=== PATIENT | male | born 1950 | race African-American/Black ===

== ENCOUNTER 2017-05-05 00:05 | Inpatient (IN) | payer MEDICAID, OTHER ==
[~2017-05-05] VITALS: Ht 177.8 cm; Wt 92.5 kg
--- NOTE | 2017-05-05 00:15 | ERA ---
ER Documentation Chief Complaint Date/Time DATE: 05/05/17 TIME: 00:14 Chief Complaint BIBBess [id number] from home c/o lower back spasm,verbalized unable to ambulate HPI The patient is a 66-year-old male, presenting to the ER because of acute back spasm, unable to ambulate according to him. He has history of chronic lower back pain but the pain is worse tonight. He is a very poor historian only once to sleep. He denies headache, neck pain, chest pain, abdominal pain, vomiting, dysuria, diarrhea, constipation, urinary or fecal incontinence. He does not want to answer questions but only once to sleep Past medical history: Diabetes mellitus, chronic low back pain Past surgical history/social history/review of system: Unable to obtain because patient did not cooperate ROS All systems reviewed and are negative except as per history of present illness. Medications Home Meds No Active Prescriptions or Reported Meds Allergies Allergies: Coded Allergies: aspirin (Verified Allergy, Unknown, hives, 05/05/17) Physical Exam Vitals Vital Signs Date Time Temp Pulse Resp B/P Pulse Ox O2 Delivery O2 Flow Rate FiO2 05/05/17 01:46 92 18 158/89 98 Room Air 05/05/17 00:08 98.2 106 18 144/80 99 Physical Exam Const: No acute distress. Head: Atraumatic. Eyes: Normal Conjunctiva. ENT: Normal External Ears, Nose and Mouth. Neck: Full range of motion. No meningismus. Resp: Clear to auscultation bilaterally. Cardio: Regular rate and rhythm. Abd: Soft, non distended, normal bowel sounds, non tender. Skin: No petechiae or rashes. Back: No midline or flank tenderness. Ext: Bilateral lower extremity edema, mild bilateral calf tenderness, left ankle monitor Neur: Limited due to his condition Psych: Limited to his condition. Result Diagram: 05/05/17 0050 05/05/17 0050 Results 24 hrs Laboratory Tests Test 05/05/17 00:50 05/05/17 01:50 05/05/17 02:40 White Blood Count 5.610^3/ul Red Blood Count 3.9310^6/ul Hemoglobin 11.7g/dl Hematocrit 36.3% Mean Corpuscular Volume 92.4fl Mean Corpuscular Hemoglobin 29.8pg Mean Corpuscular Hemoglobin Concent 32.2g/dl Red Cell Distribution Width 15.7% Platelet Count 94283^3/UL Mean Platelet Volume 10.6fl Neutrophils % 37.9% Lymphocytes % 45.2% Monocytes % 10.6% Eosinophils % 5.4% Basophils % 0.7% Nucleated Red Blood Cells % 0.0/100WBC Neutrophils # 2.110^3/ul Lymphocytes # 2.510^3/ul Monocytes # 0.610^3/ul Eosinophils # 0.310^3/ul Basophils # 0.010^3/ul Nucleated Red Blood Cells # 0.010^3/ul Prothrombin Time 16.3Sec Prothrombin Time Ratio 1.3 INR International Normalized Ratio 1.30 Activated Partial Thromboplast Time 30.4Sec Sodium Level 142mmol/L Potassium Level 3.6mmol/L Chloride Level 110mmol/L Carbon Dioxide Level 25mmol/L Anion Gap 11 Blood Urea Nitrogen 9mg/dl Creatinine 0.81mg/dl Glucose Level 132mg/dl Lactic Acid Level 1.9mmol/L 1.9mmol/L Calcium Level 8.8mg/dl Magnesium Level 1.7mg/dl Total Bilirubin 0.4mg/dl Direct Bilirubin 0.00mg/dl Indirect Bilirubin 0.4mg/dl Aspartate Amino Transf (AST/SGOT) 59IU/L Alanine Aminotransferase (ALT/SGPT) 54IU/L Alkaline Phosphatase 117IU/L Ammonia 24umol/l Troponin I < 0.012ng/ml Total Protein 7.1g/dl Albumin 3.3g/dl Globulin 3.80g/dl Albumin/Globulin Ratio 0.86 Thyroid Stimulating Hormone (TSH) 0.660MIU/L Ethyl Alcohol Level < 10.0mg/dl Urine Color YELLOW Urine Clarity CLEAR Urine pH 7.0 Urine Specific [place] 1.011 Urine Ketones NEGATIVEmg/dL Urine Nitrite NEGATIVEmg/dL Urine Bilirubin NEGATIVEmg/dL Urine Urobilinogen 2+mg/dL Urine Leukocyte Esterase NEGATIVELeu/ul Urine Hemoglobin NEGATIVEmg/dL Urine Glucose NEGATIVEmg/dL Urine Total Protein NEGATIVEmg/dl Urine Opiates Screen Negative Urine Barbiturates Negative Urine Amphetamines Screen Negative Urine Benzodiazepines Screen Negative Urine Cocaine Screen Negative Urine Cannabinoids Negative B-Type Natriuretic Peptide 70PG/ML Current Medications Medications (Trade) Dose Ordered Sig/Dolores Route PRN Reason Start Time Stop Time Status Last Admin Dose Admin Morphine Sulfate (morphine) 2 mg ONCE ONCE IV 05/05/17 02:41 05/05/17 02:42 DC 05/05/17 02:51 Ondansetron HCl 4 mg 4 mg ONCE ONCE IV 05/05/17 02:41 05/05/17 02:42 DC 05/05/17 02:50 Vancomycin HCl (Vancocin) 250 ml @ 125 mls/hr ONCE IVPB 05/05/17 02:41 05/05/17 04:40 Cefepime HCl 1 mg 1 mg NOW STAT IV* 05/05/17 02:30 05/05/17 02:42 DC Cefepime HCl (Maxipime 1gm/50 ml (Pmx)) 50 ml @ 100 mls/hr ONCE ONCE IVPB 05/05/17 02:43 05/05/17 03:12 DC 05/05/17 02:50 Procedures/MDM [place] [address] Radiology Main Line: [phone] DIAGNOSTIC IMAGING REPORT Patient: CINDY LIZAMA : 1950 Age: 66 Sex: M MR #: [id number] DOS: 05/05/17 0023 Ordering MD: ITZEL SPANGLER MD Location: E/R Room/Bed: PROCEDURE: CT Lumbar Spine. CLINICAL INDICATION: Back pain TECHNIQUE: The study was performed on a multidetector CT scanner. Spiral axial 1 mm images were obtained through the lumbar spine and reformatted at 2.5 mm slice thickness. Sagittal and coronal reformations were created from the raw axial data. The images were reviewed on a PACS workstation. The administered radiation dose was CTDI vol = 30.84 mGy, DLP = 1118.38 mGy-cm. One or more the following dose reduction techniques were utilized: Automated exposure control, adjustment of the mA and / or kV according to patient's size, or use of iterative reconstruction technique. COMPARISON: No prior studies are available for comparison. FINDINGS: The heights of the lumbar vertebral bodies appear to be maintained. The lumbar segments are aligned. Mild curvature of the lumbar spine with convexity to the left. At L1-2 there is disk space narrowing, vertebral body osteophyte formation, vacuum disk phenomenon, Schmorl's nodes, diffuse disk bulge, facet and ligamentum flavum hypertrophy, moderate to severe right foraminal stenosis and moderate to severe left foraminal stenosis. At L2-3 there is disk space narrowing, vertebral body osteophyte formation, vacuum disk phenomenon, Schmorl's nodes, endplate sclerosis, diffuse disk bulge , facet and ligamentum flavum hypertrophy and mild central spinal stenosis and moderate to severe right foraminal stenosis and mild to moderate left foraminal stenosis. At L3-4 there is approximate 1 mm anterior displacement of L3 vertebral body on L4, diffuse disk bulge, facet and ligamentum flavum hypertrophy, moderate central spinal stenosis and moderate foraminal stenosis bilaterally. At L4-5 there is disk space narrowing, endplate sclerosis, Schmorl's nodes, vertebral body osteophyte formation, diffuse disk bulge, appearance of moderately large left posterior and foraminal disk protrusion, facet and ligamentum flavum hypertrophy, moderate right foraminal stenosis and severe left foraminal stenosis and moderate to severe central spinal stenosis. At L5-S1 there is disk space narrowing, endplate sclerosis, Schmorl's nodes, vertebral body osteophyte formation, diffuse disk bulge, moderate to severe left foraminal stenosis and severe right foraminal stenosis. Degenerative changes at sacroiliac joints. Calcification in abdominal aorta and iliac arteries. Likely left renal cysts. 8 mm linear calcification left posterior bladder wall. IMPRESSION: Lumbar spondylosis. Please see detailed findings at each level above. Moderately large left posterior and foraminal L4-5 disk protrusion. Moderate to severe central spinal stenosis at L4-5. Moderate central spinal stenosis at L3-4. Severe left foraminal stenosis at L4-5, severe right foraminal stenosis at L5-S1 and moderate to severe foraminal stenosis at multiple levels as described above. RPTAT: HJES .Mitchel Ricardo MD, MD Date Time Electronically viewed and signed by .Mitchel Ricardo MD, MD on 05/05/2017 02:36 .S/ CC: ITZEL SPANGLER MD [place] [address] Radiology Main Line: [phone] DIAGNOSTIC IMAGING REPORT Patient: CINDY LIZAMA : 1950 Age: 66 Sex: M MR #: [id number] DOS: 05/05/17 002 Ordering MD: ITZEL SPANGLER MD Location: E/R Room/Bed: PROCEDURE: US bilateral lower extremity venous Doppler CLINICAL INDICATION: Bilateral swelling TECHNIQUE: Multiple sonographic images of the bilateral lower extremity deep venous system was obtained utilizing grayscale, color-flow, compressive sonography and Doppler imaging with augmentation. COMPARISON: There are no similar studies submitted for comparison. FINDINGS: There is normal compressibility and flow within the bilateral common and superficial femoral veins as well as the posterior tibial veins. The popliteal and peroneal veins are not well visualized due to limitations from body habitus. IMPRESSION: No evidence of DVT within the lower extremities. Nonvisualization of the popliteal and peroneal veins due to limitations from body habitus. RPTAT: HIKT .Darryl Adhikari MD, MD Date Time Electronically viewed and signed by .Darryl Adhikari MD, MD on 05/05/2017 01:26 .T/ CC: ITZEL SPANGLER MD [place] [address] Radiology Main Line: [phone] DIAGNOSTIC IMAGING REPORT Patient: CINDY LIZAMA : 1950 Age: 66 Sex: M MR #: [id number] DOS: 05/05/17 002 Ordering MD: ITZEL SPANGLER MD Location: E/R Room/Bed: PROCEDURE: XR Chest. CLINICAL INDICATION: Possible sepsis. TECHNIQUE: Single frontal view of the chest. COMPARISON: None. FINDINGS: Cardiomegaly. Pulmonary vascular congestion and bilateral patchy air space disease at lung bases with fluid versus atelectasis in the region of the horizontal fissure. Airspace disease is greater at the medial right lung base, perhaps representing pneumonia in setting of sepsis. Otherwise, no definite pleural effusions identified. No signs of pneumothorax are seen. The osseous structures and soft tissues are unremarkable. IMPRESSION: 1. Pulmonary vascular ingestion cardiomegaly. 2. Bilateral lung base air space disease, greater at the medial right lung base , perhaps representing a degree of pneumonia. 3. Fluid in the horizontal fissure versus atelectasis. RPTAT: UU Physician Silvia Date Time Electronically viewed and signed by Clark Sheppard Physician on 05/05/2017 02:08 RS/ CC: ITZEL SPANGLER MD EKG: Read by emergency physician Rate/Rhythm: Normal Sinus Rhythm 87 beats/min QRS, ST, T-waves: No ST elevation, no T inversion, sinus arrhythmia, PVC Impression: Abnormal EKG MEDICAL MAKING DECISION: The patient is 66-year-old male, presenting with acute pneumonia, acute disc protrusion. Since the patient has left ankle monitor on his left lower extremity and is a very poor historian, I will treat him with vancomycin IV and cefepime IV for acute pneumonia. He was treated with morphine 2 mg IV for pain, Zofran 4 mg IV for nausea with good response The differential diagnoses for acute pneumonia considered include but are not limited to asthma, COPD, pneumonia, pulmonary embolus, pleural effusion, congestive heart failure. The differential diagnoses for acute disc protrusion considered include but are not limited to caudal equina syndrome, spinal abscess, DJD, diskitis, lumbar radiculopathy. Departure Diagnosis: Primary Impression: Pneumonia Additional Impressions: Protrusion of lumbar intervertebral disc Anemia Acute exacerbation of chronic low back pain Condition: Stable Comments I discussed the findings with the patient. I discussed the patient with the on- call hospitalist Dr. Angel who was made aware of the lab, the treatment, the patient condition. The patient is admitted to [facility] at 3:15 AM The patient's blood pressure was elevated (>120/80) but appears stable without evidence of hypertension emergency or urgency. The patient was counseled about the risks of hypertension and urged to pursue outpatient monitoring and therapy within a week with their primary care physician. ITZEL SPANGLER MD May 05, 2017 00:15
[2017-05-05 01:02] LABS: ADD SCAN DIFF NO
[2017-05-05 01:11] LABS: BASOPHILS % 0.7 % (0.0-2.0); EOSINOPHILS # 0.3 10^3/ul (0.0-0.5); EOSINOPHILS % 5.4 % (0.0-7.0); HEMATOCRIT 36.3 % (42.0-52.0); HEMOGLOBIN 11.7 g/dl (14.0-18.0); LYMPHOCYTES # 2.5 10^3/ul (0.8-2.9); LYMPHOCYTES % 45.2 % (15.0-51.0); MEAN CORPUSCULAR HEMOGLOBIN 29.8 pg (29.0-33.0); MEAN CORPUSCULAR HGB CONC 32.2 g/dl (32.0-37.0); MEAN CORPUSCULAR VOLUME 92.4 fl (82.0-101.0); MEAN PLATELET VOLUME 10.6 fl (7.4-10.4); MONOCYTE # 0.6 10^3/ul (0.3-0.9); MONOCYTES % 10.6 % (0.0-11.0); NEUTROPHIL # 2.1 10^3/ul (1.6-7.5); NEUTROPHILS % 37.9 % (39.0-77.0); PLATELET COUNT 187 10^3/UL (140-415); RED BLOOD COUNT 3.93 10^6/ul (4.70-6.10); RED CELL DISTRIBUTION WIDTH 15.7 % (11.5-14.5); WHITE BLOOD COUNT 5.6 10^3/ul (4.8-10.8)
[2017-05-05 01:26] LABS: INR 1.3; PROTIME 16.3 Sec (12.2-14.2); PT RATIO 1.3
--- NOTE | 2017-05-05 01:26 | RADRPT ---
PROCEDURE: US bilateral lower extremity venous Doppler CLINICAL INDICATION: Bilateral swelling TECHNIQUE: Multiple sonographic images of the bilateral lower extremity deep venous system was obt ained utilizing grayscale, color-flow, compressive sonography and Doppler imaging with augmentation. COMPARISON: There are no similar studies submitted for comparison. FINDINGS: There is normal compressibility and flow within the bilateral common and superficial femoral veins a s well as the posterior tibial veins. The popliteal and peroneal veins are not well visualized due to limitations from body habitus. IMPRESSION: No evidence of DVT within the lower extremities. Nonvisualization of the popliteal and peroneal vein s due to limitations from body habitus. RPTAT: HIKT .Darryl Adhikari MD, MD Date Time Electronically viewed and signed by .Darryl Adhikari MD, on 05/05/2017 01:26 .T/
[2017-05-05 01:27] LABS: PARTIAL THROMBOPLASTIN TIME 30.4 Sec (25.0-35.0)
[2017-05-05 01:30] LABS: ALANINE AMINOTRANSFERASE 54 IU/L (13-69); ALBUMIN 3.3 g/dl (3.3-4.9); ALBUMIN/GLOBULIN RATIO 0.86; ALKALINE PHOSPHATASE 117 IU/L (42-121); ANION GAP 11 (8-16); ASPARTATE AMINO TRANSFERASE 59 IU/L (15-46); BILIRUBIN,INDIRECT 0.4 mg/dl (0-1.1); BILIRUBIN,TOTAL 0.4 mg/dl (0.2-1.3); BLOOD UREA NITROGEN 9 mg/dl (7-20); CALCIUM 8.8 mg/dl (8.4-10.2); CARBON DIOXIDE 25 mmol/L (21-31); CHLORIDE 110 mmol/L (97-110); CREATININE 0.81 mg/dl (0.61-1.24); GLUCOSE 132 mg/dl (70-220); POTASSIUM 3.6 mmol/L (3.5-5.1); SODIUM 142 mmol/L (135-144); TOTAL PROTEIN 7.1 g/dl (6.1-8.1)
[2017-05-05 01:33] LABS: LACTIC ACID 1.9 mmol/L (0.5-2.2)
[2017-05-05 01:43] LABS: ETHANOL < 10.0 mg/dl
[2017-05-05 02:00] LABS: TROPONIN-I < 0.012 ng/ml (0.00-0.12)
--- NOTE | 2017-05-05 02:08 | RADRPT ---
PROCEDURE: XR Chest. CLINICAL INDICATION: Possible sepsis. TECHNIQUE: Single frontal view of the chest. COMPARISON: None. FINDINGS: Cardiomegaly. Pulmonary vascular congestion and bilateral patchy air space disease at lung bases wit h fluid versus atelectasis in the region of the horizontal fissure. Airspace disease is greater at the medial right lung base, perhaps representing pneumonia in setting of sepsis. Otherwise, no defi nite pleural effusions identified. No signs of pneumothorax are seen. The osseous structures and sof t tissues are unremarkable. IMPRESSION: 1. Pulmonary vascular ingestion cardiomegaly. 2. Bilateral lung base air space disease, greater at the medial right lung base, perhaps representi ng a degree of pneumonia. 3. Fluid in the horizontal fissure versus atelectasis. RPTAT: UU Physician Silvia Date Time Electronically viewed and signed by Physician Silvia on 05/05/2017 02:08 RS/
[2017-05-05 02:09] LABS: ADD UMIC NO; UR ASCORBIC ACID NEGATIVE (NEGATIVE); UR BILIRUBIN (Dip) NEGATIVE (NEGATIVE); UR BLOOD (Dip) NEGATIVE (NEGATIVE); UR CLARITY CLEAR (CLEAR); UR COLOR YELLOW (YELLOW); UR GLUCOSE (Dip) NEGATIVE (NEGATIVE); UR KETONES (Dip) NEGATIVE (NEGATIVE); UR LEUKOCYTE ESTERASE (Dip) NEGATIVE Leu/ul (NEGATIVE); UR NITRITE (Dip) NEGATIVE (NEGATIVE); UR SPECIFIC GRAVITY (Dip) 1.011 (1.003-1.030); UR TOTAL PROTEIN (Dip) NEGATIVE (NEGATIVE); UR UROBILINOGEN (Dip) 2+ mg/dL (NEGATIVE)
[2017-05-05 02:13] LABS: CANNABINOIDS Negative (NEGATIVE)
[2017-05-05 02:16] LABS: BARBITURATES Negative (NEGATIVE); BENZODIAZEPINES Negative (NEGATIVE); COCAINE Negative (NEGATIVE); OPIATES Negative (NEGATIVE)
[2017-05-05] MEDS ORDERED: CEFEPIME HCL (40 MG/ML) IV SYG IV* STA (02:30)
--- NOTE | 2017-05-05 02:37 | RADRPT ---
PROCEDURE: CT Lumbar Spine. CLINICAL INDICATION: Back pain TECHNIQUE: The study was performed on a multidetector CT scanner. Spiral axial 1 mm images were o btained through the lumbar spine and reformatted at 2.5 mm slice thickness. Sagittal and coronal ref ormations were created from the raw axial data. The images were reviewed on a PACS workstation. The administered radiation dose was CTDI vol = 30.84 mGy, DLP = 1118.38 mGy-cm. One or more the following dose reduction techniques were utilized: Automated exposure control, adjus tment of the mA and / or kV according to patient's size, or use of iterative reconstruction techniqu e. COMPARISON: No prior studies are available for comparison. FINDINGS: The heights of the lumbar vertebral bodies appear to be maintained. The lumbar segments are aligned . Mild curvature of the lumbar spine with convexity to the left. At L1-2 there is disk space narrowing, vertebral body osteophyte formation, vacuum disk phenomenon, Schmorl's nodes, diffuse disk bulge, facet and ligamentum flavum hypertrophy, moderate to severe rig ht foraminal stenosis and moderate to severe left foraminal stenosis. At L2-3 there is disk space narrowing, vertebral body osteophyte formation, vacuum disk phenomenon, Schmorl's nodes, endplate sclerosis, diffuse disk bulge, facet and ligamentum flavum hypertrophy and mild central spinal stenosis and moderate to severe right foraminal stenosis and mild to moderate l eft foraminal stenosis. At L3-4 there is approximate 1 mm anterior displacement of L3 vertebral body on L4, diffuse disk bul ge, facet and ligamentum flavum hypertrophy, moderate central spinal stenosis and moderate foraminal stenosis bilaterally. At L4-5 there is disk space narrowing, endplate sclerosis, Schmorl's nodes, vertebral body osteophyt e formation, diffuse disk bulge, appearance of moderately large left posterior and foraminal disk pr otrusion, facet and ligamentum flavum hypertrophy, moderate right foraminal stenosis and severe left foraminal stenosis and moderate to severe central spinal stenosis. At L5-S1 there is disk space narrowing, endplate sclerosis, Schmorl's nodes, vertebral body osteophy te formation, diffuse disk bulge, moderate to severe left foraminal stenosis and severe right forami nal stenosis. Degenerative changes at sacroiliac joints. Calcification in abdominal aorta and iliac arteries. Rasheeda mao left renal cysts. 8 mm linear calcification left posterior bladder wall. IMPRESSION: Lumbar spondylosis. Please see detailed findings at each level above. Moderately large left posteri or and foraminal L4-5 disk protrusion. Moderate to severe central spinal stenosis at L4-5. Moderate central spinal stenosis at L3-4. Severe left foraminal stenosis at L4-5, severe right foraminal st enosis at L5-S1 and moderate to severe foraminal stenosis at multiple levels as described above. RPTAT: HJES .Mitchel Ricardo MD, Date Time Electronically viewed and signed by .Mitchel Ricardo MD, MD on 05/05/2017 02:36 .S/
[2017-05-05] MEDS ORDERED: VANCOMYCIN 1 GM (PMX) 250 ML IVPB SCH (02:41)
[2017-05-05] MEDS ORDERED: morphine 2 MG INJ IV ONE (02:41)
[2017-05-05] MEDS ORDERED: ONDANSETRON 4 MG INJ IV ONE (02:41)
[2017-05-05] MEDS ORDERED: CEFEPIME 1GM/50 ML (PMX) 50 ML IVPB ONE (02:43)
[2017-05-05 06:14] VITALS: Ht 177.8 cm; Wt 92.5 kg
[2017-05-05 07:30] VITALS: BP 143/94; PULSE 90; RESP 22
[2017-05-05] MEDS ORDERED: MAGNESIUM HYDROXIDE 30ML CUP PO PRN (07:30)
[2017-05-05] MEDS ORDERED: DOCUSATE SODIUM 100 MG CAP PO PRN (07:30)
[2017-05-05] MEDS ORDERED: HYDROCODONE/APAP (5/325) TAB PO PRN (07:30)
[2017-05-05] MEDS ORDERED: NACL 0.9% 3 ML SYG IV SCH (07:30)
[2017-05-05] MEDS ORDERED: ACETAMINOPHEN 325 MG TAB PO PRN (07:30)
[2017-05-05] MEDS ORDERED: ZOLPIDEM 5 MG TAB PO PRN (07:30)
[2017-05-05] MEDS ORDERED: ONDANSETRON 4 MG INJ IV PRN (07:30)
--- NOTE | 2017-05-05 07:57 | HP ---
DATE OF ADMISSION: 05/05/2017 TIME: 7:00 a.m. CHIEF COMPLAINT: Back pain. HISTORY OF PRESENT ILLNESS: The patient is a 66-year-old male with a reported history of chronic lo wer back pain, but had acute lower back spasms and was unable to ambulate. The patient is a poor hi storian and falls asleep very easily. In the ED he was denying any headache, chest pain, urinary inc ontinence or fecal incontinence. Even in the ED the patient was constantly going in and out of sleep . The patient reportedly has a past medical history of diabetes and chronic low back pain. Once aga in, not much history could be obtained from the patient as the patient is very lethargic. PAST MEDICAL HISTORY: Diabetes, chronic low back pain. PAST SURGICAL HISTORY: Unable to obtain secondary to patient's lethargic state. HOME MEDICATIONS: No active home medications reported. ALLERGIES: ASPIRIN. FAMILY HISTORY: Unknown. SOCIAL HISTORY: Unknown. Unable to obtain secondary to patient's poor mentation. REVIEW OF SYSTEMS: Unable to obtain secondary to patient's poor mentation. PHYSICAL EXAMINATION: VITAL SIGNS: Temperature is 98.2, pulse 95, respirations 22, BP is 143/93, saturation is 95% on jutsin m air. GENERAL: Very lethargic. HEENT: Normocephalic, atraumatic. LUNGS: Clear to auscultation. CARDIOVASCULAR: Regular rate and rhythm. ABDOMEN: Nondistended, nontender, soft. EXTREMITIES: No clubbing, cyanosis, or edema. LABORATORY: White count 12.6, hemoglobin 11.7, platelets are 187. Chemistry within normal limits. AST slightly elevated at 59. INR is 1.3. UA is within normal limits. U-tox is negative. DIAGNOSTICS: Lumbar spine CT shows lumbar spondylosis, moderately large left posterior foraminal L4 -5 disk protrusion, moderate to severe central canal stenosis at L4-L5, moderate central canal steno sis at L3-L4, severe left foraminal stenosis at L4-L5, severe right foraminal stenosis at L5-S1, mod erate to severe foraminal stenosis at multiple levels as described. Extremity venous study is negat brad for any DVTs within the lower extremities. Chest x-ray shows pulmonary vascular congestion, cardiomegaly, bilateral lung airspace disease, grea ter at the medial right lung base, perhaps representing pneumonia. Fluid in the horizontal fi ssure versus atelectasis. ASSESSMENT AND PLAN: 1. Acute on chronic back pain. The patient states he is unable to ambulate. Will get a PT evaluati on. The patient may benefit from a neurosurgical evaluation. 2. Acute versus chronic encephalopathy. The patient's baseline mentation is unknown. He is very l ethargic at this time. Unclear if he is taking a lot of pain medications. His U-tox is negative. There is no evidence of any sepsis. On her labs and vitals there is no indication for any antibiotic s. 3. Bilateral pulmonary opacities, possibly secondary to atelectasis. The patient is denying any co ugh. He has no evidence of sepsis on his labs. He is afebrile. No indication for antibiotics at t his time. 4. Prophylaxis. SCDs. Dictated By: CAMRON HILTON MD BS/NTS Conf#: [id number] DID#: [id number]
[2017-05-05] MEDS: D5W-0.45 NACL + KCL 20 MEQ 1,000 ML IV SCH ×2 (07:58→18:09)
[2017-05-05 08:00] VITALS: BP 143/94; RESP 22
[2017-05-05] MEDS: ENOXAPARIN 40 MG/0.4 ML SYG SC SCH (09:46)
[2017-05-05] MEDS ORDERED: GLUCAGON 1 MG INJ IM PRN (13:30)
[2017-05-05] MEDS ORDERED: GLUCOSE GEL 15 GRAM TUBE BUCCAL PRN (13:30)
[2017-05-05] MEDS ORDERED: DEXTROSE 50% 50 ML SYRINGE IV PRN ×2 (13:30)
[2017-05-05] MEDS ORDERED: GLUCOSE GEL 15 GRAM TUBE PO PRN ×2 (13:30)
[2017-05-05] MEDS: INSULIN ASPART [NOVOLOG] 3 ML PEN SC SCH ×2 (18:03→20:22)
[2017-05-05 19:58] VITALS: BP 151/78; RESP 18
[2017-05-05] MEDS: INSULIN GLARGINE [LANtus] 3 ML PEN SC SCH (20:23)
[2017-05-05] MEDS: morphine 2 MG INJ IV PRN (23:39)
[2017-05-06] MEDS: ACCU-CHEK XX SCH (02:14)
[2017-05-06] MEDS: D5W-0.45 NACL + KCL 20 MEQ 1,000 ML IV SCH ×5 (04:00→23:39)
[2017-05-06 06:06] LABS: ADD SCAN DIFF NO
[2017-05-06 06:13] LABS: BASOPHILS % 0.6 % (0.0-2.0); EOSINOPHILS # 0.2 10^3/ul (0.0-0.5); EOSINOPHILS % 3.5 % (0.0-7.0); HEMATOCRIT 34.1 % (42.0-52.0); HEMOGLOBIN 11.1 g/dl (14.0-18.0); LYMPHOCYTES # 2.6 10^3/ul (0.8-2.9); LYMPHOCYTES % 39.8 % (15.0-51.0); MEAN CORPUSCULAR HEMOGLOBIN 29.8 pg (29.0-33.0); MEAN CORPUSCULAR HGB CONC 32.6 g/dl (32.0-37.0); MEAN CORPUSCULAR VOLUME 91.7 fl (82.0-101.0); MEAN PLATELET VOLUME 10.6 fl (7.4-10.4); MONOCYTE # 0.6 10^3/ul (0.3-0.9); MONOCYTES % 8.9 % (0.0-11.0); NEUTROPHIL # 3.1 10^3/ul (1.6-7.5); NEUTROPHILS % 46.9 % (39.0-77.0); PLATELET COUNT 154 10^3/UL (140-415); RED BLOOD COUNT 3.72 10^6/ul (4.70-6.10); RED CELL DISTRIBUTION WIDTH 15.5 % (11.5-14.5); WHITE BLOOD COUNT 6.6 10^3/ul (4.8-10.8)
[2017-05-06 06:44] LABS: CALCIUM 8.5 mg/dl (8.4-10.2); CHOL/HDL RATIO 4.4 RATIO; CREATININE 0.73 mg/dl (0.61-1.24); MAGNESIUM 1.6 mg/dl (1.7-2.5); PHOSPHORUS 3.1 mg/dl (2.5-4.9); POTASSIUM 3.8 mmol/L (3.5-5.1)
[2017-05-06 06:57] LABS: T3 UPTAKE 37.7 % (23.5-40.5)
[2017-05-06] MEDS: INSULIN ASPART [NOVOLOG] 3 ML PEN SC SCH ×4 (07:59→20:57)
[2017-05-06 08:27] VITALS: BP 156/77; RESP 20
[2017-05-06] MEDS: morphine 2 MG INJ IV PRN (09:26)
[2017-05-06] MEDS: ENOXAPARIN 40 MG/0.4 ML SYG SC SCH (09:31)
[2017-05-06] MEDS ORDERED: PENDING SANTYL ORDER FOR WOUND CARE XX PRN (17:00)
[2017-05-06 19:52] VITALS: BP 158/83; RESP 18
[2017-05-06] MEDS: HYDROCODONE/APAP (5/325) TAB PO PRN (20:27)
[2017-05-06] MEDS: INSULIN GLARGINE [LANtus] 3 ML PEN SC SCH (20:32)
--- NOTE | 2017-05-06 22:55 | PN ---
Date/Time of Note Date/Time of Note DATE: 05/06/17 TIME: 22:42 Assessment/Plan VTE Prophylaxis VTE Prophylaxis Intervention: LMWH Lines/Catheters IV Catheter Type (from Nrsg): Peripheral IV Urinary Cath still in place: No Assessment/Plan Assessment/Plan IMPRESSION 1. Lumbar Stenosis and disc protrusion 2. Chronic Lower Back pain 3. Diabetes 4. Hypomagnesemia 5. Aggressive Behavior PLAN cont PT awaiting Neurosurg eval Insulin for diabetes replete Mag Subjective 24 Hr Interval Summary Free Text/Dictation pt not willing to talk saying he does not want to be bothered Exam/Review of Systems Vital Signs Vitals Vital Signs Date Time Temp Pulse Resp B/P Pulse Ox O2 Delivery O2 Flow Rate FiO2 05/06/17 19:52 98.7 93 18 158/83 99 05/05/17 18:15 Nasal Cannula 2.0 Intake and Output 05/05/17 05/05/17 05/06/17 14:59 22:59 06:59 Intake Total 1860 ml 1000 ml Output Total 550 ml Balance -550 ml 1860 ml 1000 ml Exam General: pt lying in bed in no acute distress. Did not allow me to do physical exam Results Result Diagram: 05/06/17 0541 05/06/17 0541 Results 24 hrs Laboratory Tests Test 05/06/17 02:08 05/06/17 05:41 05/06/17 07:57 05/06/17 12:01 Bedside Glucose 124 135 139 White Blood Count 6.6 Red Blood Count 3.72 L Hemoglobin 11.1 L Hematocrit 34.1 L Mean Corpuscular Volume 91.7 Mean Corpuscular Hemoglobin 29.8 Mean Corpuscular Hemoglobin Concent 32.6 Red Cell Distribution Width 15.5 H Platelet Count 154 Mean Platelet Volume 10.6 H Neutrophils % 46.9 Lymphocytes % 39.8 Monocytes % 8.9 Eosinophils % 3.5 Basophils % 0.6 Nucleated Red Blood Cells % 0.0 Neutrophils # 3.1 Lymphocytes # 2.6 Monocytes # 0.6 Eosinophils # 0.2 Basophils # 0.0 Nucleated Red Blood Cells # 0.0 Sodium Level 140 Potassium Level 3.8 Chloride Level 110 Carbon Dioxide Level 24 Anion Gap 10 Blood Urea Nitrogen 10 Creatinine 0.73 Glucose Level 173 Hemoglobin A1c 6.1 H Calcium Level 8.5 Phosphorus Level 3.1 Magnesium Level 1.6 L Triglycerides Level 69 Cholesterol Level 128 LDL Cholesterol, Calculated 85 HDL Cholesterol 29 L Cholesterol/HDL Ratio 4.4 Free Thyroxine Index 3.47 Thyroxine (T4) 9.2 Triiodothyronine (T3) Uptake 37.7 Test 05/06/17 18:00 05/06/17 20:29 Bedside Glucose 148 178 Medications Medications Current Medications Potassium Chloride/Dextrose/ Sod Cl (D5-1/2ns + KCl 20 Meq) 1,000 ml @ 100 mls/ hr Q10H IV Last administered on 05/06/17 09:26; Admin Dose 100 MLS/HR; Start 05/05/17 at 08:00 Ondansetron HCl (Zofran Inj) 4 mg Q6H PRN IV NAUSEA AND/OR VOMITING; Start at 07:30 Acetaminophen (Tylenol Tab) 650 mg Q6H PRN PO PAIN LEVEL 1-3 OR FEVER; Start at 07:30 Docusate Sodium (Colace) 100 mg Q12H PRN PO CONSTIPATION; Start 05/05/17 at 07: 30 Magnesium Hydroxide (Milk Of Mag) 30 ml DAILY PRN PO CONSTIPATION; Start at 07:30 Zolpidem Tartrate (Ambien) 5 mg QHS PRN PO SLEEP; Start 05/05/17 at 07:30 Enoxaparin Sodium (Lovenox) 40 mg DAILY SC Last administered on 05/06/17 09:31 ; Admin Dose 40 MG; Start 05/05/17 at 09:00 Insulin Glargine (Lantus) 10 unit DAILY@20 SC Last administered on 05/06/17 20 :32; Admin Dose 10 UNIT; Start 05/05/17 at 20:00 Diagnostic Test (Pha) (Accu-Chek) 1 ea 02 XX Last administered on 05/06/17 02: 14; Admin Dose 1 EA; Start 05/06/17 at 02:00 Miscellaneous Information 1 ea NOTE XX ; Start 05/05/17 at 13:30 Glucose (Glutose) 15 gm Q15M PRN PO DECREASED GLUCOSE; Start 05/05/17 at 13:30 Glucose (Glutose) 22.5 gm Q15M PRN PO DECREASED GLUCOSE; Start 05/05/17 at 13: 30 Dextrose (D50w Syringe) 25 ml Q15M PRN IV DECREASED GLUCOSE; Start 05/05/17 at 13:30 Dextrose (D50w Syringe) 50 ml Q15M PRN IV DECREASED GLUCOSE; Start 05/05/17 at 13:30 Glucagon (Glucagen) 1 mg Q15M PRN IM DECREASED GLUCOSE; Start 05/05/17 at 13:30 Glucose (Glutose) 15 gm Q15M PRN BUCCAL DECREASED GLUCOSE; Start 05/05/17 at 13 :30 Miscellaneous Information (Pending [facility] Order For Wound Care) This patient tran... PRN PRN XX WOUND CARE; Start 05/06/17 at 17:00 Morphine Sulfate (morphine) 4 mg Q4H PRN IV SEVERE PAIN LEVEL 7-10; Start 05/06 at 23:30 Acetaminophen/ Hydrocodone Bitart ([place] (5/325)) 2 tab Q6H PRN PO MODERATE PAIN LEVEL 4-6 Last administered on 05/06/17t 20:27; Admin Dose 2 TAB; Start at 20:30 LUKE HUNT MD May 06, 2017 22:55
[2017-05-06] MEDS ORDERED: MAGNESIUM SULFATE 2 GM/50 ML 50 ML IVPB ONE (23:00)
[2017-05-07] MEDS: ACCU-CHEK XX SCH (01:13)
[2017-05-07] MEDS ORDERED: HYDROCODONE/APAP (5/325) TAB PO PRN (01:30)
[2017-05-07] MEDS: HYDROCODONE/APAP (5/325) TAB PO PRN (04:25)
[2017-05-07 05:42] LABS: ADD SCAN DIFF NO
[2017-05-07 05:55] LABS: BASOPHIL # 0.1 10^3/ul (0.0-0.1); BASOPHILS % 0.8 % (0.0-2.0); EOSINOPHILS # 0.3 10^3/ul (0.0-0.5); EOSINOPHILS % 4.2 % (0.0-7.0); HEMATOCRIT 33.1 % (42.0-52.0); LYMPHOCYTES # 2.1 10^3/ul (0.8-2.9); LYMPHOCYTES % 35.4 % (15.0-51.0); MEAN CORPUSCULAR HEMOGLOBIN 30.2 pg (29.0-33.0); MEAN CORPUSCULAR HGB CONC 33.2 g/dl (32.0-37.0); MEAN CORPUSCULAR VOLUME 90.9 fl (82.0-101.0); MEAN PLATELET VOLUME 10.7 fl (7.4-10.4); MONOCYTE # 0.7 10^3/ul (0.3-0.9); MONOCYTES % 11.4 % (0.0-11.0); NEUTROPHIL # 2.9 10^3/ul (1.6-7.5); PLATELET COUNT 152 10^3/UL (140-415); RED BLOOD COUNT 3.64 10^6/ul (4.70-6.10); RED CELL DISTRIBUTION WIDTH 15.2 % (11.5-14.5)
[2017-05-07 06:31] LABS: ALBUMIN/GLOBULIN RATIO 0.88; BILIRUBIN,INDIRECT 0.5 mg/dl (0-1.1); BILIRUBIN,TOTAL 0.5 mg/dl (0.2-1.3); CALCIUM 8.3 mg/dl (8.4-10.2); CREATININE 0.71 mg/dl (0.61-1.24); MAGNESIUM 1.9 mg/dl (1.7-2.5); PHOSPHORUS 3.5 mg/dl (2.5-4.9); TOTAL PROTEIN 6.4 g/dl (6.1-8.1)
[2017-05-07 08:00] VITALS: BP 149/70; RESP 20
[2017-05-07] MEDS: INSULIN ASPART [NOVOLOG] 3 ML PEN SC SCH ×4 (08:15→20:43)
[2017-05-07] MEDS: morphine 2 MG INJ IV PRN ×4 (09:26→22:07)
[2017-05-07] MEDS: ENOXAPARIN 40 MG/0.4 ML SYG SC SCH (09:32)
[2017-05-07] MEDS: D5W-0.45 NACL + KCL 20 MEQ 1,000 ML IV SCH ×2 (10:00→19:24)
[2017-05-07 20:07] VITALS: BP 160/77; RESP 18
[2017-05-07] MEDS: INSULIN GLARGINE [LANtus] 3 ML PEN SC SCH (20:49)
[2017-05-07] MEDS: COLLAGENASE 30 GM TUBE TOP SCH (22:30)
[2017-05-08] MEDS: ACCU-CHEK XX SCH (01:41)
[2017-05-08] MEDS: morphine 2 MG INJ IV PRN ×3 (02:30→13:50)
[2017-05-08] MEDS: D5W-0.45 NACL + KCL 20 MEQ 1,000 ML IV SCH (05:59)
[2017-05-08] MEDS: INSULIN ASPART [NOVOLOG] 3 ML PEN SC SCH ×4 (07:59→20:35)
[2017-05-08 08:06] VITALS: BP 163/86; RESP 20
[2017-05-08] MEDS: COLLAGENASE 30 GM TUBE TOP SCH ×2 (09:07→16:22)
[2017-05-08] MEDS: ENOXAPARIN 40 MG/0.4 ML SYG SC SCH (09:12)
--- NOTE | 2017-05-08 15:40 | PN ---
Date/Time of Note Date/Time of Note DATE: 05/08/17 TIME: 15:36 Assessment/Plan VTE Prophylaxis VTE Prophylaxis Intervention: SCD's Lines/Catheters IV Catheter Type (from Nrsg): Peripheral IV Urinary Cath still in place: No Assessment/Plan Assessment/Plan 66 yo M with h/o alcohol abuse admitted for back pain. Imaging with lumbar spondylosis. No evidence of cauda equina syndrome based on lack of bowel/ bladder dysfunction. PLAN cont pain meds-->convert to PO arrange HH for sacral wound and PT outpatient NS f/u likely discharge tomorrow Subjective 24 Hr Interval Summary Free Text/Dictation Pt wondering when he'll be able to go his sober living facility. Pt does not report loretta loss of bladder or bowel control Exam/Review of Systems Vital Signs Vitals Vital Signs Date Time Temp Pulse Resp B/P Pulse Ox O2 Delivery O2 Flow Rate FiO2 05/08/17 08:06 98.8 93 20 163/86 97 05/05/17 18:15 Nasal Cannula 2.0 Intake and Output 05/07/17 05/07/17 05/08/17 15:00 23:00 07:00 Intake Total 2910 ml 1400 ml Output Total 5550 ml 1200 ml Balance -2640 ml 200 ml Exam sitting up in bed no mrg lungs clear abd soft sacral pressure wounds dressed Results Result Diagram: 05/07/17 0516 05/07/17 0516 Results 24 hrs Laboratory Tests Test 05/07/17 17:23 05/07/17 20:42 05/08/17 07:56 05/08/17 11:57 Bedside Glucose 137 162 153 95 Medications Medications Current Medications Ondansetron HCl (Zofran Inj) 4 mg Q6H PRN IV NAUSEA AND/OR VOMITING; Start at 07:30 Acetaminophen (Tylenol Tab) 650 mg Q6H PRN PO PAIN LEVEL 1-3 OR FEVER; Start at 07:30 Docusate Sodium (Colace) 100 mg Q12H PRN PO CONSTIPATION; Start 05/05/17 at 07: 30 Magnesium Hydroxide (Milk Of Mag) 30 ml DAILY PRN PO CONSTIPATION; Start at 07:30 Zolpidem Tartrate (Ambien) 5 mg QHS PRN PO SLEEP; Start 05/05/17 at 07:30 Enoxaparin Sodium (Lovenox) 40 mg DAILY SC Last administered on 05/08/17 09:12 ; Admin Dose 40 MG; Start 05/05/17 at 09:00 Insulin Glargine (Lantus) 10 unit DAILY@20 SC Last administered on 05/07/17 20 :49; Admin Dose 10 UNIT; Start 05/05/17 at 20:00 Diagnostic Test (Pha) (Accu-Chek) 1 ea 02 XX Last administered on 05/06/17 02: 14; Admin Dose 1 EA; Start 05/06/17 at 02:00 Miscellaneous Information 1 ea NOTE XX ; Start 05/05/17 at 13:30 Glucose (Glutose) 15 gm Q15M PRN PO DECREASED GLUCOSE; Start 05/05/17 at 13:30 Glucose (Glutose) 22.5 gm Q15M PRN PO DECREASED GLUCOSE; Start 05/05/17 at 13: 30 Dextrose (D50w Syringe) 25 ml Q15M PRN IV DECREASED GLUCOSE; Start 05/05/17 at 13:30 Dextrose (D50w Syringe) 50 ml Q15M PRN IV DECREASED GLUCOSE; Start 05/05/17 at 13:30 Glucagon (Glucagen) 1 mg Q15M PRN IM DECREASED GLUCOSE; Start 05/05/17 at 13:30 Glucose (Glutose) 15 gm Q15M PRN BUCCAL DECREASED GLUCOSE; Start 05/05/17 at 13 :30 Miscellaneous Information (Pending Santyl Order For Wound Care) This patient tran... PRN PRN XX WOUND CARE; Start 05/06/17 at 17:00 Morphine Sulfate (morphine) 4 mg Q4H PRN IV SEVERE PAIN LEVEL 7-10 Last administered on 05/08/17 13:50; Admin Dose 4 MG; Start 05/06/17 at 23:30 Acetaminophen/ Hydrocodone Bitart ([place] (5/325)) 2 tab Q6H PRN PO MODERATE PAIN LEVEL 4-6 Last administered on 05/07/17 04:25; Admin Dose 2 TAB; Start at 20:30 Collagenase (Santyl) 1 applic DAILY TOP ; Start 05/08/17 at 15:30 ERIC HORN MD May 08, 2017 15:40
[2017-05-08] MEDS ORDERED: HYDROCODONE/APAP (5/325) TAB PO PRN (16:00)
[2017-05-08] MEDS: traMADol 50 MG TAB PO PRN ×2 (18:14→23:35)
[2017-05-08 20:04] VITALS: BP 155/73; RESP 18
[2017-05-08] MEDS: INSULIN GLARGINE [LANtus] 3 ML PEN SC SCH (20:35)
[2017-05-08] MEDS ORDERED: NAPROXEN 250 MG TAB PO SCH (21:00)
[2017-05-09] MEDS: ACCU-CHEK XX SCH (01:03)
[2017-05-09 07:56] VITALS: BP 142/75; RESP 20
[2017-05-09] MEDS: INSULIN ASPART [NOVOLOG] 3 ML PEN SC SCH ×3 (08:15→17:25)
[2017-05-09] MEDS: COLLAGENASE 30 GM TUBE TOP SCH (09:59)
[2017-05-09] MEDS: ENOXAPARIN 40 MG/0.4 ML SYG SC SCH (10:13)
[2017-05-09] MEDS: traMADol 50 MG TAB PO PRN (10:43)
[2017-05-09] MEDS ORDERED: SAN30GM TOP (15:37)
--- NOTE | 2017-05-09 15:39 | PDOCDIS ---
Discharge Instructions CONDITION Patient Condition: Stable HOME CARE INSTRUCTIONS: Special Diet: Carb controlled ACTIVITY: Activity Restrictions: Slowly Increase Activity FOLLOW UP/APPOINTMENTS Follow-up Plan PCP within 7 days to follow up on your back pain ERIC HORN MD May 09, 2017 15:39
--- NOTE | 2017-05-09 15:40 | DS ---
Date/Time of Note Date/Time of Note DATE: 05/09/17 TIME: 15:39 Discharge Summary Admission/Discharge Info Admit Date/Time May 05, 2017 at 04:06 Discharge Date/Time Discharge Diagnosis back pain due to spinal stenosis Patient Condition: Stable Consults none Procedures 6.23 CT LSpine IMPRESSION: Lumbar spondylosis.e. Moderately large left posterior and foraminal L4-5 disk protrusion. Moderate to severe central spinal stenosis at L4-5. Moderate central spinal stenosis at L3-4. Severe left foraminal stenosis at L4-5, severe right foraminal stenosis at L5-S1 and moderate to severe foraminal stenosis at multiple levels as described above. 6.27 CT C spine 1. Severe multilevel degenerative disk and spondylitic changes resulting in varying degrees of foraminal stenosis from C3-C4 through C7-T1. No acute fracture or dislocation. 2. No paraspinal soft tissue abnormality. CT TSpine 1. No acute fracture or subluxation. 2. Multilevel degenerative disk and spondylitic changes from T3-T4 through T9- T10 resulting in moderate bilateral foraminal stenosis at T4-T5 and mild bilateral foraminal stenosis at T5-T6 without central canal stenosis. 3. Broad-based left subarticular disk osteophyte complex at T8-T9 resulting in severe left subarticular recess and foraminal stenosis without central canal or right foraminal stenosis. 4. Mild multilevel facet joint arthropathy. 5. No paraspinal soft tissue abnormality. Hx of Present Illness The patient is a 66-year-old male with a reported history of chronic lower back pain, but had acute lower back spasms and was unable to ambulate. The patient is a poor historian and falls asleep very easily. In the ED he was denying any headache, chest pain, urinary incontinence or fecal incontinence. Even in the ED the patient was constantly going in and out of sleep. The patient reportedly has a past medical history of diabetes and chronic low back pain. Once again, not much history could be obtained from the patient as the patient is very lethargic. Hospital Course Lumbar imaging with spinal stenosis. Pt denied any saddle anesthesia or decreased sensation therefore clinical scenario not consistent with cord compression. Pt seen by PT which advised SNF however pt refused. Neurosurgery eval also offered to patient to explore treatment options, pt refused this as well. Dw pt that it is possible that spinal stenosis can progress and result in permanent damage but pt still refused evaluation. Pain controlled with PO pain meds. Wound team consulted for sacral pressure wounds, santyl advised and rx. Of note, pt with occ hyperglycemia to 200s during his stay, however a1c only 6.1 indicative only of preDM therefore no compelling indication for patient to be discharge on insulin. Pt left AMA late evening 6.27 Home Meds Active Scripts Collagenase* (Santyl*) 30 Gm Oint..gm., 1 APPLIC TOP DAILY for 7 Days apply to buttock wounds Prov:ERIC HORN MD 05/09/17 Follow-up Plan PCP within 7 days Primary Care Provider Care Physician No Primary Time spent on discharge: > 30 minutes Pending Labs Laboratory Tests Test 05/08/17 16:35 05/08/17 17:07 05/08/17 20:32 05/09/17 08:15 Prostate Specific Antigen 0.5ng/ml (0.0-4.0) Bedside Glucose 93mg/dL (70-220) 142mg/dL (70-220) 93mg/dL (70-220) Test 05/09/17 12:12 Bedside Glucose 92mg/dL (70-220) ERIC HORN MD May 09, 2017 15:40
--- NOTE | 2017-05-09 16:14 | PN ---
Date/Time of Note Date/Time of Note DATE: 05/09/17 TIME: 16:13 Assessment/Plan VTE Prophylaxis VTE Prophylaxis Intervention: SCD's Lines/Catheters IV Catheter Type (from Nrsg): Peripheral IV Urinary Cath still in place: No Assessment/Plan Assessment/Plan Assessment/Plan 66 yo M with h/o alcohol abuse admitted for back pain Lumbar imaging with spinal stenosis. Pt denied any saddle anesthesia or decreased sensation therefore clinical scenario not consistent with cord compression. Pt seen by PT which advised SNF however pt refused. Neurosurgery eval also offered to patient to explore treatment options, pt refused this as well. Dw pt that it is possible that spinal stenosis can progress and result in permanent damage but pt still refused evaluation. Pain controlled with PO pain meds. Wound team consulted for sacral pressure wounds, roscoe advised and rx. Of note, pt with occ hyperglycemia to 200s during his stay, however a1c only 6.1 indicative only of preDM therefore no compelling indication for patient to be discharge on insulin. likely discharge tomorrow Subjective 24 Hr Interval Summary Free Text/Dictation Pt was going to be discharged today but 2/2 logistical constraints (ride availability) will be here until tomorrow Exam/Review of Systems Vital Signs Vitals Vital Signs Date Time Temp Pulse Resp B/P Pulse Ox O2 Delivery O2 Flow Rate FiO2 05/09/17 07:56 97.6 63 20 142/75 98 05/05/17 18:15 Nasal Cannula 2.0 Intake and Output 05/08/17 05/08/17 05/09/17 15:00 23:00 07:00 Intake Total 300 ml 2160 ml 620 ml Output Total 2950 ml 1800 ml Balance 300 ml -790 ml -1180 ml Exam nad sitting up in bed no mrg lungs clear abd soft no le edema Results Result Diagram: 05/07/17 0516 05/07/17 0516 Results 24 hrs Laboratory Tests Test 05/08/17 16:35 05/08/17 17:07 05/08/17 20:32 05/09/17 08:15 Prostate Specific Antigen 0.5 Bedside Glucose 93 142 93 Test 05/09/17 12:12 Bedside Glucose 92 Medications Medications Current Medications Ondansetron HCl (Zofran Inj) 4 mg Q6H PRN IV NAUSEA AND/OR VOMITING; Start at 07:30 Acetaminophen (Tylenol Tab) 650 mg Q6H PRN PO PAIN LEVEL 1-3 OR FEVER; Start at 07:30 Docusate Sodium (Colace) 100 mg Q12H PRN PO CONSTIPATION; Start 05/05/17 at 07: 30 Magnesium Hydroxide (Milk Of Mag) 30 ml DAILY PRN PO CONSTIPATION; Start at 07:30 Enoxaparin Sodium (Lovenox) 40 mg DAILY SC Last administered on 05/09/17 10:13 ; Admin Dose 40 MG; Start 05/05/17 at 09:00 Insulin Glargine (Lantus) 10 unit DAILY@20 SC Last administered on 05/08/17 20 :35; Admin Dose 10 UNIT; Start 05/05/17 at 20:00 Diagnostic Test (Pha) (Accu-Chek) 1 ea 02 XX Last administered on 05/06/17 02: 14; Admin Dose 1 EA; Start 05/06/17 at 02:00 Miscellaneous Information 1 ea NOTE XX ; Start 05/05/17 at 13:30 Glucose (Glutose) 15 gm Q15M PRN PO DECREASED GLUCOSE; Start 05/05/17 at 13:30 Glucose (Glutose) 22.5 gm Q15M PRN PO DECREASED GLUCOSE; Start 05/05/17 at 13: 30 Dextrose (D50w Syringe) 25 ml Q15M PRN IV DECREASED GLUCOSE; Start 05/05/17 at 13:30 Dextrose (D50w Syringe) 50 ml Q15M PRN IV DECREASED GLUCOSE; Start 05/05/17 at 13:30 Glucagon (Glucagen) 1 mg Q15M PRN IM DECREASED GLUCOSE; Start 05/05/17 at 13:30 Glucose (Glutose) 15 gm Q15M PRN BUCCAL DECREASED GLUCOSE; Start 05/05/17 at 13 :30 Miscellaneous Information (Pending Santyl Order For Wound Care) This patient tran... PRN PRN XX WOUND CARE; Start 05/06/17 at 17:00 Acetaminophen/ Hydrocodone Bitart ([place] (5/325)) 2 tab Q6H PRN PO MODERATE PAIN LEVEL 4-6 Last administered on 05/07/17 04:25; Admin Dose 2 TAB; Start at 20:30 Collagenase (Santyl) 1 applic DAILY TOP Last administered on 05/09/17 09:59; Admin Dose 1 APPLIC; Start 05/08/17 at 15:30 Acetaminophen/ Hydrocodone Bitart ([place] (5/325)) 1 tab Q6H PRN PO pain; Start 05/08/17 at 16:00 Tramadol HCl (Ultram) 50 mg Q6H PRN PO PAIN Last administered on 05/09/17 10: 43; Admin Dose 50 MG; Start 05/08/17 at 16:00 ERIC HORN MD May 09, 2017 16:14
--- NOTE | 2017-05-09 16:37 | RADRPT ---
PROCEDURE: CT Cervical Spine without contrast. CLINICAL INDICATION: Bilateral arm pain. TECHNIQUE: A CT of the cervical spine was performed on a CT scanner utilizing thin section axial images from the skull base through the thoracic inlet. Sagittal and coronal reformatted images were made. The CTDIvol is 22.21 mGy and the DLP is 464.74 mGycm. Automated exposure control, adjustment of the mA and/or kV according to patient size, use of iterative reconstruction technique. COMPARISON: No prior studies are available for comparison. FINDINGS: Straightening of the cervical spine. Advanced multilevel degenerative disk and endplate changes wit h subchondral sclerosis and some chondral cystic degenerative changes at multiple levels most pronou nced at C4-C5 through C6-C7. Degenerative changes of the atlanto-occipital articulation. No acute f racture or dislocation is evident. C2-3: The disc is normal in height. Moderate to severe hypertrophic left facet joint arthropathy. P artial fusion of the left articulating facet of C2 and C3 as well as left posterior lateral C2 and C 3 vertebral body. No significant disk bulge or protrusion is evident. There is no central canal sten osis or foraminal narrowing. C3-4: New moderate disk space narrowing with marked degenerative endplate sclerosis and irregularity . Anterior endplate spurring and posterior spondylitic ridging. Right uncovertebral joint hypertro phy with mild right foraminal stenosis. No left foraminal or central canal stenosis. No significant disk bulge or protrusion is evident. C4-5: Severe degenerative disk space narrowing, subchondral endplate sclerosis and cystic degenerati ve changes irregularity of the endplates. Prominent anterior endplate spurring and posterior spondy litic ridging. Anterolisthesis of C4 on C5 and disk osteophyte formation. Severe left and moderate right hypertrophic facet joint arthropathy with its marked degenerative changes and fragmentation of the left resulting in severe bilateral foraminal stenosis. No significant disk bulge or protrusion is evident. There is no central canal stenosis or foraminal narrowing. C5-6: Severe disk space narrowing, endplate sclerosis, and anterior endplate spurring. Posterior sp ondylitic ridging and bilateral neural joint hypertrophy disk osteophyte complex formation to severe bilateral hypertrophic facet joint arthropathy left greater than right. Results in severe right to and moderate to severe left foraminal stenosis without central No significant disk bulge or protru michelle is evident. C6-7: Marked disk space narrowing with anterior endplate spurring and posterior spondylitic ridging . Prominent uncovertebral joint hypertrophy and disk osteophyte complex formation. Mild bilateral facet joint arthropathy. This results in severe bilateral foraminal stenosis. No central canal sten osis. No significant disk bulge or protrusion is evident. C7-T1: Moderate disk space narrowing and posterior spondylitic ridging. No significant disk bulge or protrusion is evident. There is no central canal stenosis or foraminal narrowing. No paraspinal soft tissue abnormality. The lung apices are clear. IMPRESSION: 1. Severe multilevel degenerative disk and spondylitic changes resulting in varying degrees of dru inal stenosis from C3-C4 through C7-T1. No acute fracture or dislocation. 2. No paraspinal soft tissue abnormality. RPTAT:AAJJ Physician Nidhi Date Time Electronically viewed and signed by Physician Nidhi on 05/09/2017 16:37 ESTRELLA/
--- NOTE | 2017-05-09 16:55 | RADRPT ---
PROCEDURE: CT thoracic spine CLINICAL INDICATION: Bilateral arm pain TECHNIQUE: A CT of the thoracic spine was performed on a multidetector CT scanner utilizing high-r esolution axial imaging from the cervical thoracic junction through the thoracolumbar junction. Sag ittal, coronal, and multiplanar reformatted images were made. The CTDIvol is 23.85 mGy and the DLP i s 913.48 mGycm. One or more of the following dose reduction techniques were utilized: Automated exp osure control, adjustment of the mA and/or kV according to patient size, use of iterative reconstruc tion technique. COMPARISON: None. FINDINGS: The vertebral bodies are normal in height, density, and alignment. Dextroscoliosis with apex at T6. Multilevel anterolateral bridging osteophyte formation from T3-T4 through T9-T10 with multilevel dis k space narrowing and endplate sclerosis over these levels most pronounced involving the superior en dplate of T9 with Schmorl's node the formation and erosive changes of the superior endplate the with subchondral sclerosis. Posterior endplate spurring at T3-T4 through T8-T9 levels. This results in moderate bilateral dru inal stenosis at T4-T5 and mild bilateral foraminal stenosis at T5-T6 without central canal stenosis . Broad-based left subarticular disk osteophyte complex at T8-T9 measuring 6 mm in AP dimension result ing in severe left subarticular recess and foraminal stenosis. No central canal or right foraminal stenosis. Mild multilevel facet joint arthritis over the length of the thoracic spine . . The thoracic aorta is normal in caliber. The visualized intrathoracic and intra-abdominal contents are grossly unremark able.No evidence of rib fracture. IMPRESSION: 1. No acute fracture or subluxation. 2. Multilevel degenerative disk and spondylitic changes from T3-T4 through T9-T10 resulting in mode rate bilateral foraminal stenosis at T4-T5 and mild bilateral foraminal stenosis at T5-T6 without ce ntral canal stenosis. 3. Broad-based left subarticular disk osteophyte complex at T8-T9 resulting in severe left subartic ular recess and foraminal stenosis without central canal or right foraminal stenosis. 4. Mild multilevel facet joint arthropathy. 5. No paraspinal soft tissue abnormality. RPTAT:AAJJ Roddy Singh Physician Date Time Electronically viewed and signed by Roddy Singh Physician on 05/09/2017 16:54 ESTRELLA/
== END 2017-05-09 20:00 | disposition left against medical advice (07) | DRG 551 ==
LOC: E/R 00:05 → MS2 04:06
PROVIDERS: ADMIT Internal Medicine; ATTEND Internal Medicine
DX: M48.06 Spinal stenosis, lumbar region (principal); L89.153 Pressure ulcer of sacral region, stage 3; E83.42 Hypomagnesemia; M51.26 Other intervertebral disc displacement, lumbar region; M47.816 Spondylosis without myelopathy or radiculopathy, lumbar region; R73.03 Prediabetes; R53.83 Other fatigue; R46.89 Other symptoms and signs involving appearance and behavior
CPT/HCPCS: 36415; 71010; 72125; 72128; 72131; 80048; 80053; 80061; 80306; 80307; 81003; 82140; 82962; 83036; 83605; 83735; 83880; 84100; 84153; 84154; 84436; 84443; 84479; 84484; 85025; 85610; 85730; 87040; 87086; 93005; 93970; 96365; 96366; 96368; 96375; 97110; 97116; 97163; 97530; J0692; J1650; J1815; J2270; J2405; J3370; J3475; J3480; P9612

== ENCOUNTER 2017-05-09 21:34 | Emergency (ER) | payer SELFPAY ==
[~2017-05-09] VITALS: Ht 177.8 cm; Wt 85.0 kg
[~2017-05-09 21:34] MED LIST: SAN30GM TOP
[2017-05-09 21:45] VITALS: Ht 177.8 cm; Wt 85.0 kg
--- NOTE | 2017-05-09 23:25 | ERD ---
ER Documentation Chief Complaint Date/Time DATE: 05/09/17 TIME: 23:24 Chief Complaint back pain w/ hx- disk protrusion, AMA at 6th floor today this evening HPI 66-year-old male with a history of disposition is signed out AGAINST MEDICAL ADVICE 6 for today. He wants to recheck back in. Patient said he has back pain. No fevers no chills. No skeletal anesthesia. No other current issues. ROS All systems reviewed and are negative except as per history of present illness. Medications Home Meds Active Scripts Collagenase* (Santyl*) 30 Gm Oint..gm., 1 APPLIC TOP DAILY for 7 Days apply to buttock wounds Prov:ERIC HORN MD 05/09/17 Allergies Allergies: Coded Allergies: aspirin (Verified Allergy, Unknown, hives, 05/05/17) PMhx/Soc History of Surgery: Yes (appendix ) Anesthesia Reaction: No Hx Neurological Disorder: No Hx Respiratory Disorders: No Hx Cardiac Disorders: No Hx Psychiatric Problems: No Hx Miscellaneous Medical Probl: Yes (DM, chronic LBP) Hx Alcohol Use: Yes Hx Substance Use: No Hx Tobacco Use: Yes Physical Exam Vitals Vital Signs Date Time Temp Pulse Resp B/P Pulse Ox O2 Delivery O2 Flow Rate FiO2 05/09/17 21:45 98.2 94 20 148/80 99 Physical Exam Const: [] Head: Atraumatic Eyes: Normal Conjunctiva ENT: Normal External Ears, Nose and Mouth. Neck: Full range of motion..~ No meningismus. Resp: Clear to auscultation bilaterally Cardio: Regular rate and rhythm, no murmurs Abd: Soft, non tender, non distended. Normal bowel sounds Skin: No petechiae or rashes Back: No midline or flank tenderness Ext: No cyanosis, or edema Neur: Awake and alert Psych: Normal Mood and Affect Procedures/MDM Medical decision-makin-year-old male who eloped prior to full treatment. Upon elopement patient is alert and oriented 4 with goal oriented speech and good decision-making capacity. Departure Diagnosis: Primary Impression: Back pain Back pain location: back pain in unspecified location Chronicity: chronic Back pain laterality: unspecified Qualified Code: M54.9 - Chronic back pain, unspecified back location, unspecified back pain laterality Condition: Stable LUKE MELGAR May 09, 2017 23:24
== END 2017-05-10 01:21 | disposition left against medical advice (07) ==
LOC: E/R 21:34
DX: M54.9 Dorsalgia, unspecified (principal); E11.9 Type 2 diabetes mellitus without complications; F17.210 Nicotine dependence, cigarettes, uncomplicated
CPT/HCPCS: 99283

== ENCOUNTER 2017-05-14 17:20 | Emergency (ER) | payer SELFPAY ==
[~2017-05-14] VITALS: Ht 177.8 cm; Wt 87.5 kg
[2017-05-14 17:25] VITALS: Ht 177.8 cm; Wt 87.5 kg
--- NOTE | 2017-05-14 17:54 | ERD ---
ER Documentation Chief Complaint Date/Time DATE: 05/14/17 TIME: 17:51 Chief Complaint NEEDS NOTE FOR SOBER LIVING THAT STATES PRESSURE SORES ARE NOT CONTAGIOUS HPI 66-year-old male with history of type 2 diabetes, chronic back pain with bilateral sacral pressure sores comes emergency room for clearance. He states that he wants to go back to sober living facility, there was concern for a possible infection to the area. He was admitted for an exacerbation of his chronic back pain and was treated with Santyl ointment. He has not had any pain , drainage or fevers or chills to the area. He has no symptoms. Patient states that this started to occur a few months ago when he started to use a walker due to his back pain. He denies saddle anesthesia. ROS All systems reviewed and are negative except as per history of present illness. Medications Home Meds Active Scripts Collagenase* (Santyl*) 30 Gm Oint..gm., 1 APPLIC TOP DAILY for 7 Days apply to buttock wounds Prov:ERIC HORN MD 05/09/17 Allergies Allergies: Coded Allergies: aspirin (Verified Allergy, Unknown, hives, 05/14/17) PMhx/Soc History of Surgery: Yes (appendix ) Anesthesia Reaction: No Hx Neurological Disorder: No Hx Respiratory Disorders: No Hx Cardiac Disorders: No Hx Psychiatric Problems: No Hx Miscellaneous Medical Probl: Yes (DM, chronic LBP) Hx Alcohol Use: Yes Hx Substance Use: No Hx Tobacco Use: Yes Physical Exam Vitals Vital Signs Date Time Temp Pulse Resp B/P Pulse Ox O2 Delivery O2 Flow Rate FiO2 05/14/17 17:25 98.4 116 18 155/70 99 Physical Exam General: Well-developed, well-nourished. The patient appears in no acute distress. HEENT: Head is normocephalic, atraumatic. No scleral icterus. Neck: Supple. Nontender. Lungs: Clear to auscultation. Normal air movement. Heart: Regular rate and rhythm. S1 and S2 are normal. No murmurs, gallops, or rubs. Abdomen: Soft, nontender, nondistended. Bowel sounds are normoactive. Extremities: No clubbing or cyanosis. Normal pulses. Moving extremities x 4. No weakness. Neurologic: Alert and oriented 3. No focal deficits. Skin: 2 superficial stage I pressure sores by the cecum, there is one on the left one on the right they are healing, there is excoriation of the skin, without erythema, no tenderness. Procedures/MDM 66-year-old male comes in with stage I sacral pressure sores one on left than on the right, there is very minimal skin breakage and appears healing with excoriation. No evidence of any abscess, drainage, or tenderness to palpation. There are no signs of acute infection or contagious process at this time. Patient's blood pressure was elevated (>120/80) but appears stable without evidence of hypertension emergency or urgency. The patient was counseled about the risks of hypertension and urged to pursue outpatient monitoring and therapy within a week with their primary care physician. Departure Diagnosis: Primary Impression: Sacral pressure sore Condition: Good Patient Instructions: How Pressure Ulcers Form Additional Instructions: This paient shows no signs of infectious disease at this time of evaluation. If redness, pain, swelling, drainage occurs please reexamine. Recommend to keep the wound covered. JUSTYN NORTON PA-C May 14, 2017 17:54
== END 2017-05-14 18:17 | disposition home or self-care (01) ==
LOC: FTE 17:20
DX: L89.151 Pressure ulcer of sacral region, stage 1 (principal); E11.9 Type 2 diabetes mellitus without complications; F17.210 Nicotine dependence, cigarettes, uncomplicated
CPT/HCPCS: 99282

== ENCOUNTER 2017-05-16 15:41 | Inpatient (IN) | payer MEDICAID ==
[~2017-05-16] VITALS: Ht 177.8 cm; Wt 82.1 kg
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
--- NOTE | 2017-05-16 16:58 | RADRPT ---
PROCEDURE: XR, Chest. CLINICAL INDICATION: Chest pain. TECHNIQUE: AP chest COMPARISON: Chest, 05/05/2017. FINDINGS: There is no acute infiltrate in the lungs. No pleural effusion. The heart is not enlarged. IMPRESSION: 1. Unremarkable chest x-ray. RPTAT: GG .Felix Almaraz MD, MD Date Time Electronically viewed and signed by .Felix Almaraz MD, on 05/16/2017 16:58 .Y/
[2017-05-16 17:24] LABS: ADD SCAN DIFF NO
[2017-05-16 17:26] LABS: BASOPHIL # 0.1 10^3/ul (0.0-0.1); BASOPHILS % 0.9 % (0.0-2.0); EOSINOPHILS # 0.2 10^3/ul (0.0-0.5); EOSINOPHILS % 3.5 % (0.0-7.0); HEMATOCRIT 33.4 % (42.0-52.0); HEMOGLOBIN 11.3 g/dl (14.0-18.0); LYMPHOCYTES # 2.7 10^3/ul (0.8-2.9); LYMPHOCYTES % 49.7 % (15.0-51.0); MEAN CORPUSCULAR HEMOGLOBIN 31.4 pg (29.0-33.0); MEAN CORPUSCULAR HGB CONC 33.8 g/dl (32.0-37.0); MEAN CORPUSCULAR VOLUME 92.8 fl (82.0-101.0); MEAN PLATELET VOLUME 10.9 fl (7.4-10.4); MONOCYTE # 0.6 10^3/ul (0.3-0.9); MONOCYTES % 11.7 % (0.0-11.0); NEUTROPHIL # 1.9 10^3/ul (1.6-7.5); NEUTROPHILS % 34.2 % (39.0-77.0); PLATELET COUNT 181 10^3/UL (140-415); WHITE BLOOD COUNT 5.5 10^3/ul (4.8-10.8)
[2017-05-16] MEDS ORDERED: HYDROCODONE/APAP (5/325) TAB PO ONE (17:30)
[2017-05-16 17:46] LABS: ALANINE AMINOTRANSFERASE 42 IU/L (13-69); ALBUMIN 3.2 g/dl (3.3-4.9); ALBUMIN/GLOBULIN RATIO 0.91; ALKALINE PHOSPHATASE 82 IU/L (42-121); ANION GAP 18 (8-16); ASPARTATE AMINO TRANSFERASE 44 IU/L (15-46); BILIRUBIN,INDIRECT 0.4 mg/dl (0-1.1); BILIRUBIN,TOTAL 0.4 mg/dl (0.2-1.3); BLOOD UREA NITROGEN 12 mg/dl (7-20); CALCIUM 9.2 mg/dl (8.4-10.2); CARBON DIOXIDE 23 mmol/L (21-31); CHLORIDE 106 mmol/L (97-110); CREATININE 0.71 mg/dl (0.61-1.24); GLUCOSE 131 mg/dl (70-220); POTASSIUM 3.6 mmol/L (3.5-5.1); SODIUM 143 mmol/L (135-144); TOTAL PROTEIN 6.7 g/dl (6.1-8.1)
[2017-05-16 17:56] LABS: B-TYPE NATRIURETIC PEPTIDE 104 PG/ML (0-125)
[2017-05-16 18:00] LABS: TROPONIN-I < 0.012 ng/ml (0.00-0.12)
--- NOTE | 2017-05-16 18:42 | RADRPT ---
PROCEDURE: MRI OF THE THORACIC SPINE. CLINICAL INDICATION: Back pain with weakness TECHNIQUE: Multiple MRI images were obtained utilizing multiple sequences in sagittal and axial plan es. Images were interpreted on a high-resolution PACS system. COMPARISON: CT from 05/09/2017 FINDINGS: The vertebral body heights are preserved. No acute fractures are present. There is slight increase d kyphosis of the mid thoracic spine. Slight right convex curvature of the thoracic spine is also p resent. Bone marrow signal is within normal limits. No aggressive appearing bone lesions are visual ized. Anterior endplate osteophytes are noted throughout the thoracic spine better seen on the recen t prior CT. The cord signal is within normal limits. The cord is normal in course and caliber. The paraspinal soft tissues are unremarkable. Findings at specific disc levels: There is disk desiccation throughout the thoracic spine. T1-T2: Mild loss of disk height. Mild annular bulge but no central canal narrowing. Mild right and no left neural foraminal narrowing. T2-T3: Mild loss of disk height. Minimal annular bulge but no central canal or neural foraminal annette rowing. Mild bilateral facet arthropathy. T3-T4: Mild loss of disk height. Minimal annular bulge but no central canal narrowing. Mild left an d no right neural foraminal narrowing. Mild bilateral facet arthropathy. T4-T5: Moderate loss of disk height with more prominent anterior endplate osteophytes. Broad 3 - 4 mm annular bulge and posterolateral osseous ridging indenting the ventral thecal sac with mild centr al canal narrowing. Moderate bilateral neural foraminal narrowing. Mild bilateral facet arthropathy . T5-T6: Moderate to severe loss of disk height with prominent anterior endplate osteophytes. Broad 2 - 3 mm annular bulge and bilateral posterolateral osseous ridging with mild central canal narrowing and mild bilateral neural foraminal narrowing. Mild bilateral facet arthropathy. T6-T7: Mild to moderate loss of disk height with small Schmorl's nodes and prominent anterior endpla te osteophytes. Minimal annular bulge but no central canal narrowing. No neural foraminal narrowin g. T7-T8: Moderate to severe loss of disk height with prominent anterior endplate osteophytes. Minimal annular bulge but no central canal narrowing. Moderate left neural foraminal narrowing with postero lateral osseous ridging. No right neural foraminal narrowing. T8-T9: Moderate to severe loss of disk height with type 1 endplate changes more prominent on the lef t with Schmorl's nodes more prominent within the superior endplate of T9. There is a 5 mm left para central to posterolateral disk herniation with calcification and posterolateral osseous ridging as s een on the prior CT compressing the ventral thecal sac and slightly indenting the ventral left aspec t of the cord with moderate central canal narrowing. Moderate to severe left and mild right neural foraminal narrowing. T9-T10: Mild loss of disk height. Mild 2 mm annular bulge with mild central canal narrowing. Mild bilateral neural foraminal narrowing. T10-T11: Normal disk height and signal. No annular bulge or central canal narrowing. Mild bilatera l neural foraminal narrowing. T11-T12: Normal disk height and signal. No annular bulge, central canal narrowing, or neural foramin al narrowing. RPTAT: ZZ IMPRESSION: 1. Multilevel degenerative disk disease more prominent from T3-T9. 2. Moderate to severe degenerative disk disease at T8-T9 with prominent Schmorl's nodes and mild ty pe 1 endplate changes. Broad 5 mm left paracentral to posterolateral disk herniation slightly inden ting the ventral left cord with moderate central canal narrowing. Moderate to severe left neural fo raminal narrowing. 3. Moderate to severe degenerative disk disease at T5-T6 with a 2-3 mm annular bulge with mild cent ral canal narrowing. 4. Moderate degenerative disk disease at T4-T5 with a 3-4 mm annular bulge and mild central canal n arrowing. Moderate bilateral neural foraminal narrowing. .Tory Goel MD, Date Time Electronically viewed and signed by .Tory Goel MD, on 05/16/2017 18:42 .T/
--- NOTE | 2017-05-16 18:55 | RADRPT ---
PROCEDURE: MR Lumbar Spine without contrast. CLINICAL INDICATION: Back pain and weakness TECHNIQUE: An MRI of the lumbar spine was performed utilizing the following sequences: Sagittal T1 -weighted and sagittal T2-weighted. According to the technology note, the patient declined to compl ete the prior exam and therefore limited sequences are obtained COMPARISON: CT lumbar spine 05/05/2017 FINDINGS: Vertebral bodies: The localizer sequence suggests a 15 degrees scoliosis convex to the left with the apex at L3 there is no evidence of compression deformity, type 1 endplate changes are seen at L3-4 and L4-5 with type 2 changes at L5-S1. Anterior spondylosis is moderate throughout the lumbar spine. There is no evidence of subluxation Conus medularis region: Normal in signal intensity and location terminating at the L1 level. T12-L1: No discogenic abnormality of significance is seen. There is no facet arthropathy. The centr al canal is patent. There is no evidence for foraminal stenosis. L1-L2: Disk signal loss with mild to moderate loss of disk stature and a posterior 5 mm disk and ost eophyte complex. Mild facet arthropathy is suggested. The ligamentum flava are normal in thickness. There is a mild degree of central stenosis. Osteophyte and disk material contributes to moderate b ilateral foraminal narrowing. L2-L3: Disk signal loss with eccentric moderate to severe loss of disk stature asymmetric to the rig ht. A disk and osteophyte complex is approximately 5 mm and enters the foramina. Mild facet arthrop athy is difficult to exclude. The ligamentum flava are normal in thickness. Mild central canal sten osis is present. Osteophyte and disk material causes severe right and moderate left foraminal steno sis. L3-L4: Disk signal loss with annular disk bulging slightly asymmetric to the right. Moderate to rafita re facet arthropathy is suggested. Mild ligamentum flavum hypertrophy is present. Combination of fi ndings contribute to moderate to severe central stenosis the AP dimension of the canal approximately 6 mm. Disk material extends into the foramina causing moderate to severe right and moderate left f oraminal stenosis. L4-L5: Disk signal loss with moderate loss of disk stature slightly asymmetric to the left. The lef t paracentral disk protrusion seen on the recent CT is estimated at 8 mm and contributes to severe l eft lateral recess stenosis. Moderate bilateral facet arthropathy is suspected. The ligamentum flava are normal in thickness. Moderate to severe central stenosis is present the AP dimension of the th ecal sac approximately 6 mm. Osteophyte and disk material causes severe left and moderate right for aminal stenosis. L5-S1: Severe loss of disk stature with circumferential osteophyte and disk complex of approximately 7 mm extending into the foramina. Moderate bilateral facet arthropathy is present. The ligamentum f lava are normal in thickness. The central canal is patent. Osteophyte and disk material causes mod erate to severe bilateral foraminal stenosis. Sacrum and sacroiliac joints: No abnormalities are identified, the joints are normal and symmetric. None spine related findings: No abnormalities are demonstrated. RPTAT:HJJR IMPRESSION: 1. Limited exam, sagittal sequence is only are obtained as the patient declined to complete the ent clemencia standard study protocol. 2. Central left paracentral disk protrusion at L4-[address] of 05/05/2017 is believed to con tribute to moderate to severe central canal stenosis, severe left lateral recess narrowing with oste ophyte and disk material causing significant left greater than right foraminal stenosis at this leve l. 3. Moderate to severe acquired central stenosis at L3-4 caused by asymmetric disk bulging that cont ributes to right greater than left foraminal stenosis. 4. Significant degenerative disk narrowing at L2-3 asymmetric to the right contributing to severe r ight and moderate left foraminal stenosis as well as mild central canal narrowing. 5. Severe degenerative disk narrowing at L5-S1 with osteophyte and disk complex causing significant bilateral foraminal stenosis without central canal narrowing. 6. Mild central canal stenosis caused by osteophyte and disk complex at the L1-2 level. 7. Mild levoscoliosis of approximately 15 degrees with the apex at L3. Physician Geovanni Date Time Electronically viewed and signed by Physician Geovanni on 05/16/2017 18:55 /
[2017-05-16 19:05] VITALS: TEMP 97.4
[2017-05-16] MEDS ORDERED: ASPI-664 PO (19:19)
[2017-05-16] MEDS ORDERED: GABA300C16 PO (19:19)
[2017-05-16] MEDS ORDERED: MTF1000T PO (19:19)
[2017-05-16] MEDS ORDERED: ALLO100T PO (19:19)
[2017-05-16] MEDS ORDERED: ACETAMINOPHEN 325 MG TAB PO PRN ×2 (21:00→21:30)
[2017-05-16] MEDS ORDERED: NACL 0.9% 3 ML SYG IV SCH (21:00)
[2017-05-16 21:27] LABS: INR 1.43; PROTIME 17.5 Sec (12.2-14.2); PT RATIO 1.4
[2017-05-16 21:28] LABS: PARTIAL THROMBOPLASTIN TIME 32.2 Sec (25.0-35.0)
[2017-05-16] MEDS ORDERED: ONDANSETRON 4 MG INJ IV PRN (21:30)
[2017-05-16 22:00] VITALS: BP 141/79; RESP 18
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
[2017-05-16] MEDS: morphine 2 MG INJ IV PRN (22:43)
[2017-05-16] MEDS: GABAPENTIN 300 MG CAP PO SCH (22:43)
[2017-05-16] MEDS: ENOXAPARIN 40 MG/0.4 ML SYG SC SCH (22:48)
[2017-05-17] MEDS: morphine 2 MG INJ IV PRN ×4 (04:47→20:29)
[2017-05-17 05:28] LABS: ADD SCAN DIFF NO
[2017-05-17 05:38] LABS: BASOPHIL # 0.1 10^3/ul (0.0-0.1); EOSINOPHILS # 0.3 10^3/ul (0.0-0.5); EOSINOPHILS % 5.2 % (0.0-7.0); HEMATOCRIT 32.1 % (42.0-52.0); HEMOGLOBIN 10.4 g/dl (14.0-18.0); LYMPHOCYTES # 2.9 10^3/ul (0.8-2.9); LYMPHOCYTES % 57.1 % (15.0-51.0); MEAN CORPUSCULAR HEMOGLOBIN 30.1 pg (29.0-33.0); MEAN CORPUSCULAR HGB CONC 32.4 g/dl (32.0-37.0); MEAN CORPUSCULAR VOLUME 92.8 fl (82.0-101.0); MEAN PLATELET VOLUME 11.1 fl (7.4-10.4); MONOCYTE # 0.5 10^3/ul (0.3-0.9); MONOCYTES % 10.5 % (0.0-11.0); NEUTROPHIL # 1.3 10^3/ul (1.6-7.5); PLATELET COUNT 171 10^3/UL (140-415); RED BLOOD COUNT 3.46 10^6/ul (4.70-6.10)
[2017-05-17] MEDS ORDERED: PANTOPRAZOLE 40 MG INJ IV SCH (06:00)
[2017-05-17 06:24] LABS: ALBUMIN 2.8 g/dl (3.3-4.9); ALBUMIN/GLOBULIN RATIO 0.84; BILIRUBIN,INDIRECT 0.4 mg/dl (0-1.1); BILIRUBIN,TOTAL 0.4 mg/dl (0.2-1.3); CALCIUM 8.7 mg/dl (8.4-10.2); CREATININE 0.77 mg/dl (0.61-1.24); TOTAL PROTEIN 6.1 g/dl (6.1-8.1)
[2017-05-17 07:00] VITALS: BP 145/77; RESP 20
[2017-05-17] MEDS: GABAPENTIN 300 MG CAP PO SCH ×3 (08:31→20:29)
[2017-05-17] MEDS: HYDROCODONE/APAP (5/325) TAB PO PRN ×3 (08:32→22:45)
[2017-05-17] MEDS: ENOXAPARIN 40 MG/0.4 ML SYG SC SCH (08:41)
[2017-05-17] MEDS ORDERED: COLLAGENASE 30 GM TUBE TOP SCH (09:00)
[2017-05-17 13:59] LABS: ADD UMIC NO; UR ASCORBIC ACID NEGATIVE (NEGATIVE); UR BILIRUBIN (Dip) NEGATIVE (NEGATIVE); UR BLOOD (Dip) NEGATIVE (NEGATIVE); UR CLARITY CLEAR (CLEAR); UR COLOR YELLOW (YELLOW); UR GLUCOSE (Dip) NEGATIVE (NEGATIVE); UR KETONES (Dip) NEGATIVE (NEGATIVE); UR LEUKOCYTE ESTERASE (Dip) NEGATIVE Leu/ul (NEGATIVE); UR NITRITE (Dip) NEGATIVE (NEGATIVE); UR SPECIFIC GRAVITY (Dip) 1.023 (1.003-1.030); UR TOTAL PROTEIN (Dip) NEGATIVE (NEGATIVE); UR UROBILINOGEN (Dip) 2+ mg/dL (NEGATIVE)
--- NOTE | 2017-05-17 14:17 | PN ---
Date/Time of Note Date/Time of Note DATE: 05/17/17 TIME: 14:15 Assessment/Plan VTE Prophylaxis VTE Prophylaxis Intervention: LMWH Lines/Catheters IV Catheter Type (from Nrs): Saline Lock Assessment/Plan Chief Complaint/Hosp Course 1. Acute on chronic back pain. MRI was performed of the thoracic and lumbar spine showing multiple areas of canal narrowing as well as disc protrusion Patient previously refused neurosurgical evaluation however as his pain has gotten worse he is now agreeable to neurosurgical evaluation Neurosurgery consulted Pain control and PT 2. Encephalopathy-improved Patient appears to be chronically somnolent possibly from pain medications 3. Prediabetes: Previous hemoglobin A1c 6.1. 4. DVT and GI prophylaxis: Lovenox, Protonix. Problems: Subjective 24 Hr Interval Summary Musculoskeletal: back pain Exam/Review of Systems Vital Signs Vitals Vital Signs Date Time Temp Pulse Resp B/P Pulse Ox O2 Delivery O2 Flow Rate FiO2 05/17/17 07:00 98.9 87 20 145/77 98 Intake and Output 05/16/17 05/16/17 05/17/17 15:00 23:00 07:00 Intake Total 720 ml Balance 720 ml Exam Constitutional: alert Respiratory: clear to auscultation Cardiovascular: regular rate and rhythm Gastrointestinal: soft, No distended Musculoskeletal: nl extremities to inspection Results Result Diagram: 05/17/17 0430 05/17/17 0430 Results 24 hrs Laboratory Tests Test 05/16/17 17:05 05/16/17 22:58 05/17/17 04:30 White Blood Count 5.5 5.0 Red Blood Count 3.60 L 3.46 L Hemoglobin 11.3 L 10.4 L Hematocrit 33.4 L 32.1 L Mean Corpuscular Volume 92.8 92.8 Mean Corpuscular Hemoglobin 31.4 30.1 Mean Corpuscular Hemoglobin Concent 33.8 32.4 Red Cell Distribution Width 16.0 H 16.0 H Platelet Count 181 171 Mean Platelet Volume 10.9 H 11.1 H Neutrophils % 34.2 L 26.0 L Lymphocytes % 49.7 57.1 H Monocytes % 11.7 H 10.5 Eosinophils % 3.5 5.2 Basophils % 0.9 1.0 Nucleated Red Blood Cells % 0.0 0.0 Neutrophils # 1.9 1.3 L Lymphocytes # 2.7 2.9 Monocytes # 0.6 0.5 Eosinophils # 0.2 0.3 Basophils # 0.1 0.1 Nucleated Red Blood Cells # 0.0 0.0 Prothrombin Time 17.5 H Prothrombin Time Ratio 1.4 INR International Normalized Ratio 1.43 Activated Partial Thromboplast Time 32.2 Sodium Level 143 142 Potassium Level 3.6 4.0 Chloride Level 106 107 Carbon Dioxide Level 23 24 Anion Gap 18 H 15 Blood Urea Nitrogen 12 12 Creatinine 0.71 0.77 Glucose Level 131 131 Calcium Level 9.2 8.7 Total Bilirubin 0.4 0.4 Direct Bilirubin 0.00 0.00 Indirect Bilirubin 0.4 0.4 Aspartate Amino Transf (AST/SGOT) 44 41 Alanine Aminotransferase (ALT/SGPT) 42 41 Alkaline Phosphatase 82 80 Troponin I < 0.012 B-Type Natriuretic Peptide 104 Total Protein 6.7 6.1 Albumin 3.2 L 2.8 L Globulin 3.50 H 3.30 H Albumin/Globulin Ratio 0.91 0.84 Ethyl Alcohol Level < 10.0 Medications Medications Current Medications Acetaminophen (Tylenol Tab) 650 mg Q6H PRN PO PAIN LEVEL 1-3 OR FEVER; Start at 21:00 Acetaminophen/ Hydrocodone Bitart ([place] (5/325)) 2 tab Q6H PRN PO SEVERE PAIN LEVEL 7-10 Last administered on 05/17/17 12:57; Admin Dose 2 TAB; Start 05/16/17 at 21:00 Morphine Sulfate (morphine) 2 mg Q4H PRN IV SEVERE PAIN LEVEL 7-10 Last administered on 05/17/17 09:53; Admin Dose 2 MG; Start 05/16/17 at 21:00 Pantoprazole (Protonix Iv) 40 mg DAILY@06 IV Last administered on 05/17/17 05: 31; Admin Dose 40 MG; Start 05/17/17 at 06:00 Enoxaparin Sodium (Lovenox) 40 mg DAILY SC Last administered on 05/17/17 08:41 ; Admin Dose 40 MG; Start 05/16/17 at 21:00 Collagenase (Santyl) 1 applic DAILY TOP ; Start 05/17/17 at 09:00 Gabapentin (Neurontin) 300 mg TID PO Last administered on 05/17/17 12:57; Admin Dose 300 MG; Start 05/16/17 at 21:00 CAMRON HILTON May 17, 2017 14:16
[2017-05-17 14:34] LABS: BARBITURATES Negative (NEGATIVE); BENZODIAZEPINES Negative (NEGATIVE); CANNABINOIDS Positive (NEGATIVE); COCAINE Negative (NEGATIVE); OPIATES Positive (NEGATIVE)
[2017-05-17] MEDS: metFORMIN 500 MG TAB PO SCH (17:27)
[2017-05-17] MEDS ORDERED: GLUCOSE GEL 15 GRAM TUBE PO PRN ×2 (17:30)
[2017-05-17] MEDS ORDERED: DEXTROSE 50% 50 ML SYRINGE IV PRN ×2 (17:30)
[2017-05-17] MEDS ORDERED: GLUCAGON 1 MG INJ IM PRN (17:30)
[2017-05-17] MEDS ORDERED: GLUCOSE GEL 15 GRAM TUBE BUCCAL PRN (17:30)
[2017-05-17 19:29] VITALS: BP 153/67; RESP 18
--- NOTE | 2017-05-17 21:13 | CONS ---
Date/Time of Note Date/Time of Note DATE: 05/17/17 TIME: 20:54 Assessment/Plan Assessment/Plan Problems: (1) Intractable back pain Status: Acute Additional Assessment/Plan The patient is grossly myelopathic on exam, and has a history consistent with progressive cervical spondyltic myelopathy. He will need STAT MRI of the cervical spine. Importantly, the patient has a nine year history of diabetes, but in my opinion the time course of the patient's deficits (over six weeks) is very acute for diabetic neuropathy. However, the patient adamantly refuses to entertain or even discuss surgery, even though he was expressly advised that if cervical cord compression is confirmed on MRI he may become paralyzed if the cord is not decompressed. I do not think he is symptomatic from his lumbar spondylosis/ degenerative disease. Thank you for the opportunity to participate in the care of this patient. Consultation Date/Type/Reason Admit Date/Time May 16, 2017 at 21:19 Date of Consultation: May 17, 2017 Type of Consultation: neurological surgery Reason for Consultation "back pain" Hx of Present Illness I was asked to consult on this patient for complaint of back pain and CT evidence of lumbar spondylosis. The patient has been seen/ admitted several times in the last month for complaint of "back pain". He previously (05/05) had CT of C/T/L spine and this admission has MRI of the thoracic and lumbar spine. MRI of the cervical spine has not been ordered. The patient states that 'six weeks ago, I was normal like you and now I can't walk". He complains of urinary incontinence, hand weakness and numbness, lower extremity weakness, and severe interscapular pain. He does not in fact complain of any pain in the low back/ lumbar area, and denies any radiation of pain to the lower extremities. He has in the past left AMA and categorically refuses to entertain surgery: "I' d rather be fked up naturally than fked up by surgery". Musculoskeletal: back pain Social History Smoking Status: Unknown if ever smoked Exam/Review of Systems Vital Signs Vitals Vital Signs Date Time Temp Pulse Resp B/P Pulse Ox O2 Delivery O2 Flow Rate FiO2 05/17/17 19:29 97.7 77 18 153/67 99 Intake and Output 05/16/17 05/16/17 05/17/17 15:00 23:00 07:00 Intake Total 720 ml Balance 720 ml Exam On neurologic exam the patient demonstrates the following positive findings: + Mendoza's reflex bilaterally +++ biceps, triceps, and patella reflexes 3/5 automation qtp tester strength bilaterally diminished sensation in both hands and forearms including palmar and dorsal surfaces He is otherwise awake, alert and cooperative with the examination. Results CT from 05/05 and MRI thoracic and lumbar spine this admission reviewed. The lumbar spine imaging was severely limited by artifact and by patient refusal to complete the exam. CT and MRI imaging do confirm the presence of multiple levels of spondylosis with likely foraminal compromise (see report for full details). unfortunately, the cervical spine was not imaged with MRI and interscapular pain may well reflect lower cervical radiculopathy. similarly lumbar stenosis will not cause hand weakness or hand numbness. Result Diagram: 05/17/17 0430 05/17/17 0430 Results 24 hrs Laboratory Tests Test 05/16/17 22:58 05/17/17 04:30 05/17/17 13:02 Ethyl Alcohol Level < 10.0 White Blood Count 5.0 Red Blood Count 3.46 L Hemoglobin 10.4 L Hematocrit 32.1 L Mean Corpuscular Volume 92.8 Mean Corpuscular Hemoglobin 30.1 Mean Corpuscular Hemoglobin Concent 32.4 Red Cell Distribution Width 16.0 H Platelet Count 171 Mean Platelet Volume 11.1 H Neutrophils % 26.0 L Lymphocytes % 57.1 H Monocytes % 10.5 Eosinophils % 5.2 Basophils % 1.0 Nucleated Red Blood Cells % 0.0 Neutrophils # 1.3 L Lymphocytes # 2.9 Monocytes # 0.5 Eosinophils # 0.3 Basophils # 0.1 Nucleated Red Blood Cells # 0.0 Sodium Level 142 Potassium Level 4.0 Chloride Level 107 Carbon Dioxide Level 24 Anion Gap 15 Blood Urea Nitrogen 12 Creatinine 0.77 Glucose Level 131 Calcium Level 8.7 Total Bilirubin 0.4 Direct Bilirubin 0.00 Indirect Bilirubin 0.4 Aspartate Amino Transf (AST/SGOT) 41 Alanine Aminotransferase (ALT/SGPT) 41 Alkaline Phosphatase 80 Total Protein 6.1 Albumin 2.8 L Globulin 3.30 H Albumin/Globulin Ratio 0.84 Urine Opiates Screen Positive Urine Barbiturates Negative Urine Amphetamines Screen Negative Urine Benzodiazepines Screen Negative Urine Cocaine Screen Negative Urine Cannabinoids Positive Medications Medications Current Medications Acetaminophen (Tylenol Tab) 650 mg Q6H PRN PO PAIN LEVEL 1-3 OR FEVER; Start at 21:00 Acetaminophen/ Hydrocodone Bitart ([place] (5/325)) 2 tab Q6H PRN PO SEVERE PAIN LEVEL 7-10 Last administered on 05/17/17 12:57; Admin Dose 2 TAB; Start 05/16/17 at 21:00 Morphine Sulfate (morphine) 2 mg Q4H PRN IV SEVERE PAIN LEVEL 7-10 Last administered on 05/17/17 20:29; Admin Dose 2 MG; Start 05/16/17 at 21:00 Enoxaparin Sodium (Lovenox) 40 mg DAILY SC Last administered on 05/17/17 08:41 ; Admin Dose 40 MG; Start 05/16/17 at 21:00 Gabapentin (Neurontin) 300 mg TID PO Last administered on 05/17/17 20:29; Admin Dose 300 MG; Start 05/16/17 at 21:00 Miscellaneous Information 1 ea NOTE XX ; Start 05/17/17 at 17:30 Glucose (Glutose) 15 gm Q15M PRN PO DECREASED GLUCOSE; Start 05/17/17 at 17:30 Glucose (Glutose) 22.5 gm Q15M PRN PO DECREASED GLUCOSE; Start 05/17/17 at 17:30 Dextrose (D50w Syringe) 25 ml Q15M PRN IV DECREASED GLUCOSE; Start 05/17/17 at 17:30 Dextrose (D50w Syringe) 50 ml Q15M PRN IV DECREASED GLUCOSE; Start 05/17/17 at 17:30 Glucagon (Glucagen) 1 mg Q15M PRN IM DECREASED GLUCOSE; Start 05/17/17 at 17:30 Glucose (Glutose) 15 gm Q15M PRN BUCCAL DECREASED GLUCOSE; Start 05/17/17 at 17: 30 Pantoprazole (Protonix Tab) 40 mg DAILY@06 PO ; Start 05/18/17 at 06:00 PENNY VERONICA MD May 17, 2017 21:05
[2017-05-17] MEDS ORDERED: LORAZEPAM 2 MG INJ IV PRN (21:30)
[2017-05-18] MEDS: morphine 2 MG INJ IV PRN ×4 (04:36→20:53)
[2017-05-18] MEDS: PANTOPRAZOLE (EC) 40 MG TAB PO SCH (05:49)
[2017-05-18 08:15] VITALS: BP 182/92; RESP 18
[2017-05-18] MEDS: GABAPENTIN 300 MG CAP PO SCH ×3 (08:42→20:49)
[2017-05-18] MEDS: metFORMIN 500 MG TAB PO SCH ×2 (08:42→17:10)
[2017-05-18] MEDS: ENOXAPARIN 40 MG/0.4 ML SYG SC SCH (08:48)
--- NOTE | 2017-05-18 17:47 | PN ---
Date/Time of Note Date/Time of Note DATE: 05/18/17 TIME: 17:44 Assessment/Plan VTE Prophylaxis VTE Prophylaxis Intervention: LMWH Lines/Catheters IV Catheter Type (from Nrsg): Saline Lock Assessment/Plan Chief Complaint/Hosp Course 1. Acute on chronic back pain. MRI was performed of the thoracic and lumbar spine showing multiple areas of canal narrowing as well as disc protrusion Patient previously refused neurosurgical evaluation is open to potential surgery but would like to talk to family Patient will need a MRI of the cervical spine to evaluate for cord compression, currently held because of ankle brace from being on probation and morale officer will need to come by and remove the ankle bracelet before MRI is done Neurosurgery consult appreciated Pain control and PT 2. Encephalopathy-improved Patient appears to be chronically somnolent possibly from pain medications 3. Prediabetes: Previous hemoglobin A1c 6.1. 4. DVT and GI prophylaxis: Lovenox, Protonix. Problems: Subjective 24 Hr Interval Summary Musculoskeletal: back pain Exam/Review of Systems Vital Signs Vitals Vital Signs Date Time Temp Pulse Resp B/P Pulse Ox O2 Delivery O2 Flow Rate FiO2 05/18/17 08:15 97.6 89 18 182/92 99 Intake and Output 05/17/17 05/17/17 05/18/17 15:00 23:00 07:00 Intake Total 1600 ml 740 ml Output Total 250 ml 1000 ml Balance 1350 ml -260 ml Exam Constitutional: alert Respiratory: clear to auscultation Cardiovascular: regular rate and rhythm Gastrointestinal: soft, No distended Musculoskeletal: nl extremities to inspection Results Result Diagram: 05/17/17 0430 05/17/17 043 Medications Medications Current Medications Acetaminophen (Tylenol Tab) 650 mg Q6H PRN PO PAIN LEVEL 1-3 OR FEVER; Start at 21:00 Acetaminophen/ Hydrocodone Bitart ([place] (5/325)) 2 tab Q6H PRN PO SEVERE PAIN LEVEL 7-10 Last administered on 05/17/17 22:45; Admin Dose 2 TAB; Start 05/16/17 at 21:00 Morphine Sulfate (morphine) 2 mg Q4H PRN IV SEVERE PAIN LEVEL 7-10 Last administered on 05/18/17 17:10; Admin Dose 2 MG; Start 05/16/17 at 21:00 Enoxaparin Sodium (Lovenox) 40 mg DAILY SC Last administered on 05/18/17 08:48 ; Admin Dose 40 MG; Start 05/16/17 at 21:00 Gabapentin (Neurontin) 300 mg TID PO Last administered on 05/18/17 13:09; Admin Dose 300 MG; Start 05/16/17 at 21:00 Miscellaneous Information 1 ea NOTE XX ; Start 05/17/17 at 17:30 Glucose (Glutose) 15 gm Q15M PRN PO DECREASED GLUCOSE; Start 05/17/17 at 17:30 Glucose (Glutose) 22.5 gm Q15M PRN PO DECREASED GLUCOSE; Start 05/17/17 at 17:30 Dextrose (D50w Syringe) 25 ml Q15M PRN IV DECREASED GLUCOSE; Start 05/17/17 at 17:30 Dextrose (D50w Syringe) 50 ml Q15M PRN IV DECREASED GLUCOSE; Start 05/17/17 at 17:30 Glucagon (Glucagen) 1 mg Q15M PRN IM DECREASED GLUCOSE; Start 05/17/17 at 17:30 Glucose (Glutose) 15 gm Q15M PRN BUCCAL DECREASED GLUCOSE; Start 05/17/17 at 17: 30 Pantoprazole (Protonix Tab) 40 mg DAILY@06 PO Last administered on 05/18/17 05: 49; Admin Dose 40 MG; Start 05/18/17 at 06:00 Lorazepam (Ativan) 1 mg ONCE PRN IV MRI; Start 05/17/17 at 21:30; Stop 05/18/17 at 21:29 CAMRON HILTON May 18, 2017 17:47
[2017-05-18 21:00] VITALS: BP 142/71; PULSE 83; RESP 18
[2017-05-18] MEDS: HYDROCODONE/APAP (5/325) TAB PO PRN (22:20)
[2017-05-19] MEDS: morphine 2 MG INJ IV PRN ×5 (01:45→22:00)
[2017-05-19] MEDS ORDERED: hydrOXYzine HCL 25 MG TAB PO PRN (03:30)
[2017-05-19] MEDS: HYDROCODONE/APAP (5/325) TAB PO PRN ×2 (05:01→15:45)
--- NOTE | 2017-05-19 06:27 | QN ---
Documentation Comment MRI of the cervical spine has not yet been done. This study is urgently needed and no definitive diagnosis or plan can be made without it. PENNY VERONICA MD May 19, 2017 06:27
[2017-05-19] MEDS: PANTOPRAZOLE (EC) 40 MG TAB PO SCH (06:52)
[2017-05-19 07:58] VITALS: BP 144/71; RESP 18
[2017-05-19] MEDS: GABAPENTIN 300 MG CAP PO SCH ×3 (08:57→21:44)
[2017-05-19] MEDS: metFORMIN 500 MG TAB PO SCH ×2 (08:57→17:56)
[2017-05-19] MEDS: ENOXAPARIN 40 MG/0.4 ML SYG SC SCH (09:07)
--- NOTE | 2017-05-19 12:25 | PN ---
Date/Time of Note Date/Time of Note DATE: 05/19/17 TIME: 12:24 Assessment/Plan VTE Prophylaxis VTE Prophylaxis Intervention: LMWH Lines/Catheters IV Catheter Type (from Nrsg): Saline Lock Urinary Cath still in place: No (CONDOM CATH) Assessment/Plan Chief Complaint/Hosp Course 1. Acute on chronic back pain. MRI was performed of the thoracic and lumbar spine showing multiple areas of canal narrowing as well as disc protrusion Patient previously refused neurosurgical evaluation is open to potential surgery but would like to talk to family Patient will need a MRI of the cervical spine to evaluate for cord compression, currently held because of ankle brace from being on probation and field health officer will need to come by and remove the ankle bracelet before MRI is done Neurosurgery consult appreciated Pain control and PT 2. Encephalopathy-improved Patient appears to be chronically somnolent possibly from pain medications 3. Prediabetes: Previous hemoglobin A1c 6.1. 4. DVT and GI prophylaxis: Lovenox, Protonix. Problems: Subjective 24 Hr Interval Summary Musculoskeletal: back pain Exam/Review of Systems Vital Signs Vitals Vital Signs Date Time Temp Pulse Resp B/P Pulse Ox O2 Delivery O2 Flow Rate FiO2 05/19/17 07:58 97.8 71 18 144/71 97 Intake and Output 05/18/17 05/18/17 05/19/17 14:59 22:59 06:59 Intake Total 1200 ml 1400 ml Output Total 1500 ml 1800 ml Balance -300 ml -400 ml Exam Constitutional: alert Respiratory: clear to auscultation Cardiovascular: regular rate and rhythm Gastrointestinal: soft, No distended Musculoskeletal: nl extremities to inspection Results Result Diagram: 05/17/17 0430 05/17/17 0430 Medications Medications Current Medications Acetaminophen (Tylenol Tab) 650 mg Q6H PRN PO PAIN LEVEL 1-3 OR FEVER; Start at 21:00 Acetaminophen/ Hydrocodone Bitart ([place] (5/325)) 2 tab Q6H PRN PO SEVERE PAIN LEVEL 7-10 Last administered on 05/19/17 05:01; Admin Dose 2 TAB; Start 05/16/17 at 21:00 Morphine Sulfate (morphine) 2 mg Q4H PRN IV SEVERE PAIN LEVEL 7-10 Last administered on 05/19/17 06:56; Admin Dose 2 MG; Start 05/16/17 at 21:00 Enoxaparin Sodium (Lovenox) 40 mg DAILY SC Last administered on 05/19/17 09:07 ; Admin Dose 40 MG; Start 05/16/17 at 21:00 Gabapentin (Neurontin) 300 mg TID PO Last administered on 05/19/17 08:57; Admin Dose 300 MG; Start 05/16/17 at 21:00 Miscellaneous Information 1 ea NOTE XX ; Start 05/17/17 at 17:30 Glucose (Glutose) 15 gm Q15M PRN PO DECREASED GLUCOSE; Start 05/17/17 at 17:30 Glucose (Glutose) 22.5 gm Q15M PRN PO DECREASED GLUCOSE; Start 05/17/17 at 17:30 Dextrose (D50w Syringe) 25 ml Q15M PRN IV DECREASED GLUCOSE; Start 05/17/17 at 17:30 Dextrose (D50w Syringe) 50 ml Q15M PRN IV DECREASED GLUCOSE; Start 05/17/17 at 17:30 Glucagon (Glucagen) 1 mg Q15M PRN IM DECREASED GLUCOSE; Start 05/17/17 at 17:30 Glucose (Glutose) 15 gm Q15M PRN BUCCAL DECREASED GLUCOSE; Start 05/17/17 at 17: 30 Pantoprazole (Protonix Tab) 40 mg DAILY@06 PO Last administered on 05/19/17 06: 52; Admin Dose 40 MG; Start 05/18/17 at 06:00 Hydroxyzine HCl (Atarax) 25 mg Q6H PRN PO ITCHING Last administered on 06:53; Admin Dose 25 MG; Start 05/19/17 at 03:30 Docusate Sodium (Colace) 100 mg BID PO ; Start 05/19/17 at 21:00 Senna (Senokot) 1 tab BID PO ; Start 05/19/17 at 21:00 CAMRON HILTON May 19, 2017 12:25
[2017-05-19] MEDS: DOCUSATE SODIUM 100 MG CAP PO SCH (21:44)
[2017-05-19] MEDS: SENNA TAB PO SCH (21:44)
[2017-05-19 21:50] VITALS: BP 158/81; PULSE 87; RESP 18
[2017-05-20] MEDS: PANTOPRAZOLE (EC) 40 MG TAB PO SCH (06:00)
[2017-05-20] MEDS: morphine 2 MG INJ IV PRN ×4 (06:45→23:37)
--- NOTE | 2017-05-20 07:30 | CONS ---
Date/Time of Note Date/Time of Note DATE: 05/20/17 TIME: 07:01 Assessment/Plan Assessment/Plan Chief Complaint/Hosp Course I was asked to consult on this patient for complaint of back pain and CT evidence of lumbar spondylosis. The patient has been seen/ admitted several times in the last month for complaint of "back pain". He previously (05/05) had CT of C/T/L spine and this admission has MRI of the thoracic and lumbar spine. MRI of the cervical spine has not been ordered. The patient states that 'six weeks ago, I was normal like you and now I can't walk". He complains of urinary incontinence, hand weakness and numbness, lower extremity weakness, and severe interscapular pain. He does not in fact complain of any pain in the low back/ lumbar area, and denies any radiation of pain to the lower extremities. He has in the past left AMA and categorically refuses to entertain surgery: "I' d rather be fked up naturally than fked up by surgery". Problems: Consultation Date/Type/Reason Admit Date/Time May 16, 2017 at 21:19 Initial Consult Date 05/17/17 Type of Consultation: neurological surgery 24 HR Interval Summary Free Text/Dictation The patient had MRI of the cervical spine last night. There is no read available yet on [facility], but to my eye this confirms severe cervical stenosis at C3-6 with compression of the cervical cord and possibly cord signal change. Again, the official radiologist report is not yet available, but in my opinion the patient would benefit from cervical laminectomy/ laminoplasty. There is preservation of normal cervical lordosis so I do not believe a fusion is needed. This was discussed with the patient in detail. I advised the patient that without surgery, in my opinion his deficits will worsen. The precise timing is difficult to predict, but given the rapidity of his neurologic decline so far I believe he is in imminent risk of severe injury up to and including paralysis. He was further advised that the risk of paralysis or worsening deficit with surgery is low - probably 5% or less- but the goal of surgery is not to restore function already lost, but rather to prevent further neurologic decline. The patient expressed his understanding of all of the foregoing and wishes to confer with family members to help him to decide whether to proceed with surgery as recommended. Exam/Review of Systems Vital Signs Vitals Vital Signs Date Time Temp Pulse Resp B/P Pulse Ox O2 Delivery O2 Flow Rate FiO2 05/19/17 21:50 98.4 87 18 158/81 05/19/17 07:58 97 Intake and Output 05/19/17 05/19/17 05/20/17 15:00 23:00 07:00 Intake Total 1600 ml 1800 ml Output Total 1700 ml 2600 ml Balance -100 ml -800 ml Exam The patient's neurologic exam is stable; he remains antigravity in bilateral lower extremities and has stable roll builder weakness. He denies any interim changes in sensation or subjective strength. Results Result Diagram: 05/17/17 0430 05/17/17 0430 Results 24 hrs Laboratory Tests Test 05/19/17 13:05 Lab Scanned Report REFERENCE LAB Medications Medications Current Medications Acetaminophen (Tylenol Tab) 650 mg Q6H PRN PO PAIN LEVEL 1-3 OR FEVER; Start at 21:00 Acetaminophen/ Hydrocodone Bitart ([place] (5/325)) 2 tab Q6H PRN PO SEVERE PAIN LEVEL 7-10 Last administered on 05/19/17 15:45; Admin Dose 2 TAB; Start 05/16/17 at 21:00 Morphine Sulfate (morphine) 2 mg Q4H PRN IV SEVERE PAIN LEVEL 7-10 Last administered on 05/20/17 06:45; Admin Dose 2 MG; Start 05/16/17 at 21:00 Enoxaparin Sodium (Lovenox) 40 mg DAILY SC Last administered on 05/19/17 09:07 ; Admin Dose 40 MG; Start 05/16/17 at 21:00 Gabapentin (Neurontin) 300 mg TID PO Last administered on 05/19/17 21:44; Admin Dose 300 MG; Start 05/16/17 at 21:00 Miscellaneous Information 1 ea NOTE XX ; Start 05/17/17 at 17:30 Glucose (Glutose) 15 gm Q15M PRN PO DECREASED GLUCOSE; Start 05/17/17 at 17:30 Glucose (Glutose) 22.5 gm Q15M PRN PO DECREASED GLUCOSE; Start 05/17/17 at 17:30 Dextrose (D50w Syringe) 25 ml Q15M PRN IV DECREASED GLUCOSE; Start 05/17/17 at 17:30 Dextrose (D50w Syringe) 50 ml Q15M PRN IV DECREASED GLUCOSE; Start 05/17/17 at 17:30 Glucagon (Glucagen) 1 mg Q15M PRN IM DECREASED GLUCOSE; Start 05/17/17 at 17:30 Glucose (Glutose) 15 gm Q15M PRN BUCCAL DECREASED GLUCOSE; Start 05/17/17 at 17: 30 Pantoprazole (Protonix Tab) 40 mg DAILY@06 PO Last administered on 05/19/17 06: 52; Admin Dose 40 MG; Start 05/18/17 at 06:00 Hydroxyzine HCl (Atarax) 25 mg Q6H PRN PO ITCHING Last administered on 06:53; Admin Dose 25 MG; Start 05/19/17 at 03:30 Docusate Sodium (Colace) 100 mg BID PO Last administered on 05/19/17 21:44; Admin Dose 100 MG; Start 05/19/17 at 21:00 Senna (Senokot) 1 tab BID PO Last administered on 05/19/17 21:44; Admin Dose 1 TAB; Start 05/19/17 at 21:00 PENNY VERONICA MD May 20, 2017 07:28
--- NOTE | 2017-05-20 08:48 | RADRPT ---
PROCEDURE: MRI the cervical spine without contrast CLINICAL INDICATION: Neck pain, cervical myelopathy TECHNIQUE: Routine MRI of the cervical spine performed without intravenous contrast. Vertebral lev el counting reference is made to the craniocervical junction. Images and image data are available fo r procedural planning and localization purposes. Images are partially degraded due to patient motion artifact. COMPARISON: CT cervical spine 05/09/2017 FINDINGS: Craniocervical junction: Within normal limits. Alignment: There is mild straightening of the cervical lordosis. Cervical vertebral bodies: Height is maintained. Marrow signal appears generally mildly hypointens e which is likely due to degenerative sclerosis. There is no evidence of significant endplate edema is seen. Discs: Diffuse desiccation seen throughout the cervical spine. Cervical spinal cord: Although image quality is suboptimal there is questionable early T2 hyperinte nse myelopathy present at the C5-C6 level. Evaluation of the individual levels demonstrates: C2-C3: Normal disk morphology without protrusion. Normal appearance of the facets. Central canal an d neural foramen are patent. C3-C4: Mild loss of disk height with 2 - 3 mm broad-based dorsal disk protrusion. Mild right and se ozzy left facet arthropathy with ligamentous infolding. These result in severe central canal stenos is with AP diameter of the thecal sac measuring approximately 5 mm. Spinal cord deformity is present . Both neural foramen appear patent. C4-C5: Moderate loss of disk height with 2 - 3 mm broad-based dorsal disk osteophyte complex. Sever e left and moderate right facet arthropathy are present with ligamentous infolding. Moderate centra l canal stenosis with AP diameter of the thecal sac measuring approximately 7 mm. Spinal cord deform ity is present. Moderate - severe right and severe left neural foraminal stenosis. C5-C6: Moderate loss of disk height with 3 mm broad-based dorsal disk osteophyte complex. Moderate right and mild left facet arthropathy. Mild central canal stenosis with AP diameter of the thecal s ac measuring 8.5 mm. Flattening of the ventral margin of the spinal cord is present. Severe right an d moderate - severe left neural foraminal stenosis. C6-C7: Moderate loss of disk height with 3 mm broad-based dorsal disk osteophyte complex. Moderate bilateral facet arthropathy is present without ligamentous infolding. Mild central canal stenosis w ith AP diameter of the thecal sac measuring 8.5 mm. Severe bilateral neural foraminal stenosis. Paraspinous musculature: Within normal limits, no evidence of edema is seen. Visualized cervical soft tissues: Within normal limits. IMPRESSION: Multilevel central canal stenoses ranging from mild to severe with suspected early myelopathic ho es at the C5-C6 level. Bilateral severe neural foraminal stenoses better visualized on the patient's recent CT scan of the cervical spine. RPTAT: AADD .Oscar Leblanc MD, MD Date Time Electronically viewed and signed by .Oscar Leblanc MD, on 05/20/2017 08:48 .B/
[2017-05-20] MEDS: metFORMIN 500 MG TAB PO SCH ×2 (08:56→17:55)
[2017-05-20] MEDS: GABAPENTIN 300 MG CAP PO SCH ×3 (08:57→19:42)
[2017-05-20] MEDS: ENOXAPARIN 40 MG/0.4 ML SYG SC SCH (08:57)
[2017-05-20] MEDS: DOCUSATE SODIUM 100 MG CAP PO SCH ×2 (08:57→19:42)
[2017-05-20] MEDS: SENNA TAB PO SCH ×2 (08:57→19:42)
--- NOTE | 2017-05-20 11:28 | PN ---
Date/Time of Note Date/Time of Note DATE: 05/20/17 TIME: 11:26 Assessment/Plan VTE Prophylaxis VTE Prophylaxis Intervention: LMWH Lines/Catheters IV Catheter Type (from Nrsg): Saline Lock Assessment/Plan Chief Complaint/Hosp Course 1. Acute on chronic back pain with upper extremity weakness secondary to cervical cord stenosis as noted on MRI Neurosurgical evaluation appreciated, rec is for surgery Patient is deciding whether or not he wants surgery Pain control and PT 2. Encephalopathy-improved Patient appears to be chronically somnolent possibly from pain medications 3. Prediabetes: Previous hemoglobin A1c 6.1. 4. DVT and GI prophylaxis: Lovenox, Protonix. Problems: Subjective 24 Hr Interval Summary Neurologic: focal-weakness (Upper extremities) Exam/Review of Systems Vital Signs Vitals Vital Signs Date Time Temp Pulse Resp B/P Pulse Ox O2 Delivery O2 Flow Rate FiO2 05/19/17 21:50 98.4 87 18 158/81 05/19/17 07:58 97 Intake and Output 05/19/17 05/19/17 05/20/17 15:00 23:00 07:00 Intake Total 1600 ml 1800 ml Output Total 1700 ml 2600 ml Balance -100 ml -800 ml Exam Constitutional: alert, oriented Respiratory: clear to auscultation Cardiovascular: regular rate and rhythm Gastrointestinal: soft, No distended Musculoskeletal: nl extremities to inspection Results Result Diagram: 05/17/1742905/17/17 0430 Results 24 hrs Laboratory Tests Test 05/19/17 13:05 Lab Scanned Report REFERENCE LAB Medications Medications Current Medications Acetaminophen (Tylenol Tab) 650 mg Q6H PRN PO PAIN LEVEL 1-3 OR FEVER; Start at 21:00 Acetaminophen/ Hydrocodone Bitart ([place] (5/325)) 2 tab Q6H PRN PO SEVERE PAIN LEVEL 7-10 Last administered on 05/19/17 15:45; Admin Dose 2 TAB; Start 05/16/17 at 21:00 Morphine Sulfate (morphine) 2 mg Q4H PRN IV SEVERE PAIN LEVEL 7-10 Last administered on 05/20/17 06:45; Admin Dose 2 MG; Start 05/16/17 at 21:00 Enoxaparin Sodium (Lovenox) 40 mg DAILY SC Last administered on 05/19/17 09:07 ; Admin Dose 40 MG; Start 05/16/17 at 21:00 Gabapentin (Neurontin) 300 mg TID PO Last administered on 05/19/17 21:44; Admin Dose 300 MG; Start 05/16/17 at 21:00 Miscellaneous Information 1 ea NOTE XX ; Start 05/17/17 at 17:30 Glucose (Glutose) 15 gm Q15M PRN PO DECREASED GLUCOSE; Start 05/17/17 at 17:30 Glucose (Glutose) 22.5 gm Q15M PRN PO DECREASED GLUCOSE; Start 05/17/17 at 17:30 Dextrose (D50w Syringe) 25 ml Q15M PRN IV DECREASED GLUCOSE; Start 05/17/17 at 17:30 Dextrose (D50w Syringe) 50 ml Q15M PRN IV DECREASED GLUCOSE; Start 05/17/17 at 17:30 Glucagon (Glucagen) 1 mg Q15M PRN IM DECREASED GLUCOSE; Start 05/17/17 at 17:30 Glucose (Glutose) 15 gm Q15M PRN BUCCAL DECREASED GLUCOSE; Start 05/17/17 at 17: 30 Pantoprazole (Protonix Tab) 40 mg DAILY@06 PO Last administered on 05/19/17 06: 52; Admin Dose 40 MG; Start 05/18/17 at 06:00 Hydroxyzine HCl (Atarax) 25 mg Q6H PRN PO ITCHING Last administered on 06:53; Admin Dose 25 MG; Start 05/19/17 at 03:30 Docusate Sodium (Colace) 100 mg BID PO Last administered on 05/19/17 21:44; Admin Dose 100 MG; Start 05/19/17 at 21:00 Senna (Senokot) 1 tab BID PO Last administered on 05/19/17 21:44; Admin Dose 1 TAB; Start 05/19/17 at 21:00 CAMRON HILTON May 20, 2017 11:27
[2017-05-20 21:06] VITALS: BP 141/72; RESP 20
[2017-05-21 05:31] LABS: ADD SCAN DIFF NO
[2017-05-21 05:41] LABS: BASOPHIL # 0.1 10^3/ul (0.0-0.1); BASOPHILS % 1.2 % (0.0-2.0); EOSINOPHILS # 0.2 10^3/ul (0.0-0.5); EOSINOPHILS % 4.3 % (0.0-7.0); HEMATOCRIT 35.8 % (42.0-52.0); HEMOGLOBIN 11.8 g/dl (14.0-18.0); LYMPHOCYTES # 2.3 10^3/ul (0.8-2.9); LYMPHOCYTES % 44.2 % (15.0-51.0); MEAN CORPUSCULAR HEMOGLOBIN 29.9 pg (29.0-33.0); MEAN CORPUSCULAR VOLUME 90.6 fl (82.0-101.0); MEAN PLATELET VOLUME 11.3 fl (7.4-10.4); MONOCYTE # 0.4 10^3/ul (0.3-0.9); MONOCYTES % 8.6 % (0.0-11.0); NEUTROPHIL # 2.1 10^3/ul (1.6-7.5); NEUTROPHILS % 41.5 % (39.0-77.0); PLATELET COUNT 155 10^3/UL (140-415); RED BLOOD COUNT 3.95 10^6/ul (4.70-6.10); RED CELL DISTRIBUTION WIDTH 15.8 % (11.5-14.5); WHITE BLOOD COUNT 5.1 10^3/ul (4.8-10.8)
[2017-05-21] MEDS: morphine 2 MG INJ IV PRN ×3 (05:47→22:07)
[2017-05-21] MEDS: PANTOPRAZOLE (EC) 40 MG TAB PO SCH (05:48)
[2017-05-21 06:18] LABS: CREATININE 0.65 mg/dl (0.61-1.24)
[2017-05-21] MEDS: POLYETHYLENE GLYCOL 17 GM PACKET PO SCH (08:16)
[2017-05-21] MEDS: SENNA TAB PO SCH ×2 (08:16→21:00)
[2017-05-21] MEDS: metFORMIN 500 MG TAB PO SCH ×2 (08:16→17:11)
[2017-05-21] MEDS: HYDROCODONE/APAP (5/325) TAB PO PRN ×3 (08:16→21:01)
[2017-05-21] MEDS: GABAPENTIN 300 MG CAP PO SCH ×3 (08:16→21:00)
[2017-05-21] MEDS: DOCUSATE SODIUM 100 MG CAP PO SCH ×2 (08:16→21:00)
[2017-05-21] MEDS: ENOXAPARIN 40 MG/0.4 ML SYG SC SCH (08:21)
[2017-05-21 08:47] VITALS: BP 135/76; RESP 18
--- NOTE | 2017-05-21 19:26 | PN ---
Date/Time of Note Date/Time of Note DATE: 05/21/17 TIME: 19:26 Assessment/Plan VTE Prophylaxis VTE Prophylaxis Intervention: LMWH Lines/Catheters IV Catheter Type (from Nrsg): Saline Lock Urinary Cath still in place: No (CONDOM CATH IN PLACE) Assessment/Plan Chief Complaint/Hosp Course 1. Acute on chronic back pain with upper extremity weakness secondary to cervical cord stenosis as noted on MRI Neurosurgical evaluation appreciated, rec is for surgery Patient is deciding whether or not he wants surgery Pain control and PT 2. Encephalopathy-improved Patient appears to be chronically somnolent possibly from pain medications 3. Prediabetes: Previous hemoglobin A1c 6.1. 4. DVT and GI prophylaxis: Lovenox, Protonix. Problems: Subjective 24 Hr Interval Summary Musculoskeletal: back pain Exam/Review of Systems Vital Signs Vitals Vital Signs Date Time Temp Pulse Resp B/P Pulse Ox O2 Delivery O2 Flow Rate FiO2 05/21/17 08:47 98.6 77 18 135/76 100 Intake and Output 05/20/17 05/20/17 05/21/17 15:00 23:00 07:00 Intake Total 1500 ml 1400 ml Output Total 800 ml 2000 ml Balance 700 ml -600 ml Exam Constitutional: alert Respiratory: clear to auscultation Cardiovascular: regular rate and rhythm Gastrointestinal: soft, No distended Musculoskeletal: nl extremities to inspection Results Result Diagram: 05/21/1743905/21/17 0440 Results 24 hrs Laboratory Tests Test 05/21/17 04:40 White Blood Count 5.1 Red Blood Count 3.95 L Hemoglobin 11.8 L Hematocrit 35.8 L Mean Corpuscular Volume 90.6 Mean Corpuscular Hemoglobin 29.9 Mean Corpuscular Hemoglobin Concent 33.0 Red Cell Distribution Width 15.8 H Platelet Count 155 Mean Platelet Volume 11.3 H Neutrophils % 41.5 Lymphocytes % 44.2 Monocytes % 8.6 Eosinophils % 4.3 Basophils % 1.2 Nucleated Red Blood Cells % 0.0 Neutrophils # 2.1 Lymphocytes # 2.3 Monocytes # 0.4 Eosinophils # 0.2 Basophils # 0.1 Nucleated Red Blood Cells # 0.0 Blood Urea Nitrogen 10 Creatinine 0.65 Medications Medications Current Medications Acetaminophen (Tylenol Tab) 650 mg Q6H PRN PO PAIN LEVEL 1-3 OR FEVER; Start at 21:00 Acetaminophen/ Hydrocodone Bitart ([place] (5/325)) 2 tab Q6H PRN PO SEVERE PAIN LEVEL 7-10 Last administered on 05/21/17 17:11; Admin Dose 2 TAB; Start 05/16/17 at 21:00 Morphine Sulfate (morphine) 2 mg Q4H PRN IV SEVERE PAIN LEVEL 7-10 Last administered on 05/21/17 12:24; Admin Dose 2 MG; Start 05/16/17 at 21:00 Enoxaparin Sodium (Lovenox) 40 mg DAILY SC Last administered on 05/21/17 08:21 ; Admin Dose 40 MG; Start 05/16/17 at 21:00 Gabapentin (Neurontin) 300 mg TID PO Last administered on 05/21/17 12:24; Admin Dose 300 MG; Start 05/16/17 at 21:00 Miscellaneous Information 1 ea NOTE XX ; Start 05/17/17 at 17:30 Glucose (Glutose) 15 gm Q15M PRN PO DECREASED GLUCOSE; Start 05/17/17 at 17:30 Glucose (Glutose) 22.5 gm Q15M PRN PO DECREASED GLUCOSE; Start 05/17/17 at 17:30 Dextrose (D50w Syringe) 25 ml Q15M PRN IV DECREASED GLUCOSE; Start 05/17/17 at 17:30 Dextrose (D50w Syringe) 50 ml Q15M PRN IV DECREASED GLUCOSE; Start 05/17/17 at 17:30 Glucagon (Glucagen) 1 mg Q15M PRN IM DECREASED GLUCOSE; Start 05/17/17 at 17:30 Glucose (Glutose) 15 gm Q15M PRN BUCCAL DECREASED GLUCOSE; Start 05/17/17 at 17: 30 Pantoprazole (Protonix Tab) 40 mg DAILY@06 PO Last administered on 05/21/17 05: 48; Admin Dose 40 MG; Start 05/18/17 at 06:00 Hydroxyzine HCl (Atarax) 25 mg Q6H PRN PO ITCHING Last administered on 06:53; Admin Dose 25 MG; Start 05/19/17 at 03:30 Docusate Sodium (Colace) 100 mg BID PO Last administered on 05/21/17 08:16; Admin Dose 100 MG; Start 05/19/17 at 21:00 Senna (Senokot) 1 tab BID PO Last administered on 05/21/17 08:16; Admin Dose 1 TAB; Start 05/19/17 at 21:00 Polyethylene Glycol (Miralax) 17 gm DAILY PO Last administered on 05/21/17 08: 16; Admin Dose 17 GM; Start 05/21/17 at 09:00 CAMRON HILTON May 21, 2017 19:26
[2017-05-21 20:06] VITALS: BP 141/73; RESP 18
[2017-05-22] MEDS: morphine 2 MG INJ IV PRN ×3 (04:42→20:28)
[2017-05-22] MEDS: PANTOPRAZOLE (EC) 40 MG TAB PO SCH (05:08)
[2017-05-22 08:00] VITALS: BP 141/82; RESP 19
[2017-05-22] MEDS: metFORMIN 500 MG TAB PO SCH ×2 (08:16→18:20)
[2017-05-22] MEDS: HYDROCODONE/APAP (5/325) TAB PO PRN ×2 (08:17→18:20)
[2017-05-22] MEDS: POLYETHYLENE GLYCOL 17 GM PACKET PO SCH (08:17)
[2017-05-22] MEDS: GABAPENTIN 300 MG CAP PO SCH ×3 (08:17→20:27)
[2017-05-22] MEDS: SENNA TAB PO SCH ×2 (08:17→20:28)
[2017-05-22] MEDS: DOCUSATE SODIUM 100 MG CAP PO SCH ×2 (08:17→20:27)
[2017-05-22] MEDS: ENOXAPARIN 40 MG/0.4 ML SYG SC SCH (08:27)
--- NOTE | 2017-05-22 12:52 | PN ---
Date/Time of Note Date/Time of Note DATE: 05/22/17 TIME: 12:45 Assessment/Plan VTE Prophylaxis VTE Prophylaxis Intervention: SCD's Lines/Catheters IV Catheter Type (from Nrsg): Saline Lock Assessment/Plan Chief Complaint/Hosp Course Assessment and plan: 1. Acute on chronic back pain with upper extremity weakness secondary to cervical cord stenosis as noted on MRI Neurosurgical evaluation appreciated, rec is for surgery Patient is deciding whether or not he wants surgery Pain control and PT 2. Encephalopathy-improved Patient appears to be chronically somnolent possibly from pain medications 3. Prediabetes: Previous hemoglobin A1c 6.1. 4. DVT and GI prophylaxis: Lovenox, Protonix. Problems: Subjective 24 Hr Interval Summary Free Text/Dictation Patient continues to complain of having low back pain Waiting for family decision regarding lumbar surgery Exam/Review of Systems Vital Signs Vitals Vital Signs Date Time Temp Pulse Resp B/P Pulse Ox O2 Delivery O2 Flow Rate FiO2 05/22/17 08:00 98.0 100 19 141/82 96 Intake and Output 05/21/17 05/21/17 05/22/17 14:59 22:59 06:59 Intake Total 1720 ml 800 ml Output Total 1100 ml 1500 ml Balance 620 ml -700 ml Exam General: The patient is well-developed, Not in acute distress. HEENT: Atraumatic, normocephalic. The pupils are equal and round . Neck: Supple Chest: Normal Lungs: Clear to auscultation bilaterally Heart: Normal S1-S2, Regular rhythm and rate. Abdomen: Soft , nontender, nondistended , bowel sounds are present. Extremities: Motor and sensory are intact, no edema no cyanosis Neurologic: Normal mental status,The patient is awake, alert and oriented . Skin: Sacral decubitus stage I Results Result Diagram: 05/21/170 05/21/17 0440 Medications Medications Current Medications Acetaminophen (Tylenol Tab) 650 mg Q6H PRN PO PAIN LEVEL 1-3 OR FEVER; Start at 21:00 Acetaminophen/ Hydrocodone Bitart ([place] (5/325)) 2 tab Q6H PRN PO SEVERE PAIN LEVEL 7-10 Last administered on 05/22/17t 08:17; Admin Dose 2 TAB; Start at 21:00 Morphine Sulfate (morphine) 2 mg Q4H PRN IV SEVERE PAIN LEVEL 7-10 Last administered on 05/22/17 04:42; Admin Dose 2 MG; Start 05/16/17 at 21:00 Enoxaparin Sodium (Lovenox) 40 mg DAILY SC Last administered on 05/22/17 08:27 ; Admin Dose 40 MG; Start 05/16/17 at 21:00 Gabapentin (Neurontin) 300 mg TID PO Last administered on 05/22/17 08:17; Admin Dose 300 MG; Start 05/16/17 at 21:00 Miscellaneous Information 1 ea NOTE XX ; Start 05/17/17 at 17:30 Glucose (Glutose) 15 gm Q15M PRN PO DECREASED GLUCOSE; Start 05/17/17 at 17:30 Glucose (Glutose) 22.5 gm Q15M PRN PO DECREASED GLUCOSE; Start 05/17/17 at 17:30 Dextrose (D50w Syringe) 25 ml Q15M PRN IV DECREASED GLUCOSE; Start 05/17/17 at 17:30 Dextrose (D50w Syringe) 50 ml Q15M PRN IV DECREASED GLUCOSE; Start 05/17/17 at 17:30 Glucagon (Glucagen) 1 mg Q15M PRN IM DECREASED GLUCOSE; Start 05/17/17 at 17:30 Glucose (Glutose) 15 gm Q15M PRN BUCCAL DECREASED GLUCOSE; Start 05/17/17 at 17: 30 Pantoprazole (Protonix Tab) 40 mg DAILY@06 PO Last administered on 05/22/17 05 :08; Admin Dose 40 MG; Start 05/18/17 at 06:00 Hydroxyzine HCl (Atarax) 25 mg Q6H PRN PO ITCHING Last administered on 06:53; Admin Dose 25 MG; Start 05/19/17 at 03:30 Docusate Sodium (Colace) 100 mg BID PO Last administered on 05/22/17 08:17; Admin Dose 100 MG; Start 05/19/17 at 21:00 Senna (Senokot) 1 tab BID PO Last administered on 05/22/17 08:17; Admin Dose 1 TAB; Start 05/19/17 at 21:00 Polyethylene Glycol (Miralax) 17 gm DAILY PO Last administered on 05/22/17 08: 17; Admin Dose 17 GM; Start 05/21/17 at 09:00 RUTHY ROSS MD May 22, 2017 12:52
[2017-05-22] MEDS ORDERED: MAGNESIUM CITRATE 300 ML BTL PO PRN (18:30)
[2017-05-22 19:12] VITALS: BP 129/75; RESP 20
[2017-05-23] MEDS: morphine 2 MG INJ IV PRN ×4 (01:23→19:47)
[2017-05-23] MEDS: PANTOPRAZOLE (EC) 40 MG TAB PO SCH (05:01)
[2017-05-23] MEDS: HYDROCODONE/APAP (5/325) TAB PO PRN ×2 (05:02→22:29)
[2017-05-23] MEDS: BISACODYL 10 MG SUPP PR PRN (05:05)
--- NOTE | 2017-05-23 06:20 | QN ---
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 I have recommended cervical decompression for the same, and this was explained previously in detail to the patient. He understands that given the rapidity of his symptom progression there is a high likelihood that he will be functionally quadriplegic without intervention. However he is refusing to consent to surgery at the present time. He has previously adamantly refused to consider surgery in colorful terms (see previous note). He states he may reconsider after consultation with family; please notify if/ when the patient wishes to proceed with surgery as recommended. Thank you. PENNY VERONICA MD May 23, 2017 06:20
[2017-05-23 08:00] VITALS: BP 169/85; RESP 19
[2017-05-23] MEDS: GABAPENTIN 300 MG CAP PO SCH ×3 (08:39→19:47)
[2017-05-23] MEDS: SENNA TAB PO SCH ×2 (08:39→19:47)
[2017-05-23] MEDS: metFORMIN 500 MG TAB PO SCH ×2 (08:39→17:09)
[2017-05-23] MEDS: DOCUSATE SODIUM 100 MG CAP PO SCH ×2 (08:39→19:47)
[2017-05-23] MEDS: NEOMYC/POLYMYX/BACIT 30 GM OINT TOP SCH (08:40)
[2017-05-23] MEDS: POLYETHYLENE GLYCOL 17 GM PACKET PO SCH (08:40)
[2017-05-23] MEDS: ENOXAPARIN 40 MG/0.4 ML SYG SC SCH (08:47)
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
[2017-05-23 19:50] VITALS: BP 157/86; PULSE 95; RESP 19
[2017-05-23] MEDS: morphine 4 MG/ML VIAL IV PRN (23:56)
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
[2017-05-24 00:14] VITALS: BP 127/81; RESP 18
[2017-05-24] MEDS: MIRTAZAPINE 15 MG TAB PO SCH ×3 (00:30→21:00)
--- NOTE | 2017-05-24 00:33 | EN ---
Date/Time of Note Date/Time of Note DATE: 05/24/17 TIME: 00:25 Event Note Medicine Medicine Event Note Patient reported to be suicidal by the RN. Patient was found in bed trying to hurt himself with the bedsheets wrapped around his neck attached to the bed. Upon my examination. Patient states he is frustrated with his back pain and "does not want to go through with the surgery if it wont help him". He states that his pain is bad and "it is not any way to live."I did explain to the patient that as per the neurosurgery notes that if he does not undergo surgical intervention that he could have worsening of his symptoms resulting in possible quadriplegia. He states he is ok with having a 5150 hold being placed on him so that he could admitted to inpatient psych. Telepsych was initiated on the patient as he was agreeable to speaking to a psychiatrist. Please refer to the telepsych note for further information regarding the evaluation. He will be started on remeron 15mg po qhs as per psych recommendations. DAVID ALMARAZ May 24, 2017 00:32
[2017-05-24 04:00] VITALS: BP 149/83; RESP 20
[2017-05-24] MEDS: morphine 4 MG/ML VIAL IV PRN ×5 (04:06→21:17)
[2017-05-24] MEDS: PANTOPRAZOLE (EC) 40 MG TAB PO SCH (06:00)
[2017-05-24 07:41] VITALS: BP 127/62; RESP 19
[2017-05-24] MEDS: POLYETHYLENE GLYCOL 17 GM PACKET PO SCH (08:43)
[2017-05-24] MEDS: GABAPENTIN 300 MG CAP PO SCH ×3 (08:43→21:17)
[2017-05-24] MEDS: SENNA TAB PO SCH ×2 (08:43→21:17)
[2017-05-24] MEDS: metFORMIN 500 MG TAB PO SCH ×2 (08:43→17:53)
[2017-05-24] MEDS: DOCUSATE SODIUM 100 MG CAP PO SCH ×2 (08:43→21:17)
[2017-05-24] MEDS: ENOXAPARIN 40 MG/0.4 ML SYG SC SCH (08:50)
[2017-05-24] MEDS: NEOMYC/POLYMYX/BACIT 30 GM OINT TOP SCH (09:46)
--- NOTE | 2017-05-24 13:19 | PN ---
Date/Time of Note Date/Time of Note DATE: 05/24/17 TIME: 12:57 Assessment/Plan VTE Prophylaxis VTE Prophylaxis Intervention: SCD's Lines/Catheters IV Catheter Type (from Nrs): Saline Lock Urinary Cath still in place: No Assessment/Plan Chief Complaint/Hosp Course Assessment and plan: 1. Acute on chronic back pain with upper extremity weakness secondary to cervical cord stenosis as noted on MRI Neurosurgical evaluation appreciated, rec is for surgery Patient family has requested to proceed with surgical intervention, neurosurgery will be notified regarding this manner Pain control and PT 2. Encephalopathy-improved Patient appears to be chronically somnolent possibly from pain medications 3. Prediabetes: Previous hemoglobin A1c 6.1. 4. DVT and GI prophylaxis: Lovenox, Protonix. Disposition: Follow up with neurosurgery to proceed with surgical intervention Problems: Subjective 24 Hr Interval Summary Free Text/Dictation Patient was found to be agitated secondary to low back pain He is awake alert Denies of any chest pain or shortness of breath Tolerating oral intake As per family they would like to proceed with surgical intervention Exam/Review of Systems Vital Signs Vitals Vital Signs Date Time Temp Pulse Resp B/P Pulse Ox O2 Delivery O2 Flow Rate FiO2 05/24/17 07:41 97.5 87 19 127/62 100 Intake and Output 05/23/17 05/23/17 05/24/17 15:00 23:00 07:00 Intake Total 1440 ml 720 ml Output Total 200 ml 650 ml Balance 1240 ml 70 ml Exam General: The patient is well-developed, Not in acute distress. HEENT: Atraumatic, normocephalic. The pupils are equal and round . Neck: Supple with full range of motion. Chest: Normal expansion of the thorax during inspiration Lungs: Clear to auscultation bilaterally Heart: Normal S1-S2, Regular rhythm and rate. Abdomen: Soft , nontender, nondistended , bowel sounds are present. Extremities: Decreased range of motion in bilateral lower extremities secondary pain, no edema no cyanosis Neurologic: Normal mental status,The patient is awake, alert and oriented . Results Result Diagram: 05/21/1743905/21/17439 Results 24 hrs Laboratory Tests Test 05/24/17 08:42 Bedside Glucose 145 Medications Medications Current Medications Acetaminophen (Tylenol Tab) 650 mg Q6H PRN PO PAIN LEVEL 1-3 OR FEVER; Start at 21:00 Acetaminophen/ Hydrocodone Bitart ([place] (5/325)) 2 tab Q6H PRN PO SEVERE PAIN LEVEL 7-10 Last administered on 05/23/17 22:29; Admin Dose 2 TAB; Start at 21:00 Morphine Sulfate (morphine) 2 mg Q4H PRN IV SEVERE PAIN LEVEL 7-10 Last administered on 05/23/17 19:47; Admin Dose 2 MG; Start 05/16/17 at 21:00 Enoxaparin Sodium (Lovenox) 40 mg DAILY SC Last administered on 05/24/17 08:50 ; Admin Dose 40 MG; Start 05/16/17 at 21:00 Gabapentin (Neurontin) 300 mg TID PO Last administered on 05/24/17 12:22; Admin Dose 300 MG; Start 05/16/17 at 21:00 Miscellaneous Information 1 ea NOTE XX ; Start 05/17/17 at 17:30 Glucose (Glutose) 15 gm Q15M PRN PO DECREASED GLUCOSE; Start 05/17/17 at 17:30 Glucose (Glutose) 22.5 gm Q15M PRN PO DECREASED GLUCOSE; Start 05/17/17 at 17:30 Dextrose (D50w Syringe) 25 ml Q15M PRN IV DECREASED GLUCOSE; Start 05/17/17 at 17:30 Dextrose (D50w Syringe) 50 ml Q15M PRN IV DECREASED GLUCOSE; Start 05/17/17 at 17:30 Glucagon (Glucagen) 1 mg Q15M PRN IM DECREASED GLUCOSE; Start 05/17/17 at 17:30 Glucose (Glutose) 15 gm Q15M PRN BUCCAL DECREASED GLUCOSE; Start 05/17/17 at 17: 30 Pantoprazole (Protonix Tab) 40 mg DAILY@06 PO Last administered on 05/23/17 05 :01; Admin Dose 40 MG; Start 05/18/17 at 06:00 Hydroxyzine HCl (Atarax) 25 mg Q6H PRN PO ITCHING Last administered on 06:53; Admin Dose 25 MG; Start 05/19/17 at 03:30 Docusate Sodium (Colace) 100 mg BID PO Last administered on 05/24/17 08:43; Admin Dose 100 MG; Start 05/19/17 at 21:00 Senna (Senokot) 1 tab BID PO Last administered on 05/24/17 08:43; Admin Dose 1 TAB; Start 05/19/17 at 21:00 Polyethylene Glycol (Miralax) 17 gm DAILY PO Last administered on 05/24/17 08: 43; Admin Dose 17 GM; Start 05/21/17 at 09:00 Neomycin/ Polymyxin/ Bacitracin (Neosporin Topical Oint) 1 applic AM TOP Last administered on 05/24/17 09:46; Admin Dose 1 APPLIC; Start 05/23/17 at 09:00 Lactulose (Enulose) 20 gm DAILY PRN PO CONSTIPATION; Start 05/22/17 at 18:30 Bisacodyl (Dulcolax Supp) 10 mg DAILY PRN [place] CONSTIPATION Last administered on 05/23/17 05:05; Admin Dose 10 MG; Start 05/22/17 at 18:30 Morphine Sulfate (morphine) 3 mg Q3H PRN IV PAIN Last administered on 09:47; Admin Dose 3 MG; Start 05/23/17 at 23:15 Mirtazapine (Remeron) 15 mg HS PO ; Start 05/24/17 at 00:30 RUTHY ROSS MD May 24, 2017 13:11
[2017-05-24 20:15] VITALS: BP 129/81; RESP 18
[2017-05-25] MEDS: morphine 4 MG/ML VIAL IV PRN ×6 (01:06→21:26)
[2017-05-25] MEDS: PANTOPRAZOLE (EC) 40 MG TAB PO SCH (06:12)
[2017-05-25 09:00] VITALS: BP 126/64; RESP 18
[2017-05-25] MEDS: NEOMYC/POLYMYX/BACIT 30 GM OINT TOP SCH (09:00)
[2017-05-25] MEDS: POLYETHYLENE GLYCOL 17 GM PACKET PO SCH (10:07)
[2017-05-25] MEDS: metFORMIN 500 MG TAB PO SCH ×2 (10:07→17:56)
[2017-05-25] MEDS: GABAPENTIN 300 MG CAP PO SCH ×3 (10:07→20:02)
[2017-05-25] MEDS: DOCUSATE SODIUM 100 MG CAP PO SCH ×2 (10:07→20:02)
[2017-05-25] MEDS: SENNA TAB PO SCH ×2 (10:08→20:02)
[2017-05-25] MEDS: ENOXAPARIN 40 MG/0.4 ML SYG SC SCH (10:10)
--- NOTE | 2017-05-25 14:16 | PN ---
Date/Time of Note Date/Time of Note DATE: 05/25/17 TIME: 14:15 Assessment/Plan VTE Prophylaxis VTE Prophylaxis Intervention: SCD's Lines/Catheters IV Catheter Type (from Nrs): Saline Lock Urinary Cath still in place: No Assessment/Plan Chief Complaint/Hosp Course Assessment and plan: 1. Acute on chronic back pain with upper extremity weakness secondary to cervical cord stenosis as noted on MRI Neurosurgical evaluation appreciated, rec is for surgery Patient family has requested to proceed with surgical intervention, neurosurgery will be notified regarding this manner Pain control and PT 2. Encephalopathy-improved Patient appears to be chronically somnolent possibly from pain medications 3. Prediabetes: Previous hemoglobin A1c 6.1. 4. DVT and GI prophylaxis: Lovenox, Protonix. Disposition: Follow up with neurosurgery to proceed with surgical intervention Problems: Subjective 24 Hr Interval Summary Free Text/Dictation No acute changes Patient denies of any chest pain or shortness of breath Continues to complain of having low back pain Patient denies of having any thoughts of hurting himself or hurting others There is no suicidal ideation Exam/Review of Systems Vital Signs Vitals Vital Signs Date Time Temp Pulse Resp B/P Pulse Ox O2 Delivery O2 Flow Rate FiO2 05/25/17 09:00 98.4 88 18 126/64 98 Intake and Output 05/24/17 05/24/17 05/25/17 15:00 23:00 07:00 Intake Total 1200 ml 240 ml Output Total 900 ml 800 ml Balance 300 ml -560 ml Exam General: The patient is well-developed, Not in acute distress. HEENT: Atraumatic, normocephalic. The pupils are equal and round . Neck: Supple with full range of motion. Chest: Normal expansion of the thorax during inspiration Lungs: Clear to auscultation bilaterally Heart: Normal S1-S2, Regular rhythm and rate. Abdomen: Soft , nontender, nondistended , bowel sounds are present. Extremities: Increased range of motion bilateral lower extremity secondary to pain no edema no cyanosis Neurologic: Normal mental status,The patient is awake, alert and oriented . Results Result Diagram: 05/21/1743905/21/17439 Results 24 hrs Laboratory Tests Test 05/24/17 17:52 Bedside Glucose 108 Medications Medications Current Medications Acetaminophen (Tylenol Tab) 650 mg Q6H PRN PO PAIN LEVEL 1-3 OR FEVER; Start at 21:00 Acetaminophen/ Hydrocodone Bitart ([place] (5/325)) 2 tab Q6H PRN PO SEVERE PAIN LEVEL 7-10 Last administered on 05/23/17 22:29; Admin Dose 2 TAB; Start at 21:00 Morphine Sulfate (morphine) 2 mg Q4H PRN IV SEVERE PAIN LEVEL 7-10 Last administered on 05/23/17 19:47; Admin Dose 2 MG; Start 05/16/17 at 21:00 Enoxaparin Sodium (Lovenox) 40 mg DAILY SC Last administered on 05/25/17 10:10 ; Admin Dose 40 MG; Start 05/16/17 at 21:00 Gabapentin (Neurontin) 300 mg TID PO Last administered on 05/25/17 14:07; Admin Dose 300 MG; Start 05/16/17 at 21:00 Miscellaneous Information 1 ea NOTE XX ; Start 05/17/17 at 17:30 Glucose (Glutose) 15 gm Q15M PRN PO DECREASED GLUCOSE; Start 05/17/17 at 17:30 Glucose (Glutose) 22.5 gm Q15M PRN PO DECREASED GLUCOSE; Start 05/17/17 at 17:30 Dextrose (D50w Syringe) 25 ml Q15M PRN IV DECREASED GLUCOSE; Start 05/17/17 at 17:30 Dextrose (D50w Syringe) 50 ml Q15M PRN IV DECREASED GLUCOSE; Start 05/17/17 at 17:30 Glucagon (Glucagen) 1 mg Q15M PRN IM DECREASED GLUCOSE; Start 05/17/17 at 17:30 Glucose (Glutose) 15 gm Q15M PRN BUCCAL DECREASED GLUCOSE; Start 05/17/17 at 17: 30 Pantoprazole (Protonix Tab) 40 mg DAILY@06 PO Last administered on 05/25/17 06 :12; Admin Dose 40 MG; Start 05/18/17 at 06:00 Hydroxyzine HCl (Atarax) 25 mg Q6H PRN PO ITCHING Last administered on 06:53; Admin Dose 25 MG; Start 05/19/17 at 03:30 Docusate Sodium (Colace) 100 mg BID PO Last administered on 05/25/17 10:07; Admin Dose 100 MG; Start 05/19/17 at 21:00 Senna (Senokot) 1 tab BID PO Last administered on 05/25/17 10:08; Admin Dose 1 TAB; Start 05/19/17 at 21:00 Polyethylene Glycol (Miralax) 17 gm DAILY PO Last administered on 05/25/17 10: 07; Admin Dose 17 GM; Start 05/21/17 at 09:00 Neomycin/ Polymyxin/ Bacitracin (Neosporin Topical Oint) 1 applic AM TOP Last administered on 05/24/17 09:46; Admin Dose 1 APPLIC; Start 05/23/17 at 09:00 Lactulose (Enulose) 20 gm DAILY PRN PO CONSTIPATION; Start 05/22/17 at 18:30 Bisacodyl (Dulcolax Supp) 10 mg DAILY PRN [place] CONSTIPATION Last administered on 05/23/17 05:05; Admin Dose 10 MG; Start 05/22/17 at 18:30 Morphine Sulfate (morphine) 3 mg Q3H PRN IV PAIN Last administered on 14:07; Admin Dose 3 MG; Start 05/23/17 at 23:15 Mirtazapine (Remeron) 15 mg HS PO ; Start 05/24/17 at 00:30 RUTHY ROSS MD May 25, 2017 14:16
[2017-05-25] MEDS: MIRTAZAPINE 15 MG TAB PO SCH (20:04)
[2017-05-25 20:48] VITALS: BP 138/68; RESP 20
[2017-05-26] MEDS: morphine 4 MG/ML VIAL IV PRN ×6 (00:35→15:13)
[2017-05-26] MEDS: PANTOPRAZOLE (EC) 40 MG TAB PO SCH (05:30)
[2017-05-26 05:59] LABS: ADD SCAN DIFF NO
[2017-05-26 06:09] LABS: BASOPHIL # 0.1 10^3/ul (0.0-0.1); BASOPHILS % 0.7 % (0.0-2.0); EOSINOPHILS # 0.2 10^3/ul (0.0-0.5); EOSINOPHILS % 2.7 % (0.0-7.0); HEMATOCRIT 34.6 % (42.0-52.0); HEMOGLOBIN 11.4 g/dl (14.0-18.0); LYMPHOCYTES # 2.7 10^3/ul (0.8-2.9); LYMPHOCYTES % 35.5 % (15.0-51.0); MEAN CORPUSCULAR HEMOGLOBIN 29.5 pg (29.0-33.0); MEAN CORPUSCULAR HGB CONC 32.9 g/dl (32.0-37.0); MEAN CORPUSCULAR VOLUME 89.6 fl (82.0-101.0); MONOCYTES % 13.3 % (0.0-11.0); NEUTROPHIL # 3.7 10^3/ul (1.6-7.5); NEUTROPHILS % 47.7 % (39.0-77.0); PLATELET COUNT 140 10^3/UL (140-415); RED BLOOD COUNT 3.86 10^6/ul (4.70-6.10); WHITE BLOOD COUNT 7.7 10^3/ul (4.8-10.8)
[2017-05-26 06:25] LABS: CALCIUM 8.7 mg/dl (8.4-10.2); CREATININE 0.67 mg/dl (0.61-1.24)
[2017-05-26 06:38] LABS: INR 1.19; PROTIME 15.2 Sec (12.2-14.2); PT RATIO 1.2
[2017-05-26 06:39] LABS: PARTIAL THROMBOPLASTIN TIME 35.3 Sec (25.0-35.0)
[2017-05-26] MEDS ORDERED: ROCURONIUM 50 MG INJ ONE ×2 (07:00→21:21)
[2017-05-26 07:26] VITALS: BP 135/100; RESP 19
[2017-05-26] MEDS: metFORMIN 500 MG TAB PO SCH ×2 (07:50→17:55)
[2017-05-26] MEDS: DOCUSATE SODIUM 100 MG CAP PO SCH ×2 (08:40→21:00)
[2017-05-26] MEDS: ENOXAPARIN 40 MG/0.4 ML SYG SC SCH (08:40)
[2017-05-26] MEDS: POLYETHYLENE GLYCOL 17 GM PACKET PO SCH (08:40)
[2017-05-26] MEDS: GABAPENTIN 300 MG CAP PO SCH ×3 (08:41→21:00)
[2017-05-26] MEDS: SENNA TAB PO SCH ×2 (08:41→21:00)
[2017-05-26] MEDS: NEOMYC/POLYMYX/BACIT 30 GM OINT TOP SCH (09:00)
[2017-05-26] MEDS ORDERED: BUPIVACAINE 0.5% (SDV) 30 ML INJ ONE (12:51)
--- NOTE | 2017-05-26 14:02 | RADRPT ---
Vent Rate: 98 bpm RR Interval: 0 msec GA Interval: 170 msec QRS Duration: 92 msec QT Interval: 346 msec QTC Interval: 441 msec P-R-T Jones: 59 - 48 - 69 degrees Normal sinus rhythm Normal ECG Electronically Signed By: Ced Rivers [id number]
--- NOTE | 2017-05-26 15:36 | PN ---
Date/Time of Note Date/Time of Note DATE: 05/26/17 TIME: 15:34 Assessment/Plan VTE Prophylaxis VTE Prophylaxis Intervention: LMWH Lines/Catheters IV Catheter Type (from Nrsg): Saline Lock Assessment/Plan Chief Complaint/Hosp Course 1. Acute on chronic back pain with upper extremity weakness secondary to cervical cord stenosis as noted on MRI Neurosurgical evaluation appreciated, rec is for surgery Patient family has requested to proceed with surgical intervention, surgery planned for today Benefits of surgery outweigh any risks, pt has no sig PMH Pain control and PT 2. Encephalopathy-improved Patient appears to be chronically somnolent possibly from pain medications 3. Prediabetes: Previous hemoglobin A1c 6.1. 4. DVT and GI prophylaxis: Lovenox, Protonix. Problems: Subjective 24 Hr Interval Summary Constitutional: no complaints Exam/Review of Systems Vital Signs Vitals Vital Signs Date Time Temp Pulse Resp B/P Pulse Ox O2 Delivery O2 Flow Rate FiO2 05/26/17 07:26 98.8 101 19 135/100 98 Intake and Output 05/25/17 05/25/17 05/26/17 15:00 23:00 07:00 Intake Total 800 ml Output Total 850 ml Balance -50 ml Exam Constitutional: alert Respiratory: clear to auscultation Cardiovascular: regular rate and rhythm Gastrointestinal: soft, No distended Musculoskeletal: nl extremities to inspection Results Result Diagram: 05/26/17 0501 05/26/17 0501 Results 24 hrs Laboratory Tests Test 05/26/17 05:01 White Blood Count 7.7 # Red Blood Count 3.86 L Hemoglobin 11.4 L Hematocrit 34.6 L Mean Corpuscular Volume 89.6 Mean Corpuscular Hemoglobin 29.5 Mean Corpuscular Hemoglobin Concent 32.9 Red Cell Distribution Width 15.0 H Platelet Count 140 Mean Platelet Volume 12.0 H Neutrophils % 47.7 Lymphocytes % 35.5 Monocytes % 13.3 H Eosinophils % 2.7 Basophils % 0.7 Nucleated Red Blood Cells % 0.0 Neutrophils # 3.7 Lymphocytes # 2.7 Monocytes # 1.0 H Eosinophils # 0.2 Basophils # 0.1 Nucleated Red Blood Cells # 0.0 Prothrombin Time 15.2 H Prothrombin Time Ratio 1.2 INR International Normalized Ratio 1.19 Activated Partial Thromboplast Time 35.3 H Sodium Level 130 L Potassium Level 4.0 Chloride Level 102 Carbon Dioxide Level 24 Anion Gap 8 Blood Urea Nitrogen 10 Creatinine 0.67 Glucose Level 111 Calcium Level 8.7 Medications Medications Current Medications Acetaminophen (Tylenol Tab) 650 mg Q6H PRN PO PAIN LEVEL 1-3 OR FEVER; Start at 21:00 Acetaminophen/ Hydrocodone Bitart ([place] (5/325)) 2 tab Q6H PRN PO SEVERE PAIN LEVEL 7-10 Last administered on 05/23/17 22:29; Admin Dose 2 TAB; Start at 21:00 Morphine Sulfate (morphine) 2 mg Q4H PRN IV SEVERE PAIN LEVEL 7-10 Last administered on 05/23/17 19:47; Admin Dose 2 MG; Start 05/16/17 at 21:00 Enoxaparin Sodium (Lovenox) 40 mg DAILY SC Last administered on 05/25/17 10:10 ; Admin Dose 40 MG; Start 05/16/17 at 21:00 Gabapentin (Neurontin) 300 mg TID PO Last administered on 05/25/17 20:02; Admin Dose 300 MG; Start 05/16/17 at 21:00 Miscellaneous Information 1 ea NOTE XX ; Start 05/17/17 at 17:30 Glucose (Glutose) 15 gm Q15M PRN PO DECREASED GLUCOSE; Start 05/17/17 at 17:30 Glucose (Glutose) 22.5 gm Q15M PRN PO DECREASED GLUCOSE; Start 05/17/17 at 17:30 Dextrose (D50w Syringe) 25 ml Q15M PRN IV DECREASED GLUCOSE; Start 05/17/17 at 17:30 Dextrose (D50w Syringe) 50 ml Q15M PRN IV DECREASED GLUCOSE; Start 05/17/17 at 17:30 Glucagon (Glucagen) 1 mg Q15M PRN IM DECREASED GLUCOSE; Start 05/17/17 at 17:30 Glucose (Glutose) 15 gm Q15M PRN BUCCAL DECREASED GLUCOSE; Start 05/17/17 at 17: 30 Pantoprazole (Protonix Tab) 40 mg DAILY@06 PO Last administered on 05/25/17 06 :12; Admin Dose 40 MG; Start 05/18/17 at 06:00 Hydroxyzine HCl (Atarax) 25 mg Q6H PRN PO ITCHING Last administered on 06:53; Admin Dose 25 MG; Start 05/19/17 at 03:30 Docusate Sodium (Colace) 100 mg BID PO Last administered on 05/25/17 20:02; Admin Dose 100 MG; Start 05/19/17 at 21:00 Senna (Senokot) 1 tab BID PO Last administered on 05/25/17 20:02; Admin Dose 1 TAB; Start 05/19/17 at 21:00 Polyethylene Glycol (Miralax) 17 gm DAILY PO Last administered on 05/25/17 10: 07; Admin Dose 17 GM; Start 05/21/17 at 09:00 Neomycin/ Polymyxin/ Bacitracin (Neosporin Topical Oint) 1 applic AM TOP Last administered on 05/24/17 09:46; Admin Dose 1 APPLIC; Start 05/23/17 at 09:00 Lactulose (Enulose) 20 gm DAILY PRN PO CONSTIPATION; Start 05/22/17 at 18:30 Bisacodyl (Dulcolax Supp) 10 mg DAILY PRN [place] CONSTIPATION Last administered on 05/23/17 05:05; Admin Dose 10 MG; Start 05/22/17 at 18:30 Morphine Sulfate (morphine) 3 mg Q3H PRN IV PAIN Last administered on 15:13; Admin Dose 3 MG; Start 05/23/17 at 23:15 Mirtazapine (Remeron) 15 mg HS PO ; Start 05/24/17 at 00:30 CAMRON HILTON May 26, 2017 15:36
--- NOTE | 2017-05-26 17:46 | QN ---
Documentation Comment Patient with severe cervical stenosis, cord edema, and foraminal stenosis C3-6. Risks, benefits and alternatives to cervical laminectomy and fusion were explained to the patient in detail. He was advised that - and expressed his explicit understanding of - the goal of surgery is to prevent further neurologic deterioration, and no neurologic improvement is expected or guaranteed. He understands further that there is a risk of precipitating worsening neurologic function with surgery, but that in my opinion the risks of surgery are significantly less than the risk of further observation. PENNY VERONICA MD May 26, 2017 17:46
[2017-05-26] MEDS ORDERED: POVIDONE IODINE 10% 28.4 GM OINT ONE (18:37)
[2017-05-26] MEDS ORDERED: GELATIN SIZE 100 SPONGE ONE (18:54)
[2017-05-26] MEDS ORDERED: POLYMYXIN/BACITRACIN 1L IRRIG ONE ×3 (18:54→22:42)
[2017-05-26] MEDS ORDERED: THROMBIN 5000 UNIT VIAL ONE (18:54)
[2017-05-26] MEDS ORDERED: BUPIVACAINE 0.25%/EPI (SDV) 30 ML INJ ONE (18:54)
[2017-05-26] MEDS ORDERED: FENTAnyl 50 MCG/ML VIAL ONE ×3 (19:24→20:42)
[2017-05-26] MEDS: MIRTAZAPINE 15 MG TAB PO SCH (21:00)
[2017-05-26] MEDS ORDERED: LABETALOL HCL 20MG INJ ONE (21:00)
[2017-05-26] MEDS ORDERED: PROPOFOL 40 ML ONE (21:21)
[2017-05-26] MEDS ORDERED: LIDOCAINE 2% (SDV) 5 ML INJ ONE (21:21)
[2017-05-26] MEDS ORDERED: SUCCINYLCHOLINE CHLORIDE 100 MG/5 ML SYG IV ONE (21:21)
[2017-05-26] MEDS ORDERED: CEFAZOLIN 1 GM INJ ONE (21:21)
[2017-05-27] VITALS (42 sets, daily range): BP systolic 96–246; BP diastolic 57–136; PULSE 99–135; RESP 9–31
[2017-05-27] MEDS ORDERED: PROPOFOL 100 ML ONE (00:49)
[2017-05-27] MEDS: PROPOFOL 100 ML IV SCH ×2 (01:00→13:00)
[2017-05-27] MEDS ORDERED: LABETALOL HCL 20MG INJ IV PRN (01:30)
--- NOTE | 2017-05-27 01:32 | RADRPT ---
PROCEDURE: X-ray cervical spine. CLINICAL INDICATION: Cervical laminectomy at C3-C6. TECHNIQUE: 2 lateral views of the lateral cervical spine. COMPARISON: MRI cervical spine dated 05/19/2017. FINDINGS: Instrumentation is seen over the dorsal cervical spine, however, the cervical spine is not well seen below the C5 level secondary to overlying soft tissues. IMPRESSION: Instrumentation over the dorsal cervical spine. RPTAT: [facility] Physician Silvia Date Time Electronically viewed and signed by Clark Sheppard Physician on 05/27/2017 01:32 RS/
[2017-05-27 01:40] LABS: Arterial Base Excess -6.8 mmol/L (-3.0-3); Arterial COHb 0.3 % (0.0-3.0); Arterial Fraction of Oxyhgb 98.5 % (93.0-99.0); Arterial HCO3 18.9 mmol/L (22.0-26.0); Arterial MetHb 0.5 % (0.0-1.5); Arterial Total Hemglobin 13.8 g/dl (12.0-18.0); MODE VENT - AC
[2017-05-27] MEDS ORDERED: LORAZEPAM 2 MG INJ ONE (01:51)
[2017-05-27] MEDS ORDERED: LABETALOL HCL 20MG INJ IV ONE (02:00)
[2017-05-27] MEDS ORDERED: LORAZEPAM 2 MG INJ IV ONE (02:00)
[2017-05-27] MEDS: HYDROmorphONE 1 MG/ML SYG IV PRN ×3 (02:10→20:20)
[2017-05-27] MEDS: D5-NS + KCL 20 MEQ 1,000 ML IV SCH ×3 (02:22→21:47)
--- NOTE | 2017-05-27 02:24 | RADRPT ---
PROCEDURE: Chest. CLINICAL INDICATION: Chest pain. TECHNIQUE: Single frontal view of the chest was obtained. COMPARISON: 05/16/2017. FINDINGS: There is an endotracheal tube at the mid clavicular level. The cardiac silhouette is within normal limits. The aortic arch is calcified. There is mild right basilar infiltrate. There is no vascula r congestion or pleural effusion. There is no pneumothorax. IMPRESSION: Right basilar infiltrate. Aortic atherosclerosis. Endotracheal tube in place. .Danyel Paz MD, MD Date Time Electronically viewed and signed by .Danyel Paz MD, MD on 05/27/2017 02:23 .T/
[2017-05-27] MEDS ORDERED: LORAZEPAM 2 MG INJ IV PRN (04:30)
[2017-05-27 05:18] LABS: ADD SCAN DIFF NO
[2017-05-27 05:23] LABS: BASOPHIL # 0.1 10^3/ul (0.0-0.1); BASOPHILS % 0.5 % (0.0-2.0); EOSINOPHILS # 0.1 10^3/ul (0.0-0.5); EOSINOPHILS % 0.5 % (0.0-7.0); HEMATOCRIT 32.8 % (42.0-52.0); HEMOGLOBIN 10.9 g/dl (14.0-18.0); LYMPHOCYTES # 1.9 10^3/ul (0.8-2.9); LYMPHOCYTES % 18.6 % (15.0-51.0); MEAN CORPUSCULAR HGB CONC 33.2 g/dl (32.0-37.0); MEAN CORPUSCULAR VOLUME 90.4 fl (82.0-101.0); MEAN PLATELET VOLUME 11.3 fl (7.4-10.4); MONOCYTE # 1.1 10^3/ul (0.3-0.9); MONOCYTES % 10.7 % (0.0-11.0); NEUTROPHIL # 7.2 10^3/ul (1.6-7.5); NEUTROPHILS % 69.4 % (39.0-77.0); PLATELET COUNT 149 10^3/UL (140-415); RED BLOOD COUNT 3.63 10^6/ul (4.70-6.10); RED CELL DISTRIBUTION WIDTH 14.9 % (11.5-14.5); WHITE BLOOD COUNT 10.4 10^3/ul (4.8-10.8)
[2017-05-27 05:49] LABS: CALCIUM 8.5 mg/dl (8.4-10.2); CREATININE 0.76 mg/dl (0.61-1.24); MAGNESIUM 1.4 mg/dl (1.7-2.5); PHOSPHORUS 4.6 mg/dl (2.5-4.9); POTASSIUM 4.6 mmol/L (3.5-5.1)
[2017-05-27] MEDS: PANTOPRAZOLE (EC) 40 MG TAB PO SCH (06:00)
[2017-05-27] MEDS: CEFUROXIME IVPB SCH ×3 (06:43→21:48)
[2017-05-27] MEDS: metFORMIN 500 MG TAB PO SCH ×2 (07:35→18:38)
[2017-05-27] MEDS: morphine 2 MG INJ IV PRN ×2 (08:24→13:57)
[2017-05-27] MEDS: DOCUSATE SODIUM 100 MG CAP PO SCH ×2 (08:56→20:20)
[2017-05-27] MEDS: SENNA TAB PO SCH ×2 (08:56→20:19)
[2017-05-27] MEDS: POLYETHYLENE GLYCOL 17 GM PACKET PO SCH (08:56)
[2017-05-27] MEDS: GABAPENTIN 300 MG CAP PO SCH ×3 (08:56→20:20)
--- NOTE | 2017-05-27 09:16 | RADRPT ---
PROCEDURE: XR Chest 1 View. CLINICAL INDICATION: Status post orogastric tube placement. TECHNIQUE: AP view of the chest was obtained. COMPARISON: May 27, 2017 at 02:14 a.m. FINDINGS: The cardiomediastinal silhouette is within normal limits. Orogastric tube has its distal end in the expected location of the stomach. Endotracheal tube is stable. Right lower lobe infiltrates have d ecreased. Mild residual remains. The lungs are hypoinflated. The osseous structures are unchanged. Skin fabian are identified in the lower neck. IMPRESSION: Nasogastric tube with its distal end in the expected location of the stomach. Interval decrease in right lower lobe infiltrates. Mild residual remains. Hypoinflated lungs. RPTAT: AA .Harris Sabillon MD, Date Time Electronically viewed and signed by .Harris Sabillon MD, on 05/27/2017 09:15 .P/
[2017-05-27 11:02] LABS: AADO2 Arterial 111.1 mmHg (7.0-24.0); Allen Test ACCEPTAB; Arterial Base Excess -1.3 mmol/L (-3.0-3); Arterial COHb 0.3 % (0.0-3.0); Arterial Fraction of Oxyhgb 97.7 % (93.0-99.0); Arterial HCO3 22.4 mmol/L (22.0-26.0); Arterial MetHb 0.4 % (0.0-1.5); Arterial Total Hemglobin 12.2 g/dl (12.0-18.0); Blood Gas PS 10; MODE VENT CPAP
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
--- NOTE | 2017-05-27 12:46 | PN ---
Date/Time of Note Date/Time of Note DATE: 05/27/17 TIME: 12:45 Assessment/Plan VTE Prophylaxis VTE Prophylaxis Intervention: SCD's Lines/Catheters IV Catheter Type (from Nrsg): A Line Urinary Cath still in place: Yes Reason Cath still needed: other (indicate) (will dc once extubated. pt currently in ICU) Assessment/Plan Assessment/Plan 66 yo M with spinal stenosis admitted for acute on chronic back pain and UE weakness 2/2 cervical stenosis. Pt is sp laminectomy and fusion 7.14. 1. Acute on chronic back pain with upper extremity weakness secondary to cervical cord stenosis now sp neurosurgical intervention neurosurgery still following 2 Prediabetes: Previous hemoglobin A1c 6.1. 3. DVT and GI prophylaxis: Lovenox, Protonix. 4. Depression with SI: pt with suicidal gesture of wrapping bedsheet around his neck 7.12. evaluated by telepsych. cont psych meds when closer to discharge will need to consider SNF v inpatient psychiatric unit pt currently being directly monitored. cont suicide precautions DVT prophx Subjective 24 Hr Interval Summary Free Text/Dictation Pt seen in ICU this morning. Was left intubated after his procedure. per pulm, tentative plan to extubate this AM Exam/Review of Systems Vital Signs Vitals Vital Signs Date Time Temp Pulse Resp B/P Pulse Ox O2 Delivery O2 Flow Rate FiO2 05/27/17 11:34 100 2.0 05/27/17 11:00 101 25 131/70 CPAP 05/27/17 09:08 40 05/27/17 08:00 98.3 Intake and Output 05/26/17 05/26/17 05/27/17 14:59 22:59 06:59 Intake Total 2400 ml Output Total 1250 ml 1030 ml Balance -1250 ml 1370 ml Exam nad, sitting up in bed wearing neck brace no mrg lungs clear abd soft no rashes Results Result Diagram: 05/27/17 0450 05/27/17 0430 Results 24 hrs Laboratory Tests Test 05/27/17 00:42 05/27/17 04:30 05/27/17 04:50 05/27/17 11:00 Blood Gas Specimen Source Blood arterial Blood arterial Arterial Blood Date Drawn 05/27/2017 1:30:05 AM 05/27/2017 10:54:44 AM Arterial Blood pH (Temp corrected) 7.308 L 7.431 Arterial Blood pCO2 (Temp correct) 38.6 34.5 L Arterial Blood pO2 (Temp corrected) 281.4 H 134.4 H Arterial Blood HCO3 18.9 L 22.4 Arterial Blood Base Excess -6.8 L -1.3 Arterial Blood Oxygen Saturation 99.3 H 98.4 H Cy Test N/A ACCEPTAB Arterial Blood Gas Puncture Site A-Line Right Brachial Arterial Blood Carboxyhemoglobin 0.3 0.3 Arterial Blood Methemoglobin 0.5 0.4 Blood Gas A-a O2 Differential 393.0 H 111.1 H Oxyhemoglobin Percent 98.5 97.7 Total Hemoglobin 13.8 12.2 Blood Gas Temperature 37.0 37.0 Blood Gas Respiration Rate 12.0 Blood Gas Actual Respiration Rate 26 16 Blood Gas Modality VENT - AC VENT CPAP FiO2 100.0 40.0 Blood Gas Tidal Volume 550.0 Blood Gas Low PEEP Setting 5.0 5.0 Blood Gas Notified Whom NIKOLE SHUKLA [facility] Blood Gas Notified Time 05/27/2017 1:39:36 AM 05/27/2017 11:02:01 AM Sodium Level 138 Potassium Level 4.6 Chloride Level 101 Carbon Dioxide Level 23 Anion Gap 19 H Blood Urea Nitrogen 12 Creatinine 0.76 Glucose Level 151 Calcium Level 8.5 Phosphorus Level 4.6 Magnesium Level 1.4 L White Blood Count 10.4 # Red Blood Count 3.63 L Hemoglobin 10.9 L Hematocrit 32.8 L Mean Corpuscular Volume 90.4 Mean Corpuscular Hemoglobin 30.0 Mean Corpuscular Hemoglobin Concent 33.2 Red Cell Distribution Width 14.9 H Platelet Count 149 Mean Platelet Volume 11.3 H Neutrophils % 69.4 Lymphocytes % 18.6 Monocytes % 10.7 Eosinophils % 0.5 Basophils % 0.5 Nucleated Red Blood Cells % 0.0 Neutrophils # 7.2 Lymphocytes # 1.9 Monocytes # 1.1 H Eosinophils # 0.1 Basophils # 0.1 Nucleated Red Blood Cells # 0.0 Blood Gas Pressure Support 10 Medications Medications Current Medications Acetaminophen (Tylenol Tab) 650 mg Q6H PRN PO PAIN LEVEL 1-3 OR FEVER; Start at 21:00 Acetaminophen/ Hydrocodone Bitart ([place] (5/325)) 2 tab Q6H PRN PO SEVERE PAIN LEVEL 7-10 Last administered on 05/23/17t 22:29; Admin Dose 2 TAB; Start at 21:00 Morphine Sulfate (morphine) 2 mg Q4H PRN IV SEVERE PAIN LEVEL 7-10 Last administered on 05/27/17 08:24; Admin Dose 2 MG; Start 05/16/17 at 21:00 Enoxaparin Sodium (Lovenox) 40 mg DAILY SC Last administered on 05/25/17 10:10 ; Admin Dose 40 MG; Start 05/16/17 at 21:00; Status Future Hold Gabapentin (Neurontin) 300 mg TID PO Last administered on 05/27/17 08:56; Admin Dose 300 MG; Start 05/16/17 at 21:00 Miscellaneous Information 1 ea NOTE XX ; Start 05/17/17 at 17:30 Glucose (Glutose) 15 gm Q15M PRN PO DECREASED GLUCOSE; Start 05/17/17 at 17:30 Glucose (Glutose) 22.5 gm Q15M PRN PO DECREASED GLUCOSE; Start 05/17/17 at 17:30 Dextrose (D50w Syringe) 25 ml Q15M PRN IV DECREASED GLUCOSE; Start 05/17/17 at 17:30 Dextrose (D50w Syringe) 50 ml Q15M PRN IV DECREASED GLUCOSE; Start 05/17/17 at 17:30 Glucagon (Glucagen) 1 mg Q15M PRN IM DECREASED GLUCOSE; Start 05/17/17 at 17:30 Glucose (Glutose) 15 gm Q15M PRN BUCCAL DECREASED GLUCOSE; Start 05/17/17 at 17: 30 Pantoprazole (Protonix Tab) 40 mg DAILY@06 PO Last administered on 05/25/17 06 :12; Admin Dose 40 MG; Start 05/18/17 at 06:00 Hydroxyzine HCl (Atarax) 25 mg Q6H PRN PO ITCHING Last administered on 06:53; Admin Dose 25 MG; Start 05/19/17 at 03:30 Docusate Sodium (Colace) 100 mg BID PO Last administered on 05/27/17 08:56; Admin Dose 100 MG; Start 05/19/17 at 21:00 Senna (Senokot) 1 tab BID PO Last administered on 05/27/17 08:56; Admin Dose 1 TAB; Start 05/19/17 at 21:00 Polyethylene Glycol (Miralax) 17 gm DAILY PO Last administered on 05/27/17 08: 56; Admin Dose 17 GM; Start 05/21/17 at 09:00 Neomycin/ Polymyxin/ Bacitracin (Neosporin Topical Oint) 1 applic AM TOP Last administered on 05/24/17 09:46; Admin Dose 1 APPLIC; Start 05/23/17 at 09:00 Lactulose (Enulose) 20 gm DAILY PRN PO CONSTIPATION; Start 05/22/17 at 18:30 Bisacodyl (Dulcolax Supp) 10 mg DAILY PRN [place] CONSTIPATION Last administered on 05/23/17 05:05; Admin Dose 10 MG; Start 05/22/17 at 18:30 Morphine Sulfate (morphine) 3 mg Q3H PRN IV PAIN Last administered on 15:13; Admin Dose 3 MG; Start 05/23/17 at 23:15 Mirtazapine (Remeron) 15 mg HS PO ; Start 05/24/17 at 00:30 Hydromorphone HCl (Dilaudid) 1 mg Q4H PRN IV PAIN Last administered on 02:10; Admin Dose 1 MG; Start 05/27/17 at 00:30 Ondansetron HCl 4 mg 4 mg Q6H PRN IV NAUSEA AND/OR VOMITING; Start 05/27/17 at 00:30 Cefuroxime Sodium 50 ml @ 100 mls/hr Q8 IVPB Last administered on 05/27/17 06 :43; Admin Dose 100 MLS/HR; Start 05/27/17 at 06:00; Stop 05/27/17 at 22:29 Propofol 100 ml @ 2.463 mls/ hr Q12H IV ; Start 05/27/17 at 01:00 Potassium Chloride/Dextrose/ Sod Cl (D5-NS + KCl 20 Meq) 1,000 ml @ 100 mls/hr Q10H IV Last administered on 05/27/17 02:22; Admin Dose 100 MLS/HR; Start at 01:30 Labetalol HCl (Labetalol) 10 mg Q15M PRN IV ELEVATED SYSTOLIC BP; Start at 01:30 Lorazepam (Ativan) 1 mg Q4H PRN IV ANXIETY Last administered on 05/27/17 04:55 ; Admin Dose 1 MG; Start 05/27/17 at 04:30 ERIC HORN MD May 27, 2017 12:46
[2017-05-27] MEDS: NEOMYC/POLYMYX/BACIT 30 GM OINT TOP SCH (13:19)
--- NOTE | 2017-05-27 15:41 | QN ---
Documentation Comment post op day #1 doing well moving all extremities. He was extubated at 11:30. He states his hands "fell better" . He is antigravity x4. Hemovac with 90cc overnight, will continue for now. OK to advance diet and to leave ICU for med- surg floor with same orders. He will need PT eval tomorrow or Monday and likely eventual discharge to ARU. PENNY VERONICA MD May 27, 2017 15:40
--- NOTE | 2017-05-27 16:56 | RADRPT ---
PROCEDURE: XR Cervical Spine. CLINICAL INDICATION: Neck pain. Postop. TECHNIQUE: Three views of the cervical spine were performed. Frontal, lateral, and AP open-mouth o dontoid. The images were reviewed on a PACS workstation. COMPARISON: Intraoperative imaging of the cervical spine dated 05/26/2017. FINDINGS: There has been prior surgery with posterior screws and connecting rods at C3, C4, C5, and C6. Pharmacy Services Director ior skin fabian and surgical drain are noted. Alignment is satisfactory. There is no fracture. There are degenerative changes with disk space narrowing and osteophytes at C3-4, C4-5, C5-6, and C6 -7. There is no lytic or blastic lesion. The prevertebral soft tissues are normal. IMPRESSION: 1. Postoperative changes of the cervical spine. 2. No acute abnormality. RPTAT: QQ .Yvan Whipple MD, Date Time Electronically viewed and signed by .Yvan Whipple MD, on 05/27/2017 16:55 .R/
[2017-05-27] MEDS: MIRTAZAPINE 15 MG TAB PO SCH (20:20)
[2017-05-27] MEDS: HYDROCODONE/APAP (5/325) TAB PO PRN (22:23)
[2017-05-28] VITALS (13 sets, daily range): BP systolic 110–151; BP diastolic 64–90; PULSE 98–116; RESP 13–24
[2017-05-28] MEDS: PROPOFOL 100 ML IV SCH (00:50)
[2017-05-28] MEDS: HYDROmorphONE 1 MG/ML SYG IV PRN ×5 (05:05→21:39)
[2017-05-28] MEDS: PANTOPRAZOLE (EC) 40 MG TAB PO SCH (05:06)
[2017-05-28 05:53] LABS: ADD SCAN DIFF NO
[2017-05-28 06:06] LABS: BASOPHIL # 0.1 10^3/ul (0.0-0.1); BASOPHILS % 0.7 % (0.0-2.0); EOSINOPHILS # 0.3 10^3/ul (0.0-0.5); EOSINOPHILS % 3.2 % (0.0-7.0); HEMATOCRIT 33.7 % (42.0-52.0); HEMOGLOBIN 11.3 g/dl (14.0-18.0); LYMPHOCYTES # 2.9 10^3/ul (0.8-2.9); LYMPHOCYTES % 32.5 % (15.0-51.0); MEAN CORPUSCULAR HEMOGLOBIN 30.8 pg (29.0-33.0); MEAN CORPUSCULAR HGB CONC 33.5 g/dl (32.0-37.0); MEAN CORPUSCULAR VOLUME 91.8 fl (82.0-101.0); MEAN PLATELET VOLUME 11.5 fl (7.4-10.4); MONOCYTE # 1.2 10^3/ul (0.3-0.9); MONOCYTES % 12.9 % (0.0-11.0); NEUTROPHIL # 4.6 10^3/ul (1.6-7.5); NEUTROPHILS % 50.3 % (39.0-77.0); PLATELET COUNT 152 10^3/UL (140-415); RED BLOOD COUNT 3.67 10^6/ul (4.70-6.10); RED CELL DISTRIBUTION WIDTH 14.7 % (11.5-14.5); WHITE BLOOD COUNT 9.1 10^3/ul (4.8-10.8)
[2017-05-28 06:08] LABS: CALCIUM 8.6 mg/dl (8.4-10.2); CREATININE 0.69 mg/dl (0.61-1.24); MAGNESIUM 1.6 mg/dl (1.7-2.5); PHOSPHORUS 2.7 mg/dl (2.5-4.9); POTASSIUM 4.6 mmol/L (3.5-5.1)
[2017-05-28] MEDS: D5-NS + KCL 20 MEQ 1,000 ML IV SCH ×4 (07:30→19:54)
--- NOTE | 2017-05-28 08:28 | PN ---
Date/Time of Note Date/Time of Note DATE: 05/28/17 TIME: 08:26 Assessment/Plan VTE Prophylaxis VTE Prophylaxis Intervention: SCD's Lines/Catheters IV Catheter Type (from Nrsg): Peripheral IV Urinary Cath still in place: Yes Reason Cath still needed: other (indicate) (will dc) Assessment/Plan Assessment/Plan 66 yo M with spinal stenosis admitted for acute on chronic back pain and UE weakness 2/2 cervical stenosis. Pt is sp laminectomy and fusion 7.14. 1. Acute on chronic back pain with upper extremity weakness secondary to cervical cord stenosis now sp neurosurgical intervention neurosurgery still following transfer from ICU to floor new PT cs ordered ARU consult ordered 2 Prediabetes: Previous hemoglobin A1c 6.1. 3. DVT and GI prophylaxis: Lovenox, Protonix. 4. Depression with SI: pt with suicidal gesture of wrapping bedsheet around his neck 7.12. evaluated by telepsych. cont psych meds when closer to discharge will need to consider [facility] v inpatient psychiatric unit cont suicide precautions DVT prophx Subjective 24 Hr Interval Summary Free Text/Dictation Feels ok this AM. Reports his arms feel a little better Exam/Review of Systems Vital Signs Vitals Vital Signs Date Time Temp Pulse Resp B/P Pulse Ox O2 Delivery O2 Flow Rate FiO2 05/28/17 06:06 98 129/81 100 Nasal Cannula 2.0 05/28/17 05:00 14 05/28/17 04:00 99.0 05/27/17 09:08 40 Intake and Output 05/27/17 05/27/17 05/28/17 15:00 23:00 07:00 Intake Total 1005 ml 1180 ml 1920 ml Output Total 850 ml 250 ml 2350 ml Balance 155 ml 930 ml -430 ml Exam nad wearing cervical collar no mrg lungs clear abd soft no rashes Results Result Diagram: 05/28/17 0450 05/28/17 0450 Results 24 hrs Laboratory Tests Test 05/27/17 11:00 05/28/17 04:50 Blood Gas Specimen Source Blood arterial Arterial Blood Date Drawn 05/27/2017 10:54:44 AM Arterial Blood pH (Temp corrected) 7.431 Arterial Blood pCO2 (Temp correct) 34.5 L Arterial Blood pO2 (Temp corrected) 134.4 H Arterial Blood HCO3 22.4 Arterial Blood Base Excess -1.3 Arterial Blood Oxygen Saturation 98.4 H Cy Test ACCEPTAB Arterial Blood Gas Puncture Site Right Brachial Arterial Blood Carboxyhemoglobin 0.3 Arterial Blood Methemoglobin 0.4 Blood Gas A-a O2 Differential 111.1 H Oxyhemoglobin Percent 97.7 Total Hemoglobin 12.2 Blood Gas Temperature 37.0 Blood Gas Actual Respiration Rate 16 Blood Gas Modality VENT CPAP FiO2 40.0 Blood Gas Low PEEP Setting 5.0 Blood Gas Pressure Support 10 Blood Gas Notified Charles SHUKLA RCP Blood Gas Notified Time 05/27/2017 11:02:01 AM White Blood Count 9.1 Red Blood Count 3.67 L Hemoglobin 11.3 L Hematocrit 33.7 L Mean Corpuscular Volume 91.8 Mean Corpuscular Hemoglobin 30.8 Mean Corpuscular Hemoglobin Concent 33.5 Red Cell Distribution Width 14.7 H Platelet Count 152 Mean Platelet Volume 11.5 H Neutrophils % 50.3 Lymphocytes % 32.5 Monocytes % 12.9 H Eosinophils % 3.2 Basophils % 0.7 Nucleated Red Blood Cells % 0.0 Neutrophils # 4.6 Lymphocytes # 2.9 Monocytes # 1.2 H Eosinophils # 0.3 Basophils # 0.1 Nucleated Red Blood Cells # 0.0 Sodium Level 138 Potassium Level 4.6 Chloride Level 102 Carbon Dioxide Level 27 Anion Gap 14 Blood Urea Nitrogen 10 Creatinine 0.69 Glucose Level 152 Calcium Level 8.6 Phosphorus Level 2.7 Magnesium Level 1.6 L Medications Medications Current Medications Acetaminophen (Tylenol Tab) 650 mg Q6H PRN PO PAIN LEVEL 1-3 OR FEVER; Start at 21:00 Acetaminophen/ Hydrocodone Bitart ([place] (5/325)) 2 tab Q6H PRN PO SEVERE PAIN LEVEL 7-10 Last administered on 05/27/17 22:23; Admin Dose 2 TAB; Start at 21:00 Morphine Sulfate (morphine) 2 mg Q4H PRN IV SEVERE PAIN LEVEL 7-10 Last administered on 05/27/17 13:57; Admin Dose 2 MG; Start 05/16/17 at 21:00 Enoxaparin Sodium (Lovenox) 40 mg DAILY SC Last administered on 05/25/17 10:10 ; Admin Dose 40 MG; Start 05/16/17 at 21:00; Status Future Hold Gabapentin (Neurontin) 300 mg TID PO Last administered on 05/27/17 20:20; Admin Dose 300 MG; Start 05/16/17 at 21:00 Miscellaneous Information 1 ea NOTE XX ; Start 05/17/17 at 17:30 Glucose (Glutose) 15 gm Q15M PRN PO DECREASED GLUCOSE; Start 05/17/17 at 17:30 Glucose (Glutose) 22.5 gm Q15M PRN PO DECREASED GLUCOSE; Start 05/17/17 at 17:30 Dextrose (D50w Syringe) 25 ml Q15M PRN IV DECREASED GLUCOSE; Start 05/17/17 at 17:30 Dextrose (D50w Syringe) 50 ml Q15M PRN IV DECREASED GLUCOSE; Start 05/17/17 at 17:30 Glucagon (Glucagen) 1 mg Q15M PRN IM DECREASED GLUCOSE; Start 05/17/17 at 17:30 Glucose (Glutose) 15 gm Q15M PRN BUCCAL DECREASED GLUCOSE; Start 05/17/17 at 17: 30 Pantoprazole (Protonix Tab) 40 mg DAILY@06 PO Last administered on 05/28/17 05 :06; Admin Dose 40 MG; Start 05/18/17 at 06:00 Hydroxyzine HCl (Atarax) 25 mg Q6H PRN PO ITCHING Last administered on 06:53; Admin Dose 25 MG; Start 05/19/17 at 03:30 Docusate Sodium (Colace) 100 mg BID PO Last administered on 05/27/17 20:20; Admin Dose 100 MG; Start 05/19/17 at 21:00 Senna (Senokot) 1 tab BID PO Last administered on 05/27/17 20:19; Admin Dose 1 TAB; Start 05/19/17 at 21:00 Polyethylene Glycol (Miralax) 17 gm DAILY PO Last administered on 05/27/17 08: 56; Admin Dose 17 GM; Start 05/21/17 at 09:00 Neomycin/ Polymyxin/ Bacitracin (Neosporin Topical Oint) 1 applic AM TOP Last administered on 05/27/17 13:19; Admin Dose 1 APPLIC; Start 05/23/17 at 09:00 Lactulose (Enulose) 20 gm DAILY PRN PO CONSTIPATION; Start 05/22/17 at 18:30 Bisacodyl (Dulcolax Supp) 10 mg DAILY PRN [place] CONSTIPATION Last administered on 05/23/17 05:05; Admin Dose 10 MG; Start 05/22/17 at 18:30 Morphine Sulfate (morphine) 3 mg Q3H PRN IV PAIN Last administered on 15:13; Admin Dose 3 MG; Start 05/23/17 at 23:15 Mirtazapine (Remeron) 15 mg HS PO Last administered on 05/27/17 20:20; Admin Dose 15 MG; Start 05/24/17 at 00:30 Hydromorphone HCl (Dilaudid) 1 mg Q4H PRN IV PAIN Last administered on 05:05; Admin Dose 1 MG; Start 05/27/17 at 00:30 Ondansetron HCl 4 mg 4 mg Q6H PRN IV NAUSEA AND/OR VOMITING; Start 05/27/17 at 00:30 Propofol 100 ml @ 2.463 mls/ hr Q12H IV ; Start 05/27/17 at 01:00 Potassium Chloride/Dextrose/ Sod Cl (D5-NS + KCl 20 Meq) 1,000 ml @ 100 mls/hr Q10H IV Last administered on 05/27/17 21:47; Admin Dose 100 MLS/HR; Start at 01:30 Labetalol HCl (Labetalol) 10 mg Q15M PRN IV ELEVATED SYSTOLIC BP; Start at 01:30 Lorazepam (Ativan) 1 mg Q4H PRN IV ANXIETY Last administered on 05/27/17 04:55 ; Admin Dose 1 MG; Start 05/27/17 at 04:30 ERIC HORN MD May 28, 2017 08:28
[2017-05-28] MEDS: metFORMIN 500 MG TAB PO SCH ×2 (08:31→18:10)
[2017-05-28] MEDS: POLYETHYLENE GLYCOL 17 GM PACKET PO SCH (08:31)
[2017-05-28] MEDS: GABAPENTIN 300 MG CAP PO SCH ×3 (08:31→20:56)
[2017-05-28] MEDS: DOCUSATE SODIUM 100 MG CAP PO SCH ×2 (08:31→20:56)
[2017-05-28] MEDS: SENNA TAB PO SCH ×2 (08:31→20:56)
[2017-05-28] MEDS: NEOMYC/POLYMYX/BACIT 30 GM OINT TOP SCH (09:17)
--- NOTE | 2017-05-28 10:03 | RADRPT ---
PROCEDURE: XR Chest. CLINICAL INDICATION: Shortness of breath. TECHNIQUE: Single frontal view. COMPARISON: 05/27/2017. FINDINGS: The endotracheal tube and nasogastric tube have been removed. The lungs are clear. The heart size is normal. There is no pleural effusion. There is no pneumothorax. IMPRESSION: 1. Endotracheal tube and nasogastric tube removed. 2. Clear lungs. RPTAT: QQ .Yvan Whipple MD, MD Date Time Electronically viewed and signed by .Yvan Whipple MD, on 05/28/2017 10:03 .R/
--- NOTE | 2017-05-28 10:41 | CONS ---
Date/Time of Note Date/Time of Note DATE: 05/28/17 TIME: 10:40 Consult Date/Type/Reason Admit Date/Time May 16, 2017 at 21:19 Initial Consult Date 05/27/17 Type of Consultation: Pulmonary ICU Subjective Patient stable following extubation. Awake alert and oriented denies shortness of breath. Objective Vital Signs Date Time Temp Pulse Resp B/P Pulse Ox O2 Delivery O2 Flow Rate FiO2 05/28/17 09:00 116 17 147/90 100 Room Air 05/28/17 08:00 99.0 05/28/17 07:00 2.0 05/27/17 09:08 40 Intake and Output 05/27/17 05/27/17 05/28/17 15:00 23:00 07:00 Intake Total 1005 ml 1180 ml 2020 ml Output Total 850 ml 250 ml 2450 ml Balance 155 ml 930 ml -430 ml Exam GENERAL: Chronically ill-appearing elderly lady on nasal cannula oxygen VITAL SIGNS: per chart NECK: Supple. No JVD or lymphadenopathy. CARDIAC EXAM: S1, S2. No added sounds or murmurs. CHEST: Diminished air entry bilaterally poor effort ABDOMEN: Tender but no guarding or rebound. EXTREMITIES: No cyanosis, clubbing edema +2 NEUROLOGIC: Generalized weakness. Results/Medications Result Diagram: 05/28/17 0450 05/28/17 0450 Results 24 hrs Laboratory Tests Test 05/27/17 11:00 05/28/17 04:50 Blood Gas Specimen Source Blood arterial Arterial Blood Date Drawn 05/27/2017 10:54:44 AM Arterial Blood pH (Temp corrected) 7.431 Arterial Blood pCO2 (Temp correct) 34.5 L Arterial Blood pO2 (Temp corrected) 134.4 H Arterial Blood HCO3 22.4 Arterial Blood Base Excess -1.3 Arterial Blood Oxygen Saturation 98.4 H Cy Test ACCEPTAB Arterial Blood Gas Puncture Site Right Brachial Arterial Blood Carboxyhemoglobin 0.3 Arterial Blood Methemoglobin 0.4 Blood Gas A-a O2 Differential 111.1 H Oxyhemoglobin Percent 97.7 Total Hemoglobin 12.2 Blood Gas Temperature 37.0 Blood Gas Actual Respiration Rate 16 Blood Gas Modality VENT CPAP FiO2 40.0 Blood Gas Low PEEP Setting 5.0 Blood Gas Pressure Support 10 Blood Gas Notified Charles SHUKLA RCP Blood Gas Notified Time 05/27/2017 11:02:01 AM White Blood Count 9.1 Red Blood Count 3.67 L Hemoglobin 11.3 L Hematocrit 33.7 L Mean Corpuscular Volume 91.8 Mean Corpuscular Hemoglobin 30.8 Mean Corpuscular Hemoglobin Concent 33.5 Red Cell Distribution Width 14.7 H Platelet Count 152 Mean Platelet Volume 11.5 H Neutrophils % 50.3 Lymphocytes % 32.5 Monocytes % 12.9 H Eosinophils % 3.2 Basophils % 0.7 Nucleated Red Blood Cells % 0.0 Neutrophils # 4.6 Lymphocytes # 2.9 Monocytes # 1.2 H Eosinophils # 0.3 Basophils # 0.1 Nucleated Red Blood Cells # 0.0 Sodium Level 138 Potassium Level 4.6 Chloride Level 102 Carbon Dioxide Level 27 Anion Gap 14 Blood Urea Nitrogen 10 Creatinine 0.69 Glucose Level 152 Calcium Level 8.6 Phosphorus Level 2.7 Magnesium Level 1.6 L Medications Current Medications Acetaminophen (Tylenol Tab) 650 mg Q6H PRN PO PAIN LEVEL 1-3 OR FEVER; Start at 21:00 Acetaminophen/ Hydrocodone Bitart ([place] (5/325)) 2 tab Q6H PRN PO SEVERE PAIN LEVEL 7-10 Last administered on 05/27/17 22:23; Admin Dose 2 TAB; Start at 21:00 Morphine Sulfate (morphine) 2 mg Q4H PRN IV SEVERE PAIN LEVEL 7-10 Last administered on 05/27/17 13:57; Admin Dose 2 MG; Start 05/16/17 at 21:00 Gabapentin (Neurontin) 300 mg TID PO Last administered on 05/28/17 08:31; Admin Dose 300 MG; Start 05/16/17 at 21:00 Miscellaneous Information 1 ea NOTE XX ; Start 05/17/17 at 17:30 Glucose (Glutose) 15 gm Q15M PRN PO DECREASED GLUCOSE; Start 05/17/17 at 17:30 Glucose (Glutose) 22.5 gm Q15M PRN PO DECREASED GLUCOSE; Start 05/17/17 at 17:30 Dextrose (D50w Syringe) 25 ml Q15M PRN IV DECREASED GLUCOSE; Start 05/17/17 at 17:30 Dextrose (D50w Syringe) 50 ml Q15M PRN IV DECREASED GLUCOSE; Start 05/17/17 at 17:30 Glucagon (Glucagen) 1 mg Q15M PRN IM DECREASED GLUCOSE; Start 05/17/17 at 17:30 Glucose (Glutose) 15 gm Q15M PRN BUCCAL DECREASED GLUCOSE; Start 05/17/17 at 17: 30 Pantoprazole (Protonix Tab) 40 mg DAILY@06 PO Last administered on 05/28/17 05 :06; Admin Dose 40 MG; Start 05/18/17 at 06:00 Hydroxyzine HCl (Atarax) 25 mg Q6H PRN PO ITCHING Last administered on 06:53; Admin Dose 25 MG; Start 05/19/17 at 03:30 Docusate Sodium (Colace) 100 mg BID PO Last administered on 05/28/17 08:31; Admin Dose 100 MG; Start 05/19/17 at 21:00 Senna (Senokot) 1 tab BID PO Last administered on 05/28/17 08:31; Admin Dose 1 TAB; Start 05/19/17 at 21:00 Polyethylene Glycol (Miralax) 17 gm DAILY PO Last administered on 05/28/17 08: 31; Admin Dose 17 GM; Start 05/21/17 at 09:00 Neomycin/ Polymyxin/ Bacitracin (Neosporin Topical Oint) 1 applic AM TOP Last administered on 05/28/17 09:17; Admin Dose 1 APPLIC; Start 05/23/17 at 09:00 Lactulose (Enulose) 20 gm DAILY PRN PO CONSTIPATION; Start 05/22/17 at 18:30 Bisacodyl (Dulcolax Supp) 10 mg DAILY PRN [place] CONSTIPATION Last administered on 05/23/17 05:05; Admin Dose 10 MG; Start 05/22/17 at 18:30 Morphine Sulfate (morphine) 3 mg Q3H PRN IV PAIN Last administered on 15:13; Admin Dose 3 MG; Start 05/23/17 at 23:15 Mirtazapine (Remeron) 15 mg HS PO Last administered on 05/27/17 20:20; Admin Dose 15 MG; Start 05/24/17 at 00:30 Hydromorphone HCl (Dilaudid) 1 mg Q4H PRN IV PAIN Last administered on 09:15; Admin Dose 1 MG; Start 05/27/17 at 00:30 Ondansetron HCl (Zofran Inj) 4 mg Q6H PRN IV NAUSEA AND/OR VOMITING; Start at 00:30 Lorazepam 1 mg 1 mg Q4H PRN IV ANXIETY Last administered on 05/27/17 04:55; Admin Dose 1 MG; Start 05/27/17 at 04:30 Potassium Chloride/Dextrose/ Sod Cl (D5-NS + KCl 20 Meq) 1,000 ml @ 100 mls/hr Q10H IV Last administered on 05/28/17 10:33; Admin Dose 100 MLS/HR; Start at 10:00 Assessment/Plan Chief Complaint/Hosp Course 1. Acute on chronic back pain with upper extremity weakness secondary to cervical cord stenosis as noted on MRI, status post no surgical intervention. Now extubated postoperatively. Continue neurosurgical recommendations 2. Supplemental oxygen and incentive spirometry 3. Prediabetes: Previous hemoglobin A1c 6.1. 4. DVT and GI prophylaxis: 5. Transfer to [facility] from pulmonary standpoint Problems: CONNIE WONG MD, [facility] May 28, 2017 10:41
--- NOTE | 2017-05-28 11:32 | QN ---
Documentation Comment Patient complaining of incisional pain, but neurologically stable Xrays look good. He is waiting for a bed on the floor. PT/ ARU eval pending. PENNY VERONICA MD May 28, 2017 11:32
[2017-05-28] MEDS: HYDROCODONE/APAP (5/325) TAB PO PRN (14:57)
[2017-05-28] MEDS: MIRTAZAPINE 15 MG TAB PO SCH (20:56)
[2017-05-29] MEDS: HYDROmorphONE 1 MG/ML SYG IV PRN ×8 (00:12→23:04)
[2017-05-29] MEDS: D5-NS + KCL 20 MEQ 1,000 ML IV SCH ×3 (05:34→19:00)
[2017-05-29] MEDS: PANTOPRAZOLE (EC) 40 MG TAB PO SCH (06:24)
[2017-05-29 07:49] VITALS: BP 135/78; RESP 18
[2017-05-29] MEDS: metFORMIN 500 MG TAB PO SCH ×2 (09:43→18:33)
[2017-05-29] MEDS: DOCUSATE SODIUM 100 MG CAP PO SCH ×2 (09:43→21:10)
[2017-05-29] MEDS: GABAPENTIN 300 MG CAP PO SCH ×3 (09:44→21:10)
[2017-05-29] MEDS: SENNA TAB PO SCH ×2 (09:44→21:10)
[2017-05-29] MEDS: NEOMYC/POLYMYX/BACIT 30 GM OINT TOP SCH (09:44)
[2017-05-29] MEDS: POLYETHYLENE GLYCOL 17 GM PACKET PO SCH (09:44)
[2017-05-29] MEDS ORDERED: MAGNESIUM SULFATE 1 GM/D5W 100 ML IVPB ONE (14:30)
--- NOTE | 2017-05-29 14:32 | PN ---
Date/Time of Note Date/Time of Note DATE: 05/29/17 TIME: 14:28 Assessment/Plan VTE Prophylaxis VTE Prophylaxis Intervention: SCD's Lines/Catheters IV Catheter Type (from Nrsg): Peripheral IV Urinary Cath still in place: Yes Reason Cath still needed: urinary retention Assessment/Plan Chief Complaint/Hosp Course Assessment/Plan: 66 yo M with spinal stenosis admitted for acute on chronic back pain and UE weakness 2/2 cervical stenosis. Pt is sp laminectomy and fusion 7.14 (POD # 3) 1. Acute on chronic back pain with upper extremity weakness secondary to cervical cord stenosis now sp neurosurgical intervention POD # 3 - neurosurgery still following, continue physical therapy, follow-up their recommended - ARU consult [id number] 2 Prediabetes: Previous hemoglobin A1c 6.1. -Continue metformin 3. DVT and GI prophylaxis: Lovenox, Protonix. 4. Depression with SI: pt with suicidal gesture of wrapping bedsheet around his neck 7.12. evaluated by telepsych around that time. May consider repeat evaluation in 24 hours, patient presently denies any suicidal ideation or depression. Until then continue one-to-one sitter for now cont psych meds when closer to discharge will need to consider AR v inpatient psychiatric unit Problems: Subjective 24 Hr Interval Summary Free Text/Dictation Patient still complaining of some neck pain symptoms, worked with physical therapy earlier, no acute events overnight. Exam/Review of Systems Vital Signs Vitals Vital Signs Date Time Temp Pulse Resp B/P Pulse Ox O2 Delivery O2 Flow Rate FiO2 05/29/17 07:49 98.1 108 18 135/78 98 05/28/17 11:00 Room Air 05/28/17 07:00 2.0 05/27/17 09:08 40 Intake and Output 05/28/17 05/28/17 05/29/17 15:00 23:00 07:00 Intake Total 1145 ml 1100 ml 1150 ml Output Total 250 ml 550 ml 1125 ml Balance 895 ml 550 ml 25 ml Exam nad, answering questions wearing cervical collar no mrg lungs clear abd soft no rashes Results Result Diagram: 05/28/17 0450 05/28/17 0450 Medications Medications Current Medications Acetaminophen (Tylenol Tab) 650 mg Q6H PRN PO PAIN LEVEL 1-3 OR FEVER; Start at 21:00 Acetaminophen/ Hydrocodone Bitart ([place] (5/325)) 2 tab Q6H PRN PO SEVERE PAIN LEVEL 7-10 Last administered on 05/28/17 14:57; Admin Dose 2 TAB; Start at 21:00 Morphine Sulfate (morphine) 2 mg Q4H PRN IV SEVERE PAIN LEVEL 7-10 Last administered on 05/27/17 13:57; Admin Dose 2 MG; Start 05/16/17 at 21:00 Gabapentin (Neurontin) 300 mg TID PO Last administered on 05/29/17 09:44; Admin Dose 300 MG; Start 05/16/17 at 21:00 Miscellaneous Information 1 ea NOTE XX ; Start 05/17/17 at 17:30 Glucose (Glutose) 15 gm Q15M PRN PO DECREASED GLUCOSE; Start 05/17/17 at 17:30 Glucose (Glutose) 22.5 gm Q15M PRN PO DECREASED GLUCOSE; Start 05/17/17 at 17:30 Dextrose (D50w Syringe) 25 ml Q15M PRN IV DECREASED GLUCOSE; Start 05/17/17 at 17:30 Dextrose (D50w Syringe) 50 ml Q15M PRN IV DECREASED GLUCOSE; Start 05/17/17 at 17:30 Glucagon (Glucagen) 1 mg Q15M PRN IM DECREASED GLUCOSE; Start 05/17/17 at 17:30 Glucose (Glutose) 15 gm Q15M PRN BUCCAL DECREASED GLUCOSE; Start 05/17/17 at 17: 30 Pantoprazole (Protonix Tab) 40 mg DAILY@06 PO Last administered on 05/29/17 06 :24; Admin Dose 40 MG; Start 05/18/17 at 06:00 Hydroxyzine HCl (Atarax) 25 mg Q6H PRN PO ITCHING Last administered on 06:53; Admin Dose 25 MG; Start 05/19/17 at 03:30 Docusate Sodium (Colace) 100 mg BID PO Last administered on 05/29/17 09:43; Admin Dose 100 MG; Start 05/19/17 at 21:00 Senna (Senokot) 1 tab BID PO Last administered on 05/29/17 09:44; Admin Dose 1 TAB; Start 05/19/17 at 21:00 Polyethylene Glycol (Miralax) 17 gm DAILY PO Last administered on 05/29/17 09: 44; Admin Dose 17 GM; Start 05/21/17 at 09:00 Neomycin/ Polymyxin/ Bacitracin (Neosporin Topical Oint) 1 applic AM TOP Last administered on 05/29/17 09:44; Admin Dose 1 APPLIC; Start 05/23/17 at 09:00 Lactulose (Enulose) 20 gm DAILY PRN PO CONSTIPATION; Start 05/22/17 at 18:30 Bisacodyl (Dulcolax Supp) 10 mg DAILY PRN [place] CONSTIPATION Last administered on 05/23/17 05:05; Admin Dose 10 MG; Start 05/22/17 at 18:30 Morphine Sulfate (morphine) 3 mg Q3H PRN IV PAIN Last administered on 15:13; Admin Dose 3 MG; Start 05/23/17 at 23:15 Mirtazapine (Remeron) 15 mg HS PO Last administered on 05/28/17 20:56; Admin Dose 15 MG; Start 05/24/17 at 00:30 Ondansetron HCl (Zofran Inj) 4 mg Q6H PRN IV NAUSEA AND/OR VOMITING; Start at 00:30 Lorazepam 1 mg 1 mg Q4H PRN IV ANXIETY Last administered on 05/27/17 04:55; Admin Dose 1 MG; Start 05/27/17 at 04:30 Potassium Chloride/Dextrose/ Sod Cl (D5-NS + KCl 20 Meq) 1,000 ml @ 100 mls/hr Q10H IV Last administered on 05/28/17 10:33; Admin Dose 100 MLS/HR; Start at 10:00 Hydromorphone HCl 1 mg 1 mg Q2H PRN IV PAIN Last administered on 05/29/17 13: 57; Admin Dose 1 MG; Start 05/28/17 at 13:00 Magnesium Sulfate/ Dextrose (Magnesium Sulfate 1 Gm/D5W) 100 ml @ 100 mls/hr ONCE ONCE IVPB ; Start 05/29/17 at 14:30; Stop 05/29/17 at 15:29 INNA ASCENCIO May 29, 2017 14:31
[2017-05-29 19:04] VITALS: BP 141/77; RESP 18
[2017-05-29] MEDS: LACTULOSE 30ML CUP PO PRN (20:09)
[2017-05-29] MEDS: BISACODYL 10 MG SUPP PR PRN (20:12)
[2017-05-29] MEDS ORDERED: NA PHOSPHATE/BIPHOS 133 ML ENEMA PR PRN (20:30)
[2017-05-29] MEDS: MIRTAZAPINE 15 MG TAB PO SCH (21:00)
--- NOTE | 2017-05-29 22:07 | QN ---
Documentation Comment Doing well, moving all extremities antigravity. Asking for a lot of pain meds, speech slurred. Hemovac still with high output (80cc/ shift). Plan: continue hemovac, PT, ARU vs SNF eval. PENNY VERONICA MD May 29, 2017 22:07
[2017-05-30] MEDS: HYDROmorphONE 1 MG/ML SYG IV PRN ×10 (01:19→23:50)
[2017-05-30] MEDS: D5-NS + KCL 20 MEQ 1,000 ML IV SCH ×3 (01:19→21:40)
[2017-05-30 03:12] VITALS: BP 137/65; RESP 16
[2017-05-30] MEDS: PANTOPRAZOLE (EC) 40 MG TAB PO SCH (05:29)
[2017-05-30] MEDS: POLYETHYLENE GLYCOL 17 GM PACKET PO SCH (09:00)
[2017-05-30] MEDS: DOCUSATE SODIUM 100 MG CAP PO SCH ×2 (09:00→20:30)
[2017-05-30] MEDS: SENNA TAB PO SCH ×2 (09:00→20:30)
[2017-05-30] MEDS: GABAPENTIN 300 MG CAP PO SCH ×3 (09:36→20:29)
[2017-05-30] MEDS: metFORMIN 500 MG TAB PO SCH ×2 (09:36→17:49)
[2017-05-30] MEDS: NEOMYC/POLYMYX/BACIT 30 GM OINT TOP SCH (09:36)
[2017-05-30 10:37] LABS: ADD SCAN DIFF NO
[2017-05-30 10:43] LABS: BASOPHILS % 0.6 % (0.0-2.0); EOSINOPHILS # 0.3 10^3/ul (0.0-0.5); EOSINOPHILS % 4.3 % (0.0-7.0); HEMATOCRIT 29.1 % (42.0-52.0); HEMOGLOBIN 9.6 g/dl (14.0-18.0); LYMPHOCYTES % 30.7 % (15.0-51.0); MEAN CORPUSCULAR HEMOGLOBIN 30.5 pg (29.0-33.0); MEAN CORPUSCULAR VOLUME 92.4 fl (82.0-101.0); MEAN PLATELET VOLUME 11.1 fl (7.4-10.4); MONOCYTE # 0.9 10^3/ul (0.3-0.9); MONOCYTES % 13.5 % (0.0-11.0); NEUTROPHIL # 3.3 10^3/ul (1.6-7.5); NEUTROPHILS % 50.6 % (39.0-77.0); PLATELET COUNT 145 10^3/UL (140-415); RED BLOOD COUNT 3.15 10^6/ul (4.70-6.10); RED CELL DISTRIBUTION WIDTH 14.6 % (11.5-14.5); WHITE BLOOD COUNT 6.5 10^3/ul (4.8-10.8)
--- NOTE | 2017-05-30 11:23 | PN ---
Date/Time of Note Date/Time of Note DATE: 05/30/17 TIME: 11:21 Assessment/Plan VTE Prophylaxis VTE Prophylaxis Intervention: SCD's Lines/Catheters IV Catheter Type (from Nrsg): Peripheral IV Urinary Cath still in place: Yes Reason Cath still needed: urinary retention Assessment/Plan Chief Complaint/Hosp Course Assessment/Plan: 66 yo M with spinal stenosis admitted for acute on chronic back pain and UE weakness 2/2 cervical stenosis. Pt is sp laminectomy and fusion 7.14 (POD # 4) 1. Acute on chronic back pain with upper extremity weakness secondary to cervical cord stenosis now sp neurosurgical intervention POD # 4 - neurosurgery still following, continue physical therapy, follow-up their recommended -Patient apparently did not qualify for acute rehab, awaiting possible fdc facility placement now, will follow up with bottle caser on this 2 Prediabetes: Previous hemoglobin A1c 6.1. -Continue metformin 3. DVT and GI prophylaxis: Lovenox, Protonix. 4. Depression with SI: pt with suicidal gesture of wrapping bedsheet around his neck 7.12. evaluated by telepsych around that time-we will get another telemetry psych evaluation today. patient presently denies any suicidal ideation or depression. Until then continue one-to-one sitter for now - cont psych meds Problems: Subjective 24 Hr Interval Summary Free Text/Dictation No acute events overnight. Presently working with physical therapy today. Exam/Review of Systems Vital Signs Vitals Vital Signs Date Time Temp Pulse Resp B/P Pulse Ox O2 Delivery O2 Flow Rate FiO2 05/30/17 03:12 109 16 137/65 95 05/29/17 19:04 98.9 05/28/17 11:00 Room Air 05/28/17 07:00 2.0 05/27/17 09:08 40 Intake and Output 05/29/17 05/29/17 05/30/17 15:00 23:00 07:00 Intake Total 1300 ml 2000 ml Output Total 930 ml 1730 ml Balance 370 ml 270 ml Exam nad, answering questions wearing cervical collar no mrg lungs clear abd soft no rashes Results Result Diagram: 05/30/17 1000 05/28/17 0450 Results 24 hrs Laboratory Tests Test 05/30/17 10:00 White Blood Count 6.5 # Red Blood Count 3.15 L Hemoglobin 9.6 L Hematocrit 29.1 L Mean Corpuscular Volume 92.4 Mean Corpuscular Hemoglobin 30.5 Mean Corpuscular Hemoglobin Concent 33.0 Red Cell Distribution Width 14.6 H Platelet Count 145 Mean Platelet Volume 11.1 H Neutrophils % 50.6 Lymphocytes % 30.7 Monocytes % 13.5 H Eosinophils % 4.3 Basophils % 0.6 Nucleated Red Blood Cells % 0.0 Neutrophils # 3.3 Lymphocytes # 2.0 Monocytes # 0.9 Eosinophils # 0.3 Basophils # 0.0 Nucleated Red Blood Cells # 0.0 Medications Medications Current Medications Acetaminophen (Tylenol Tab) 650 mg Q6H PRN PO PAIN LEVEL 1-3 OR FEVER; Start at 21:00 Acetaminophen/ Hydrocodone Bitart ([place] (5/325)) 2 tab Q6H PRN PO SEVERE PAIN LEVEL 7-10 Last administered on 05/28/17 14:57; Admin Dose 2 TAB; Start at 21:00 Morphine Sulfate (morphine) 2 mg Q4H PRN IV SEVERE PAIN LEVEL 7-10 Last administered on 05/27/17 13:57; Admin Dose 2 MG; Start 05/16/17 at 21:00 Gabapentin (Neurontin) 300 mg TID PO Last administered on 05/30/17 09:36; Admin Dose 300 MG; Start 05/16/17 at 21:00 Miscellaneous Information 1 ea NOTE XX ; Start 05/17/17 at 17:30 Glucose (Glutose) 15 gm Q15M PRN PO DECREASED GLUCOSE; Start 05/17/17 at 17:30 Glucose (Glutose) 22.5 gm Q15M PRN PO DECREASED GLUCOSE; Start 05/17/17 at 17:30 Dextrose (D50w Syringe) 25 ml Q15M PRN IV DECREASED GLUCOSE; Start 05/17/17 at 17:30 Dextrose (D50w Syringe) 50 ml Q15M PRN IV DECREASED GLUCOSE; Start 05/17/17 at 17:30 Glucagon (Glucagen) 1 mg Q15M PRN IM DECREASED GLUCOSE; Start 05/17/17 at 17:30 Glucose (Glutose) 15 gm Q15M PRN BUCCAL DECREASED GLUCOSE; Start 05/17/17 at 17: 30 Pantoprazole (Protonix Tab) 40 mg DAILY@06 PO Last administered on 05/30/17 05 :29; Admin Dose 40 MG; Start 05/18/17 at 06:00 Hydroxyzine HCl (Atarax) 25 mg Q6H PRN PO ITCHING Last administered on 06:53; Admin Dose 25 MG; Start 05/19/17 at 03:30 Docusate Sodium (Colace) 100 mg BID PO Last administered on 05/29/17 21:10; Admin Dose 100 MG; Start 05/19/17 at 21:00 Senna (Senokot) 1 tab BID PO Last administered on 05/29/17 21:10; Admin Dose 1 TAB; Start 05/19/17 at 21:00 Polyethylene Glycol (Miralax) 17 gm DAILY PO Last administered on 05/29/17 09: 44; Admin Dose 17 GM; Start 05/21/17 at 09:00 Neomycin/ Polymyxin/ Bacitracin (Neosporin Topical Oint) 1 applic AM TOP Last administered on 05/30/17 09:36; Admin Dose 1 APPLIC; Start 05/23/17 at 09:00 Lactulose (Enulose) 20 gm DAILY PRN PO CONSTIPATION Last administered on 20:09; Admin Dose 20 GM; Start 05/22/17 at 18:30 Bisacodyl (Dulcolax Supp) 10 mg DAILY PRN [place] CONSTIPATION Last administered on 05/29/17 20:12; Admin Dose 10 MG; Start 05/22/17 at 18:30 Morphine Sulfate (morphine) 3 mg Q3H PRN IV PAIN Last administered on 15:13; Admin Dose 3 MG; Start 05/23/17 at 23:15 Mirtazapine (Remeron) 15 mg HS PO Last administered on 05/28/17 20:56; Admin Dose 15 MG; Start 05/24/17 at 00:30 Ondansetron HCl (Zofran Inj) 4 mg Q6H PRN IV NAUSEA AND/OR VOMITING; Start at 00:30 Lorazepam 1 mg 1 mg Q4H PRN IV ANXIETY Last administered on 05/27/17 04:55; Admin Dose 1 MG; Start 05/27/17 at 04:30 Potassium Chloride/Dextrose/ Sod Cl (D5-NS + KCl 20 Meq) 1,000 ml @ 100 mls/hr Q10H IV Last administered on 05/30/17 01:19; Admin Dose 100 MLS/HR; Start at 10:00 Hydromorphone HCl (Dilaudid) 1 mg Q2H PRN IV PAIN Last administered on 09:40; Admin Dose 1 MG; Start 05/28/17 at 13:00 Sodium Biphosphate/ Sodium Phosphate 133 ml 133 ml DAILY PRN [place] CONSTIPATION Last administered on 05/29/17 21:14; Admin Dose 133 ML; Start 05/29/17 at 20:30 Magnesium Sulfate (Magnesium Sulfate 2 Gm/50 ml) 50 ml @ 25 mls/hr ONCE ONCE IVPB ; Start 05/30/17 at 11:30; Stop 05/30/17 at 13:29; Status INNA LIM May 30, 2017 11:23
[2017-05-30 11:25] LABS: CALCIUM 8.2 mg/dl (8.4-10.2); CREATININE 0.54 mg/dl (0.61-1.24); POTASSIUM 4.2 mmol/L (3.5-5.1)
[2017-05-30 11:37] LABS: MAGNESIUM 1.5 mg/dl (1.7-2.5); PHOSPHORUS 3.5 mg/dl (2.5-4.9)
[2017-05-30] MEDS ORDERED: MAGNESIUM SULFATE 2 GM/50 ML 50 ML IVPB ONE (12:30)
[2017-05-30 14:48] LABS: ADD UMIC YES; UR ASCORBIC ACID NEGATIVE (NEGATIVE); UR BILIRUBIN (Dip) NEGATIVE (NEGATIVE); UR BLOOD (Dip) 2+ mg/dL (NEGATIVE); UR CLARITY CLOUDY (CLEAR); UR COLOR RED (YELLOW); UR GLUCOSE (Dip) 1+ mg/dL (NEGATIVE); UR KETONES (Dip) NEGATIVE (NEGATIVE); UR LEUKOCYTE ESTERASE (Dip) TRACE Leu/ul (NEGATIVE); UR MUCUS FEW /HPF (NONE SEEN); UR NITRITE (Dip) NEGATIVE (NEGATIVE); UR RBC > 182 /HPF (0-5); UR SPECIFIC GRAVITY (Dip) 1.024 (1.003-1.030); UR TOTAL PROTEIN (Dip) 2+ mg/dl (NEGATIVE); UR UROBILINOGEN (Dip) 2+ mg/dL (NEGATIVE); UR WBC CLUMPS MANY /HPF (NONE SEEN)
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
[2017-05-30] MEDS: MIRTAZAPINE 15 MG TAB PO SCH (20:31)
[2017-05-30 21:41] VITALS: BP 133/70; PULSE 82; RESP 18
[2017-05-31] MEDS: CEFTRIAXONE 1 GM/50 ML (PMX) 50 ML IVPB SCH ×2 (01:07→12:25)
[2017-05-31] MEDS: HYDROmorphONE 1 MG/ML SYG IV PRN ×8 (01:45→22:54)
--- NOTE | 2017-05-31 02:01 | RADRPT ---
PROCEDURE: Renal US. CLINICAL INDICATION: Pain . TECHNIQUE: Multiple sonographic images of the kidneys were obtained. The images were reviewed on a PACS workstation. COMPARISON: No prior studies are available for comparison. FINDINGS: The right kidney measures 10.9 cm line is normal in appearance without hydronephrosis, mass or calcu juliano.. An identifiable left kidney is not visualized. A heterogeneous 14.9 cm length structure with echoge hanna foci are identified of indeterminate significance. There is no free fluid. Munoz catheters pre sent within collapsed urinary bladder. IMPRESSION: Unremarkable right kidney. Abnormal heterogeneous mass in the region left kidney versus bowel. Rec ommend CT examination for further evaluation.. RPTAT: HMVK .Ced Bartlett MD, MD Date Time Electronically viewed and signed by .Ced Bartlett MD, on 05/31/2017 02:01 .K/
[2017-05-31] MEDS: PANTOPRAZOLE (EC) 40 MG TAB PO SCH (05:50)
[2017-05-31 05:53] LABS: ADD SCAN DIFF NO
[2017-05-31 06:00] LABS: BASOPHILS % 0.5 % (0.0-2.0); EOSINOPHILS # 0.2 10^3/ul (0.0-0.5); EOSINOPHILS % 2.5 % (0.0-7.0); HEMATOCRIT 29.4 % (42.0-52.0); HEMOGLOBIN 9.8 g/dl (14.0-18.0); LYMPHOCYTES # 2.1 10^3/ul (0.8-2.9); LYMPHOCYTES % 28.2 % (15.0-51.0); MEAN CORPUSCULAR HEMOGLOBIN 30.5 pg (29.0-33.0); MEAN CORPUSCULAR HGB CONC 33.3 g/dl (32.0-37.0); MEAN CORPUSCULAR VOLUME 91.6 fl (82.0-101.0); MEAN PLATELET VOLUME 10.5 fl (7.4-10.4); MONOCYTE # 0.9 10^3/ul (0.3-0.9); MONOCYTES % 11.7 % (0.0-11.0); NEUTROPHIL # 4.1 10^3/ul (1.6-7.5); NEUTROPHILS % 56.6 % (39.0-77.0); PLATELET COUNT 133 10^3/UL (140-415); RED BLOOD COUNT 3.21 10^6/ul (4.70-6.10); RED CELL DISTRIBUTION WIDTH 14.6 % (11.5-14.5); WHITE BLOOD COUNT 7.3 10^3/ul (4.8-10.8)
[2017-05-31 06:18] LABS: CALCIUM 7.7 mg/dl (8.4-10.2); CREATININE 0.7 mg/dl (0.61-1.24); POTASSIUM 4.2 mmol/L (3.5-5.1)
[2017-05-31 07:00] VITALS: BP 128/72; RESP 18
[2017-05-31 07:13] LABS: MAGNESIUM 1.4 mg/dl (1.7-2.5); PHOSPHORUS 2.9 mg/dl (2.5-4.9)
[2017-05-31] MEDS: DOCUSATE SODIUM 100 MG CAP PO SCH ×2 (08:18→21:00)
[2017-05-31] MEDS: POLYETHYLENE GLYCOL 17 GM PACKET PO SCH (08:18)
[2017-05-31] MEDS: SENNA TAB PO SCH ×2 (08:18→21:00)
[2017-05-31] MEDS: D5-NS + KCL 20 MEQ 1,000 ML IV SCH ×2 (09:08→18:00)
[2017-05-31] MEDS: metFORMIN 500 MG TAB PO SCH ×2 (09:08→18:33)
[2017-05-31] MEDS: GABAPENTIN 300 MG CAP PO SCH ×3 (09:08→21:00)
[2017-05-31] MEDS: NEOMYC/POLYMYX/BACIT 30 GM OINT TOP SCH (09:09)
--- NOTE | 2017-05-31 11:34 | PN ---
Date/Time of Note Date/Time of Note DATE: 05/31/17 TIME: 11:28 Assessment/Plan VTE Prophylaxis VTE Prophylaxis Intervention: SCD's Lines/Catheters IV Catheter Type (from Nrsg): Peripheral IV Urinary Cath still in place: Yes Reason Cath still needed: urinary retention Assessment/Plan Chief Complaint/Hosp Course Assessment/Plan: 66 yo M with spinal stenosis admitted for acute on chronic back pain and UE weakness 2/2 cervical stenosis. Pt is sp laminectomy and fusion 7.14 (POD # 5) 1. Acute on chronic back pain with upper extremity weakness secondary to cervical cord stenosis now sp neurosurgical intervention POD # 5 - neurosurgery still following, continue physical therapy, follow-up their recommended -Patient apparently did not qualify for acute rehab, awaiting possible [facility] facility placement now, will follow up with case management assistant on this 2 Prediabetes: Previous hemoglobin A1c 6.1. -Continue metformin 3. DVT and GI prophylaxis: Lovenox, Protonix. 4. Depression with SI: pt with suicidal gesture of wrapping bedsheet around his neck 7.12. evaluated by telepsych around that time-we will get another telemetry psych evaluation today. patient presently denies any suicidal ideation or depression. - cont psych meds, Remeron and now have added Paxil as well. -No need for one-to-one sitter now. Dispo: Case management working on finding sniffed placement for patient. 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 Continue physical therapy, follow-up neurosurgery recommendations, pain control as well. Problems: Subjective 24 Hr Interval Summary Free Text/Dictation Patient evaluated by telemetry psychiatrist yesterday again. Worked with physical therapy as well. No acute events overnight. Exam/Review of Systems Vital Signs Vitals Vital Signs Date Time Temp Pulse Resp B/P Pulse Ox O2 Delivery O2 Flow Rate FiO2 05/31/17 07:00 98.9 105 18 128/72 95 05/30/17 21:41 Room Air 05/28/17 07:00 2.0 05/27/17 09:08 40 Intake and Output 05/30/17 05/30/17 05/31/17 15:00 23:00 07:00 Intake Total 600 ml 2100 ml 1300 ml Output Total 985 ml 2130 ml Balance 600 ml 1115 ml -830 ml Exam nad, answering questions wearing cervical collar no mrg lungs clear abd soft no rashes Results Result Diagram: 05/31/17 0454 05/31/17 0454 Results 24 hrs Laboratory Tests Test 05/30/17 13:10 05/31/17 04:54 Urine Color RED Urine Clarity CLOUDY A Urine pH 6.0 Urine Specific [place] 1.024 Urine Ketones NEGATIVE Urine Nitrite NEGATIVE Urine Bilirubin NEGATIVE Urine Urobilinogen 2+ H Urine Leukocyte Esterase TRACE A Urine Microscopic RBC > 182 H Urine Microscopic WBC > 182 H Urine Calcium Oxalate Crystals FEW A Urine Mucus FEW A Urine Hemoglobin 2+ H Urine Glucose 1+ H Urine Total Protein 2+ H White Blood Count 7.3 Red Blood Count 3.21 L Hemoglobin 9.8 L Hematocrit 29.4 L Mean Corpuscular Volume 91.6 Mean Corpuscular Hemoglobin 30.5 Mean Corpuscular Hemoglobin Concent 33.3 Red Cell Distribution Width 14.6 H Platelet Count 133 L Mean Platelet Volume 10.5 H Neutrophils % 56.6 Lymphocytes % 28.2 Monocytes % 11.7 H Eosinophils % 2.5 Basophils % 0.5 Nucleated Red Blood Cells % 0.0 Neutrophils # 4.1 Lymphocytes # 2.1 Monocytes # 0.9 Eosinophils # 0.2 Basophils # 0.0 Nucleated Red Blood Cells # 0.0 Sodium Level 134 L Potassium Level 4.2 Chloride Level 99 Carbon Dioxide Level 24 Anion Gap 15 Blood Urea Nitrogen 8 Creatinine 0.70 Glucose Level 161 Calcium Level 7.7 L Phosphorus Level 2.9 Magnesium Level 1.4 L Medications Medications Current Medications Acetaminophen (Tylenol Tab) 650 mg Q6H PRN PO PAIN LEVEL 1-3 OR FEVER; Start at 21:00 Acetaminophen/ Hydrocodone Bitart ([place] (5/325)) 2 tab Q6H PRN PO SEVERE PAIN LEVEL 7-10 Last administered on 05/28/17 14:57; Admin Dose 2 TAB; Start at 21:00 Morphine Sulfate (morphine) 2 mg Q4H PRN IV SEVERE PAIN LEVEL 7-10 Last administered on 05/27/17 13:57; Admin Dose 2 MG; Start 05/16/17 at 21:00 Gabapentin (Neurontin) 300 mg TID PO Last administered on 05/31/17 09:08; Admin Dose 300 MG; Start 05/16/17 at 21:00 Miscellaneous Information 1 ea NOTE XX ; Start 05/17/17 at 17:30 Glucose (Glutose) 15 gm Q15M PRN PO DECREASED GLUCOSE; Start 05/17/17 at 17:30 Glucose (Glutose) 22.5 gm Q15M PRN PO DECREASED GLUCOSE; Start 05/17/17 at 17:30 Dextrose (D50w Syringe) 25 ml Q15M PRN IV DECREASED GLUCOSE; Start 05/17/17 at 17:30 Dextrose (D50w Syringe) 50 ml Q15M PRN IV DECREASED GLUCOSE; Start 05/17/17 at 17:30 Glucagon (Glucagen) 1 mg Q15M PRN IM DECREASED GLUCOSE; Start 05/17/17 at 17:30 Glucose (Glutose) 15 gm Q15M PRN BUCCAL DECREASED GLUCOSE; Start 05/17/17 at 17: 30 Pantoprazole (Protonix Tab) 40 mg DAILY@06 PO Last administered on 05/31/17 05 :50; Admin Dose 40 MG; Start 05/18/17 at 06:00 Hydroxyzine HCl (Atarax) 25 mg Q6H PRN PO ITCHING Last administered on 06:53; Admin Dose 25 MG; Start 05/19/17 at 03:30 Docusate Sodium (Colace) 100 mg BID PO Last administered on 05/29/17 21:10; Admin Dose 100 MG; Start 05/19/17 at 21:00 Senna (Senokot) 1 tab BID PO Last administered on 05/29/17 21:10; Admin Dose 1 TAB; Start 05/19/17 at 21:00 Polyethylene Glycol (Miralax) 17 gm DAILY PO Last administered on 05/29/17 09: 44; Admin Dose 17 GM; Start 05/21/17 at 09:00 Neomycin/ Polymyxin/ Bacitracin (Neosporin Topical Oint) 1 applic AM TOP Last administered on 05/31/17 09:09; Admin Dose 1 APPLIC; Start 05/23/17 at 09:00 Lactulose (Enulose) 20 gm DAILY PRN PO CONSTIPATION Last administered on 20:09; Admin Dose 20 GM; Start 05/22/17 at 18:30 Bisacodyl (Dulcolax Supp) 10 mg DAILY PRN [place] CONSTIPATION Last administered on 05/29/17 20:12; Admin Dose 10 MG; Start 05/22/17 at 18:30 Morphine Sulfate (morphine) 3 mg Q3H PRN IV PAIN Last administered on 15:13; Admin Dose 3 MG; Start 05/23/17 at 23:15 Mirtazapine (Remeron) 15 mg HS PO Last administered on 05/28/17 20:56; Admin Dose 15 MG; Start 05/24/17 at 00:30 Ondansetron HCl (Zofran Inj) 4 mg Q6H PRN IV NAUSEA AND/OR VOMITING; Start at 00:30 Lorazepam 1 mg 1 mg Q4H PRN IV ANXIETY Last administered on 05/27/17 04:55; Admin Dose 1 MG; Start 05/27/17 at 04:30 Potassium Chloride/Dextrose/ Sod Cl (D5-NS + KCl 20 Meq) 1,000 ml @ 100 mls/hr Q10H IV Last administered on 05/31/17 09:08; Admin Dose 100 MLS/HR; Start at 10:00 Hydromorphone HCl (Dilaudid) 1 mg Q2H PRN IV PAIN Last administered on 09:09; Admin Dose 1 MG; Start 05/28/17 at 13:00 Sodium Biphosphate/ Sodium Phosphate 133 ml 133 ml DAILY PRN ME CONSTIPATION Last administered on 05/29/17 21:14; Admin Dose 133 ML; Start 05/29/17 at 20:30 Ceftriaxone Sodium 50 ml @ 100 mls/hr Q12H IVPB Last administered on 01:07; Admin Dose 100 MLS/HR; Start 05/31/17 at 01:00 Magnesium Sulfate/ Sodium Chloride (Magnesium Sulfate/NS) 106 ml @ 35.333 mls/ hr ONCE ONCE IVPB ; Start 05/31/17 at 12:30; Stop 05/31/17 at 15:29 INNA ASCENCIO May 31, 2017 11:33
[2017-05-31] MEDS: MUPIROCIN 2% 22 GM OINT TOP SCH ×2 (12:24→21:00)
[2017-05-31] MEDS: PAROXETINE 10 MG TAB PO SCH (12:26)
[2017-05-31] MEDS ORDERED: MAGNESIUM SULFATE 3 GM in SOD CHLORIDE 0.9% 100 ML IVPB ONE (12:30)
[2017-05-31 19:52] VITALS: BP 130/68; RESP 18
[2017-05-31] MEDS: MIRTAZAPINE 15 MG TAB PO SCH (21:00)
[2017-06-01] MEDS: HYDROmorphONE 1 MG/ML SYG IV PRN ×11 (01:15→23:57)
[2017-06-01] MEDS: CEFTRIAXONE 1 GM/50 ML (PMX) 50 ML IVPB SCH ×2 (01:22→12:04)
[2017-06-01] MEDS: D5-NS + KCL 20 MEQ 1,000 ML IV SCH ×2 (01:23→14:00)
[2017-06-01 05:25] LABS: ADD SCAN DIFF NO
[2017-06-01 05:30] LABS: BASOPHIL # 0.1 10^3/ul (0.0-0.1); BASOPHILS % 0.9 % (0.0-2.0); EOSINOPHILS # 0.2 10^3/ul (0.0-0.5); EOSINOPHILS % 3.6 % (0.0-7.0); HEMATOCRIT 27.9 % (42.0-52.0); HEMOGLOBIN 9.3 g/dl (14.0-18.0); LYMPHOCYTES # 1.9 10^3/ul (0.8-2.9); LYMPHOCYTES % 33.2 % (15.0-51.0); MEAN CORPUSCULAR HEMOGLOBIN 30.1 pg (29.0-33.0); MEAN CORPUSCULAR HGB CONC 33.3 g/dl (32.0-37.0); MEAN CORPUSCULAR VOLUME 90.3 fl (82.0-101.0); MEAN PLATELET VOLUME 10.6 fl (7.4-10.4); MONOCYTE # 0.8 10^3/ul (0.3-0.9); MONOCYTES % 13.7 % (0.0-11.0); NEUTROPHIL # 2.8 10^3/ul (1.6-7.5); NEUTROPHILS % 48.3 % (39.0-77.0); PLATELET COUNT 130 10^3/UL (140-415); RED BLOOD COUNT 3.09 10^6/ul (4.70-6.10); RED CELL DISTRIBUTION WIDTH 14.6 % (11.5-14.5); WHITE BLOOD COUNT 5.8 10^3/ul (4.8-10.8)
[2017-06-01 05:50] LABS: MAGNESIUM 1.6 mg/dl (1.7-2.5)
[2017-06-01 05:56] LABS: CALCIUM 7.9 mg/dl (8.4-10.2); CREATININE 0.64 mg/dl (0.61-1.24); POTASSIUM 4.2 mmol/L (3.5-5.1)
[2017-06-01] MEDS: PANTOPRAZOLE (EC) 40 MG TAB PO SCH (06:00)
[2017-06-01 08:00] VITALS: BP 133/73; RESP 18
[2017-06-01] MEDS: MUPIROCIN 2% 22 GM OINT TOP SCH ×2 (08:26→21:00)
[2017-06-01] MEDS: NEOMYC/POLYMYX/BACIT 30 GM OINT TOP SCH (08:26)
[2017-06-01] MEDS: metFORMIN 500 MG TAB PO SCH ×2 (08:27→17:33)
[2017-06-01] MEDS: DOCUSATE SODIUM 100 MG CAP PO SCH ×2 (08:27→21:00)
[2017-06-01] MEDS: GABAPENTIN 300 MG CAP PO SCH ×3 (08:27→21:00)
[2017-06-01] MEDS: PAROXETINE 10 MG TAB PO SCH (08:27)
[2017-06-01] MEDS: SENNA TAB PO SCH ×2 (08:53→21:00)
[2017-06-01] MEDS: POLYETHYLENE GLYCOL 17 GM PACKET PO SCH (08:53)
--- NOTE | 2017-06-01 11:21 | PN ---
Date/Time of Note Date/Time of Note DATE: 06/01/17 TIME: 11:18 Assessment/Plan VTE Prophylaxis VTE Prophylaxis Intervention: SCD's Lines/Catheters IV Catheter Type (from Nrsg): Peripheral IV Urinary Cath still in place: Yes Reason Cath still needed: urinary retention Assessment/Plan Chief Complaint/Hosp Course Assessment/Plan: 66 yo M with spinal stenosis admitted for acute on chronic back pain and UE weakness 2/2 cervical stenosis. Pt is sp laminectomy and fusion 7.14 (POD # 6) 1. Acute on chronic back pain with upper extremity weakness secondary to cervical cord stenosis now sp neurosurgical intervention POD # 6 - neurosurgery still following, continue physical therapy, follow-up their recommended -Patient apparently did not qualify for acute rehab, awaiting possible half-way facility placement now, will follow up with egg caser on this 2 Prediabetes: Previous hemoglobin A1c 6.1. -Continue metformin 3. DVT and GI prophylaxis: Lovenox, Protonix. 4. Depression with SI: pt with suicidal gesture of wrapping bedsheet around his neck 7.12. evaluated by telepsych, and again on 718 telemetry psych evaluation performed; patient presently denies any suicidal ideation or depression. - cont psych meds, Remeron and Paxil as well. -No need for one-to-one sitter now. Dispo: Case management working on finding sniffed placement for patient. 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 Continue physical therapy, follow-up neurosurgery recommendations, pain control as well. Problems: Subjective 24 Hr Interval Summary Free Text/Dictation Patient worked with physical therapy yesterday morning. No acute events overnight. Exam/Review of Systems Vital Signs Vitals Vital Signs Date Time Temp Pulse Resp B/P Pulse Ox O2 Delivery O2 Flow Rate FiO2 06/01/17 08:00 98.9 102 18 133/73 98 05/30/17 21:41 Room Air 05/28/17 07:00 2.0 Intake and Output 05/31/17 05/31/17 06/01/17 15:00 23:00 07:00 Intake Total 1850 ml 470 ml Output Total 2000 ml 1300 ml Balance -150 ml -830 ml Exam nad, answering questions wearing cervical collar no mrg lungs clear abd soft no rashes Results Result Diagram: 06/01/17 0510 06/01/17 0443 Results 24 hrs Laboratory Tests Test 06/01/17 04:43 06/01/17 05:10 Sodium Level 132 L Potassium Level 4.2 Chloride Level 99 Carbon Dioxide Level 25 Anion Gap 12 Blood Urea Nitrogen 10 Creatinine 0.64 Glucose Level 146 Calcium Level 7.9 L White Blood Count 5.8 # Red Blood Count 3.09 L Hemoglobin 9.3 L Hematocrit 27.9 L Mean Corpuscular Volume 90.3 Mean Corpuscular Hemoglobin 30.1 Mean Corpuscular Hemoglobin Concent 33.3 Red Cell Distribution Width 14.6 H Platelet Count 130 L Mean Platelet Volume 10.6 H Neutrophils % 48.3 Lymphocytes % 33.2 Monocytes % 13.7 H Eosinophils % 3.6 Basophils % 0.9 Nucleated Red Blood Cells % 0.0 Neutrophils # 2.8 Lymphocytes # 1.9 Monocytes # 0.8 Eosinophils # 0.2 Basophils # 0.1 Nucleated Red Blood Cells # 0.0 Phosphorus Level 3.0 Magnesium Level 1.6 L Medications Medications Current Medications Acetaminophen (Tylenol Tab) 650 mg Q6H PRN PO PAIN LEVEL 1-3 OR FEVER; Start at 21:00 Acetaminophen/ Hydrocodone Bitart ([place] (5/325)) 2 tab Q6H PRN PO SEVERE PAIN LEVEL 7-10 Last administered on 05/28/17 14:57; Admin Dose 2 TAB; Start at 21:00 Morphine Sulfate (morphine) 2 mg Q4H PRN IV SEVERE PAIN LEVEL 7-10 Last administered on 05/27/17 13:57; Admin Dose 2 MG; Start 05/16/17 at 21:00 Gabapentin (Neurontin) 300 mg TID PO Last administered on 06/01/17 08:27; Admin Dose 300 MG; Start 05/16/17 at 21:00 Miscellaneous Information 1 ea NOTE XX ; Start 05/17/17 at 17:30 Glucose (Glutose) 15 gm Q15M PRN PO DECREASED GLUCOSE; Start 05/17/17 at 17:30 Glucose (Glutose) 22.5 gm Q15M PRN PO DECREASED GLUCOSE; Start 05/17/17 at 17:30 Dextrose (D50w Syringe) 25 ml Q15M PRN IV DECREASED GLUCOSE; Start 05/17/17 at 17:30 Dextrose (D50w Syringe) 50 ml Q15M PRN IV DECREASED GLUCOSE; Start 05/17/17 at 17:30 Glucagon (Glucagen) 1 mg Q15M PRN IM DECREASED GLUCOSE; Start 05/17/17 at 17:30 Glucose (Glutose) 15 gm Q15M PRN BUCCAL DECREASED GLUCOSE; Start 05/17/17 at 17: 30 Pantoprazole (Protonix Tab) 40 mg DAILY@06 PO Last administered on 05/31/17 05 :50; Admin Dose 40 MG; Start 05/18/17 at 06:00 Hydroxyzine HCl (Atarax) 25 mg Q6H PRN PO ITCHING Last administered on 06:53; Admin Dose 25 MG; Start 05/19/17 at 03:30 Docusate Sodium (Colace) 100 mg BID PO Last administered on 06/01/17 08:27; Admin Dose 100 MG; Start 05/19/17 at 21:00 Senna (Senokot) 1 tab BID PO Last administered on 05/29/17 21:10; Admin Dose 1 TAB; Start 05/19/17 at 21:00 Polyethylene Glycol (Miralax) 17 gm DAILY PO Last administered on 05/29/17 09: 44; Admin Dose 17 GM; Start 05/21/17 at 09:00 Neomycin/ Polymyxin/ Bacitracin (Neosporin Topical Oint) 1 applic AM TOP Last administered on 06/01/17 08:26; Admin Dose 1 APPLIC; Start 05/23/17 at 09:00 Lactulose (Enulose) 20 gm DAILY PRN PO CONSTIPATION Last administered on 20:09; Admin Dose 20 GM; Start 05/22/17 at 18:30 Bisacodyl (Dulcolax Supp) 10 mg DAILY PRN [place] CONSTIPATION Last administered on 05/29/17 20:12; Admin Dose 10 MG; Start 05/22/17 at 18:30 Morphine Sulfate (morphine) 3 mg Q3H PRN IV PAIN Last administered on 15:13; Admin Dose 3 MG; Start 05/23/17 at 23:15 Mirtazapine (Remeron) 15 mg HS PO Last administered on 05/28/17 20:56; Admin Dose 15 MG; Start 05/24/17 at 00:30 Ondansetron HCl (Zofran Inj) 4 mg Q6H PRN IV NAUSEA AND/OR VOMITING; Start at 00:30 Lorazepam 1 mg 1 mg Q4H PRN IV ANXIETY Last administered on 05/27/17 04:55; Admin Dose 1 MG; Start 05/27/17 at 04:30 Potassium Chloride/Dextrose/ Sod Cl (D5-NS + KCl 20 Meq) 1,000 ml @ 100 mls/hr Q10H IV Last administered on 06/01/17 01:23; Admin Dose 100 MLS/HR; Start at 10:00 Hydromorphone HCl (Dilaudid) 1 mg Q2H PRN IV PAIN Last administered on 10:49; Admin Dose 1 MG; Start 05/28/17 at 13:00 Sodium Biphosphate/ Sodium Phosphate 133 ml 133 ml DAILY PRN [place] CONSTIPATION Last administered on 05/29/17 21:14; Admin Dose 133 ML; Start 05/29/17 at 20:30 Ceftriaxone Sodium (Rocephin) 50 ml @ 100 mls/hr Q12H IVPB Last administered on 06/01/17 01:22; Admin Dose 100 MLS/HR; Start 05/31/17 at 01:00 Paroxetine HCl (Paxil) 10 mg DAILY PO Last administered on 06/01/17 08:27; Admin Dose 10 MG; Start 05/31/17 at 12:30 Mupirocin 1 applic 1 applic BID TOP Last administered on 06/01/17 08:26; Admin Dose 1 APPLIC; Start 05/31/17 at 13:00 Magnesium Sulfate (Magnesium Sulfate 2 Gm/50 ml) 50 ml @ 25 mls/hr ONCE ONCE IVPB ; Start 06/01/17 at 11:30; Stop 06/01/17 at 13:29; Status INNA LIM Jun 01, 2017 11:20
[2017-06-01] MEDS ORDERED: MAGNESIUM SULFATE 2 GM/50 ML 50 ML IVPB ONE (12:30)
[2017-06-01] MEDS: ONDANSETRON 4 MG INJ IV PRN (12:46)
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
[2017-06-01] MEDS ORDERED: PENDING SANTYL ORDER FOR WOUND CARE XX PRN (15:00)
[2017-06-01] MEDS: COLLAGENASE 30 GM TUBE TOP SCH (16:01)
[2017-06-01 20:53] VITALS: BP 118/68; RESP 22
[2017-06-01] MEDS: MIRTAZAPINE 15 MG TAB PO SCH (21:00)
[2017-06-01] MEDS: HYDROCODONE/APAP (5/325) TAB PO PRN (22:23)
[2017-06-02] MEDS: CEFTRIAXONE 1 GM/50 ML (PMX) 50 ML IVPB SCH ×2 (00:46→12:57)
[2017-06-02] MEDS: HYDROmorphONE 1 MG/ML SYG IV PRN ×11 (01:52→22:52)
[2017-06-02 04:57] LABS: ADD SCAN DIFF NO
[2017-06-02 05:00] LABS: BASOPHIL # 0.1 10^3/ul (0.0-0.1); BASOPHILS % 0.8 % (0.0-2.0); EOSINOPHILS # 0.4 10^3/ul (0.0-0.5); EOSINOPHILS % 6.7 % (0.0-7.0); HEMATOCRIT 27.1 % (42.0-52.0); HEMOGLOBIN 9.3 g/dl (14.0-18.0); LYMPHOCYTES # 2.2 10^3/ul (0.8-2.9); MEAN CORPUSCULAR HEMOGLOBIN 30.6 pg (29.0-33.0); MEAN CORPUSCULAR HGB CONC 34.3 g/dl (32.0-37.0); MEAN CORPUSCULAR VOLUME 89.1 fl (82.0-101.0); MEAN PLATELET VOLUME 10.5 fl (7.4-10.4); MONOCYTE # 0.8 10^3/ul (0.3-0.9); MONOCYTES % 12.7 % (0.0-11.0); NEUTROPHIL # 2.6 10^3/ul (1.6-7.5); NEUTROPHILS % 43.1 % (39.0-77.0); PLATELET COUNT 151 10^3/UL (140-415); RED BLOOD COUNT 3.04 10^6/ul (4.70-6.10); RED CELL DISTRIBUTION WIDTH 14.5 % (11.5-14.5)
[2017-06-02 05:19] LABS: CALCIUM 8.2 mg/dl (8.4-10.2); CREATININE 0.65 mg/dl (0.61-1.24); POTASSIUM 4.1 mmol/L (3.5-5.1)
[2017-06-02 05:21] LABS: MAGNESIUM 1.7 mg/dl (1.7-2.5); PHOSPHORUS 3.1 mg/dl (2.5-4.9)
[2017-06-02] MEDS: PANTOPRAZOLE (EC) 40 MG TAB PO SCH (06:00)
[2017-06-02] MEDS: HYDROCODONE/APAP (5/325) TAB PO PRN (06:22)
[2017-06-02 07:00] VITALS: BP 117/64; RESP 20
[2017-06-02] MEDS: metFORMIN 500 MG TAB PO SCH ×2 (08:50→10:43)
[2017-06-02] MEDS: SENNA TAB PO SCH ×2 (09:00→10:43)
[2017-06-02] MEDS: GABAPENTIN 300 MG CAP PO SCH ×3 (09:00→20:34)
[2017-06-02] MEDS: POLYETHYLENE GLYCOL 17 GM PACKET PO SCH (09:00)
[2017-06-02] MEDS: PAROXETINE 10 MG TAB PO SCH ×2 (09:00→10:43)
[2017-06-02] MEDS: DOCUSATE SODIUM 100 MG CAP PO SCH ×2 (09:00→20:34)
[2017-06-02] MEDS: MUPIROCIN 2% 22 GM OINT TOP SCH ×2 (10:13→20:35)
[2017-06-02] MEDS: NEOMYC/POLYMYX/BACIT 30 GM OINT TOP SCH (10:13)
[2017-06-02] MEDS: COLLAGENASE 30 GM TUBE TOP SCH (10:13)
[2017-06-02] MEDS ORDERED: MIRTAZAPINE 15 MG TAB PO PRN (10:30)
--- NOTE | 2017-06-02 10:40 | PN ---
Date/Time of Note Date/Time of Note DATE: 06/02/17 TIME: 10:34 Assessment/Plan VTE Prophylaxis VTE Prophylaxis Intervention: SCD's Lines/Catheters IV Catheter Type (from Nrsg): Peripheral IV Urinary Cath still in place: Yes Reason Cath still needed: urinary retention Assessment/Plan Chief Complaint/Hosp Course Assessment/Plan: 66 yo M with spinal stenosis admitted for acute on chronic back pain and UE weakness 2/2 cervical stenosis. Pt is sp laminectomy and fusion 7.14 (POD # 7) 1. Acute on chronic back pain with upper extremity weakness secondary to cervical cord stenosis now sp neurosurgical intervention POD # 7. - neurosurgery still following, continue physical therapy, follow-up their recommendations -Patient apparently did not qualify for acute rehab, awaiting possible fpc facility placement now, will follow up with binder caser on this 2 Prediabetes: Previous hemoglobin A1c 6.1. -Continue metformin 3. DVT and GI prophylaxis: SCD's, Protonix. 4. Depression with SI: pt with suicidal gesture of wrapping bedsheet around his neck 05/24. evaluated by telepsych, and again on 05/30 telemetry psych evaluation performed; patient presently denies any suicidal ideation or depression. - cont psych meds, Remeron and Paxil as well. -No need for one-to-one sitter now. 5. Bilateral feet pain: Patient does have signs of possible toenail infection. Will consult podiatry Dispo: Case management working on finding snf placement for patient. 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 Continue physical therapy, follow-up neurosurgery recommendations, pain control as well. Problems: Subjective 24 Hr Interval Summary Free Text/Dictation Per nursing staff, patient refusing some of his p.o. medications. Although now he says he will take them. Complaining of some bilateral feet pain. Did work with physical therapy earlier today. Seen by surgery team yesterday. Exam/Review of Systems Vital Signs Vitals Vital Signs Date Time Temp Pulse Resp B/P Pulse Ox O2 Delivery O2 Flow Rate FiO2 06/02/17 07:00 98.7 92 20 117/64 100 05/30/17 21:41 Room Air Intake and Output 06/01/17 06/01/17 06/02/17 15:00 23:00 07:00 Intake Total 600 ml 1020 ml 1050 ml Output Total 2160 ml 815 ml Balance 600 ml -1140 ml 235 ml Exam nad, answering questions wearing cervical collar no mrg lungs clear abd soft no rashes Mild bilateral feet swelling, possible toe nail fungal infection Results Result Diagram: 06/02/1743606/02/17436 Results 24 hrs Laboratory Tests Test 06/02/17 04:37 White Blood Count 6.0 Red Blood Count 3.04 L Hemoglobin 9.3 L Hematocrit 27.1 L Mean Corpuscular Volume 89.1 Mean Corpuscular Hemoglobin 30.6 Mean Corpuscular Hemoglobin Concent 34.3 Red Cell Distribution Width 14.5 Platelet Count 151 Mean Platelet Volume 10.5 H Neutrophils % 43.1 Lymphocytes % 36.0 Monocytes % 12.7 H Eosinophils % 6.7 Basophils % 0.8 Neutrophils # 2.6 Lymphocytes # 2.2 Monocytes # 0.8 Eosinophils # 0.4 Basophils # 0.1 Nucleated Red Blood Cells # 0.0 Sodium Level 137 Potassium Level 4.1 Chloride Level 101 Carbon Dioxide Level 27 Anion Gap 13 Blood Urea Nitrogen 9 Creatinine 0.65 Glucose Level 129 Calcium Level 8.2 L Phosphorus Level 3.1 Magnesium Level 1.7 Medications Medications Current Medications Acetaminophen (Tylenol Tab) 650 mg Q6H PRN PO PAIN LEVEL 1-3 OR FEVER; Start at 21:00 Acetaminophen/ Hydrocodone Bitart ([place] (5/325)) 2 tab Q6H PRN PO SEVERE PAIN LEVEL 7-10 Last administered on 06/02/17 06:22; Admin Dose 2 TAB; Start at 21:00 Morphine Sulfate (morphine) 2 mg Q4H PRN IV SEVERE PAIN LEVEL 7-10 Last administered on 05/27/17 13:57; Admin Dose 2 MG; Start 05/16/17 at 21:00 Gabapentin (Neurontin) 300 mg TID PO Last administered on 06/01/17 08:27; Admin Dose 300 MG; Start 05/16/17 at 21:00 Miscellaneous Information 1 ea NOTE XX ; Start 05/17/17 at 17:30 Glucose (Glutose) 15 gm Q15M PRN PO DECREASED GLUCOSE; Start 05/17/17 at 17:30 Glucose (Glutose) 22.5 gm Q15M PRN PO DECREASED GLUCOSE; Start 05/17/17 at 17:30 Dextrose (D50w Syringe) 25 ml Q15M PRN IV DECREASED GLUCOSE; Start 05/17/17 at 17:30 Dextrose (D50w Syringe) 50 ml Q15M PRN IV DECREASED GLUCOSE; Start 05/17/17 at 17:30 Glucagon (Glucagen) 1 mg Q15M PRN IM DECREASED GLUCOSE; Start 05/17/17 at 17:30 Glucose (Glutose) 15 gm Q15M PRN BUCCAL DECREASED GLUCOSE; Start 05/17/17 at 17: 30 Pantoprazole (Protonix Tab) 40 mg DAILY@06 PO Last administered on 05/31/17 05 :50; Admin Dose 40 MG; Start 05/18/17 at 06:00 Hydroxyzine HCl (Atarax) 25 mg Q6H PRN PO ITCHING Last administered on 06:53; Admin Dose 25 MG; Start 05/19/17 at 03:30 Docusate Sodium (Colace) 100 mg BID PO Last administered on 06/01/17 08:27; Admin Dose 100 MG; Start 05/19/17 at 21:00 Senna (Senokot) 1 tab BID PO Last administered on 05/29/17 21:10; Admin Dose 1 TAB; Start 05/19/17 at 21:00 Polyethylene Glycol (Miralax) 17 gm DAILY PO Last administered on 05/29/17 09: 44; Admin Dose 17 GM; Start 05/21/17 at 09:00 Neomycin/ Polymyxin/ Bacitracin (Neosporin Topical Oint) 1 applic AM TOP Last administered on 06/02/17 10:13; Admin Dose 1 APPLIC; Start 05/23/17 at 09:00 Lactulose (Enulose) 20 gm DAILY PRN PO CONSTIPATION Last administered on 20:09; Admin Dose 20 GM; Start 05/22/17 at 18:30 Bisacodyl (Dulcolax Supp) 10 mg DAILY PRN [place] CONSTIPATION Last administered on 05/29/17 20:12; Admin Dose 10 MG; Start 05/22/17 at 18:30 Morphine Sulfate (morphine) 3 mg Q3H PRN IV PAIN Last administered on 15:13; Admin Dose 3 MG; Start 05/23/17 at 23:15 Ondansetron HCl (Zofran Inj) 4 mg Q6H PRN IV NAUSEA AND/OR VOMITING Last administered on 06/01/17 12:46; Admin Dose 4 MG; Start 05/27/17 at 00:30 Lorazepam (Ativan) 1 mg Q4H PRN IV ANXIETY Last administered on 05/27/17 04:55 ; Admin Dose 1 MG; Start 05/27/17 at 04:30 Hydromorphone HCl (Dilaudid) 1 mg Q2H PRN IV PAIN Last administered on 10:12; Admin Dose 1 MG; Start 05/28/17 at 13:00 Sodium Biphosphate/ Sodium Phosphate 133 ml 133 ml DAILY PRN [place] CONSTIPATION Last administered on 05/29/17 21:14; Admin Dose 133 ML; Start 05/29/17 at 20:30 Ceftriaxone Sodium (Rocephin) 50 ml @ 100 mls/hr Q12H IVPB Last administered on 06/02/17 00:46; Admin Dose 100 MLS/HR; Start 05/31/17 at 01:00 Paroxetine HCl (Paxil) 10 mg DAILY PO Last administered on 06/01/17 08:27; Admin Dose 10 MG; Start 05/31/17 at 12:30 Mupirocin (Bactroban) 1 applic BID TOP Last administered on 06/02/17 10:13; Admin Dose 1 APPLIC; Start 05/31/17 at 13:00 Miscellaneous Information (Pending Santyl Order For Wound Care) This patient tran... PRN PRN XX WOUND CARE; Start 06/01/17 at 15:00 Collagenase (Santyl) 1 applic DAILY TOP Last administered on 06/02/17 10:13; Admin Dose 1 APPLIC; Start 06/01/17 at 15:00 Mirtazapine (Remeron) 15 mg HS PRN PO AGITATION/ANXIETY; Start 06/02/17 at 10: 30 INNA ASCENCIO Jun 02, 2017 10:40
--- NOTE | 2017-06-02 12:25 | CONS ---
Date/Time of Note Date/Time of Note DATE: 06/02/17 TIME: 12:21 Assessment/Plan Assessment/Plan Problems: (1) Cervical stenosis of spinal canal Comment: Patient post-op and doing as expected. HV drain removed. Collar on at all times although it can be removed when he is in bed or chair for care/cleaning. Mobilize. PT/OT Consultation Date/Type/Reason Admit Date/Time May 16, 2017 at 21:19 Initial Consult Date 06/01/17 Type of Consultation: neurosurgery - cross cover 24 HR Interval Summary Free Text/Dictation He reports that hand function slightly improved c/w pre-op. Malini collar at all times and HV drain still in place. Constitutional: improved Exam/Review of Systems Vital Signs Vitals Vital Signs Date Time Temp Pulse Resp B/P Pulse Ox O2 Delivery O2 Flow Rate FiO2 06/02/17 07:00 98.7 92 20 117/64 100 05/30/17 21:41 Room Air Intake and Output 06/01/17 06/01/17 06/02/17 15:00 23:00 07:00 Intake Total 600 ml 1020 ml 1050 ml Output Total 2160 ml 815 ml Balance 600 ml -1140 ml 235 ml Exam Constitutional: alert, oriented Neck: other (incision OK; HV drain sanguinous removed) Neurological: other (monument mason 5/5 bilateral; finger coordination mildly slow; lifts LEs) Results Result Diagram: 06/02/17 0437 06/02/17 0437 Results 24 hrs Laboratory Tests Test 06/02/17 04:37 White Blood Count 6.0 Red Blood Count 3.04 L Hemoglobin 9.3 L Hematocrit 27.1 L Mean Corpuscular Volume 89.1 Mean Corpuscular Hemoglobin 30.6 Mean Corpuscular Hemoglobin Concent 34.3 Red Cell Distribution Width 14.5 Platelet Count 151 Mean Platelet Volume 10.5 H Neutrophils % 43.1 Lymphocytes % 36.0 Monocytes % 12.7 H Eosinophils % 6.7 Basophils % 0.8 Neutrophils # 2.6 Lymphocytes # 2.2 Monocytes # 0.8 Eosinophils # 0.4 Basophils # 0.1 Nucleated Red Blood Cells # 0.0 Sodium Level 137 Potassium Level 4.1 Chloride Level 101 Carbon Dioxide Level 27 Anion Gap 13 Blood Urea Nitrogen 9 Creatinine 0.65 Glucose Level 129 Calcium Level 8.2 L Phosphorus Level 3.1 Magnesium Level 1.7 Medications Medications Current Medications Acetaminophen (Tylenol Tab) 650 mg Q6H PRN PO PAIN LEVEL 1-3 OR FEVER; Start at 21:00 Acetaminophen/ Hydrocodone Bitart ([place] (5/325)) 2 tab Q6H PRN PO SEVERE PAIN LEVEL 7-10 Last administered on 06/02/17 06:22; Admin Dose 2 TAB; Start at 21:00 Morphine Sulfate (morphine) 2 mg Q4H PRN IV SEVERE PAIN LEVEL 7-10 Last administered on 05/27/17 13:57; Admin Dose 2 MG; Start 05/16/17 at 21:00 Gabapentin (Neurontin) 300 mg TID PO Last administered on 06/01/17 08:27; Admin Dose 300 MG; Start 05/16/17 at 21:00 Miscellaneous Information 1 ea NOTE XX ; Start 05/17/17 at 17:30 Glucose (Glutose) 15 gm Q15M PRN PO DECREASED GLUCOSE; Start 05/17/17 at 17:30 Glucose (Glutose) 22.5 gm Q15M PRN PO DECREASED GLUCOSE; Start 05/17/17 at 17:30 Dextrose (D50w Syringe) 25 ml Q15M PRN IV DECREASED GLUCOSE; Start 05/17/17 at 17:30 Dextrose (D50w Syringe) 50 ml Q15M PRN IV DECREASED GLUCOSE; Start 05/17/17 at 17:30 Glucagon (Glucagen) 1 mg Q15M PRN IM DECREASED GLUCOSE; Start 05/17/17 at 17:30 Glucose (Glutose) 15 gm Q15M PRN BUCCAL DECREASED GLUCOSE; Start 05/17/17 at 17: 30 Pantoprazole (Protonix Tab) 40 mg DAILY@06 PO Last administered on 05/31/17 05 :50; Admin Dose 40 MG; Start 05/18/17 at 06:00 Hydroxyzine HCl (Atarax) 25 mg Q6H PRN PO ITCHING Last administered on 06:53; Admin Dose 25 MG; Start 05/19/17 at 03:30 Docusate Sodium (Colace) 100 mg BID PO Last administered on 06/01/17 08:27; Admin Dose 100 MG; Start 05/19/17 at 21:00 Senna (Senokot) 1 tab BID PO Last administered on 06/02/17 10:43; Admin Dose 1 TAB; Start 05/19/17 at 21:00 Polyethylene Glycol (Miralax) 17 gm DAILY PO Last administered on 05/29/17 09: 44; Admin Dose 17 GM; Start 05/21/17 at 09:00 Neomycin/ Polymyxin/ Bacitracin (Neosporin Topical Oint) 1 applic AM TOP Last administered on 06/02/17 10:13; Admin Dose 1 APPLIC; Start 05/23/17 at 09:00 Lactulose (Enulose) 20 gm DAILY PRN PO CONSTIPATION Last administered on 20:09; Admin Dose 20 GM; Start 05/22/17 at 18:30 Bisacodyl (Dulcolax Supp) 10 mg DAILY PRN [place] CONSTIPATION Last administered on 05/29/17 20:12; Admin Dose 10 MG; Start 05/22/17 at 18:30 Morphine Sulfate (morphine) 3 mg Q3H PRN IV PAIN Last administered on 15:13; Admin Dose 3 MG; Start 05/23/17 at 23:15 Ondansetron HCl (Zofran Inj) 4 mg Q6H PRN IV NAUSEA AND/OR VOMITING Last administered on 06/01/17 12:46; Admin Dose 4 MG; Start 05/27/17 at 00:30 Lorazepam (Ativan) 1 mg Q4H PRN IV ANXIETY Last administered on 05/27/17 04:55 ; Admin Dose 1 MG; Start 05/27/17 at 04:30 Hydromorphone HCl (Dilaudid) 1 mg Q2H PRN IV PAIN Last administered on 12:09; Admin Dose 1 MG; Start 05/28/17 at 13:00 Sodium Biphosphate/ Sodium Phosphate 133 ml 133 ml DAILY PRN [place] CONSTIPATION Last administered on 05/29/17 21:14; Admin Dose 133 ML; Start 05/29/17 at 20:30 Ceftriaxone Sodium (Rocephin) 50 ml @ 100 mls/hr Q12H IVPB Last administered on 06/02/17 00:46; Admin Dose 100 MLS/HR; Start 05/31/17 at 01:00 Paroxetine HCl (Paxil) 10 mg DAILY PO Last administered on 06/02/17 10:43; Admin Dose 10 MG; Start 05/31/17 at 12:30 Mupirocin (Bactroban) 1 applic BID TOP Last administered on 06/02/17 10:13; Admin Dose 1 APPLIC; Start 05/31/17 at 13:00 Miscellaneous Information (Pending Santyl Order For Wound Care) This patient tran... PRN PRN XX WOUND CARE; Start 06/01/17 at 15:00 Collagenase (Santyl) 1 applic DAILY TOP Last administered on 06/02/17 10:13; Admin Dose 1 APPLIC; Start 06/01/17 at 15:00 Mirtazapine (Remeron) 15 mg HS PRN PO AGITATION/ANXIETY; Start 06/02/17 at 10: 30 BRIAN AGUERO MD Jun 02, 2017 12:25
[2017-06-02 20:30] VITALS: BP 132/74; RESP 18
--- NOTE | 2017-06-02 21:55 | PN ---
Date/Time of Note Date/Time of Note DATE: 06/02/17 TIME: 21:54 Assessment/Plan Lines/Catheters IV Catheter Type (from Nrsg): Saline Lock Verduzco in Place (from Nrsg): Yes Assessment/Plan Chief Complaint/Hosp Course 1. Left buttock wound with slough, debris and malodorous drainage; -debridement -frequent turning and offloading -specialty mattress -local care - optimize nutrition -vitamin C and short term zinc 2. Back pain: s/p laminectomy with fusion; pain improved, c-collar on -cspine precautions -per neurosurgery 3. Prediabetes: hgba1c 6.1 -blood sugar optimization 4. Depression with suicidal ideation: telepsych eval; no verbalization of SI -close observation 5. Microcytic anemia: chronic disease vs.iron deficiency vs. acute bleed vs. other; no acute bleed noted; h/h stable -monitor -transfuse as needed 6. Hyponatremia: ?dehydration; normalized -judicious iv fluids 7. Hypocalcemia: malnutrition; improved -optimize lytes and monitor 8. Hypomagnesemia: -replete and monitor Patient seen and examined in collaboration with Dr. Luís Mendoza Problems: Subjective 24 Hr Interval Summary Feels ok. Min pain in back, C-collar on.min drainage from right buttock. No tran , sz, dizziness, sob, palpitations, cp, cough, n/v/d fevers, chills, dysuria. Exam/Review of Systems Vital Signs Vitals Vital Signs Date Time Temp Pulse Resp B/P Pulse Ox O2 Delivery O2 Flow Rate FiO2 06/03/17 08:00 98.9 87 18 106/59 97 06/03/17 02:00 Room Air Intake and Output 06/02/17 06/02/17 06/03/17 15:00 23:00 07:00 Intake Total 50 ml 1580 ml 1050 ml Output Total 1500 ml 900 ml Balance 50 ml 80 ml 150 ml Exam Free Text/Dictation Constitutional: alert, oriented Psych: nl mood/affect Head: atraumatic, normocephalic Eyes: nl lids, nl sclera ENMT: mucosa pink and moist, nl nasal mucosa & septum Neck: other (c collar s/p laminectomy/fusion) Respiratory: clear to auscultation, normal air movement Cardiovascular: nl pulses, regular rate and rhythm Gastrointestinal: distended (min), non-tender, soft Genitourinary - Male: other (verduzco) Musculoskeletal: nl extremities to inspection, nl gait and stance Extremities: normal pulses Neurological: nl mental status, nl speech, nl strength Skin: other (left buttock wound with slough, periwound induration, min malodorous drainage) Results Result Diagram: 06/03/17 0437 06/03/17 0437 GILA WALKER NP Jun 02, 2017 21:55
[2017-06-03] MEDS: CEFTRIAXONE 1 GM/50 ML (PMX) 50 ML IVPB SCH ×2 (00:41→13:15)
[2017-06-03] MEDS: HYDROmorphONE 1 MG/ML SYG IV PRN ×9 (00:43→22:59)
[2017-06-03 02:00] VITALS: BP 123/74; PULSE 88; RESP 18
[2017-06-03 05:46] LABS: BASOPHILS % 0.8 % (0.0-2.0); EOSINOPHILS # 0.3 10^3/ul (0.0-0.5); EOSINOPHILS % 6.5 % (0.0-7.0); HEMATOCRIT 27.8 % (42.0-52.0); HEMOGLOBIN 9.1 g/dl (14.0-18.0); LYMPHOCYTES # 1.9 10^3/ul (0.8-2.9); LYMPHOCYTES % 36.1 % (15.0-51.0); MEAN CORPUSCULAR HEMOGLOBIN 29.4 pg (29.0-33.0); MEAN CORPUSCULAR HGB CONC 32.7 g/dl (32.0-37.0); MEAN CORPUSCULAR VOLUME 89.7 fl (82.0-101.0); MEAN PLATELET VOLUME 11.1 fl (7.4-10.4); MONOCYTE # 0.6 10^3/ul (0.3-0.9); MONOCYTES % 10.6 % (0.0-11.0); NEUTROPHIL # 2.4 10^3/ul (1.6-7.5); NEUTROPHILS % 45.6 % (39.0-77.0); PLATELET COUNT 155 10^3/UL (140-415); RED CELL DISTRIBUTION WIDTH 14.6 % (11.5-14.5); WHITE BLOOD COUNT 5.2 10^3/ul (4.8-10.8)
[2017-06-03] MEDS: PANTOPRAZOLE (EC) 40 MG TAB PO SCH (06:00)
[2017-06-03 06:08] LABS: CALCIUM 8.1 mg/dl (8.4-10.2); CREATININE 0.66 mg/dl (0.61-1.24); POTASSIUM 4.1 mmol/L (3.5-5.1)
[2017-06-03 08:00] VITALS: BP 106/59; RESP 18
[2017-06-03] MEDS: POLYETHYLENE GLYCOL 17 GM PACKET PO SCH (09:00)
[2017-06-03] MEDS: PAROXETINE 10 MG TAB PO SCH (09:00)
[2017-06-03] MEDS: DOCUSATE SODIUM 100 MG CAP PO SCH ×2 (09:03→20:48)
[2017-06-03] MEDS: GABAPENTIN 300 MG CAP PO SCH ×3 (09:03→20:48)
[2017-06-03] MEDS: metFORMIN 500 MG TAB PO SCH ×2 (09:03→17:38)
[2017-06-03] MEDS: SENNA TAB PO SCH ×2 (09:04→20:48)
[2017-06-03] MEDS: COLLAGENASE 30 GM TUBE TOP SCH (09:05)
[2017-06-03] MEDS: NEOMYC/POLYMYX/BACIT 30 GM OINT TOP SCH (09:05)
[2017-06-03] MEDS: MUPIROCIN 2% 22 GM OINT TOP SCH ×2 (09:06→23:15)
[2017-06-03] MEDS: BISACODYL 10 MG SUPP PR PRN (10:50)
--- NOTE | 2017-06-03 12:53 | CONS ---
Date/Time of Note Date/Time of Note DATE: 06/03/17 TIME: 12:49 Assessment/Plan Assessment/Plan Additional Assessment/Plan Onychia/Paronychia of left and right toenails. Will plan for nail debridement. Due to pain, will apply topical anesthetic prior to nail debridement. Onychomycosis. As above. Pain, foot, right, left. Will monitor. Pain, toes, right, left. Will monitor. Consultation Date/Type/Reason Admit Date/Time May 16, 2017 at 21:19 Date of Consultation: Jun 03, 2017 Type of Consultation: Podiatry: Coverage Dr. Hernandez Reason for Consultation Left > right toe and toenail pain. Hx of Present Illness Pt is complaining of severe left greater than right toe pain. Constitutional: improved Eyes: No visual change ENT: No congestion, No sore throat Respiratory: No cough, No shortness of breath Cardiovascular: No lightheadedness, No palpitations Gastrointestinal: No constipation, No diarrhea, No nausea, No vomiting Genitourinary: No dysuria Musculoskeletal: back pain Neurologic: focal-weakness (Upper extremities), No confusion Psychological: nl mood/affect Past Surgical History Past Surgical Hx: no surgical history Social History Smoking Status: Unknown if ever smoked Exam/Review of Systems Vital Signs Vitals Vital Signs Date Time Temp Pulse Resp B/P Pulse Ox O2 Delivery O2 Flow Rate FiO2 06/03/17 08:00 98.9 87 18 106/59 97 06/03/17 02:00 Room Air Intake and Output 06/02/17 06/02/17 06/03/17 15:00 23:00 07:00 Intake Total 50 ml 1580 ml 1050 ml Output Total 1500 ml 900 ml Balance 50 ml 80 ml 150 ml Exam Pt is complaining of severe left greater than right toe pain. The pain is specific to the toenails. The left 4th and 5th toenails are the worst. Mild inflammation and tenderness. No drainage. No malodor. Nails are thick, dystrophic, and ingrown. Results Result Diagram: 06/03/17 0437 06/03/17 0437 Results 24 hrs Laboratory Tests Test 06/03/17 04:37 White Blood Count 5.2 Red Blood Count 3.10 L Hemoglobin 9.1 L Hematocrit 27.8 L Mean Corpuscular Volume 89.7 Mean Corpuscular Hemoglobin 29.4 Mean Corpuscular Hemoglobin Concent 32.7 Red Cell Distribution Width 14.6 H Platelet Count 155 Mean Platelet Volume 11.1 H Neutrophils % 45.6 Lymphocytes % 36.1 Monocytes % 10.6 Eosinophils % 6.5 Basophils % 0.8 Nucleated Red Blood Cells % 0.0 Neutrophils # 2.4 Lymphocytes # 1.9 Monocytes # 0.6 Eosinophils # 0.3 Basophils # 0.0 Nucleated Red Blood Cells # 0.0 Sodium Level 139 Potassium Level 4.1 Chloride Level 103 Carbon Dioxide Level 26 Anion Gap 14 Blood Urea Nitrogen 10 Creatinine 0.66 Glucose Level 141 Calcium Level 8.1 L Medications Medications Current Medications Acetaminophen (Tylenol Tab) 650 mg Q6H PRN PO PAIN LEVEL 1-3 OR FEVER; Start at 21:00 Acetaminophen/ Hydrocodone Bitart ([place] (5/325)) 2 tab Q6H PRN PO SEVERE PAIN LEVEL 7-10 Last administered on 06/02/17 06:22; Admin Dose 2 TAB; Start at 21:00 Morphine Sulfate (morphine) 2 mg Q4H PRN IV SEVERE PAIN LEVEL 7-10 Last administered on 05/27/17 13:57; Admin Dose 2 MG; Start 05/16/17 at 21:00 Gabapentin (Neurontin) 300 mg TID PO Last administered on 06/03/17 09:03; Admin Dose 300 MG; Start 05/16/17 at 21:00 Miscellaneous Information 1 ea NOTE XX ; Start 05/17/17 at 17:30 Glucose (Glutose) 15 gm Q15M PRN PO DECREASED GLUCOSE; Start 05/17/17 at 17:30 Glucose (Glutose) 22.5 gm Q15M PRN PO DECREASED GLUCOSE; Start 05/17/17 at 17:30 Dextrose (D50w Syringe) 25 ml Q15M PRN IV DECREASED GLUCOSE; Start 05/17/17 at 17:30 Dextrose (D50w Syringe) 50 ml Q15M PRN IV DECREASED GLUCOSE; Start 05/17/17 at 17:30 Glucagon (Glucagen) 1 mg Q15M PRN IM DECREASED GLUCOSE; Start 05/17/17 at 17:30 Glucose (Glutose) 15 gm Q15M PRN BUCCAL DECREASED GLUCOSE; Start 05/17/17 at 17: 30 Pantoprazole (Protonix Tab) 40 mg DAILY@06 PO Last administered on 05/31/17 05 :50; Admin Dose 40 MG; Start 05/18/17 at 06:00 Hydroxyzine HCl (Atarax) 25 mg Q6H PRN PO ITCHING Last administered on 06:53; Admin Dose 25 MG; Start 05/19/17 at 03:30 Docusate Sodium (Colace) 100 mg BID PO Last administered on 06/03/17 09:03; Admin Dose 100 MG; Start 05/19/17 at 21:00 Senna (Senokot) 1 tab BID PO Last administered on 06/03/17 09:04; Admin Dose 1 TAB; Start 05/19/17 at 21:00 Polyethylene Glycol (Miralax) 17 gm DAILY PO Last administered on 05/29/17 09: 44; Admin Dose 17 GM; Start 05/21/17 at 09:00 Neomycin/ Polymyxin/ Bacitracin (Neosporin Topical Oint) 1 applic AM TOP Last administered on 06/03/17 09:05; Admin Dose 1 APPLIC; Start 05/23/17 at 09:00 Lactulose (Enulose) 20 gm DAILY PRN PO CONSTIPATION Last administered on 20:09; Admin Dose 20 GM; Start 05/22/17 at 18:30 Bisacodyl (Dulcolax Supp) 10 mg DAILY PRN [place] CONSTIPATION Last administered on 06/03/17 10:50; Admin Dose 10 MG; Start 05/22/17 at 18:30 Morphine Sulfate (morphine) 3 mg Q3H PRN IV PAIN Last administered on 15:13; Admin Dose 3 MG; Start 05/23/17 at 23:15 Ondansetron HCl (Zofran Inj) 4 mg Q6H PRN IV NAUSEA AND/OR VOMITING Last administered on 06/01/17 12:46; Admin Dose 4 MG; Start 05/27/17 at 00:30 Lorazepam (Ativan) 1 mg Q4H PRN IV ANXIETY Last administered on 05/27/17 04:55 ; Admin Dose 1 MG; Start 05/27/17 at 04:30 Hydromorphone HCl (Dilaudid) 1 mg Q2H PRN IV PAIN Last administered on 10:50; Admin Dose 1 MG; Start 05/28/17 at 13:00 Sodium Biphosphate/ Sodium Phosphate 133 ml 133 ml DAILY PRN [place] CONSTIPATION Last administered on 05/29/17 21:14; Admin Dose 133 ML; Start 05/29/17 at 20:30 Ceftriaxone Sodium (Rocephin) 50 ml @ 100 mls/hr Q12H IVPB Last administered on 06/03/17 00:41; Admin Dose 100 MLS/HR; Start 05/31/17 at 01:00 Paroxetine HCl (Paxil) 10 mg DAILY PO Last administered on 06/02/17 10:43; Admin Dose 10 MG; Start 05/31/17 at 12:30 Mupirocin (Bactroban) 1 applic BID TOP Last administered on 06/03/17 09:06; Admin Dose 1 APPLIC; Start 05/31/17 at 13:00 Miscellaneous Information (Pending Santyl Order For Wound Care) This patient tran... PRN PRN XX WOUND CARE; Start 06/01/17 at 15:00 Collagenase (Santyl) 1 applic DAILY TOP Last administered on 06/03/17 09:05; Admin Dose 1 APPLIC; Start 06/01/17 at 15:00 Mirtazapine (Remeron) 15 mg HS PRN PO AGITATION/ANXIETY; Start 06/02/17 at 10: 30 HI TRENT DPM Jun 03, 2017 12:53
--- NOTE | 2017-06-03 13:06 | PN ---
Date/Time of Note Date/Time of Note DATE: 06/03/17 TIME: 13:02 Assessment/Plan VTE Prophylaxis VTE Prophylaxis Intervention: SCD's Lines/Catheters IV Catheter Type (from Nrsg): Saline Lock Urinary Cath still in place: Yes Reason Cath still needed: urinary retention Assessment/Plan Chief Complaint/Hosp Course Assessment/Plan: 66 yo M with spinal stenosis admitted for acute on chronic back pain and UE weakness 2/2 cervical stenosis. Pt is sp laminectomy and fusion 7. (POD # 8) 1. Acute on chronic back pain with upper extremity weakness secondary to cervical cord stenosis now sp neurosurgical intervention POD # 8. HV drained removed yesterday. - neurosurgery still following, continue physical therapy, follow-up their recommendations -Patient apparently did not qualify for acute rehab, awaiting possible jail facility placement now, will follow up with test case developer on this 2 Prediabetes: Previous hemoglobin A1c 6.1. -Continue metformin 3. DVT and GI prophylaxis: SCD's, Protonix. 4. Depression with SI: pt with suicidal gesture of wrapping bedsheet around his neck 05/24. evaluated by telepsych, and again on 05/30 telemetry psych evaluation performed; patient presently denies any suicidal ideation or depression. - cont psych meds, Remeron and Paxil as well. -No need for one-to-one sitter now. 5. Bilateral feet pain: Patient does have signs of possible toenail infection. Appreciate podiatry consult - f/u podiatry rec's regarding tx. Dispo: Case management working on finding snf placement for patient. 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 Continue physical therapy, follow-up neurosurgery recommendations, pain control as well. Problems: Subjective 24 Hr Interval Summary Free Text/Dictation Pt had HV drain removed by NSS team, per nurse, now refusing Paxil. Seen by podiatry team today. Exam/Review of Systems Vital Signs Vitals Vital Signs Date Time Temp Pulse Resp B/P Pulse Ox O2 Delivery O2 Flow Rate FiO2 06/03/17 08:00 98.9 87 18 106/59 97 06/03/17 02:00 Room Air Intake and Output 06/02/17 06/02/17 06/03/17 15:00 23:00 07:00 Intake Total 50 ml 1580 ml 1050 ml Output Total 1500 ml 900 ml Balance 50 ml 80 ml 150 ml Exam nad, answering questions wearing cervical collar no mrg lungs clear abd soft no rashes Mild bilateral feet swelling, possible toe nail fungal infection Results Result Diagram: 06/03/1743606/03/17436 Results 24 hrs Laboratory Tests Test 06/03/17 04:37 White Blood Count 5.2 Red Blood Count 3.10 L Hemoglobin 9.1 L Hematocrit 27.8 L Mean Corpuscular Volume 89.7 Mean Corpuscular Hemoglobin 29.4 Mean Corpuscular Hemoglobin Concent 32.7 Red Cell Distribution Width 14.6 H Platelet Count 155 Mean Platelet Volume 11.1 H Neutrophils % 45.6 Lymphocytes % 36.1 Monocytes % 10.6 Eosinophils % 6.5 Basophils % 0.8 Nucleated Red Blood Cells % 0.0 Neutrophils # 2.4 Lymphocytes # 1.9 Monocytes # 0.6 Eosinophils # 0.3 Basophils # 0.0 Nucleated Red Blood Cells # 0.0 Sodium Level 139 Potassium Level 4.1 Chloride Level 103 Carbon Dioxide Level 26 Anion Gap 14 Blood Urea Nitrogen 10 Creatinine 0.66 Glucose Level 141 Calcium Level 8.1 L Medications Medications Current Medications Acetaminophen (Tylenol Tab) 650 mg Q6H PRN PO PAIN LEVEL 1-3 OR FEVER; Start at 21:00 Acetaminophen/ Hydrocodone Bitart ([place] (5/325)) 2 tab Q6H PRN PO SEVERE PAIN LEVEL 7-10 Last administered on 06/02/17 06:22; Admin Dose 2 TAB; Start at 21:00 Morphine Sulfate (morphine) 2 mg Q4H PRN IV SEVERE PAIN LEVEL 7-10 Last administered on 05/27/17 13:57; Admin Dose 2 MG; Start 05/16/17 at 21:00 Gabapentin (Neurontin) 300 mg TID PO Last administered on 06/03/17 09:03; Admin Dose 300 MG; Start 05/16/17 at 21:00 Miscellaneous Information 1 ea NOTE XX ; Start 05/17/17 at 17:30 Glucose (Glutose) 15 gm Q15M PRN PO DECREASED GLUCOSE; Start 05/17/17 at 17:30 Glucose (Glutose) 22.5 gm Q15M PRN PO DECREASED GLUCOSE; Start 05/17/17 at 17:30 Dextrose (D50w Syringe) 25 ml Q15M PRN IV DECREASED GLUCOSE; Start 05/17/17 at 17:30 Dextrose (D50w Syringe) 50 ml Q15M PRN IV DECREASED GLUCOSE; Start 05/17/17 at 17:30 Glucagon (Glucagen) 1 mg Q15M PRN IM DECREASED GLUCOSE; Start 05/17/17 at 17:30 Glucose (Glutose) 15 gm Q15M PRN BUCCAL DECREASED GLUCOSE; Start 05/17/17 at 17: 30 Pantoprazole (Protonix Tab) 40 mg DAILY@06 PO Last administered on 05/31/17 05 :50; Admin Dose 40 MG; Start 05/18/17 at 06:00 Hydroxyzine HCl (Atarax) 25 mg Q6H PRN PO ITCHING Last administered on 06:53; Admin Dose 25 MG; Start 05/19/17 at 03:30 Docusate Sodium (Colace) 100 mg BID PO Last administered on 06/03/17 09:03; Admin Dose 100 MG; Start 05/19/17 at 21:00 Senna (Senokot) 1 tab BID PO Last administered on 06/03/17 09:04; Admin Dose 1 TAB; Start 05/19/17 at 21:00 Polyethylene Glycol (Miralax) 17 gm DAILY PO Last administered on 05/29/17 09: 44; Admin Dose 17 GM; Start 05/21/17 at 09:00 Neomycin/ Polymyxin/ Bacitracin (Neosporin Topical Oint) 1 applic AM TOP Last administered on 06/03/17 09:05; Admin Dose 1 APPLIC; Start 05/23/17 at 09:00 Lactulose (Enulose) 20 gm DAILY PRN PO CONSTIPATION Last administered on 20:09; Admin Dose 20 GM; Start 05/22/17 at 18:30 Bisacodyl (Dulcolax Supp) 10 mg DAILY PRN [place] CONSTIPATION Last administered on 06/03/17 10:50; Admin Dose 10 MG; Start 05/22/17 at 18:30 Morphine Sulfate (morphine) 3 mg Q3H PRN IV PAIN Last administered on 15:13; Admin Dose 3 MG; Start 05/23/17 at 23:15 Ondansetron HCl (Zofran Inj) 4 mg Q6H PRN IV NAUSEA AND/OR VOMITING Last administered on 06/01/17 12:46; Admin Dose 4 MG; Start 05/27/17 at 00:30 Lorazepam (Ativan) 1 mg Q4H PRN IV ANXIETY Last administered on 05/27/17 04:55 ; Admin Dose 1 MG; Start 05/27/17 at 04:30 Hydromorphone HCl (Dilaudid) 1 mg Q2H PRN IV PAIN Last administered on 10:50; Admin Dose 1 MG; Start 05/28/17 at 13:00 Sodium Biphosphate/ Sodium Phosphate 133 ml 133 ml DAILY PRN [place] CONSTIPATION Last administered on 05/29/17 21:14; Admin Dose 133 ML; Start 05/29/17 at 20:30 Ceftriaxone Sodium (Rocephin) 50 ml @ 100 mls/hr Q12H IVPB Last administered on 06/03/17 00:41; Admin Dose 100 MLS/HR; Start 05/31/17 at 01:00 Paroxetine HCl (Paxil) 10 mg DAILY PO Last administered on 06/02/17 10:43; Admin Dose 10 MG; Start 05/31/17 at 12:30 Mupirocin (Bactroban) 1 applic BID TOP Last administered on 06/03/17 09:06; Admin Dose 1 APPLIC; Start 05/31/17 at 13:00 Miscellaneous Information (Pending Santyl Order For Wound Care) This patient tran... PRN PRN XX WOUND CARE; Start 06/01/17 at 15:00 Collagenase (Santyl) 1 applic DAILY TOP Last administered on 06/03/17 09:05; Admin Dose 1 APPLIC; Start 06/01/17 at 15:00 Mirtazapine (Remeron) 15 mg HS PRN PO AGITATION/ANXIETY; Start 06/02/17 at 10: 30 INNA ASCENCIO Jun 03, 2017 13:06
--- NOTE | 2017-06-03 20:38 | PN ---
Date/Time of Note Date/Time of Note DATE: 06/03/17 TIME: 20:37 Assessment/Plan Lines/Catheters IV Catheter Type (from Nrsg): Saline Lock Verduzco in Place (from Nrsg): Yes Assessment/Plan Chief Complaint/Hosp Course 1. Left buttock wound with slough, debris and malodorous drainage; -debridement -frequent turning and offloading -specialty mattress -local care - optimize nutrition -vitamin C and short term zinc 2. Back pain: s/p laminectomy with fusion; pain improved, c-collar on -cspine precautions -per neurosurgery 3. Prediabetes: hgba1c 6.1 -blood sugar optimization 4. Depression with suicidal ideation: telepsych eval; no verbalization of SI -close observation 5. Microcytic anemia: chronic disease vs.iron deficiency vs. acute bleed vs. other; no acute bleed noted; h/h stable -monitor -transfuse as needed 6. Hyponatremia: ?dehydration; normalized -judicious iv fluids 7. Hypocalcemia: malnutrition; improved -optimize lytes and monitor 8. Hypomagnesemia: -replete and monitor Thank you, Problems: Subjective 24 Hr Interval Summary Min pain in backMin drainage from right buttock. No tran, sz, dizziness, sob, palpitations, cp, cough, n/v/d fevers, chills, dysuria. Exam/Review of Systems Vital Signs Vitals Vital Signs Date Time Temp Pulse Resp B/P Pulse Ox O2 Delivery O2 Flow Rate FiO2 06/03/17 08:00 98.9 87 18 106/59 97 06/03/17 02:00 Room Air Intake and Output 06/02/17 06/02/17 06/03/17 15:00 23:00 07:00 Intake Total 50 ml 1580 ml 1050 ml Output Total 1500 ml 900 ml Balance 50 ml 80 ml 150 ml Exam Free Text/Dictation Constitutional: alert, oriented Psych: nl mood/affect Head: atraumatic, normocephalic Eyes: nl lids, nl sclera ENMT: mucosa pink and moist, nl nasal mucosa & septum Neck: other (c collar s/p laminectomy/fusion) Respiratory: clear to auscultation, normal air movement Cardiovascular: nl pulses, regular rate and rhythm Gastrointestinal: distended (min), non-tender, soft Genitourinary - Male: other (verduzco) Musculoskeletal: nl extremities to inspection, nl gait and stance Extremities: normal pulses Neurological: nl mental status, nl speech, nl strength Skin: other (left buttock wound with slough, periwound induration, min malodorous drainage) Results Result Diagram: 06/03/17 0437 06/03/17 0437 JAZMYN BARAKAT MD Jun 03, 2017 20:38
[2017-06-03] MEDS: MIRTAZAPINE 15 MG TAB PO SCH (20:49)
[2017-06-03 20:55] VITALS: BP 130/78; RESP 22
[2017-06-04] MEDS: HYDROmorphONE 1 MG/ML SYG IV PRN ×6 (01:25→22:44)
[2017-06-04] MEDS: CEFTRIAXONE 1 GM/50 ML (PMX) 50 ML IVPB SCH ×2 (01:25→14:44)
[2017-06-04 01:28] VITALS: BP 131/82; PULSE 90; RESP 18
[2017-06-04] MEDS: PANTOPRAZOLE (EC) 40 MG TAB PO SCH (06:00)
[2017-06-04 06:06] LABS: CALCIUM 8.5 mg/dl (8.4-10.2); CREATININE 0.61 mg/dl (0.61-1.24); POTASSIUM 4.1 mmol/L (3.5-5.1)
[2017-06-04 06:09] LABS: BASOPHILS % 0.3 % (0.0-2.0); EOSINOPHILS # 0.3 10^3/ul (0.0-0.5); EOSINOPHILS % 4.4 % (0.0-7.0); HEMATOCRIT 28.1 % (42.0-52.0); HEMOGLOBIN 9.7 g/dl (14.0-18.0); LYMPHOCYTES # 2.6 10^3/ul (0.8-2.9); LYMPHOCYTES % 40.1 % (15.0-51.0); MEAN CORPUSCULAR HEMOGLOBIN 30.5 pg (29.0-33.0); MEAN CORPUSCULAR HGB CONC 34.5 g/dl (32.0-37.0); MEAN CORPUSCULAR VOLUME 88.4 fl (82.0-101.0); MEAN PLATELET VOLUME 11.1 fl (7.4-10.4); MONOCYTE # 0.6 10^3/ul (0.3-0.9); NEUTROPHIL # 2.8 10^3/ul (1.6-7.5); NEUTROPHILS % 44.4 % (39.0-77.0); NUCLEATED RED BLOOD CELLS% 0.6 /100WBC (0.0-0.0); PLATELET COUNT 152 10^3/UL (140-415); RED BLOOD COUNT 3.18 10^6/ul (4.70-6.10); RED CELL DISTRIBUTION WIDTH 14.7 % (11.5-14.5); WHITE BLOOD COUNT 6.4 10^3/ul (4.8-10.8)
[2017-06-04 07:47] VITALS: BP 146/73; RESP 20
[2017-06-04] MEDS: DOCUSATE SODIUM 100 MG CAP PO SCH ×2 (09:00→20:05)
[2017-06-04] MEDS: POLYETHYLENE GLYCOL 17 GM PACKET PO SCH (09:00)
[2017-06-04] MEDS: SENNA TAB PO SCH ×2 (09:00→20:05)
[2017-06-04] MEDS: GABAPENTIN 300 MG CAP PO SCH ×3 (09:04→20:05)
[2017-06-04] MEDS: PAROXETINE 10 MG TAB PO SCH (09:04)
[2017-06-04] MEDS: metFORMIN 500 MG TAB PO SCH ×2 (09:04→18:58)
[2017-06-04] MEDS: MUPIROCIN 2% 22 GM OINT TOP SCH ×2 (09:05→20:06)
[2017-06-04] MEDS: NEOMYC/POLYMYX/BACIT 30 GM OINT TOP SCH (09:05)
[2017-06-04] MEDS: COLLAGENASE 30 GM TUBE TOP SCH (09:06)
--- NOTE | 2017-06-04 10:57 | PN ---
Date/Time of Note Date/Time of Note DATE: 06/04/17 TIME: 10:53 Assessment/Plan VTE Prophylaxis VTE Prophylaxis Intervention: SCD's Lines/Catheters IV Catheter Type (from Nrsg): Saline Lock Urinary Cath still in place: Yes Reason Cath still needed: urinary retention Assessment/Plan Chief Complaint/Hosp Course Assessment/Plan: 66 yo M with spinal stenosis admitted for acute on chronic back pain and UE weakness 2/2 cervical stenosis. Pt is sp laminectomy and fusion 7.14 (POD # 9) 1. Acute on chronic back pain with upper extremity weakness secondary to cervical cord stenosis now sp neurosurgical intervention POD # 9. HV drained removed 2 days ago. - neurosurgery still following, continue physical therapy, follow-up their recommendations -Patient apparently did not qualify for acute rehab, awaiting possible shelter facility placement now, will follow up with case reviewer on this -We will need to decrease the frequency of Dilaudid IV slowly, will also add p.o. [place] and try to transition patient to p.o. pain medicines at this point. 2 Prediabetes: Previous hemoglobin A1c 6.1. -Continue metformin 3. DVT and GI prophylaxis: SCD's, Protonix. 4. Depression with SI: pt with suicidal gesture of wrapping bedsheet around his neck 05/24. evaluated by telepsych, and again on 05/30 telemetry psych evaluation performed; patient presently denies any suicidal ideation or depression. - cont psych meds, Remeron and Paxil as well. -No need for one-to-one sitter now. 5. Bilateral feet pain: Patient does have signs of possible toenail infection. Appreciate podiatry consult - f/u podiatry rec's regarding tx. Dispo: Case management working on finding snf placement for patient. 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 Continue physical therapy, follow-up neurosurgery recommendations, pain control as well. Problems: Subjective 24 Hr Interval Summary Free Text/Dictation Patient still refusing his antidepressant medications. Still yells out at times complaining of pain otherwise no acute events over night. Exam/Review of Systems Vital Signs Vitals Vital Signs Date Time Temp Pulse Resp B/P Pulse Ox O2 Delivery O2 Flow Rate FiO2 06/04/17 07:47 97.5 75 20 146/73 94 06/04/17 01:28 Room Air Intake and Output 06/03/17 06/03/17 06/04/17 15:00 23:00 07:00 Intake Total 50 ml 1600 ml 1250 ml Output Total 700 ml 800 ml Balance 50 ml 900 ml 450 ml Exam nad, answering questions wearing cervical collar no mrg lungs clear abd soft no rashes Mild bilateral feet swelling, possible toe nail fungal infection Results Result Diagram: 06/04/17 0456 06/04/17 0456 Results 24 hrs Laboratory Tests Test 06/04/17 04:56 White Blood Count 6.4 # Red Blood Count 3.18 L Hemoglobin 9.7 L Hematocrit 28.1 L Mean Corpuscular Volume 88.4 Mean Corpuscular Hemoglobin 30.5 Mean Corpuscular Hemoglobin Concent 34.5 Red Cell Distribution Width 14.7 H Platelet Count 152 Mean Platelet Volume 11.1 H Neutrophils % 44.4 Lymphocytes % 40.1 Monocytes % 10.0 Eosinophils % 4.4 Basophils % 0.3 Nucleated Red Blood Cells % 0.6 H Neutrophils # 2.8 Lymphocytes # 2.6 Monocytes # 0.6 Eosinophils # 0.3 Basophils # 0.0 Nucleated Red Blood Cells # 0.0 Sodium Level 134 L Potassium Level 4.1 Chloride Level 102 Carbon Dioxide Level 23 Anion Gap 13 Blood Urea Nitrogen 10 Creatinine 0.61 Glucose Level 105 Calcium Level 8.5 Medications Medications Current Medications Acetaminophen (Tylenol Tab) 650 mg Q6H PRN PO PAIN LEVEL 1-3 OR FEVER; Start at 21:00 Acetaminophen/ Hydrocodone Bitart ([place] (5/325)) 2 tab Q6H PRN PO SEVERE PAIN LEVEL 7-10 Last administered on 06/02/17 06:22; Admin Dose 2 TAB; Start at 21:00 Morphine Sulfate (morphine) 2 mg Q4H PRN IV SEVERE PAIN LEVEL 7-10 Last administered on 05/27/17 13:57; Admin Dose 2 MG; Start 05/16/17 at 21:00 Gabapentin (Neurontin) 300 mg TID PO Last administered on 06/04/17 09:04; Admin Dose 300 MG; Start 05/16/17 at 21:00 Miscellaneous Information 1 ea NOTE XX ; Start 05/17/17 at 17:30 Glucose (Glutose) 15 gm Q15M PRN PO DECREASED GLUCOSE; Start 05/17/17 at 17:30 Glucose (Glutose) 22.5 gm Q15M PRN PO DECREASED GLUCOSE; Start 05/17/17 at 17:30 Dextrose (D50w Syringe) 25 ml Q15M PRN IV DECREASED GLUCOSE; Start 05/17/17 at 17:30 Dextrose (D50w Syringe) 50 ml Q15M PRN IV DECREASED GLUCOSE; Start 05/17/17 at 17:30 Glucagon (Glucagen) 1 mg Q15M PRN IM DECREASED GLUCOSE; Start 05/17/17 at 17:30 Glucose (Glutose) 15 gm Q15M PRN BUCCAL DECREASED GLUCOSE; Start 05/17/17 at 17: 30 Pantoprazole (Protonix Tab) 40 mg DAILY@06 PO Last administered on 05/31/17 05 :50; Admin Dose 40 MG; Start 05/18/17 at 06:00 Hydroxyzine HCl (Atarax) 25 mg Q6H PRN PO ITCHING Last administered on 06:53; Admin Dose 25 MG; Start 05/19/17 at 03:30 Docusate Sodium (Colace) 100 mg BID PO Last administered on 06/03/17 20:48; Admin Dose 100 MG; Start 05/19/17 at 21:00 Senna (Senokot) 1 tab BID PO Last administered on 06/03/17 20:48; Admin Dose 1 TAB; Start 05/19/17 at 21:00 Polyethylene Glycol (Miralax) 17 gm DAILY PO Last administered on 05/29/17 09: 44; Admin Dose 17 GM; Start 05/21/17 at 09:00 Neomycin/ Polymyxin/ Bacitracin (Neosporin Topical Oint) 1 applic AM TOP Last administered on 06/04/17 09:05; Admin Dose 1 APPLIC; Start 05/23/17 at 09:00 Lactulose (Enulose) 20 gm DAILY PRN PO CONSTIPATION Last administered on 20:09; Admin Dose 20 GM; Start 05/22/17 at 18:30 Bisacodyl (Dulcolax Supp) 10 mg DAILY PRN [place] CONSTIPATION Last administered on 06/03/17 10:50; Admin Dose 10 MG; Start 05/22/17 at 18:30 Ondansetron HCl (Zofran Inj) 4 mg Q6H PRN IV NAUSEA AND/OR VOMITING Last administered on 06/01/17 12:46; Admin Dose 4 MG; Start 05/27/17 at 00:30 Lorazepam (Ativan) 1 mg Q4H PRN IV ANXIETY Last administered on 05/27/17 04:55 ; Admin Dose 1 MG; Start 05/27/17 at 04:30 Hydromorphone HCl (Dilaudid) 1 mg Q2H PRN IV PAIN Last administered on 09:04; Admin Dose 1 MG; Start 05/28/17 at 13:00 Sodium Biphosphate/ Sodium Phosphate 133 ml 133 ml DAILY PRN [place] CONSTIPATION Last administered on 05/29/17 21:14; Admin Dose 133 ML; Start 05/29/17 at 20:30 Ceftriaxone Sodium (Rocephin) 50 ml @ 100 mls/hr Q12H IVPB Last administered on 06/04/17 01:25; Admin Dose 100 MLS/HR; Start 05/31/17 at 01:00 Paroxetine HCl (Paxil) 10 mg DAILY PO Last administered on 06/02/17 10:43; Admin Dose 10 MG; Start 05/31/17 at 12:30 Mupirocin (Bactroban) 1 applic BID TOP Last administered on 06/04/17 09:05; Admin Dose 1 APPLIC; Start 05/31/17 at 13:00 Miscellaneous Information (Pending Santyl Order For Wound Care) This patient tran... PRN PRN XX WOUND CARE; Start 06/01/17 at 15:00 Collagenase (Santyl) 1 applic DAILY TOP Last administered on 06/04/17 09:06; Admin Dose 1 APPLIC; Start 06/01/17 at 15:00 Mirtazapine (Remeron) 15 mg HS PO Last administered on 06/03/17 20:49; Admin Dose 15 MG; Start 06/03/17 at 21:00 INNA ASCENCIO Jun 04, 2017 10:57
[2017-06-04] MEDS: HYDROCODONE/APAP (7.5/325) TAB NGT PRN ×3 (11:14→20:05)
[2017-06-04 19:50] VITALS: BP 130/72; RESP 21
[2017-06-04] MEDS: MIRTAZAPINE 15 MG TAB PO SCH (20:05)
[2017-06-04] MEDS: CLOTRIMAZOLE 1% 30 GM CR TOP SCH (21:00)
[2017-06-04] MEDS: ONDANSETRON 4 MG INJ IV PRN (21:14)
[2017-06-05] MEDS: COLLAGENASE 30 GM TUBE TOP SCH (01:18)
[2017-06-05] MEDS: CEFTRIAXONE 1 GM/50 ML (PMX) 50 ML IVPB SCH ×2 (02:06→12:44)
[2017-06-05] MEDS: HYDROmorphONE 1 MG/ML SYG IV PRN ×4 (02:06→15:25)
--- NOTE | 2017-06-05 05:18 | OPR ---
DATE OF OPERATION: 05/26/2017 PREOPERATIVE DIAGNOSIS: Cervical stenosis with myelopathy. POSTOPERATIVE DIAGNOSIS: Cervical stenosis with myelopathy. PROCEDURE PERFORMED: 1. Cervical 3 through cervical 6 laminectomy. 2. Cervical 3 through cervical 6 lateral mass fixation. 3. Cervical 3 through cervical 6 posterolateral fusion. 4. Somatosensory motor evoked potentials times hours. SURGEON: Nba Victoria MD PRINCIPAL TECHNICAL ARCHITECT: None. ANESTHESIOLOGIST: General endotracheal tube anesthesia. INDICATIONS: The patient is a 66-year-old male with a history of progressive cervical myelopathy, inability to ambulate, urinary incontinence, and MRI of the cervical spine demonstrating severe cervical stenosis with cord signal change. The CT of the cervical spine demonstrates a severe degenerative disease of the cervical spine with evidence of degenerative instability of C4 with degenerative C4-5 facet complex. The risks, benefits, and alternatives to laminectomy and fixation of fusion were explained to the patient in detail. Informed consent having so been obtained, the patient was brought to the operating room. PROCEDURE IN DETAIL: The patient was placed prone on gel rolls after induction of general anesthesia after first placing his head in supine fixation with a Schreiber cigar head stringer and immobilizing the neck in a cervical collar. After positioning the patient, somatosensory and motor evoked potentials were obtained, and these were compared to pre-positioning baselines demonstrating a stability in the electrical recordings. In addition, a cross table x-ray was obtained to make sure that the alignment was preserved. The patient was then further secured to the table with 4 inch cloth tape. He was placed in reverse Trendelenburg. The hair over the occiput was clipped with a clipper, and the patient was prepped and draped in the usual sterile fashion and the scalp infused with local anesthetic. A complete timeout was performed per protocol. A number 10 blade was used to incise the skin, self retaining retractors were placed, and dissection was carried down in the midline avascular plane to identify the posterior elements and to expose the posterior elements of C2 through C7 at the lateral mass. Using a Bovie electrocautery, the lateral masses were identified along with spinolaminar line in the cervical spine, and then using an AM8 style drill, airplane pilot crop dusting holes were drilled in the median inferior quadrant of the lateral masses at C3, C4, C5, and C6 bilaterally. The handheld drill was then set to a depth of 14 mm and consultation with the preoperative imaging and 12 mm screws were intended to be used, the lateral masses were drilled out to a depth of 14 mm at each level and they were then probed with a ball tip probe. The C4 lateral mass on the left side was particularly degenerated and the bone was very moth eaten and would not hold a screw, so this level was skipped, but the screws were then placed at C3, C5, and C6 bilaterally and C4 on the right. A laminectomy was then performed using Kerrison and Leksell rongeurs and the high speed drill to drill out the lamina after it was associated with section with 2 mm and 3 mm Kerrison's. The dura was noted to be compressed with ligamentous overgrowth as well, and this was carefully resected off the dura with Kerrison's and curved curettes. An adequate decompression was felt to be obtained from lateral mass to lateral mass, and the dura upon the completion, the dura appeared relaxed and core pulsations could be appreciated. Next, precut rods were placed in the screw heads and set screws. Bilaterally the bony surfaces were decorticated with a high speed drill. The patient's own bone, which was harvested during the laminectomy, was used to pack the facet joints and lateral gutters, and then hemostasis was obtained. A number 10 Hemovac was placed in the epidural space and secured with a drain stitch, and a multilayered closure was performed with 0 Vicryl being used to close the deep muscle. A 2-0 was used to close the subcuticular layer and fabian on the skin. The patient tolerated the procedure well, there were no complications, and needle and sponge counts were reported as correct times 2. Dictated By: Nba Victoria MD /hieu/bharath /Document#: [id number] GIOVANNA
[2017-06-05 05:26] LABS: BASOPHILS % 0.7 % (0.0-2.0); EOSINOPHILS # 0.3 10^3/ul (0.0-0.5); EOSINOPHILS % 4.8 % (0.0-7.0); HEMATOCRIT 26.2 % (42.0-52.0); HEMOGLOBIN 8.7 g/dl (14.0-18.0); LYMPHOCYTES % 36.1 % (15.0-51.0); MEAN CORPUSCULAR HEMOGLOBIN 29.9 pg (29.0-33.0); MEAN CORPUSCULAR HGB CONC 33.2 g/dl (32.0-37.0); MEAN PLATELET VOLUME 10.7 fl (7.4-10.4); MONOCYTE # 0.5 10^3/ul (0.3-0.9); NEUTROPHIL # 2.7 10^3/ul (1.6-7.5); PLATELET COUNT 176 10^3/UL (140-415); RED BLOOD COUNT 2.91 10^6/ul (4.70-6.10); RED CELL DISTRIBUTION WIDTH 14.8 % (11.5-14.5); WHITE BLOOD COUNT 5.6 10^3/ul (4.8-10.8)
[2017-06-05 05:42] LABS: CALCIUM 8.2 mg/dl (8.4-10.2); CREATININE 0.71 mg/dl (0.61-1.24); POTASSIUM 3.8 mmol/L (3.5-5.1)
[2017-06-05 05:43] LABS: MAGNESIUM 1.4 mg/dl (1.7-2.5); PHOSPHORUS 3.2 mg/dl (2.5-4.9)
[2017-06-05] MEDS: PANTOPRAZOLE (EC) 40 MG TAB PO SCH (06:05)
[2017-06-05 08:00] VITALS: BP 124/68; RESP 19
--- NOTE | 2017-06-05 09:48 | PN ---
Date/Time of Note Date/Time of Note DATE: 06/05/17 TIME: 09:40 Assessment/Plan Lines/Catheters IV Catheter Type (from Nrsg): ROCEPHIN TUBING Verduzco in Place (from Nrsg): Yes Assessment/Plan Chief Complaint/Hosp Course 1. Left buttock wound with slough, debris and malodorous drainage; -debridement -frequent turning and offloading -specialty mattress -local care - optimize nutrition -vitamin C and short term zinc 2. Back pain: s/p laminectomy with fusion; pain improved, c-collar on -cspine precautions -per neurosurgery 3. Prediabetes: hgba1c 6.1 -blood sugar optimization 4. Depression with suicidal ideation: telepsych eval; no verbalization of SI -close observation 5. Microcytic anemia: chronic disease vs.iron deficiency vs. acute bleed vs. other; no acute bleed noted; h/h lower -monitor -transfuse as needed 6. Hyponatremia: ?dehydration; normalized -judicious iv fluids 7. Hypocalcemia: malnutrition; improved -optimize lytes and monitor 8. Hypomagnesemia: -replete and monitor Patient seen and examined in collaboration with Dr. Luís Mendoza Problems: Subjective 24 Hr Interval Summary Feels ok. Min neck pain. c collar on. Scant drainage right buttock wound. No tran , sz, dizziness, cp, palpitations, n/v/d, dysuria, fevers, chills. Exam/Review of Systems Vital Signs Vitals Vital Signs Date Time Temp Pulse Resp B/P Pulse Ox O2 Delivery O2 Flow Rate FiO2 06/05/17 08:00 97.7 88 19 124/68 96 06/04/17 01:28 Room Air Intake and Output 06/04/17 06/04/17 06/05/17 15:00 23:00 07:00 Intake Total 1250 ml 530 ml Output Total 1400 ml 1700 ml Balance -150 ml -1170 ml Exam Free Text/Dictation Constitutional: alert, oriented Psych: nl mood/affect Head: atraumatic, normocephalic Eyes: nl lids, nl sclera ENMT: mucosa pink and moist, nl nasal mucosa & septum Neck: other (c collar s/p laminectomy/fusion) Respiratory: clear to auscultation, normal air movement Cardiovascular: nl pulses, regular rate and rhythm Gastrointestinal: distended (min), non-tender, soft Genitourinary - Male: other (verduzco) Musculoskeletal: nl extremities to inspection, nl gait and stance Extremities: normal pulses Neurological: nl mental status, nl speech, nl strength Skin: other (left buttock wound with slough, periwound induration, scant malodorous drainage) Results Result Diagram: 06/05/17 0454 06/05/17 0458 GILA WALKER NP Jun 05, 2017 09:48
[2017-06-05] MEDS: DOCUSATE SODIUM 100 MG CAP PO SCH ×2 (10:09→21:00)
[2017-06-05] MEDS: GABAPENTIN 300 MG CAP PO SCH ×3 (10:09→21:00)
[2017-06-05] MEDS: SENNA TAB PO SCH ×2 (10:09→21:00)
[2017-06-05] MEDS: metFORMIN 500 MG TAB PO SCH ×2 (10:09→17:48)
[2017-06-05] MEDS: NEOMYC/POLYMYX/BACIT 30 GM OINT TOP SCH (10:10)
[2017-06-05] MEDS: PAROXETINE 10 MG TAB PO SCH (10:10)
[2017-06-05] MEDS: MUPIROCIN 2% 22 GM OINT TOP SCH ×2 (10:11→21:00)
[2017-06-05] MEDS: POLYETHYLENE GLYCOL 17 GM PACKET PO SCH (10:11)
[2017-06-05] MEDS: CLOTRIMAZOLE 1% 30 GM CR TOP SCH ×2 (10:11→21:00)
[2017-06-05] MEDS: HYDROCODONE/APAP (7.5/325) TAB NGT PRN (11:41)
--- NOTE | 2017-06-05 16:12 | PN ---
Date/Time of Note Date/Time of Note DATE: 06/05/17 TIME: 16:08 Assessment/Plan VTE Prophylaxis VTE Prophylaxis Intervention: SCD's Lines/Catheters IV Catheter Type (from Nrsg): Saline Lock Urinary Cath still in place: Yes Reason Cath still needed: other (indicate) (will dc) Assessment/Plan Assessment/Plan 66 yo M with spinal stenosis admitted for acute on chronic back pain and UE weakness 2/2 cervical stenosis. Pt is sp laminectomy and fusion 7. 1. Acute on chronic back pain with upper extremity weakness secondary to cervical cord stenosis now sp neurosurgical intervention 7.14 - neurosurgery still following, continue physical therapy, follow-up their recommendations -Patient apparently did not qualify for acute rehab, awaiting possible assisted facility placement now, will follow up with casey saw operator on this -We will need to decrease the frequency of Dilaudid IV slowly, will also add p.o. [place] and try to transition patient to p.o. pain medicines at this point. 2 Prediabetes: Previous hemoglobin A1c 6.1. -Continue metformin 3. DVT and GI prophylaxis: SCD's, Protonix. 4. Depression with SI: pt with suicidal gesture of wrapping bedsheet around his neck 05/24. evaluated by telepsych, and again on 05/30 telemetry psych evaluation performed; patient presently denies any suicidal ideation or depression. - cont psych meds, Remeron and Paxil as well. -No need for one-to-one sitter now. 5. Bilateral feet pain: + toenail fungus. Podiatry following 6. buttock wounds: as per gen surg stopping rocephin as rationale unclear dispo: CM looking for KODAK Subjective 24 Hr Interval Summary Free Text/Dictation Pt being difficult this AM. Initially refusing to take Paxil then relented Exam/Review of Systems Vital Signs Vitals Vital Signs Date Time Temp Pulse Resp B/P Pulse Ox O2 Delivery O2 Flow Rate FiO2 06/05/17 08:00 97.7 88 19 124/68 96 06/04/17 01:28 Room Air Intake and Output 06/04/17 06/04/17 06/05/17 15:00 23:00 07:00 Intake Total 1250 ml 530 ml Output Total 1400 ml 1700 ml Balance -150 ml -1170 ml Exam nad, sitting up in bed, C Collar on no mrg lungs clear abd soft no rashes Results Result Diagram: 06/05/17 0454 06/05/17 0458 Results 24 hrs Laboratory Tests Test 06/05/17 04:54 06/05/17 04:58 White Blood Count 5.6 Red Blood Count 2.91 L Hemoglobin 8.7 L Hematocrit 26.2 L Mean Corpuscular Volume 90.0 Mean Corpuscular Hemoglobin 29.9 Mean Corpuscular Hemoglobin Concent 33.2 Red Cell Distribution Width 14.8 H Platelet Count 176 Mean Platelet Volume 10.7 H Neutrophils % 49.0 Lymphocytes % 36.1 Monocytes % 9.0 Eosinophils % 4.8 Basophils % 0.7 Nucleated Red Blood Cells % 0.0 Neutrophils # 2.7 Lymphocytes # 2.0 Monocytes # 0.5 Eosinophils # 0.3 Basophils # 0.0 Nucleated Red Blood Cells # 0.0 Sodium Level 142 Potassium Level 3.8 Chloride Level 108 Carbon Dioxide Level 26 Anion Gap 12 Blood Urea Nitrogen 8 Creatinine 0.71 Glucose Level 191 Calcium Level 8.2 L Phosphorus Level 3.2 Magnesium Level 1.4 L Medications Medications Current Medications Acetaminophen (Tylenol Tab) 650 mg Q6H PRN PO PAIN LEVEL 1-3 OR FEVER; Start at 21:00 Acetaminophen/ Hydrocodone Bitart ([place] (5/325)) 2 tab Q6H PRN PO SEVERE PAIN LEVEL 7-10 Last administered on 06/02/17 06:22; Admin Dose 2 TAB; Start at 21:00 Gabapentin (Neurontin) 300 mg TID PO Last administered on 06/05/17 12:44; Admin Dose 300 MG; Start 05/16/17 at 21:00 Miscellaneous Information 1 ea NOTE XX ; Start 05/17/17 at 17:30 Glucose (Glutose) 15 gm Q15M PRN PO DECREASED GLUCOSE; Start 05/17/17 at 17:30 Glucose (Glutose) 22.5 gm Q15M PRN PO DECREASED GLUCOSE; Start 05/17/17 at 17:30 Dextrose (D50w Syringe) 25 ml Q15M PRN IV DECREASED GLUCOSE; Start 05/17/17 at 17:30 Dextrose (D50w Syringe) 50 ml Q15M PRN IV DECREASED GLUCOSE; Start 05/17/17 at 17:30 Glucagon (Glucagen) 1 mg Q15M PRN IM DECREASED GLUCOSE; Start 05/17/17 at 17:30 Glucose (Glutose) 15 gm Q15M PRN BUCCAL DECREASED GLUCOSE; Start 05/17/17 at 17: 30 Pantoprazole (Protonix Tab) 40 mg DAILY@06 PO Last administered on 06/05/17 06 :05; Admin Dose 40 MG; Start 05/18/17 at 06:00 Hydroxyzine HCl (Atarax) 25 mg Q6H PRN PO ITCHING Last administered on 06:53; Admin Dose 25 MG; Start 05/19/17 at 03:30 Docusate Sodium (Colace) 100 mg BID PO Last administered on 06/05/17 10:09; Admin Dose 100 MG; Start 05/19/17 at 21:00 Senna (Senokot) 1 tab BID PO Last administered on 06/05/17 10:09; Admin Dose 1 TAB; Start 05/19/17 at 21:00 Polyethylene Glycol (Miralax) 17 gm DAILY PO Last administered on 06/05/17 10: 11; Admin Dose 17 GM; Start 05/21/17 at 09:00 Neomycin/ Polymyxin/ Bacitracin (Neosporin Topical Oint) 1 applic AM TOP Last administered on 06/05/17 10:10; Admin Dose 1 APPLIC; Start 05/23/17 at 09:00 Lactulose (Enulose) 20 gm DAILY PRN PO CONSTIPATION Last administered on 20:09; Admin Dose 20 GM; Start 05/22/17 at 18:30 Bisacodyl (Dulcolax Supp) 10 mg DAILY PRN [place] CONSTIPATION Last administered on 06/03/17 10:50; Admin Dose 10 MG; Start 05/22/17 at 18:30 Ondansetron HCl (Zofran Inj) 4 mg Q6H PRN IV NAUSEA AND/OR VOMITING Last administered on 06/04/17 21:14; Admin Dose 4 MG; Start 05/27/17 at 00:30 Lorazepam (Ativan) 1 mg Q4H PRN IV ANXIETY Last administered on 05/27/17 04:55 ; Admin Dose 1 MG; Start 05/27/17 at 04:30 Sodium Biphosphate/ Sodium Phosphate 133 ml 133 ml DAILY PRN [place] CONSTIPATION Last administered on 05/29/17 21:14; Admin Dose 133 ML; Start 05/29/17 at 20:30 Ceftriaxone Sodium (Rocephin) 50 ml @ 100 mls/hr Q12H IVPB Last administered on 06/05/17 12:44; Admin Dose 100 MLS/HR; Start 05/31/17 at 01:00 Paroxetine HCl (Paxil) 10 mg DAILY PO Last administered on 06/05/17 10:10; Admin Dose 10 MG; Start 05/31/17 at 12:30 Mupirocin (Bactroban) 1 applic BID TOP Last administered on 06/05/17 10:11; Admin Dose 1 APPLIC; Start 05/31/17 at 13:00 Miscellaneous Information (Pending Santyl Order For Wound Care) This patient tran... PRN PRN XX WOUND CARE; Start 06/01/17 at 15:00 Collagenase (Santyl) 1 applic DAILY TOP Last administered on 06/05/17 01:18; Admin Dose 1 APPLIC; Start 06/01/17 at 15:00 Mirtazapine (Remeron) 15 mg HS PO Last administered on 06/04/17 20:05; Admin Dose 15 MG; Start 06/03/17 at 21:00 Hydromorphone HCl (Dilaudid) 1 mg Q3H PRN IV PAIN Last administered on 15:25; Admin Dose 1 MG; Start 06/04/17 at 12:00 Acetaminophen/ Hydrocodone Bitart ([place] (7.5-325)) 1 tab Q4H PRN NGT PAIN LEVEL 8-10 Last administered on 06/05/17 11:41; Admin Dose 1 TAB; Start at 11:00 Clotrimazole (Lotrimin Cr) 1 applic BID TOP Last administered on 06/05/17 10: 11; Admin Dose 1 APPLIC; Start 06/04/17 at 21:00 Lidocaine (Lidocaine 5% Oint) 1 applic TID PRN TOP PAIN; Start 06/04/17 at 20: 00 ERIC HORN MD Jun 05, 2017 16:12 ERIC HORN MD Jun 05, 2017 16:12
[2017-06-05] MEDS ORDERED: MAGNESIUM OXIDE 400 MG TAB PO ONE (16:30)
--- NOTE | 2017-06-05 18:23 | CONS ---
Date/Time of Note Date/Time of Note DATE: 06/05/17 TIME: 18:19 Assessment/Plan Assessment/Plan Chief Complaint/Hosp Course Pain b/l feet Edema Onychogryphosis Onychomycosis Tinea Bedside confined DM2 with neuropathy Problems: Additional Assessment/Plan Debridement of nails. Rec topical AF. Rec tight glycemic control. Further disposition per PMD. Thank you for consultation. Consultation Date/Type/Reason Admit Date/Time May 16, 2017 at 21:19 Initial Consult Date 06/03/17 Type of Consultation: Podiatry Reason for Consultation Pain bilateral feet Exam/Review of Systems Vital Signs Vitals Vital Signs Date Time Temp Pulse Resp B/P Pulse Ox O2 Delivery O2 Flow Rate FiO2 06/05/17 08:00 97.7 88 19 124/68 96 06/04/17 01:28 Room Air Intake and Output 06/04/17 06/04/17 06/05/17 15:00 23:00 07:00 Intake Total 1250 ml 530 ml Output Total 1400 ml 1700 ml Balance -150 ml -1170 ml Exam Neck: other (neck brace) Musculoskeletal: other (left ankle bracelet) Extremities: edema, other (mycotic nails, pain with palpation, preulcerative subungual changes), pitting pedal edema Neurological: other (decreased protective sensation) Skin: other (tinea) Results Result Diagram: 06/05/17 0454 06/05/17 0458 Results 24 hrs Laboratory Tests Test 06/05/17 04:54 06/05/17 04:58 06/05/17 17:46 White Blood Count 5.6 Red Blood Count 2.91 L Hemoglobin 8.7 L Hematocrit 26.2 L Mean Corpuscular Volume 90.0 Mean Corpuscular Hemoglobin 29.9 Mean Corpuscular Hemoglobin Concent 33.2 Red Cell Distribution Width 14.8 H Platelet Count 176 Mean Platelet Volume 10.7 H Neutrophils % 49.0 Lymphocytes % 36.1 Monocytes % 9.0 Eosinophils % 4.8 Basophils % 0.7 Nucleated Red Blood Cells % 0.0 Neutrophils # 2.7 Lymphocytes # 2.0 Monocytes # 0.5 Eosinophils # 0.3 Basophils # 0.0 Nucleated Red Blood Cells # 0.0 Sodium Level 142 Potassium Level 3.8 Chloride Level 108 Carbon Dioxide Level 26 Anion Gap 12 Blood Urea Nitrogen 8 Creatinine 0.71 Glucose Level 191 Calcium Level 8.2 L Phosphorus Level 3.2 Magnesium Level 1.4 L Bedside Glucose 141 Medications Medications Current Medications Acetaminophen (Tylenol Tab) 650 mg Q6H PRN PO PAIN LEVEL 1-3 OR FEVER; Start at 21:00 Acetaminophen/ Hydrocodone Bitart ([place] (5/325)) 2 tab Q6H PRN PO SEVERE PAIN LEVEL 7-10 Last administered on 06/02/17 06:22; Admin Dose 2 TAB; Start at 21:00 Gabapentin (Neurontin) 300 mg TID PO Last administered on 06/05/17 12:44; Admin Dose 300 MG; Start 05/16/17 at 21:00 Miscellaneous Information 1 ea NOTE XX ; Start 05/17/17 at 17:30 Glucose (Glutose) 15 gm Q15M PRN PO DECREASED GLUCOSE; Start 05/17/17 at 17:30 Glucose (Glutose) 22.5 gm Q15M PRN PO DECREASED GLUCOSE; Start 05/17/17 at 17:30 Dextrose (D50w Syringe) 25 ml Q15M PRN IV DECREASED GLUCOSE; Start 05/17/17 at 17:30 Dextrose (D50w Syringe) 50 ml Q15M PRN IV DECREASED GLUCOSE; Start 05/17/17 at 17:30 Glucagon (Glucagen) 1 mg Q15M PRN IM DECREASED GLUCOSE; Start 05/17/17 at 17:30 Glucose (Glutose) 15 gm Q15M PRN BUCCAL DECREASED GLUCOSE; Start 05/17/17 at 17: 30 Pantoprazole (Protonix Tab) 40 mg DAILY@06 PO Last administered on 06/05/17 06 :05; Admin Dose 40 MG; Start 05/18/17 at 06:00 Hydroxyzine HCl (Atarax) 25 mg Q6H PRN PO ITCHING Last administered on 06:53; Admin Dose 25 MG; Start 05/19/17 at 03:30 Docusate Sodium (Colace) 100 mg BID PO Last administered on 06/05/17 10:09; Admin Dose 100 MG; Start 05/19/17 at 21:00 Senna (Senokot) 1 tab BID PO Last administered on 06/05/17 10:09; Admin Dose 1 TAB; Start 05/19/17 at 21:00 Polyethylene Glycol (Miralax) 17 gm DAILY PO Last administered on 06/05/17 10: 11; Admin Dose 17 GM; Start 05/21/17 at 09:00 Neomycin/ Polymyxin/ Bacitracin (Neosporin Topical Oint) 1 applic AM TOP Last administered on 06/05/17 10:10; Admin Dose 1 APPLIC; Start 05/23/17 at 09:00 Lactulose (Enulose) 20 gm DAILY PRN PO CONSTIPATION Last administered on 20:09; Admin Dose 20 GM; Start 05/22/17 at 18:30 Bisacodyl (Dulcolax Supp) 10 mg DAILY PRN [place] CONSTIPATION Last administered on 06/03/17 10:50; Admin Dose 10 MG; Start 05/22/17 at 18:30 Ondansetron HCl (Zofran Inj) 4 mg Q6H PRN IV NAUSEA AND/OR VOMITING Last administered on 06/04/17 21:14; Admin Dose 4 MG; Start 05/27/17 at 00:30 Sodium Biphosphate/ Sodium Phosphate (Fleet Enema) 133 ml DAILY PRN [place] CONSTIPATION Last administered on 05/29/17 21:14; Admin Dose 133 ML; Start at 20:30 Paroxetine HCl (Paxil) 10 mg DAILY PO Last administered on 06/05/17 10:10; Admin Dose 10 MG; Start 05/31/17 at 12:30 Mupirocin (Bactroban) 1 applic BID TOP Last administered on 06/05/17 10:11; Admin Dose 1 APPLIC; Start 05/31/17 at 13:00 Miscellaneous Information (Pending Santyl Order For Wound Care) This patient tran... PRN PRN XX WOUND CARE; Start 06/01/17 at 15:00 Collagenase (Santyl) 1 applic DAILY TOP Last administered on 06/05/17 01:18; Admin Dose 1 APPLIC; Start 06/01/17 at 15:00 Mirtazapine (Remeron) 15 mg HS PO Last administered on 06/04/17 20:05; Admin Dose 15 MG; Start 06/03/17 at 21:00 Acetaminophen/ Hydrocodone Bitart ([place] (7.5-325)) 1 tab Q4H PRN NGT PAIN LEVEL 8-10 Last administered on 06/05/17 11:41; Admin Dose 1 TAB; Start at 11:00 Clotrimazole (Lotrimin Cr) 1 applic BID TOP Last administered on 06/05/17 10: 11; Admin Dose 1 APPLIC; Start 06/04/17 at 21:00 Lidocaine (Lidocaine 5% Oint) 1 applic TID PRN TOP PAIN; Start 06/04/17 at 20: 00 Hydromorphone HCl (Dilaudid) 1 mg Q4H PRN IV PAIN; Start 06/05/17 at 19:00 SHNO DEMPSEY DPM Jun 05, 2017 18:23
[2017-06-05 19:35] VITALS: BP 164/80; RESP 20
[2017-06-05] MEDS: MIRTAZAPINE 15 MG TAB PO SCH (21:00)
[2017-06-06] VITALS (13 sets, daily range): BP systolic 128–171; BP diastolic 63–86; PULSE 78–94; RESP 10–22
[2017-06-06] MEDS ORDERED: LIDOCAINE 1%/EPI 30 ML INJ INJ STA (03:21)
[2017-06-06] MEDS ORDERED: SILVER NITRATE SWAB TOP ONE (03:30)
[2017-06-06] MEDS: HYDROmorphONE 1 MG/ML SYG IV PRN ×3 (04:13→23:24)
[2017-06-06] MEDS ORDERED: LIDOCAINE 2%/EPI (MDV) 20ML INJ INJ SCH (04:30)
[2017-06-06 05:07] LABS: BASOPHIL # 0.1 10^3/ul (0.0-0.1); BASOPHILS % 0.7 % (0.0-2.0); EOSINOPHILS # 0.5 10^3/ul (0.0-0.5); EOSINOPHILS % 6.3 % (0.0-7.0); HEMATOCRIT 30.1 % (42.0-52.0); LYMPHOCYTES # 2.9 10^3/ul (0.8-2.9); LYMPHOCYTES % 39.8 % (15.0-51.0); MEAN CORPUSCULAR HEMOGLOBIN 29.9 pg (29.0-33.0); MEAN CORPUSCULAR HGB CONC 33.2 g/dl (32.0-37.0); MEAN CORPUSCULAR VOLUME 89.9 fl (82.0-101.0); MEAN PLATELET VOLUME 10.3 fl (7.4-10.4); MONOCYTE # 0.5 10^3/ul (0.3-0.9); MONOCYTES % 6.8 % (0.0-11.0); NEUTROPHIL # 3.4 10^3/ul (1.6-7.5); PLATELET COUNT 210 10^3/UL (140-415); RED BLOOD COUNT 3.35 10^6/ul (4.70-6.10); RED CELL DISTRIBUTION WIDTH 15.1 % (11.5-14.5); WHITE BLOOD COUNT 7.3 10^3/ul (4.8-10.8)
[2017-06-06 05:39] LABS: CALCIUM 8.8 mg/dl (8.4-10.2); CREATININE 0.67 mg/dl (0.61-1.24); POTASSIUM 3.9 mmol/L (3.5-5.1)
[2017-06-06] MEDS: PANTOPRAZOLE (EC) 40 MG TAB PO SCH ×2 (05:58→06:00)
[2017-06-06] MEDS: HYDROCODONE/APAP (7.5/325) TAB NGT PRN (05:58)
[2017-06-06] MEDS ORDERED: CEFAZOLIN 1 GM INJ ONE (07:00)
[2017-06-06] MEDS: DOCUSATE SODIUM 100 MG CAP PO SCH ×2 (08:59→21:36)
[2017-06-06] MEDS: metFORMIN 500 MG TAB PO SCH ×2 (08:59→17:55)
[2017-06-06] MEDS: POLYETHYLENE GLYCOL 17 GM PACKET PO SCH (08:59)
[2017-06-06] MEDS: GABAPENTIN 300 MG CAP PO SCH ×3 (08:59→22:00)
[2017-06-06] MEDS: SENNA TAB PO SCH ×2 (08:59→21:35)
[2017-06-06] MEDS: PAROXETINE 10 MG TAB PO SCH (08:59)
[2017-06-06] MEDS: MUPIROCIN 2% 22 GM OINT TOP SCH ×2 (13:00→21:36)
[2017-06-06] MEDS: COLLAGENASE 30 GM TUBE TOP SCH (13:00)
[2017-06-06] MEDS: NEOMYC/POLYMYX/BACIT 30 GM OINT TOP SCH (13:38)
[2017-06-06] MEDS: CLOTRIMAZOLE 1% 30 GM CR TOP SCH ×2 (13:39→21:36)
--- NOTE | 2017-06-06 14:16 | PN ---
Date/Time of Note Date/Time of Note DATE: 06/06/17 TIME: 14:14 Assessment/Plan VTE Prophylaxis VTE Prophylaxis Intervention: SCD's Lines/Catheters IV Catheter Type (from Nrsg): Saline Lock Urinary Cath still in place: Yes Reason Cath still needed: other (indicate) (not needed) Assessment/Plan Assessment/Plan 66 yo M with spinal stenosis admitted for acute on chronic back pain and UE weakness 2/2 cervical stenosis. Pt is sp laminectomy and fusion 05.26 1. Acute on chronic back pain with upper extremity weakness secondary to cervical cord stenosis now sp neurosurgical intervention 7. - neurosurgery still following, continue physical therapy -Patient apparently did not qualify for acute rehab, awaiting possible senior care facility placement -cont to transition IV to PO pain meds 2 Prediabetes: Previous hemoglobin A1c 6.1. -Continue metformin 3. DVT and GI prophylaxis: SCD's, Protonix. 4. Depression with SI: pt with suicidal gesture of wrapping bedsheet around his neck 05/24. evaluated by telepsych at that time, then again on 05/30; -cont Remeron and Paxil -No need for one-to-one sitter now per psych 5. Bilateral feet pain: + toenail fungus. sp podiatry eval 6. buttock wounds: as per gen surg dispo: CM looking for KODAK Subjective 24 Hr Interval Summary Free Text/Dictation Pt sleeping when I saw him early this afternoon Per notes, slated for buttock wound debridement today Exam/Review of Systems Vital Signs Vitals Vital Signs Date Time Temp Pulse Resp B/P Pulse Ox O2 Delivery O2 Flow Rate FiO2 06/06/17 08:00 97.7 73 19 143/77 96 06/04/17 01:28 Room Air Intake and Output 06/05/17 06/05/17 06/06/17 15:00 23:00 07:00 Intake Total 50 ml 1200 ml Output Total 900 ml Balance 50 ml 300 ml Exam nad, leaned back in bed wearing c collar resp nonlabored no abd distension no rashes Results Result Diagram: 06/06/17 0437 06/06/17 0437 Results 24 hrs Laboratory Tests Test 06/05/17 17:46 06/06/17 04:37 Bedside Glucose 141 White Blood Count 7.3 # Red Blood Count 3.35 L Hemoglobin 10.0 L Hematocrit 30.1 L Mean Corpuscular Volume 89.9 Mean Corpuscular Hemoglobin 29.9 Mean Corpuscular Hemoglobin Concent 33.2 Red Cell Distribution Width 15.1 H Platelet Count 210 Mean Platelet Volume 10.3 Neutrophils % 46.0 Lymphocytes % 39.8 Monocytes % 6.8 Eosinophils % 6.3 Basophils % 0.7 Nucleated Red Blood Cells % 0.0 Neutrophils # 3.4 Lymphocytes # 2.9 Monocytes # 0.5 Eosinophils # 0.5 Basophils # 0.1 Nucleated Red Blood Cells # 0.0 Sodium Level 144 Potassium Level 3.9 Chloride Level 107 Carbon Dioxide Level 28 Anion Gap 13 Blood Urea Nitrogen 7 Creatinine 0.67 Glucose Level 108 # Calcium Level 8.8 Medications Medications Current Medications Acetaminophen (Tylenol Tab) 650 mg Q6H PRN PO PAIN LEVEL 1-3 OR FEVER; Start at 21:00 Acetaminophen/ Hydrocodone Bitart ([place] (5/325)) 2 tab Q6H PRN PO SEVERE PAIN LEVEL 7-10 Last administered on 06/02/17 06:22; Admin Dose 2 TAB; Start at 21:00 Gabapentin (Neurontin) 300 mg TID PO Last administered on 06/06/17 13:38; Admin Dose 300 MG; Start 05/16/17 at 21:00 Miscellaneous Information 1 ea NOTE XX ; Start 05/17/17 at 17:30 Glucose (Glutose) 15 gm Q15M PRN PO DECREASED GLUCOSE; Start 05/17/17 at 17:30 Glucose (Glutose) 22.5 gm Q15M PRN PO DECREASED GLUCOSE; Start 05/17/17 at 17:30 Dextrose (D50w Syringe) 25 ml Q15M PRN IV DECREASED GLUCOSE; Start 05/17/17 at 17:30 Dextrose (D50w Syringe) 50 ml Q15M PRN IV DECREASED GLUCOSE; Start 05/17/17 at 17:30 Glucagon (Glucagen) 1 mg Q15M PRN IM DECREASED GLUCOSE; Start 05/17/17 at 17:30 Glucose (Glutose) 15 gm Q15M PRN BUCCAL DECREASED GLUCOSE; Start 05/17/17 at 17: 30 Pantoprazole (Protonix Tab) 40 mg DAILY@06 PO Last administered on 06/05/17 06 :05; Admin Dose 40 MG; Start 05/18/17 at 06:00 Hydroxyzine HCl (Atarax) 25 mg Q6H PRN PO ITCHING Last administered on 06:53; Admin Dose 25 MG; Start 05/19/17 at 03:30 Docusate Sodium (Colace) 100 mg BID PO Last administered on 06/06/17 08:59; Admin Dose 100 MG; Start 05/19/17 at 21:00 Senna (Senokot) 1 tab BID PO Last administered on 06/06/17 08:59; Admin Dose 1 TAB; Start 05/19/17 at 21:00 Polyethylene Glycol (Miralax) 17 gm DAILY PO Last administered on 06/06/17 08: 59; Admin Dose 17 GM; Start 05/21/17 at 09:00 Neomycin/ Polymyxin/ Bacitracin (Neosporin Topical Oint) 1 applic AM TOP Last administered on 06/06/17 13:38; Admin Dose 1 APPLIC; Start 05/23/17 at 09:00 Lactulose (Enulose) 20 gm DAILY PRN PO CONSTIPATION Last administered on 20:09; Admin Dose 20 GM; Start 05/22/17 at 18:30 Bisacodyl (Dulcolax Supp) 10 mg DAILY PRN [place] CONSTIPATION Last administered on 06/03/17 10:50; Admin Dose 10 MG; Start 05/22/17 at 18:30 Ondansetron HCl (Zofran Inj) 4 mg Q6H PRN IV NAUSEA AND/OR VOMITING Last administered on 06/04/17 21:14; Admin Dose 4 MG; Start 05/27/17 at 00:30 Sodium Biphosphate/ Sodium Phosphate (Fleet Enema) 133 ml DAILY PRN [place] CONSTIPATION Last administered on 05/29/17 21:14; Admin Dose 133 ML; Start at 20:30 Paroxetine HCl (Paxil) 10 mg DAILY PO Last administered on 06/06/17 08:59; Admin Dose 10 MG; Start 05/31/17 at 12:30 Mupirocin (Bactroban) 1 applic BID TOP Last administered on 06/05/17 21:00; Admin Dose 1 APPLIC; Start 05/31/17 at 13:00 Miscellaneous Information (Pending Santyl Order For Wound Care) This patient tran... PRN PRN XX WOUND CARE; Start 06/01/17 at 15:00 Collagenase (Santyl) 1 applic DAILY TOP Last administered on 06/05/17 01:18; Admin Dose 1 APPLIC; Start 06/01/17 at 15:00 Mirtazapine (Remeron) 15 mg HS PO Last administered on 06/05/17 21:00; Admin Dose 15 MG; Start 06/03/17 at 21:00 Acetaminophen/ Hydrocodone Bitart ([place] (7.5-325)) 1 tab Q4H PRN NGT PAIN LEVEL 8-10 Last administered on 06/06/17 05:58; Admin Dose 1 TAB; Start at 11:00 Clotrimazole (Lotrimin Cr) 1 applic BID TOP Last administered on 06/06/17 13: 39; Admin Dose 1 APPLIC; Start 06/04/17 at 21:00 Lidocaine (Lidocaine 5% Oint) 1 applic TID PRN TOP PAIN; Start 06/04/17 at 20: 00 Hydromorphone HCl (Dilaudid) 1 mg Q4H PRN IV PAIN Last administered on 11:47; Admin Dose 1 MG; Start 06/05/17 at 19:00 Lidocaine/ Epinephrine (Xylocaine 2%/ Epi (Mdv) 20 ml) 20 ml ONCE INJ ; Start at 04:30; Stop 06/06/17 at 23:00 ERIC HORN MD Jun 06, 2017 14:16
[2017-06-06] MEDS: HYDROCODONE/APAP (5/325) TAB PO PRN ×2 (15:02→21:35)
[2017-06-06] MEDS ORDERED: ONDANSETRON 4 MG INJ IV PRN (19:00)
[2017-06-06] MEDS ORDERED: HYDROmorphONE (0.2 MG/ML) 10ML SYG IV PRN ×3 (19:00)
--- NOTE | 2017-06-06 19:01 | PN ---
Date/Time of Note Date/Time of Note DATE: 06/06/17 TIME: 19:00 Assessment/Plan Lines/Catheters IV Catheter Type (from Nrsg): Saline Lock Verduzco in Place (from Nrsg): Yes Assessment/Plan Chief Complaint/Hosp Course 1. Left buttock wound with slough, debris and malodorous drainage; -debridement -frequent turning and offloading -specialty mattress -local care - optimize nutrition -vitamin C and short term zinc 2. Back pain: s/p laminectomy with fusion; pain improved, c-collar on -cspine precautions -per neurosurgery 3. Prediabetes: hgba1c 6.1 -blood sugar optimization 4. Depression with suicidal ideation: telepsych eval; no verbalization of SI -close observation 5. Microcytic anemia: chronic disease vs.iron deficiency vs. acute bleed vs. other; no acute bleed noted; h/h stable -monitor -transfuse as needed 6. Hyponatremia: ?dehydration; normalized -judicious iv fluids 7. Hypocalcemia: malnutrition; improved -optimize lytes and monitor 8. Hypomagnesemia: -replete and monitor Thank you, Problems: Subjective 24 Hr Interval Summary Feels ok. Min neck pain. c collar on. Scant drainage right buttock wound. No tran , sz, dizziness, cp, palpitations, n/v/d, dysuria, fevers, chills. Exam/Review of Systems Vital Signs Vitals Vital Signs Date Time Temp Pulse Resp B/P Pulse Ox O2 Delivery O2 Flow Rate FiO2 06/06/17 14:00 98.7 72 18 143/71 97 06/04/17 01:28 Room Air Intake and Output 06/05/17 06/05/17 06/06/17 15:00 23:00 07:00 Intake Total 50 ml 1200 ml Output Total 900 ml Balance 50 ml 300 ml Exam Free Text/Dictation Constitutional: alert, oriented Psych: nl mood/affect Head: atraumatic, normocephalic Eyes: nl lids, nl sclera ENMT: mucosa pink and moist, nl nasal mucosa & septum Neck: other (c collar s/p laminectomy/fusion) Respiratory: clear to auscultation, normal air movement Cardiovascular: nl pulses, regular rate and rhythm Gastrointestinal: distended (min), non-tender, soft Genitourinary - Male: other (verduzco) Musculoskeletal: nl extremities to inspection, nl gait and stance Extremities: normal pulses Neurological: nl mental status, nl speech, nl strength Skin: other (left buttock wound with slough, periwound induration, scant malodorous drainage) Results Result Diagram: 06/06/17 0437 06/06/17 0437 JAZMYN BARAKAT MD Jun 06, 2017 19:01
[2017-06-06] MEDS ORDERED: BUPIVACAINE 0.25%/EPI (SDV) 10 ML INJ INJ ONE (19:06)
--- NOTE | 2017-06-06 19:31 | OPR ---
Date/Time of Note Date/Time of Note DATE: 06/06/17 TIME: 19:27 Operative Report Procedure Date: Jun 06, 2017 Preoperative Diagnosis Left buttock necrotic wound Postoperative Diagnosis Left buttock necrotic skin, and subcutaneous wound. 3x2cm Operation Performed 1. Excisional debridement of left buttock necrotic wound skin and subcutaneous 2. Local anesthetic [place], [id number] Surgeon: JAZMYN BARAKAT MD Anesthesia: MAC (+ Local) Anesthesiologist: BRITTNI MOSQUERA MD Estimated Blood Loss: 0 - 10 ml's Specimens Tissue x 2 Grafts/Implants 4x4 Complications: None Pt Condition Post Procedure: stable Disposition: PACU Indications Per notes. Risks include but are not limited to bleeding, infection, abscess, seroma, chronic pain, need for re-operations or further surgeries, OR, stroke, PE, DVT, pneumonia, organ failures, or even . Procedure Description Patient was brought in on his own bed to the OR. Placed in lateral decubitus position. All pressure points were well-padded. Patient is already on antibiotics. Anesthesia was instituted. Timeout was performed. He was prepped and draped in usual sterile fashion. Using electrocautery necrotic skin, and subcutaneous were excised down to healthier tissue. Hemostasis was obtained. Wound bed was very hardened and incisional biopsy was performed and tissue was sent to pathology. Wound was irrigated and packed with Betadine soaked 4 x 4. Dry dressing was applied. Patient was taken back to recovery room in stable condition. All counts were correct at the end of the operation 2. JAZMYN BARAKAT MD Jun 06, 2017 19:31
[2017-06-06] MEDS: MIRTAZAPINE 15 MG TAB PO SCH (21:00)
[2017-06-07] MEDS: HYDROCODONE/APAP (5/325) TAB PO PRN (03:20)
[2017-06-07] MEDS: PANTOPRAZOLE (EC) 40 MG TAB PO SCH (05:43)
[2017-06-07 05:46] LABS: BASOPHILS % 0.7 % (0.0-2.0); EOSINOPHILS # 0.4 10^3/ul (0.0-0.5); EOSINOPHILS % 5.9 % (0.0-7.0); HEMATOCRIT 27.2 % (42.0-52.0); HEMOGLOBIN 8.8 g/dl (14.0-18.0); LYMPHOCYTES # 2.2 10^3/ul (0.8-2.9); LYMPHOCYTES % 36.3 % (15.0-51.0); MEAN CORPUSCULAR HEMOGLOBIN 29.3 pg (29.0-33.0); MEAN CORPUSCULAR HGB CONC 32.4 g/dl (32.0-37.0); MEAN CORPUSCULAR VOLUME 90.7 fl (82.0-101.0); MEAN PLATELET VOLUME 10.5 fl (7.4-10.4); MONOCYTE # 0.5 10^3/ul (0.3-0.9); MONOCYTES % 8.4 % (0.0-11.0); NEUTROPHIL # 2.9 10^3/ul (1.6-7.5); NEUTROPHILS % 48.4 % (39.0-77.0); PLATELET COUNT 181 10^3/UL (140-415); RED CELL DISTRIBUTION WIDTH 15.1 % (11.5-14.5)
[2017-06-07 06:14] LABS: CREATININE 0.66 mg/dl (0.61-1.24)
--- NOTE | 2017-06-07 07:55 | QN ---
Documentation Comment Patient s/p C3-6 laminectomy and fusion. He is doing well from neurosurgical standpoint with improving neurologic exam. He would likely benefit from acute/ inpatient rehabilitation when he is otherwise ready for discharge from the acute hospital setting. I will be out of town until June 16. Dr. Konstantin Mckenzie will be covering for me until then, however as there are no ongoing neurosurgical issues I will sign off for now in any event. Thank you. PENNY VEROINCA MD Jun 07, 2017 07:55
[2017-06-07 08:00] VITALS: BP 143/82; RESP 18
[2017-06-07] MEDS: NEOMYC/POLYMYX/BACIT 30 GM OINT TOP SCH (08:05)
[2017-06-07] MEDS: COLLAGENASE 30 GM TUBE TOP SCH (08:05)
[2017-06-07] MEDS: POLYETHYLENE GLYCOL 17 GM PACKET PO SCH (08:47)
[2017-06-07] MEDS: GABAPENTIN 300 MG CAP PO SCH ×3 (08:47→21:04)
[2017-06-07] MEDS: SENNA TAB PO SCH ×2 (08:47→21:05)
[2017-06-07] MEDS: DOCUSATE SODIUM 100 MG CAP PO SCH ×2 (08:47→21:04)
[2017-06-07] MEDS: metFORMIN 500 MG TAB PO SCH ×2 (08:47→17:19)
[2017-06-07] MEDS: PAROXETINE 10 MG TAB PO SCH (08:47)
[2017-06-07] MEDS: MUPIROCIN 2% 22 GM OINT TOP SCH ×2 (08:48→21:45)
[2017-06-07] MEDS: CLOTRIMAZOLE 1% 30 GM CR TOP SCH ×2 (08:48→21:10)
[2017-06-07] MEDS: HYDROmorphONE 1 MG/ML SYG IV PRN (08:48)
[2017-06-07] MEDS: SODIUM HYPOCHLORITE 0.125% 473 ML BTL IRR SCH (10:41)
[2017-06-07] MEDS: HYDROmorphONE 2 MG TAB PO PRN ×2 (12:11→16:18)
--- NOTE | 2017-06-07 13:40 | PN ---
Date/Time of Note Date/Time of Note DATE: 06/07/17 TIME: 13:27 Assessment/Plan Lines/Catheters IV Catheter Type (from Nrs): Saline Lock Verduzco in Place (from Nrs): Yes Assessment/Plan Chief Complaint/Hosp Course 1. Left buttock wound with slough, debris and malodorous drainage: s/p excisional debridement 06/06; specimens sent -debridement prn -frequent turning and offloading -specialty mattress -local care - optimize nutrition -vitamin C and short term zinc 2. Back pain: s/p laminectomy with fusion; pain improved, c-collar on -cspine precautions -per neurosurgery 3. Prediabetes: hgba1c 6.1 -blood sugar optimization 4. Depression with suicidal ideation: telepsych eval; no verbalization of SI -close observation 5. Microcytic anemia: chronic disease vs.iron deficiency vs. acute bleed vs. other; no acute bleed noted; h/h lower -monitor -transfuse as needed 6. Hyponatremia: ?dehydration; normalized -judicious iv fluids 7. Hypocalcemia: malnutrition; -optimize lytes and monitor 8. Hypomagnesemia: -replete and monitor Patient seen and examined in collaboration with Dr. Luís Mendoza Problems: Subjective 24 Hr Interval Summary Feels well. s/p debridement 06/06. Wound with mod drainage. No sob, cough, cp, palpitations, n/v/d, dysuria. No fevers, chills. Pain improved Exam/Review of Systems Vital Signs Vitals Vital Signs Date Time Temp Pulse Resp B/P Pulse Ox O2 Delivery O2 Flow Rate FiO2 06/07/17 08:00 97.5 83 18 143/82 97 06/06/17 22:24 Room Air Intake and Output 06/06/17 06/06/17 06/07/17 15:00 23:00 07:00 Intake Total 480 ml 650 ml 760 ml Output Total 600 ml 952 ml 1000 ml Balance -120 ml -302 ml -240 ml Exam Free Text/Dictation Constitutional: alert, oriented Psych: nl mood/affect Head: atraumatic, normocephalic Eyes: nl lids, nl sclera ENMT: mucosa pink and moist, nl nasal mucosa & septum Neck: other (c collar s/p laminectomy/fusion) Respiratory: clear to auscultation, normal air movement Cardiovascular: nl pulses, regular rate and rhythm Gastrointestinal: distended (min), non-tender, soft Genitourinary - Male: other (verduzco) Musculoskeletal: nl extremities to inspection, nl gait and stance Extremities: normal pulses Neurological: nl mental status, nl speech, nl strength Skin: other (left buttock wound with mod drainage) Results Result Diagram: 06/07/17 0510 06/07/17 0510 GILA WALKER NP Jun 07, 2017 13:38
--- NOTE | 2017-06-07 14:11 | PN ---
Date/Time of Note Date/Time of Note DATE: 06/07/17 TIME: 14:09 Assessment/Plan VTE Prophylaxis VTE Prophylaxis Intervention: SCD's Lines/Catheters IV Catheter Type (from Nrsg): Saline Lock Urinary Cath still in place: Yes Urinary Cath still in place: No Reason Cath still needed: other (indicate) (pt refusal) Assessment/Plan Assessment/Plan 66 yo M with spinal stenosis admitted for acute on chronic back pain and UE weakness 2/2 cervical stenosis. Pt is sp laminectomy and fusion 05.26 1. Acute on chronic back pain with upper extremity weakness secondary to cervical cord stenosis now sp neurosurgical intervention 7. - neurosurgery still following, continue physical therapy -Patient apparently did not qualify for acute rehab, awaiting possible half-way facility placement -stopped IV meds, transitioned to PO only. started on methadone from palliative service 2 Prediabetes: Previous hemoglobin A1c 6.1. -Continue metformin 3. DVT and GI prophylaxis: SCD's, Protonix. 4. Depression with SI: pt with suicidal gesture of wrapping bedsheet around his neck 05/24. evaluated by telepsych at that time, then again on 05/30; -cont Remeron and Paxil -No need for one-to-one sitter per psych 5. Bilateral feet pain: + toenail fungus. sp podiatry eval 6. buttock wounds: as per gen surg, sp surgical debridement 7. dispo: CM looking for [facility] Subjective 24 Hr Interval Summary Free Text/Dictation arm pain not satisfactorily controlled on current pain regimen Exam/Review of Systems Vital Signs Vitals Vital Signs Date Time Temp Pulse Resp B/P Pulse Ox O2 Delivery O2 Flow Rate FiO2 06/07/17 08:00 97.5 83 18 143/82 97 06/06/17 22:24 Room Air Intake and Output 06/06/17 06/06/17 06/07/17 15:00 23:00 07:00 Intake Total 480 ml 650 ml 760 ml Output Total 600 ml 952 ml 1000 ml Balance -120 ml -302 ml -240 ml Exam nad sitting up in bed wearing c collar no mrg lungs clear abd soft no rashes Results Result Diagram: 06/07/17 0510 06/07/17 0510 Results 24 hrs Laboratory Tests Test 06/07/17 05:10 White Blood Count 6.0 Red Blood Count 3.00 L Hemoglobin 8.8 L Hematocrit 27.2 L Mean Corpuscular Volume 90.7 Mean Corpuscular Hemoglobin 29.3 Mean Corpuscular Hemoglobin Concent 32.4 Red Cell Distribution Width 15.1 H Platelet Count 181 Mean Platelet Volume 10.5 H Neutrophils % 48.4 Lymphocytes % 36.3 Monocytes % 8.4 Eosinophils % 5.9 Basophils % 0.7 Nucleated Red Blood Cells % 0.0 Neutrophils # 2.9 Lymphocytes # 2.2 Monocytes # 0.5 Eosinophils # 0.4 Basophils # 0.0 Nucleated Red Blood Cells # 0.0 Sodium Level 141 Potassium Level 4.0 Chloride Level 106 Carbon Dioxide Level 25 Anion Gap 14 Blood Urea Nitrogen 8 Creatinine 0.66 Glucose Level 185 Calcium Level 8.0 L Medications Medications Current Medications Acetaminophen (Tylenol Tab) 650 mg Q6H PRN PO PAIN LEVEL 1-3 OR FEVER; Start at 21:00 Gabapentin (Neurontin) 300 mg TID PO Last administered on 06/07/17 12:11; Admin Dose 300 MG; Start 05/16/17 at 21:00 Miscellaneous Information 1 ea NOTE XX ; Start 05/17/17 at 17:30 Glucose (Glutose) 15 gm Q15M PRN PO DECREASED GLUCOSE; Start 05/17/17 at 17:30 Glucose (Glutose) 22.5 gm Q15M PRN PO DECREASED GLUCOSE; Start 05/17/17 at 17:30 Dextrose (D50w Syringe) 25 ml Q15M PRN IV DECREASED GLUCOSE; Start 05/17/17 at 17:30 Dextrose (D50w Syringe) 50 ml Q15M PRN IV DECREASED GLUCOSE; Start 05/17/17 at 17:30 Glucagon (Glucagen) 1 mg Q15M PRN IM DECREASED GLUCOSE; Start 05/17/17 at 17:30 Glucose (Glutose) 15 gm Q15M PRN BUCCAL DECREASED GLUCOSE; Start 05/17/17 at 17: 30 Pantoprazole (Protonix Tab) 40 mg DAILY@06 PO Last administered on 06/05/17 06 :05; Admin Dose 40 MG; Start 05/18/17 at 06:00 Hydroxyzine HCl (Atarax) 25 mg Q6H PRN PO ITCHING Last administered on 06:53; Admin Dose 25 MG; Start 05/19/17 at 03:30 Docusate Sodium (Colace) 100 mg BID PO Last administered on 06/07/17 08:47; Admin Dose 100 MG; Start 05/19/17 at 21:00 Senna (Senokot) 1 tab BID PO Last administered on 06/07/17 08:47; Admin Dose 1 TAB; Start 05/19/17 at 21:00 Polyethylene Glycol (Miralax) 17 gm DAILY PO Last administered on 06/07/17 08: 47; Admin Dose 17 GM; Start 05/21/17 at 09:00 Neomycin/ Polymyxin/ Bacitracin (Neosporin Topical Oint) 1 applic AM TOP Last administered on 06/06/17 13:38; Admin Dose 1 APPLIC; Start 05/23/17 at 09:00 Lactulose (Enulose) 20 gm DAILY PRN PO CONSTIPATION Last administered on 20:09; Admin Dose 20 GM; Start 05/22/17 at 18:30 Bisacodyl (Dulcolax Supp) 10 mg DAILY PRN [place] CONSTIPATION Last administered on 06/03/17 10:50; Admin Dose 10 MG; Start 05/22/17 at 18:30 Ondansetron HCl (Zofran Inj) 4 mg Q6H PRN IV NAUSEA AND/OR VOMITING Last administered on 06/04/17 21:14; Admin Dose 4 MG; Start 05/27/17 at 00:30 Sodium Biphosphate/ Sodium Phosphate (Fleet Enema) 133 ml DAILY PRN AL CONSTIPATION Last administered on 05/29/17 21:14; Admin Dose 133 ML; Start at 20:30 Paroxetine HCl (Paxil) 10 mg DAILY PO Last administered on 06/07/17 08:47; Admin Dose 10 MG; Start 05/31/17 at 12:30 Mupirocin (Bactroban) 1 applic BID TOP Last administered on 06/07/17 08:48; Admin Dose 1 APPLIC; Start 05/31/17 at 13:00 Miscellaneous Information (Pending Santyl Order For Wound Care) This patient tran... PRN PRN XX WOUND CARE; Start 06/01/17 at 15:00 Collagenase (Santyl) 1 applic DAILY TOP Last administered on 06/06/17 13:00; Admin Dose 1 APPLIC; Start 06/01/17 at 15:00 Mirtazapine (Remeron) 15 mg HS PO Last administered on 06/05/17 21:00; Admin Dose 15 MG; Start 06/03/17 at 21:00 Clotrimazole (Lotrimin Cr) 1 applic BID TOP Last administered on 06/07/17 08: 48; Admin Dose 1 APPLIC; Start 06/04/17 at 21:00 Lidocaine (Lidocaine 5% Oint) 1 applic TID PRN TOP PAIN; Start 06/04/17 at 20: 00 Sodium Hypochlorite (Dakin'S (1/4 Strength)) 1 applic DAILY IRR Last administered on 06/07/17 10:41; Admin Dose 1 APPLIC; Start 06/07/17 at 09:00 Hydromorphone HCl (Dilaudid) 2 mg Q4H PRN PO PAIN Last administered on 12:11; Admin Dose 2 MG; Start 06/07/17 at 10:00 Methadone HCl (Methadone) 5 mg BID PO ; Start 06/07/17 at 21:00 ERIC HORN MD Jun 07, 2017 14:11
[2017-06-07] MEDS ORDERED: MIDAZOLAM 1 MG/ML 2 ML INJ ONE (18:02)
[2017-06-07] MEDS ORDERED: FENTAnyl 50 MCG/ML VIAL ONE (18:02)
[2017-06-07] MEDS ORDERED: BUPIVACAINE 0.5%/EPI (SDV) 10 ML INJ ONE (18:02)
[2017-06-07 20:19] VITALS: BP 138/73; RESP 22
[2017-06-07] MEDS: MIRTAZAPINE 15 MG TAB PO SCH (21:04)
[2017-06-07] MEDS: METHADONE 5 MG TAB PO SCH (21:04)
[2017-06-08 05:18] LABS: BASOPHILS % 0.7 % (0.0-2.0); EOSINOPHILS # 0.3 10^3/ul (0.0-0.5); EOSINOPHILS % 5.8 % (0.0-7.0); HEMOGLOBIN 9.6 g/dl (14.0-18.0); LYMPHOCYTES # 2.2 10^3/ul (0.8-2.9); LYMPHOCYTES % 39.2 % (15.0-51.0); MEAN CORPUSCULAR HEMOGLOBIN 29.8 pg (29.0-33.0); MEAN CORPUSCULAR HGB CONC 33.1 g/dl (32.0-37.0); MEAN CORPUSCULAR VOLUME 90.1 fl (82.0-101.0); MEAN PLATELET VOLUME 10.3 fl (7.4-10.4); MONOCYTE # 0.4 10^3/ul (0.3-0.9); MONOCYTES % 7.4 % (0.0-11.0); NEUTROPHIL # 2.7 10^3/ul (1.6-7.5); NEUTROPHILS % 46.7 % (39.0-77.0); PLATELET COUNT 199 10^3/UL (140-415); RED BLOOD COUNT 3.22 10^6/ul (4.70-6.10); RED CELL DISTRIBUTION WIDTH 15.3 % (11.5-14.5); WHITE BLOOD COUNT 5.7 10^3/ul (4.8-10.8)
[2017-06-08] MEDS: PANTOPRAZOLE (EC) 40 MG TAB PO SCH (06:14)
[2017-06-08] MEDS: HYDROmorphONE 2 MG TAB PO PRN ×2 (06:14→18:11)
[2017-06-08 06:19] LABS: CALCIUM 8.2 mg/dl (8.4-10.2); CREATININE 0.63 mg/dl (0.61-1.24)
[2017-06-08 08:35] VITALS: BP 152/71; RESP 22
[2017-06-08] MEDS: SODIUM HYPOCHLORITE 0.125% 473 ML BTL IRR SCH (09:00)
[2017-06-08] MEDS: MUPIROCIN 2% 22 GM OINT TOP SCH ×2 (09:00→20:51)
[2017-06-08] MEDS: PAROXETINE 10 MG TAB PO SCH (09:07)
[2017-06-08] MEDS: SENNA TAB PO SCH ×2 (09:07→20:48)
[2017-06-08] MEDS: GABAPENTIN 300 MG CAP PO SCH ×3 (09:07→20:45)
[2017-06-08] MEDS: METHADONE 5 MG TAB PO SCH (09:07)
[2017-06-08] MEDS: DOCUSATE SODIUM 100 MG CAP PO SCH ×2 (09:07→20:48)
[2017-06-08] MEDS: metFORMIN 500 MG TAB PO SCH ×2 (09:08→18:05)
[2017-06-08] MEDS: POLYETHYLENE GLYCOL 17 GM PACKET PO SCH (09:10)
--- NOTE | 2017-06-08 09:14 | PN ---
Date/Time of Note Date/Time of Note DATE: 06/08/17 TIME: 09:04 Assessment/Plan Lines/Catheters IV Catheter Type (from Nrs): Saline Lock Verduzco in Place (from Nrs): Yes Assessment/Plan Chief Complaint/Hosp Course 1. Left buttock wound with slough, debris and malodorous drainage: s/p excisional debridement 06/06; specimens sent -debridement prn -frequent turning and offloading -specialty mattress -local care - optimize nutrition -vitamin C and short term zinc 2. Back pain: s/p laminectomy with fusion; pain improved, c-collar on -cspine precautions -per neurosurgery 3. Prediabetes: hgba1c 6.1 -blood sugar optimization 4. Depression with suicidal ideation: telepsych eval; no verbalization of SI -close observation 5. Microcytic anemia: chronic disease vs.iron deficiency vs. acute bleed vs. other; no acute bleed noted; h/h stable -monitor -transfuse as needed 6. Hyponatremia: ?dehydration; normalized -monitor 7. Hypocalcemia: malnutrition; improved -optimize lytes and monitor 8. Hypomagnesemia: -replete and monitor Patient seen and examined in collaboration with Dr. Luís Mendoza Problems: Subjective 24 Hr Interval Summary Feels well. min back pain. Min drainage from wound. Placement pending. No c/o tran , dizziness, cough, sob, n/v/d, dysuria, fevers, chills. Exam/Review of Systems Vital Signs Vitals Vital Signs Date Time Temp Pulse Resp B/P Pulse Ox O2 Delivery O2 Flow Rate FiO2 06/08/17 08:35 98.3 75 22 152/71 96 06/06/17 22:24 Room Air Intake and Output 06/07/17 06/07/17 06/08/17 15:00 23:00 07:00 Intake Total 1500 ml 800 ml Output Total 2100 ml 1400 ml Balance -600 ml -600 ml Exam Free Text/Dictation Constitutional: alert, oriented Psych: nl mood/affect Head: atraumatic, normocephalic Eyes: nl lids, nl sclera ENMT: mucosa pink and moist, nl nasal mucosa & septum Neck: other (c collar s/p laminectomy/fusion) Respiratory: clear to auscultation, normal air movement Cardiovascular: nl pulses, regular rate and rhythm Gastrointestinal: distended (min), non-tender, soft Genitourinary - Male: other (verduzco) Musculoskeletal: nl extremities to inspection, nl gait and stance Extremities: normal pulses Neurological: nl mental status, nl speech, nl strength Skin: other (left buttock wound with mod drainage) Results Result Diagram: 06/08/17 0458 06/08/17 0458 GILA WALKER NP Jun 08, 2017 09:14
--- NOTE | 2017-06-08 10:08 | CONS ---
Date/Time of Note Date/Time of Note DATE: 06/08/17 TIME: 09:56 Assessment/Plan Assessment/Plan Additional Assessment/Plan Status post cervical spine surgery for acute myelopathy History of type 2 diabetes Pain control and cervical spine He has past medical history of methadone use for diabetic neuropathy both lower extremity. States that he has been treated but has had poor response to other opioids in the past or nonsteroidal anti-inflammatory medications has had a untoward response with generalized pruritus. He has taken methadone in the past low-dose and was well controlled for diabetic neuropathy. I suggest restarting again but with low dose, I do not believe pregabalin or Neurontin will have any benefit for his degree of neuropathy and at his stay his methadone seems to be the drug of choice at this time primarily for diabetic neuropathic pain. Will begin 5 mg twice daily and titrate as necessary. I do not sending him home on Neurontin but encouraging him to see his primary care physician soon after discharge. The half-life of this medication should preclude him having any withdrawal reactions as long as he has been seen by his doctor within a reasonable period of time. However if he goes to detention unit that should not be problematic to restart methadone there. Consultation Date/Type/Reason Admit Date/Time May 16, 2017 at 21:19 Date of Consultation: Jun 07, 2017 Reason for Consultation 66-year-old gentleman with a long complicated hospital course. Presented with acute onset of cervical spine pain and myopathy of both upper and lower extremities. Was seen by an neurosurgical consultation and I had a stat studies and a surgical procedure. He continues to have cervical spine pain and pain in bilateral shoulders but denies any pain in his upper extremities. He has a long-standing history of diabetic neuropathy and is taking multiple medications in the past states the only medication is work for him was low dose of methadone. He has no past medical history of drug abuse including marijuana or opioid or street drugs. His pain is rated 9/10 at rest is associated with negative mood change or if he does not attempt to obtain higher doses of opioid or changing routes of administration. He has no major side effects associated with his current pain control pain does interfere with his physical functioning mood sleeping patterns and overall function. The amount of pain medications he is currently receiving does not alleviate his rest pain. Constitutional: improved Eyes: No visual change ENT: No congestion, No sore throat Respiratory: No cough, No shortness of breath Cardiovascular: No lightheadedness, No palpitations Gastrointestinal: No constipation, No diarrhea, No nausea, No vomiting Genitourinary: No dysuria Musculoskeletal: back pain Neurologic: focal-weakness (Upper extremities), No confusion Psychological: nl mood/affect Past Surgical History Past Surgical Hx: no surgical history Social History Smoking Status: Unknown if ever smoked Exam/Review of Systems Vital Signs Vitals Vital Signs Date Time Temp Pulse Resp B/P Pulse Ox O2 Delivery O2 Flow Rate FiO2 06/08/17 08:35 98.3 75 22 152/71 96 06/06/17 22:24 Room Air Intake and Output 06/07/17 06/07/17 06/08/17 14:59 22:59 06:59 Intake Total 1500 ml 800 ml Output Total 2100 ml 1400 ml Balance -600 ml -600 ml Exam Constitutional: alert, oriented, well developed Psych: nl mood/affect, no complaints Head: atraumatic, normocephalic Respiratory: clear to auscultation, normal air movement Cardiovascular: nl pulses, regular rate and rhythm Neurological: [employer] II-XII intact, nl mental status, nl speech Results Result Diagram: 06/08/1745706/08/17457 Results 24 hrs Laboratory Tests Test 06/08/17 04:58 White Blood Count 5.7 Red Blood Count 3.22 L Hemoglobin 9.6 L Hematocrit 29.0 L Mean Corpuscular Volume 90.1 Mean Corpuscular Hemoglobin 29.8 Mean Corpuscular Hemoglobin Concent 33.1 Red Cell Distribution Width 15.3 H Platelet Count 199 Mean Platelet Volume 10.3 Neutrophils % 46.7 Lymphocytes % 39.2 Monocytes % 7.4 Eosinophils % 5.8 Basophils % 0.7 Nucleated Red Blood Cells % 0.0 Neutrophils # 2.7 Lymphocytes # 2.2 Monocytes # 0.4 Eosinophils # 0.3 Basophils # 0.0 Nucleated Red Blood Cells # 0.0 Sodium Level 141 Potassium Level 4.0 Chloride Level 107 Carbon Dioxide Level 24 Anion Gap 14 Blood Urea Nitrogen 9 Creatinine 0.63 Glucose Level 154 Calcium Level 8.2 L Medications Medications Current Medications Acetaminophen (Tylenol Tab) 650 mg Q6H PRN PO PAIN LEVEL 1-3 OR FEVER; Start at 21:00 Gabapentin (Neurontin) 300 mg TID PO Last administered on 06/08/17t 09:07; Admin Dose 300 MG; Start 05/16/17 at 21:00 Miscellaneous Information 1 ea NOTE XX ; Start 05/17/17 at 17:30 Glucose (Glutose) 15 gm Q15M PRN PO DECREASED GLUCOSE; Start 05/17/17 at 17:30 Glucose (Glutose) 22.5 gm Q15M PRN PO DECREASED GLUCOSE; Start 05/17/17 at 17:30 Dextrose (D50w Syringe) 25 ml Q15M PRN IV DECREASED GLUCOSE; Start 05/17/17 at 17:30 Dextrose (D50w Syringe) 50 ml Q15M PRN IV DECREASED GLUCOSE; Start 05/17/17 at 17:30 Glucagon (Glucagen) 1 mg Q15M PRN IM DECREASED GLUCOSE; Start 05/17/17 at 17:30 Glucose (Glutose) 15 gm Q15M PRN BUCCAL DECREASED GLUCOSE; Start 05/17/17 at 17: 30 Pantoprazole (Protonix Tab) 40 mg DAILY@06 PO Last administered on 06/08/17 06 :14; Admin Dose 40 MG; Start 05/18/17 at 06:00 Hydroxyzine HCl (Atarax) 25 mg Q6H PRN PO ITCHING Last administered on 06:53; Admin Dose 25 MG; Start 05/19/17 at 03:30 Docusate Sodium (Colace) 100 mg BID PO Last administered on 06/08/17 09:07; Admin Dose 100 MG; Start 05/19/17 at 21:00 Senna (Senokot) 1 tab BID PO Last administered on 06/08/17 09:07; Admin Dose 1 TAB; Start 05/19/17 at 21:00 Polyethylene Glycol (Miralax) 17 gm DAILY PO Last administered on 06/08/17 09: 10; Admin Dose 17 GM; Start 05/21/17 at 09:00 Neomycin/ Polymyxin/ Bacitracin (Neosporin Topical Oint) 1 applic AM TOP Last administered on 06/06/17 13:38; Admin Dose 1 APPLIC; Start 05/23/17 at 09:00 Lactulose (Enulose) 20 gm DAILY PRN PO CONSTIPATION Last administered on 20:09; Admin Dose 20 GM; Start 05/22/17 at 18:30 Bisacodyl (Dulcolax Supp) [address] CONSTIPATION Last administered on 06/03/17 10:50; Admin Dose 10 MG; Start 05/22/17 at 18:30 Ondansetron HCl (Zofran Inj) 4 mg Q6H PRN IV NAUSEA AND/OR VOMITING Last administered on 06/04/17 21:14; Admin Dose 4 MG; Start 05/27/17 at 00:30 Sodium Biphosphate/ Sodium Phosphate (Fleet Enema) [address] CONSTIPATION Last administered on 05/29/17 21:14; Admin Dose 133 ML; Start at 20:30 Paroxetine HCl (Paxil) 10 mg DAILY PO Last administered on 06/08/17 09:07; Admin Dose 10 MG; Start 05/31/17 at 12:30 Mupirocin (Bactroban) 1 applic BID TOP Last administered on 06/07/17 21:45; Admin Dose 1 APPLIC; Start 05/31/17 at 13:00 Miscellaneous Information (Pending Santyl Order For Wound Care) This patient tran... PRN PRN XX WOUND CARE; Start 06/01/17 at 15:00 Collagenase (Santyl) 1 applic DAILY TOP Last administered on 06/06/17 13:00; Admin Dose 1 APPLIC; Start 06/01/17 at 15:00 Mirtazapine (Remeron) 15 mg HS PO Last administered on 06/07/17 21:04; Admin Dose 15 MG; Start 06/03/17 at 21:00 Clotrimazole (Lotrimin Cr) 1 applic BID TOP Last administered on 06/07/17 21: 10; Admin Dose 1 APPLIC; Start 06/04/17 at 21:00 Lidocaine (Lidocaine 5% Oint) 1 applic TID PRN TOP PAIN; Start 06/04/17 at 20: 00 Sodium Hypochlorite (Dakin'S (1/4 Strength)) 1 applic DAILY IRR Last administered on 06/07/17 10:41; Admin Dose 1 APPLIC; Start 06/07/17 at 09:00 Hydromorphone HCl (Dilaudid) 2 mg Q4H PRN PO PAIN Last administered on 06:14; Admin Dose 2 MG; Start 06/07/17 at 10:00 Methadone HCl (Methadone) 5 mg BID PO Last administered on 06/08/17 09:07; Admin Dose 5 MG; Start 06/07/17 at 21:00 LUBA CASTRO Jun 08, 2017 10:06
[2017-06-08] MEDS: NEOMYC/POLYMYX/BACIT 30 GM OINT TOP SCH (13:15)
[2017-06-08] MEDS: CLOTRIMAZOLE 1% 30 GM CR TOP SCH ×2 (13:15→20:46)
[2017-06-08] MEDS: COLLAGENASE 30 GM TUBE TOP SCH (13:15)
[2017-06-08 15:19] VITALS: BP 141/63; RESP 22
--- NOTE | 2017-06-08 17:14 | PN ---
Date/Time of Note Date/Time of Note DATE: 06/08/17 TIME: 17:13 Assessment/Plan VTE Prophylaxis VTE Prophylaxis Intervention: SCD's Lines/Catheters IV Catheter Type (from Nrsg): Saline Lock Urinary Cath still in place: Yes Reason Cath still needed: other (indicate) (pt refuse removal) Assessment/Plan Assessment/Plan 66 yo M with spinal stenosis admitted for acute on chronic back pain and UE weakness 2/2 cervical stenosis. Pt is sp laminectomy and fusion 05.26 1. Acute on chronic back pain with upper extremity weakness secondary to cervical cord stenosis now sp neurosurgical intervention 7. - neurosurgery still following, continue physical therapy -Patient apparently did not qualify for acute rehab, awaiting possible retirement facility placement -stopped IV meds, transitioned to PO only. started on methadone from palliative service 2 Prediabetes: Previous hemoglobin A1c 6.1. -Continue metformin 3. DVT and GI prophylaxis: SCD's, Protonix. 4. Depression with SI: pt with suicidal gesture 05/24. evaluated by telepsych at that time, then again on 05/30; -cont Remeron and Paxil -No need for one-to-one sitter per psych. No need for inpatient psych. 5. Bilateral feet pain: + toenail fungus. sp podiatry eval 6. buttock wounds: as per gen surg, sp surgical debridement 06.06 dispo: CM looking for [facility] Subjective 24 Hr Interval Summary Free Text/Dictation Pt clinical status unchanged. Pain control satisfactory Exam/Review of Systems Vital Signs Vitals Vital Signs Date Time Temp Pulse Resp B/P Pulse Ox O2 Delivery O2 Flow Rate FiO2 06/08/17 15:19 98.1 80 22 141/63 97 06/06/17 22:24 Room Air Intake and Output 06/07/17 06/07/17 06/08/17 15:00 23:00 07:00 Intake Total 1500 ml 800 ml Output Total 2100 ml 1400 ml Balance -600 ml -600 ml Exam nad wearing c collar no mrg lungs clear abd soft no rashes Results Result Diagram: 06/08/17 0458 06/08/17 0458 Results 24 hrs Laboratory Tests Test 06/08/17 04:58 White Blood Count 5.7 Red Blood Count 3.22 L Hemoglobin 9.6 L Hematocrit 29.0 L Mean Corpuscular Volume 90.1 Mean Corpuscular Hemoglobin 29.8 Mean Corpuscular Hemoglobin Concent 33.1 Red Cell Distribution Width 15.3 H Platelet Count 199 Mean Platelet Volume 10.3 Neutrophils % 46.7 Lymphocytes % 39.2 Monocytes % 7.4 Eosinophils % 5.8 Basophils % 0.7 Nucleated Red Blood Cells % 0.0 Neutrophils # 2.7 Lymphocytes # 2.2 Monocytes # 0.4 Eosinophils # 0.3 Basophils # 0.0 Nucleated Red Blood Cells # 0.0 Sodium Level 141 Potassium Level 4.0 Chloride Level 107 Carbon Dioxide Level 24 Anion Gap 14 Blood Urea Nitrogen 9 Creatinine 0.63 Glucose Level 154 Calcium Level 8.2 L Medications Medications Current Medications Acetaminophen (Tylenol Tab) 650 mg Q6H PRN PO PAIN LEVEL 1-3 OR FEVER; Start at 21:00 Gabapentin (Neurontin) 300 mg TID PO Last administered on 06/08/17 13:14; Admin Dose 300 MG; Start 05/16/17 at 21:00 Miscellaneous Information 1 ea NOTE XX ; Start 05/17/17 at 17:30 Glucose (Glutose) 15 gm Q15M PRN PO DECREASED GLUCOSE; Start 05/17/17 at 17:30 Glucose (Glutose) 22.5 gm Q15M PRN PO DECREASED GLUCOSE; Start 05/17/17 at 17:30 Dextrose (D50w Syringe) 25 ml Q15M PRN IV DECREASED GLUCOSE; Start 05/17/17 at 17:30 Dextrose (D50w Syringe) 50 ml Q15M PRN IV DECREASED GLUCOSE; Start 05/17/17 at 17:30 Glucagon (Glucagen) 1 mg Q15M PRN IM DECREASED GLUCOSE; Start 05/17/17 at 17:30 Glucose (Glutose) 15 gm Q15M PRN BUCCAL DECREASED GLUCOSE; Start 05/17/17 at 17: 30 Pantoprazole (Protonix Tab) 40 mg DAILY@06 PO Last administered on 06/08/17 06 :14; Admin Dose 40 MG; Start 05/18/17 at 06:00 Hydroxyzine HCl (Atarax) 25 mg Q6H PRN PO ITCHING Last administered on 06:53; Admin Dose 25 MG; Start 05/19/17 at 03:30 Docusate Sodium (Colace) 100 mg BID PO Last administered on 06/08/17 09:07; Admin Dose 100 MG; Start 05/19/17 at 21:00 Senna (Senokot) 1 tab BID PO Last administered on 06/08/17 09:07; Admin Dose 1 TAB; Start 05/19/17 at 21:00 Polyethylene Glycol (Miralax) 17 gm DAILY PO Last administered on 06/08/17 09: 10; Admin Dose 17 GM; Start 05/21/17 at 09:00 Neomycin/ Polymyxin/ Bacitracin (Neosporin Topical Oint) 1 applic AM TOP Last administered on 06/08/17 13:15; Admin Dose 1 APPLIC; Start 05/23/17 at 09:00 Lactulose (Enulose) 20 gm DAILY PRN PO CONSTIPATION Last administered on 20:09; Admin Dose 20 GM; Start 05/22/17 at 18:30 Bisacodyl (Dulcolax Supp) 10 mg DAILY PRN [place] CONSTIPATION Last administered on 06/03/17 10:50; Admin Dose 10 MG; Start 05/22/17 at 18:30 Ondansetron HCl (Zofran Inj) 4 mg Q6H PRN IV NAUSEA AND/OR VOMITING Last administered on 06/04/17 21:14; Admin Dose 4 MG; Start 05/27/17 at 00:30 Sodium Biphosphate/ Sodium Phosphate (Fleet Enema) 133 ml DAILY PRN [place] CONSTIPATION Last administered on 05/29/17 21:14; Admin Dose 133 ML; Start at 20:30 Paroxetine HCl (Paxil) 10 mg DAILY PO Last administered on 06/08/17 09:07; Admin Dose 10 MG; Start 05/31/17 at 12:30 Mupirocin (Bactroban) 1 applic BID TOP Last administered on 06/08/17 09:00; Admin Dose 1 APPLIC; Start 05/31/17 at 13:00 Miscellaneous Information (Pending Santyl Order For Wound Care) This patient tran... PRN PRN XX WOUND CARE; Start 06/01/17 at 15:00 Collagenase (Santyl) 1 applic DAILY TOP Last administered on 06/08/17 13:15; Admin Dose 1 APPLIC; Start 06/01/17 at 15:00 Mirtazapine (Remeron) 15 mg HS PO Last administered on 06/07/17 21:04; Admin Dose 15 MG; Start 06/03/17 at 21:00 Clotrimazole (Lotrimin Cr) 1 applic BID TOP Last administered on 06/08/17 13: 15; Admin Dose 1 APPLIC; Start 06/04/17 at 21:00 Lidocaine (Lidocaine 5% Oint) 1 applic TID PRN TOP PAIN; Start 06/04/17 at 20: 00 Sodium Hypochlorite (Dakin'S (1/4 Strength)) 1 applic DAILY IRR Last administered on 06/08/17 09:00; Admin Dose 1 APPLIC; Start 06/07/17 at 09:00 Hydromorphone HCl (Dilaudid) 2 mg Q4H PRN PO PAIN Last administered on 06:14; Admin Dose 2 MG; Start 06/07/17 at 10:00 Methadone HCl (Methadone Liq) 7 mg BID PO ; Start 06/08/17 at 21:00 ERIC HORN MD Jun 08, 2017 17:14
[2017-06-08 20:06] VITALS: BP 141/69; RESP 22
[2017-06-08] MEDS: METHADONE (1 MG/ML 5 ML PO UD SYG) PO SCH (20:46)
[2017-06-08] MEDS: MIRTAZAPINE 15 MG TAB PO SCH (20:48)
[2017-06-09] MEDS: HYDROmorphONE 2 MG TAB PO PRN ×4 (01:11→18:03)
[2017-06-09] MEDS: PANTOPRAZOLE (EC) 40 MG TAB PO SCH (05:29)
[2017-06-09 08:32] VITALS: BP 146/67; RESP 22
[2017-06-09] MEDS: POLYETHYLENE GLYCOL 17 GM PACKET PO SCH (09:00)
[2017-06-09] MEDS: metFORMIN 500 MG TAB PO SCH ×2 (09:10→18:03)
[2017-06-09] MEDS: DOCUSATE SODIUM 100 MG CAP PO SCH ×2 (09:10→21:15)
[2017-06-09] MEDS: SENNA TAB PO SCH ×2 (09:10→21:15)
[2017-06-09] MEDS: PAROXETINE 10 MG TAB PO SCH (09:10)
[2017-06-09] MEDS: GABAPENTIN 300 MG CAP PO SCH ×3 (09:10→21:15)
[2017-06-09] MEDS: SODIUM HYPOCHLORITE 0.125% 473 ML BTL IRR SCH (09:10)
[2017-06-09] MEDS: METHADONE (1 MG/ML 5 ML PO UD SYG) PO SCH ×2 (09:11→21:15)
[2017-06-09] MEDS: NEOMYC/POLYMYX/BACIT 30 GM OINT TOP SCH (09:12)
[2017-06-09] MEDS: MUPIROCIN 2% 22 GM OINT TOP SCH ×2 (09:12→21:18)
[2017-06-09] MEDS: COLLAGENASE 30 GM TUBE TOP SCH (09:12)
[2017-06-09] MEDS: CLOTRIMAZOLE 1% 30 GM CR TOP SCH ×2 (09:13→21:20)
--- NOTE | 2017-06-09 11:41 | PN ---
Date/Time of Note Date/Time of Note DATE: 06/09/17 TIME: 11:40 Assessment/Plan VTE Prophylaxis VTE Prophylaxis Intervention: SCD's Lines/Catheters IV Catheter Type (from Nrsg): Saline Lock Urinary Cath still in place: No Assessment/Plan Assessment/Plan 66 yo M with spinal stenosis admitted for acute on chronic back pain and UE weakness 2/2 cervical stenosis. Pt is sp laminectomy and fusion 05.26 1. Acute on chronic back pain with upper extremity weakness secondary to cervical cord stenosis now sp neurosurgical intervention 05.26 -neurosurgery still following, continue physical therapy -Patient apparently did not qualify for acute rehab, awaiting [facility] -cont PO pain meds only. started on methadone from palliative service 2 Prediabetes: Previous hemoglobin A1c 6.1. -Continue metformin 3. DVT and GI prophylaxis: SCD's, Protonix. 4. Depression with SI: pt with suicidal gesture 05/24. evaluated by telepsych at that time, then again on 05/30; -cont Remeron and Paxil -No need for one-to-one sitter per psych. No need for inpatient psych per telepsych 5. Bilateral feet pain: + toenail fungus. sp podiatry eval 6. buttock wounds: as per gen surg, sp surgical debridement 7. dispo: CM looking for [facility] Subjective 24 Hr Interval Summary Free Text/Dictation Pain well controlled Exam/Review of Systems Vital Signs Vitals Vital Signs Date Time Temp Pulse Resp B/P Pulse Ox O2 Delivery O2 Flow Rate FiO2 06/09/17 08:32 98.8 83 22 146/67 96 06/06/17 22:24 Room Air Intake and Output 06/08/17 06/08/17 06/09/17 15:00 23:00 07:00 Intake Total 822 ml 1800 ml Output Total 800 ml 1700 ml Balance 22 ml 100 ml Exam nad, wearing c collar no mrg lungs clear abd soft no rashes Results Result Diagram: 06/08/17 0458 06/08/17 045 Medications Medications Current Medications Acetaminophen (Tylenol Tab) 650 mg Q6H PRN PO PAIN LEVEL 1-3 OR FEVER; Start at 21:00 Gabapentin (Neurontin) 300 mg TID PO Last administered on 06/09/17t 09:10; Admin Dose 300 MG; Start 05/16/17 at 21:00 Miscellaneous Information 1 ea NOTE XX ; Start 05/17/17 at 17:30 Glucose (Glutose) 15 gm Q15M PRN PO DECREASED GLUCOSE; Start 05/17/17 at 17:30 Glucose (Glutose) 22.5 gm Q15M PRN PO DECREASED GLUCOSE; Start 05/17/17 at 17:30 Dextrose (D50w Syringe) 25 ml Q15M PRN IV DECREASED GLUCOSE; Start 05/17/17 at 17:30 Dextrose (D50w Syringe) 50 ml Q15M PRN IV DECREASED GLUCOSE; Start 05/17/17 at 17:30 Glucagon (Glucagen) 1 mg Q15M PRN IM DECREASED GLUCOSE; Start 05/17/17 at 17:30 Glucose (Glutose) 15 gm Q15M PRN BUCCAL DECREASED GLUCOSE; Start 05/17/17 at 17: 30 Pantoprazole (Protonix Tab) 40 mg DAILY@06 PO Last administered on 06/09/17 05 :29; Admin Dose 40 MG; Start 05/18/17 at 06:00 Hydroxyzine HCl (Atarax) 25 mg Q6H PRN PO ITCHING Last administered on 06:53; Admin Dose 25 MG; Start 05/19/17 at 03:30 Docusate Sodium (Colace) 100 mg BID PO Last administered on 06/09/17 09:10; Admin Dose 100 MG; Start 05/19/17 at 21:00 Senna (Senokot) 1 tab BID PO Last administered on 06/09/17 09:10; Admin Dose 1 TAB; Start 05/19/17 at 21:00 Polyethylene Glycol (Miralax) 17 gm DAILY PO Last administered on 06/08/17 09: 10; Admin Dose 17 GM; Start 05/21/17 at 09:00 Neomycin/ Polymyxin/ Bacitracin (Neosporin Topical Oint) 1 applic AM TOP Last administered on 06/09/17 09:12; Admin Dose 1 APPLIC; Start 05/23/17 at 09:00 Lactulose (Enulose) 20 gm DAILY PRN PO CONSTIPATION Last administered on 20:09; Admin Dose 20 GM; Start 05/22/17 at 18:30 Bisacodyl (Dulcolax Supp) 10 mg DAILY PRN [place] CONSTIPATION Last administered on 06/03/17 10:50; Admin Dose 10 MG; Start 05/22/17 at 18:30 Ondansetron HCl (Zofran Inj) 4 mg Q6H PRN IV NAUSEA AND/OR VOMITING Last administered on 06/04/17 21:14; Admin Dose 4 MG; Start 05/27/17 at 00:30 Sodium Biphosphate/ Sodium Phosphate (Fleet Enema) 133 ml DAILY PRN [place] CONSTIPATION Last administered on 05/29/17 21:14; Admin Dose 133 ML; Start at 20:30 Paroxetine HCl (Paxil) 10 mg DAILY PO Last administered on 06/09/17 09:10; Admin Dose 10 MG; Start 05/31/17 at 12:30 Mupirocin (Bactroban) 1 applic BID TOP Last administered on 06/09/17 09:12; Admin Dose 1 APPLIC; Start 05/31/17 at 13:00 Miscellaneous Information (Pending Santyl Order For Wound Care) This patient tran... PRN PRN XX WOUND CARE; Start 06/01/17 at 15:00 Collagenase (Santyl) 1 applic DAILY TOP Last administered on 06/09/17 09:12; Admin Dose 1 APPLIC; Start 06/01/17 at 15:00 Mirtazapine (Remeron) 15 mg HS PO Last administered on 06/07/17 21:04; Admin Dose 15 MG; Start 06/03/17 at 21:00 Clotrimazole (Lotrimin Cr) 1 applic BID TOP Last administered on 06/09/17 09: 13; Admin Dose 1 APPLIC; Start 06/04/17 at 21:00 Lidocaine (Lidocaine 5% Oint) 1 applic TID PRN TOP PAIN; Start 06/04/17 at 20: 00 Sodium Hypochlorite (Dakin'S (1/4 Strength)) 1 applic DAILY IRR Last administered on 06/09/17 09:10; Admin Dose 1 APPLIC; Start 06/07/17 at 09:00 Hydromorphone HCl (Dilaudid) 2 mg Q4H PRN PO PAIN Last administered on 05:29; Admin Dose 2 MG; Start 06/07/17 at 10:00 Methadone HCl (Methadone Liq) 7 mg BID PO Last administered on 06/09/17t 09:11 ; Admin Dose 7 MG; Start 06/08/17 at 21:00 ERIC HORN MD Jun 09, 2017 11:41
[2017-06-09 16:23] VITALS: BP 122/62; RESP 20
[2017-06-09 20:46] VITALS: BP 128/64; RESP 18
[2017-06-09] MEDS: MIRTAZAPINE 15 MG TAB PO SCH (21:15)
--- NOTE | 2017-06-09 21:54 | PN ---
Date/Time of Note Date/Time of Note DATE: 06/09/17 TIME: 21:47 Assessment/Plan Lines/Catheters IV Catheter Type (from Nrs): Saline Lock Verduzco in Place (from Nrs): No Assessment/Plan Chief Complaint/Hosp Course 1. Left buttock wound s/p excisional debridement 06/06; specimens:necrotic tissue -debridement prn -frequent turning and offloading -specialty mattress -local care - optimize nutrition -vitamin C and short term zinc 2. Back pain: s/p laminectomy with fusion; pain improved, c-collar on -cspine precautions -per neurosurgery 3. Prediabetes: hgba1c 6.1 -blood sugar optimization 4. Depression with suicidal ideation: telepsych eval; no verbalization of SI -close observation 5. Microcytic anemia: chronic disease vs.iron deficiency vs. acute bleed vs. other; no acute bleed noted; h/h stable -monitor -transfuse as needed 6. Hyponatremia: ?dehydration; normalized -monitor 7. Hypocalcemia: malnutrition -optimize lytes and monitor 8. Hypomagnesemia: -replete and monitor Patient seen and examined in collaboration with Dr. Luís Mendoza Problems: Subjective 24 Hr Interval Summary Feeling good. Scant drainage from wound. No c/o tran, dizziness, cp, palpitations , sob, cough, n/v/d, fevers or chills. Exam/Review of Systems Vital Signs Vitals Vital Signs Date Time Temp Pulse Resp B/P Pulse Ox O2 Delivery O2 Flow Rate FiO2 06/09/17 20:46 97.9 88 18 128/64 96 06/06/17 22:24 Room Air Intake and Output 06/08/17 06/08/17 06/09/17 15:00 23:00 07:00 Intake Total 822 ml 1800 ml Output Total 800 ml 1700 ml Balance 22 ml 100 ml Exam Free Text/Dictation Constitutional: alert, oriented Psych: nl mood/affect Head: atraumatic, normocephalic Eyes: nl lids, nl sclera ENMT: mucosa pink and moist, nl nasal mucosa & septum Neck: other (c collar s/p laminectomy/fusion) Respiratory: clear to auscultation, normal air movement Cardiovascular: nl pulses, regular rate and rhythm Gastrointestinal: distended (min), non-tender, soft Genitourinary - Male: other (verduzco) Musculoskeletal: nl extremities to inspection, nl gait and stance Extremities: normal pulses Neurological: nl mental status, nl speech, nl strength Skin: other (left buttock wound with min drainage) Results Result Diagram: 06/08/17 0458 06/08/17 0458 GILA WALKER NP Jun 09, 2017 21:54
[2017-06-10] MEDS: HYDROmorphONE 2 MG TAB PO PRN ×4 (01:34→17:05)
[2017-06-10 02:00] VITALS: BP 153/76; PULSE 85; RESP 18
[2017-06-10] MEDS: PANTOPRAZOLE (EC) 40 MG TAB PO SCH (05:38)
[2017-06-10 08:05] VITALS: BP 160/74; RESP 17
[2017-06-10] MEDS: METHADONE (1 MG/ML 5 ML PO UD SYG) PO SCH ×2 (08:45→20:53)
[2017-06-10] MEDS: NEOMYC/POLYMYX/BACIT 30 GM OINT TOP SCH (08:47)
[2017-06-10] MEDS: COLLAGENASE 30 GM TUBE TOP SCH (08:47)
[2017-06-10] MEDS: CLOTRIMAZOLE 1% 30 GM CR TOP SCH ×2 (08:47→21:01)
[2017-06-10] MEDS: MUPIROCIN 2% 22 GM OINT TOP SCH ×2 (08:47→21:01)
[2017-06-10] MEDS: SODIUM HYPOCHLORITE 0.125% 473 ML BTL IRR SCH (08:48)
[2017-06-10] MEDS: metFORMIN 500 MG TAB PO SCH ×2 (08:48→17:53)
[2017-06-10] MEDS: SENNA TAB PO SCH ×2 (08:49→21:00)
[2017-06-10] MEDS: GABAPENTIN 300 MG CAP PO SCH ×3 (08:49→20:54)
[2017-06-10] MEDS: DOCUSATE SODIUM 100 MG CAP PO SCH ×2 (08:49→20:53)
[2017-06-10] MEDS: POLYETHYLENE GLYCOL 17 GM PACKET PO SCH (08:49)
[2017-06-10] MEDS: PAROXETINE 10 MG TAB PO SCH (08:57)
--- NOTE | 2017-06-10 09:04 | PN ---
Date/Time of Note Date/Time of Note DATE: 06/10/17 TIME: 09:01 Assessment/Plan Lines/Catheters IV Catheter Type (from Nrs): Saline Lock Verduzco in Place (from Nrs): Yes Assessment/Plan Chief Complaint/Hosp Course 1. Left buttock wound s/p excisional debridement 06/06; specimens:necrotic tissue -debridement prn -frequent turning and offloading -specialty mattress -local care - optimize nutrition -vitamin C and short term zinc 2. Back pain: s/p laminectomy with fusion; pain improved, c-collar on -cspine precautions -per neurosurgery 3. Prediabetes: hgba1c 6.1 -blood sugar optimization 4. Depression with suicidal ideation: telepsych eval; no verbalization of SI -close observation 5. Microcytic anemia: chronic disease vs.iron deficiency vs. acute bleed vs. other; no acute bleed noted; h/h stable -monitor -transfuse as needed 6. Hyponatremia: normalized -monitor 7. Hypocalcemia: malnutrition -optimize lytes and monitor 8. Hypomagnesemia: -replete and monitor 9. Hypertension -medical management Patient seen and examined in collaboration with Dr. Luís Mendoza Problems: Subjective 24 Hr Interval Summary Feeling good. Good appetite. Scant drainage from wound. No c/o tran, dizziness, cp , palpitations, sob, cough, n/v/d, fevers or chills. Awaiting placement Exam/Review of Systems Vital Signs Vitals Vital Signs Date Time Temp Pulse Resp B/P Pulse Ox O2 Delivery O2 Flow Rate FiO2 06/10/17 08:05 98.2 92 17 160/74 98 06/10/17 02:00 Room Air Intake and Output 06/09/17 06/09/17 06/10/17 15:00 23:00 07:00 Intake Total 1044 ml 800 ml Output Total 1400 ml 500 ml Balance -356 ml 300 ml Exam Free Text/Dictation Constitutional: alert, oriented Psych: nl mood/affect Head: atraumatic, normocephalic Eyes: nl lids, nl sclera ENMT: mucosa pink and moist, nl nasal mucosa & septum Neck: other (c collar s/p laminectomy/fusion) Respiratory: clear to auscultation, normal air movement Cardiovascular: nl pulses, regular rate and rhythm Gastrointestinal: distended (min), non-tender, soft Genitourinary - Male: other (verduzco) Musculoskeletal: nl extremities to inspection, nl gait and stance Extremities: normal pulses Neurological: nl mental status, nl speech, nl strength Skin: other (left buttock wound with min drainage) Results Result Diagram: 06/08/17 0458 06/08/17 0458 GILA WALKER NP Jun 10, 2017 09:04
--- NOTE | 2017-06-10 13:03 | PN ---
Date/Time of Note Date/Time of Note DATE: 06/10/17 TIME: 13:01 Assessment/Plan VTE Prophylaxis VTE Prophylaxis Intervention: SCD's Lines/Catheters IV Catheter Type (from Nrs): Saline Lock Urinary Cath still in place: No Assessment/Plan Assessment/Plan 66 yo M with spinal stenosis admitted for acute on chronic back pain and UE weakness 2/2 cervical stenosis. Pt is sp laminectomy and fusion 7 1. Acute on chronic back pain with upper extremity weakness secondary to cervical cord stenosis now sp neurosurgical intervention 7 -neurosurgery signed off -[facility] re reconsult -cont PO pain meds only. started on methadone from palliative service 2 Prediabetes: Previous hemoglobin A1c 6.1. -Continue metformin 3. DVT and GI prophylaxis: SCD's, Protonix. 4. Depression with SI: pt with suicidal gesture 05/24. evaluated by telepsych at that time, then again on 05/30; -cont Remeron and Paxil -No need for one-to-one sitter per psych. No need for inpatient psych per telepsych 5. Bilateral feet pain: + toenail fungus. sp podiatry eval 6. buttock wounds: as per gen surg, sp surgical debridement 7. dispo: CM looking for [facility]. new ARU cs placed Subjective 24 Hr Interval Summary Free Text/Dictation Pain control satisfactory. Exam/Review of Systems Vital Signs Vitals Vital Signs Date Time Temp Pulse Resp B/P Pulse Ox O2 Delivery O2 Flow Rate FiO2 06/10/17 08:05 98.2 92 17 160/74 98 06/10/17 02:00 Room Air Intake and Output 06/09/17 06/09/17 06/10/17 15:00 23:00 07:00 Intake Total 1044 ml 800 ml Output Total 1400 ml 500 ml Balance -356 ml 300 ml Exam nad, laying flat, c collar off no mrg lungs clear abd soft no rashes verduzco out Results Result Diagram: 06/08/17 0458 06/08/17457 Medications Medications Current Medications Acetaminophen (Tylenol Tab) 650 mg Q6H PRN PO PAIN LEVEL 1-3 OR FEVER; Start at 21:00 Gabapentin (Neurontin) 300 mg TID PO Last administered on 06/10/17t 08:49; Admin Dose 300 MG; Start 05/16/17 at 21:00 Miscellaneous Information 1 ea NOTE XX ; Start 05/17/17 at 17:30 Glucose (Glutose) 15 gm Q15M PRN PO DECREASED GLUCOSE; Start 05/17/17 at 17:30 Glucose (Glutose) 22.5 gm Q15M PRN PO DECREASED GLUCOSE; Start 05/17/17 at 17:30 Dextrose (D50w Syringe) 25 ml Q15M PRN IV DECREASED GLUCOSE; Start 05/17/17 at 17:30 Dextrose (D50w Syringe) 50 ml Q15M PRN IV DECREASED GLUCOSE; Start 05/17/17 at 17:30 Glucagon (Glucagen) 1 mg Q15M PRN IM DECREASED GLUCOSE; Start 05/17/17 at 17:30 Glucose (Glutose) 15 gm Q15M PRN BUCCAL DECREASED GLUCOSE; Start 05/17/17 at 17: 30 Pantoprazole (Protonix Tab) 40 mg DAILY@06 PO Last administered on 06/10/17 05 :38; Admin Dose 40 MG; Start 05/18/17 at 06:00 Hydroxyzine HCl (Atarax) 25 mg Q6H PRN PO ITCHING Last administered on 06:53; Admin Dose 25 MG; Start 05/19/17 at 03:30 Docusate Sodium (Colace) 100 mg BID PO Last administered on 06/10/17 08:49; Admin Dose 100 MG; Start 05/19/17 at 21:00 Senna (Senokot) 1 tab BID PO Last administered on 06/09/17 21:15; Admin Dose 1 TAB; Start 05/19/17 at 21:00 Polyethylene Glycol (Miralax) 17 gm DAILY PO Last administered on 06/08/17 09: 10; Admin Dose 17 GM; Start 05/21/17 at 09:00 Neomycin/ Polymyxin/ Bacitracin (Neosporin Topical Oint) 1 applic AM TOP Last administered on 06/10/17 08:47; Admin Dose 1 APPLIC; Start 05/23/17 at 09:00 Lactulose (Enulose) 20 gm DAILY PRN PO CONSTIPATION Last administered on 20:09; Admin Dose 20 GM; Start 05/22/17 at 18:30 Bisacodyl (Dulcolax Supp) 10 mg DAILY PRN [place] CONSTIPATION Last administered on 06/03/17 10:50; Admin Dose 10 MG; Start 05/22/17 at 18:30 Ondansetron HCl (Zofran Inj) 4 mg Q6H PRN IV NAUSEA AND/OR VOMITING Last administered on 06/04/17 21:14; Admin Dose 4 MG; Start 05/27/17 at 00:30 Sodium Biphosphate/ Sodium Phosphate (Fleet Enema) 133 ml DAILY PRN [place] CONSTIPATION Last administered on 05/29/17 21:14; Admin Dose 133 ML; Start at 20:30 Paroxetine HCl (Paxil) 10 mg DAILY PO Last administered on 06/10/17 08:57; Admin Dose 10 MG; Start 05/31/17 at 12:30 Mupirocin (Bactroban) 1 applic BID TOP Last administered on 06/10/17 08:47; Admin Dose 1 APPLIC; Start 05/31/17 at 13:00 Miscellaneous Information (Pending Santyl Order For Wound Care) This patient tran... PRN PRN XX WOUND CARE; Start 06/01/17 at 15:00 Collagenase (Santyl) 1 applic DAILY TOP Last administered on 06/10/17 08:47; Admin Dose 1 APPLIC; Start 06/01/17 at 15:00 Mirtazapine (Remeron) 15 mg HS PO Last administered on 06/09/17 21:15; Admin Dose 15 MG; Start 06/03/17 at 21:00 Clotrimazole (Lotrimin Cr) 1 applic BID TOP Last administered on 06/10/17 08: 47; Admin Dose 1 APPLIC; Start 06/04/17 at 21:00 Lidocaine (Lidocaine 5% Oint) 1 applic TID PRN TOP PAIN; Start 06/04/17 at 20: 00 Sodium Hypochlorite (Dakin'S (1/4 Strength)) 1 applic DAILY IRR Last administered on 06/10/17 08:48; Admin Dose 1 APPLIC; Start 06/07/17 at 09:00 Hydromorphone HCl (Dilaudid) 2 mg Q4H PRN PO PAIN Last administered on 11:55; Admin Dose 2 MG; Start 06/07/17 at 10:00 Methadone HCl (Methadone Liq) 7 mg BID PO Last administered on 06/10/17t 08:45 ; Admin Dose 7 MG; Start 06/08/17 at 21:00 ERIC HORN MD Jun 10, 2017 13:03
[2017-06-10 20:10] VITALS: BP 154/68; RESP 18
[2017-06-10] MEDS: MIRTAZAPINE 15 MG TAB PO SCH (20:54)
[2017-06-11] MEDS: HYDROmorphONE 2 MG TAB PO PRN ×2 (01:00→14:39)
[2017-06-11 02:53] VITALS: BP 148/56; RESP 18
[2017-06-11 03:01] VITALS: BP 133/69; RESP 18
[2017-06-11] MEDS: PANTOPRAZOLE (EC) 40 MG TAB PO SCH (06:00)
[2017-06-11] MEDS: SENNA TAB PO SCH ×2 (08:43→20:50)
[2017-06-11] MEDS: POLYETHYLENE GLYCOL 17 GM PACKET PO SCH (08:43)
[2017-06-11] MEDS: SODIUM HYPOCHLORITE 0.125% 473 ML BTL IRR SCH (08:48)
[2017-06-11] MEDS: MUPIROCIN 2% 22 GM OINT TOP SCH ×2 (08:49→20:50)
[2017-06-11] MEDS: NEOMYC/POLYMYX/BACIT 30 GM OINT TOP SCH (08:49)
[2017-06-11] MEDS: COLLAGENASE 30 GM TUBE TOP SCH (08:49)
[2017-06-11] MEDS: CLOTRIMAZOLE 1% 30 GM CR TOP SCH ×2 (08:49→20:50)
[2017-06-11] MEDS: metFORMIN 500 MG TAB PO SCH ×2 (08:49→17:47)
[2017-06-11] MEDS: GABAPENTIN 300 MG CAP PO SCH ×3 (08:50→20:50)
[2017-06-11] MEDS: PAROXETINE 10 MG TAB PO SCH (08:50)
[2017-06-11] MEDS: DOCUSATE SODIUM 100 MG CAP PO SCH ×2 (08:50→20:49)
[2017-06-11] MEDS: METHADONE (1 MG/ML 5 ML PO UD SYG) PO SCH ×2 (08:50→20:49)
[2017-06-11 08:56] VITALS: BP 162/78; RESP 18
--- NOTE | 2017-06-11 14:49 | PN ---
Date/Time of Note Date/Time of Note DATE: 06/11/17 TIME: 14:49 Assessment/Plan VTE Prophylaxis VTE Prophylaxis Intervention: SCD's Lines/Catheters IV Catheter Type (from Nrsg): Saline Lock Urinary Cath still in place: No Assessment/Plan Assessment/Plan 66 yo M with spinal stenosis admitted for acute on chronic back pain and UE weakness 2/2 cervical stenosis. Pt is sp laminectomy and fusion 7 1. Acute on chronic back pain with upper extremity weakness secondary to cervical cord stenosis now sp neurosurgical intervention 05.26 -neurosurgery signed off -ARU re reconsult placed 06.10 -cont PO pain meds only. started on methadone from palliative service 2 Prediabetes: Previous hemoglobin A1c 6.1. -Continue metformin 3. Depression with SI: pt with suicidal gesture 05/24. evaluated by telepsych at that time, then again on 05/30; -cont Remeron and Paxil -No need for one-to-one sitter per psych. No need for inpatient psych per telepsych 05.30 4. Bilateral feet pain: + toenail fungus. sp podiatry eval 5. buttock wounds: as per gen surg, sp surgical debridement 06.06 6. dvt prophx dispo: CM looking for [facility]. new ARU cs placed Subjective 24 Hr Interval Summary Free Text/Dictation Pt sleeping when I came to see him this morning Exam/Review of Systems Vital Signs Vitals Vital Signs Date Time Temp Pulse Resp B/P Pulse Ox O2 Delivery O2 Flow Rate FiO2 06/11/17 08:56 98.2 79 18 162/78 96 06/10/17 02:00 Room Air Intake and Output 06/10/17 06/10/17 06/11/17 15:00 23:00 07:00 Intake Total 1100 ml 600 ml Output Total 1400 ml 100 ml Balance -300 ml 500 ml Exam nad, laying in bed, not wearing c collar no mrg lungs clear abd soft no rashes Results Result Diagram: 06/08/1745706/08/17457 Medications Medications Current Medications Acetaminophen (Tylenol Tab) 650 mg Q6H PRN PO PAIN LEVEL 1-3 OR FEVER; Start at 21:00 Gabapentin (Neurontin) 300 mg TID PO Last administered on 06/11/17t 08:50; Admin Dose 300 MG; Start 05/16/17 at 21:00 Miscellaneous Information 1 ea NOTE XX ; Start 05/17/17 at 17:30 Glucose (Glutose) 15 gm Q15M PRN PO DECREASED GLUCOSE; Start 05/17/17 at 17:30 Glucose (Glutose) 22.5 gm Q15M PRN PO DECREASED GLUCOSE; Start 05/17/17 at 17:30 Dextrose (D50w Syringe) 25 ml Q15M PRN IV DECREASED GLUCOSE; Start 05/17/17 at 17:30 Dextrose (D50w Syringe) 50 ml Q15M PRN IV DECREASED GLUCOSE; Start 05/17/17 at 17:30 Glucagon (Glucagen) 1 mg Q15M PRN IM DECREASED GLUCOSE; Start 05/17/17 at 17:30 Glucose (Glutose) 15 gm Q15M PRN BUCCAL DECREASED GLUCOSE; Start 05/17/17 at 17: 30 Pantoprazole (Protonix Tab) 40 mg DAILY@06 PO Last administered on 06/10/17 05 :38; Admin Dose 40 MG; Start 05/18/17 at 06:00 Hydroxyzine HCl (Atarax) 25 mg Q6H PRN PO ITCHING Last administered on 06:53; Admin Dose 25 MG; Start 05/19/17 at 03:30 Docusate Sodium (Colace) 100 mg BID PO Last administered on 06/11/17 08:50; Admin Dose 100 MG; Start 05/19/17 at 21:00 Senna (Senokot) 1 tab BID PO Last administered on 06/09/17 21:15; Admin Dose 1 TAB; Start 05/19/17 at 21:00 Polyethylene Glycol (Miralax) 17 gm DAILY PO Last administered on 06/08/17 09: 10; Admin Dose 17 GM; Start 05/21/17 at 09:00 Neomycin/ Polymyxin/ Bacitracin (Neosporin Topical Oint) 1 applic AM TOP Last administered on 06/11/17 08:49; Admin Dose 1 APPLIC; Start 05/23/17 at 09:00 Lactulose (Enulose) 20 gm DAILY PRN PO CONSTIPATION Last administered on 20:09; Admin Dose 20 GM; Start 05/22/17 at 18:30 Bisacodyl (Dulcolax Supp) 10 mg DAILY PRN [place] CONSTIPATION Last administered on 06/03/17 10:50; Admin Dose 10 MG; Start 05/22/17 at 18:30 Ondansetron HCl (Zofran Inj) 4 mg Q6H PRN IV NAUSEA AND/OR VOMITING Last administered on 06/04/17 21:14; Admin Dose 4 MG; Start 05/27/17 at 00:30 Sodium Biphosphate/ Sodium Phosphate (Fleet Enema) 133 ml DAILY PRN [place] CONSTIPATION Last administered on 05/29/17 21:14; Admin Dose 133 ML; Start at 20:30 Paroxetine HCl (Paxil) 10 mg DAILY PO Last administered on 06/11/17 08:50; Admin Dose 10 MG; Start 05/31/17 at 12:30 Mupirocin (Bactroban) 1 applic BID TOP Last administered on 06/11/17 08:49; Admin Dose 1 APPLIC; Start 05/31/17 at 13:00 Miscellaneous Information (Pending Santyl Order For Wound Care) This patient tran... PRN PRN XX WOUND CARE; Start 06/01/17 at 15:00 Collagenase (Santyl) 1 applic DAILY TOP Last administered on 06/11/17 08:49; Admin Dose 1 APPLIC; Start 06/01/17 at 15:00 Mirtazapine (Remeron) 15 mg HS PO Last administered on 06/10/17 20:54; Admin Dose 15 MG; Start 06/03/17 at 21:00 Clotrimazole (Lotrimin Cr) 1 applic BID TOP Last administered on 06/11/17 08: 49; Admin Dose 1 APPLIC; Start 06/04/17 at 21:00 Lidocaine (Lidocaine 5% Oint) 1 applic TID PRN TOP PAIN; Start 06/04/17 at 20: 00 Sodium Hypochlorite (Dakin'S (1/4 Strength)) 1 applic DAILY IRR Last administered on 06/11/17 08:48; Admin Dose 1 APPLIC; Start 06/07/17 at 09:00 Hydromorphone HCl (Dilaudid) 2 mg Q4H PRN PO PAIN Last administered on 14:39; Admin Dose 2 MG; Start 06/07/17 at 10:00 Methadone HCl (Methadone Liq) 7 mg BID PO Last administered on 06/11/17 08:50 ; Admin Dose 7 MG; Start 06/08/17 at 21:00 ERIC HORN MD Jun 11, 2017 14:49
--- NOTE | 2017-06-11 15:40 | PN ---
Date/Time of Note Date/Time of Note DATE: 06/11/17 TIME: 15:38 Assessment/Plan Lines/Catheters IV Catheter Type (from Nrs): Saline Lock Verduzco in Place (from Nrs): No Assessment/Plan Chief Complaint/Hosp Course 1. Left buttock wound s/p excisional debridement 06/06 -frequent turning and offloading -specialty mattress -local care -optimize nutrition -vitamin C and short term zinc -debridement prn 2. Back pain: s/p laminectomy with fusion; pain improved, c-collar on -cspine precautions -per neurosurgery 3. Prediabetes: hgba1c 6.1 -blood sugar optimization 4. Depression with suicidal ideation: telepsych eval; no verbalization of SI -close observation 5. Microcytic anemia: chronic disease vs.iron deficiency vs. acute bleed vs. other; no acute bleed noted; h/h stable -monitor -transfuse as needed 6. Hypertension -medical management Thank you, Problems: Subjective 24 Hr Interval Summary Doing better. Scant drainage from wound. No c/o tran, dizziness, cp, palpitations , sob, cough, n/v/d, fevers or chills. Awaiting placement Exam/Review of Systems Vital Signs Vitals Vital Signs Date Time Temp Pulse Resp B/P Pulse Ox O2 Delivery O2 Flow Rate FiO2 06/11/17 08:56 98.2 79 18 162/78 96 06/10/17 02:00 Room Air Intake and Output 06/10/17 06/10/17 06/11/17 15:00 23:00 07:00 Intake Total 1100 ml 600 ml Output Total 1400 ml 100 ml Balance -300 ml 500 ml Exam Free Text/Dictation Constitutional: alert, oriented Psych: nl mood/affect Head: atraumatic, normocephalic Eyes: nl lids, nl sclera ENMT: mucosa pink and moist, nl nasal mucosa & septum Neck: other (c collar s/p laminectomy/fusion) Respiratory: clear to auscultation, normal air movement Cardiovascular: nl pulses, regular rate and rhythm Gastrointestinal: distended (min), non-tender, soft Genitourinary - Male: other (verduzco) Musculoskeletal: nl extremities to inspection, nl gait and stance Extremities: normal pulses Neurological: nl mental status, nl speech, nl strength Skin: other (left buttock wound with min drainage) Results Result Diagram: 06/08/17 0458 06/08/17 0458 JAZMYN BARAKAT MD Jun 11, 2017 15:40
[2017-06-11 20:01] VITALS: BP 126/65; RESP 18
[2017-06-11] MEDS: MIRTAZAPINE 15 MG TAB PO SCH (20:49)
[2017-06-12 01:39] VITALS: BP 128/67; RESP 18
[2017-06-12] MEDS: HYDROmorphONE 2 MG TAB PO PRN ×3 (02:51→17:59)
[2017-06-12 06:15] LABS: CALCIUM 8.8 mg/dl (8.4-10.2); CREATININE 0.67 mg/dl (0.61-1.24); POTASSIUM 3.8 mmol/L (3.5-5.1)
[2017-06-12] MEDS: POLYETHYLENE GLYCOL 17 GM PACKET PO SCH (09:00)
[2017-06-12] MEDS: SENNA TAB PO SCH ×2 (09:00→20:32)
[2017-06-12] MEDS: GABAPENTIN 300 MG CAP PO SCH ×3 (09:02→20:32)
[2017-06-12] MEDS: metFORMIN 500 MG TAB PO SCH ×2 (09:02→17:59)
[2017-06-12] MEDS: DOCUSATE SODIUM 100 MG CAP PO SCH ×2 (09:02→20:32)
[2017-06-12 09:03] VITALS: BP 157/74; RESP 18
[2017-06-12] MEDS: PAROXETINE 10 MG TAB PO SCH (09:03)
--- NOTE | 2017-06-12 09:11 | PN ---
Date/Time of Note Date/Time of Note DATE: 06/12/17 TIME: 09:08 Assessment/Plan Lines/Catheters IV Catheter Type (from Nrs): Saline Lock Munoz in Place (from Nrs): No Assessment/Plan Chief Complaint/Hosp Course 1. Left buttock wound s/p excisional debridement 06/06 -debridement prn -frequent turning and offloading -specialty mattress -local care - optimize nutrition -vitamin C and short term zinc 2. Back pain: s/p laminectomy with fusion; pain improved, c-collar on -cspine precautions -per neurosurgery 3. Prediabetes: hgba1c 6.1 -blood sugar optimization 4. Depression with suicidal ideation: telepsych eval; no verbalization of SI -close observation 5. Microcytic anemia: chronic disease vs.iron deficiency vs. acute bleed vs. other; no acute bleed noted; h/h stable -monitor -transfuse as needed 6. Hyponatremia: normalized -monitor 7. Hypocalcemia: malnutrition; normalized -optimize lytes and monitor 8. Hypomagnesemia: -replete and monitor 9. Hypertension: labile -medical management Patient seen and examined in collaboration with Dr. Luís Mendoza Problems: Subjective 24 Hr Interval Summary Feeling well. Good appetite. Pain improved. Scant drainage from wound. No c/o tran , dizziness, cp, palpitations, sob, cough, n/v/d, fevers or chills. Awaiting placement Exam/Review of Systems Vital Signs Vitals Vital Signs Date Time Temp Pulse Resp B/P Pulse Ox O2 Delivery O2 Flow Rate FiO2 06/12/17 09:03 97.9 83 18 157/74 95 06/10/17 02:00 Room Air Intake and Output 06/11/17 06/11/17 06/12/17 15:00 23:00 07:00 Intake Total 800 ml 1050 ml Output Total 780 ml 800 ml Balance 20 ml 250 ml Exam Free Text/Dictation Constitutional: alert, oriented Psych: nl mood/affect Head: atraumatic, normocephalic Eyes: nl lids, nl sclera ENMT: mucosa pink and moist, nl nasal mucosa & septum Neck: other (c collar s/p laminectomy/fusion) Respiratory: clear to auscultation, normal air movement Cardiovascular: nl pulses, regular rate and rhythm Gastrointestinal: distended (min), non-tender, soft Musculoskeletal: nl extremities to inspection, nl gait and stance Extremities: normal pulses Neurological: nl mental status, nl speech, nl strength Skin: other (left buttock wound with scant drainage; woundbed pink with min slough) Results Result Diagram: 06/08/17 0458 06/12/17 0435 GILA WALKER NP Jun 12, 2017 09:11
[2017-06-12] MEDS: METHADONE (1 MG/ML 5 ML PO UD SYG) PO SCH ×2 (09:24→20:50)
[2017-06-12] MEDS: SODIUM HYPOCHLORITE 0.125% 473 ML BTL IRR SCH (09:29)
[2017-06-12] MEDS: MUPIROCIN 2% 22 GM OINT TOP SCH ×2 (09:29→20:33)
[2017-06-12] MEDS: COLLAGENASE 30 GM TUBE TOP SCH (09:30)
[2017-06-12] MEDS: NEOMYC/POLYMYX/BACIT 30 GM OINT TOP SCH (09:30)
[2017-06-12] MEDS: CLOTRIMAZOLE 1% 30 GM CR TOP SCH ×2 (09:30→20:32)
--- NOTE | 2017-06-12 14:20 | PN ---
Date/Time of Note Date/Time of Note DATE: 06/12/17 TIME: 14:17 Assessment/Plan VTE Prophylaxis VTE Prophylaxis Intervention: SCD's Lines/Catheters IV Catheter Type (from Nrs): Saline Lock Urinary Cath still in place: No Assessment/Plan Chief Complaint/Hosp Course Assessment/Plan: 66 yo M with spinal stenosis admitted for acute on chronic back pain and UE weakness 2/2 cervical stenosis. Pt is sp laminectomy and fusion 7.14 (POD # 17) 1. Acute on chronic back pain with upper extremity weakness secondary to cervical cord stenosis now sp neurosurgical intervention POD # 17. HV drained removed last week as well. - neurosurgery still following, continue physical therapy, follow-up their recommendations -Patient apparently did not qualify for acute rehab, awaiting possible prison facility placement now, will follow up with behavioral health case manager on this -For now continue p.o. Dilaudid as needed and methadone twice daily. 2 Prediabetes: Previous hemoglobin A1c 6.1. -Continue metformin 3. DVT and GI prophylaxis: SCD's, Protonix. 4. Depression with SI: pt with questionable suicidal gesture of wrapping bedsheet around his neck 7/. evaluated by telepsych, and again on 05/30 telemetry psych evaluation performed-these issues have resolved now. Patient presently denies any suicidal ideation or depression. - cont psych meds, Remeron and Paxil as well. 5. Bilateral feet pain: Patient does have signs of possible toenail infection. Appreciate podiatry consult - f/u podiatry rec's regarding tx, including antifungal cream Dispo: Case management working on finding snf placement for patient. 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 Continue physical therapy, follow-up neurosurgery recommendations, pain control as well. Problems: Subjective 24 Hr Interval Summary Free Text/Dictation Patient refused physical therapy today, no acute events overnight. Exam/Review of Systems Vital Signs Vitals Vital Signs Date Time Temp Pulse Resp B/P Pulse Ox O2 Delivery O2 Flow Rate FiO2 06/12/17 09:03 97.9 83 18 157/74 95 06/10/17 02:00 Room Air Intake and Output 06/11/17 06/11/17 06/12/17 15:00 23:00 07:00 Intake Total 800 ml 1050 ml Output Total 780 ml 800 ml Balance 20 ml 250 ml Exam nad, laying in bed, not wearing c collar when in bed no mrg lungs clear abd soft no rashes Results Result Diagram: 06/08/17 0458 06/12/17 0435 Results 24 hrs Laboratory Tests Test 06/12/17 04:35 Sodium Level 142 Potassium Level 3.8 Chloride Level 105 Carbon Dioxide Level 26 Anion Gap 15 Blood Urea Nitrogen 8 Creatinine 0.67 Glucose Level 120 Calcium Level 8.8 Medications Medications Current Medications Acetaminophen (Tylenol Tab) 650 mg Q6H PRN PO PAIN LEVEL 1-3 OR FEVER; Start at 21:00 Gabapentin (Neurontin) 300 mg TID PO Last administered on 06/12/17 13:49; Admin Dose 300 MG; Start 05/16/17 at 21:00 Miscellaneous Information 1 ea NOTE XX ; Start 05/17/17 at 17:30 Glucose (Glutose) 15 gm Q15M PRN PO DECREASED GLUCOSE; Start 05/17/17 at 17:30 Glucose (Glutose) 22.5 gm Q15M PRN PO DECREASED GLUCOSE; Start 05/17/17 at 17:30 Dextrose (D50w Syringe) 25 ml Q15M PRN IV DECREASED GLUCOSE; Start 05/17/17 at 17:30 Dextrose (D50w Syringe) 50 ml Q15M PRN IV DECREASED GLUCOSE; Start 05/17/17 at 17:30 Glucagon (Glucagen) 1 mg Q15M PRN IM DECREASED GLUCOSE; Start 05/17/17 at 17:30 Glucose (Glutose) 15 gm Q15M PRN BUCCAL DECREASED GLUCOSE; Start 05/17/17 at 17: 30 Hydroxyzine HCl (Atarax) 25 mg Q6H PRN PO ITCHING Last administered on 06:53; Admin Dose 25 MG; Start 05/19/17 at 03:30 Docusate Sodium (Colace) 100 mg BID PO Last administered on 06/12/17 09:02; Admin Dose 100 MG; Start 05/19/17 at 21:00 Senna (Senokot) 1 tab BID PO Last administered on 06/11/17 20:50; Admin Dose 1 TAB; Start 05/19/17 at 21:00 Polyethylene Glycol (Miralax) 17 gm DAILY PO Last administered on 06/08/17 09: 10; Admin Dose 17 GM; Start 05/21/17 at 09:00 Neomycin/ Polymyxin/ Bacitracin (Neosporin Topical Oint) 1 applic AM TOP Last administered on 06/12/17 09:30; Admin Dose 1 APPLIC; Start 05/23/17 at 09:00 Lactulose (Enulose) 20 gm DAILY PRN PO CONSTIPATION Last administered on 20:09; Admin Dose 20 GM; Start 05/22/17 at 18:30 Bisacodyl (Dulcolax Supp) 10 mg DAILY PRN [place] CONSTIPATION Last administered on 06/03/17 10:50; Admin Dose 10 MG; Start 05/22/17 at 18:30 Ondansetron HCl (Zofran Inj) 4 mg Q6H PRN IV NAUSEA AND/OR VOMITING Last administered on 06/04/17 21:14; Admin Dose 4 MG; Start 05/27/17 at 00:30 Sodium Biphosphate/ Sodium Phosphate (Fleet Enema) 133 ml DAILY PRN [place] CONSTIPATION Last administered on 05/29/17 21:14; Admin Dose 133 ML; Start at 20:30 Paroxetine HCl (Paxil) 10 mg DAILY PO Last administered on 06/12/17 09:03; Admin Dose 10 MG; Start 05/31/17 at 12:30 Mupirocin (Bactroban) 1 applic BID TOP Last administered on 06/12/17 09:29; Admin Dose 1 APPLIC; Start 05/31/17 at 13:00 Miscellaneous Information (Pending Santyl Order For Wound Care) This patient tran... PRN PRN XX WOUND CARE; Start 06/01/17 at 15:00 Collagenase (Santyl) 1 applic DAILY TOP Last administered on 06/12/17 09:30; Admin Dose 1 APPLIC; Start 06/01/17 at 15:00 Mirtazapine (Remeron) 15 mg HS PO Last administered on 06/11/17 20:49; Admin Dose 15 MG; Start 06/03/17 at 21:00 Clotrimazole (Lotrimin Cr) 1 applic BID TOP Last administered on 06/12/17 09: 30; Admin Dose 1 APPLIC; Start 06/04/17 at 21:00 Lidocaine (Lidocaine 5% Oint) 1 applic TID PRN TOP PAIN; Start 06/04/17 at 20: 00 Sodium Hypochlorite (Dakin'S (1/4 Strength)) 1 applic DAILY IRR Last administered on 06/12/17 09:29; Admin Dose 1 APPLIC; Start 06/07/17 at 09:00 Hydromorphone HCl (Dilaudid) 2 mg Q4H PRN PO PAIN Last administered on 06:52; Admin Dose 2 MG; Start 06/07/17 at 10:00 Methadone HCl (Methadone Liq) 7 mg BID PO Last administered on 06/12/17 09:24 ; Admin Dose 7 MG; Start 06/08/17 at 21:00 INNA ASCENCIO Jun 12, 2017 14:20
[2017-06-12 20:00] VITALS: BP 155/77; RESP 20
[2017-06-12] MEDS: MIRTAZAPINE 15 MG TAB PO SCH (20:32)
[2017-06-13 02:00] VITALS: BP 149/80; RESP 20
[2017-06-13 08:06] VITALS: BP 175/80; RESP 18
[2017-06-13] MEDS: metFORMIN 500 MG TAB PO SCH ×2 (08:23→18:36)
[2017-06-13] MEDS: GABAPENTIN 300 MG CAP PO SCH ×3 (08:24→21:13)
[2017-06-13] MEDS: METHADONE (1 MG/ML 5 ML PO UD SYG) PO SCH ×2 (08:24→21:14)
[2017-06-13] MEDS: DOCUSATE SODIUM 100 MG CAP PO SCH ×2 (08:24→21:00)
[2017-06-13] MEDS: PAROXETINE 10 MG TAB PO SCH (08:25)
[2017-06-13] MEDS: MUPIROCIN 2% 22 GM OINT TOP SCH ×2 (08:28→21:00)
[2017-06-13] MEDS: SODIUM HYPOCHLORITE 0.125% 473 ML BTL IRR SCH (08:28)
[2017-06-13] MEDS: NEOMYC/POLYMYX/BACIT 30 GM OINT TOP SCH (08:29)
[2017-06-13] MEDS: CLOTRIMAZOLE 1% 30 GM CR TOP SCH ×2 (08:29→21:00)
[2017-06-13] MEDS: COLLAGENASE 30 GM TUBE TOP SCH (08:29)
[2017-06-13] MEDS: POLYETHYLENE GLYCOL 17 GM PACKET PO SCH (08:39)
[2017-06-13] MEDS: SENNA TAB PO SCH ×2 (08:39→21:00)
--- NOTE | 2017-06-13 12:09 | PN ---
Date/Time of Note Date/Time of Note DATE: 06/13/17 TIME: 12:08 Assessment/Plan VTE Prophylaxis VTE Prophylaxis Intervention: SCD's Lines/Catheters IV Catheter Type (from Nrs): Saline Lock Urinary Cath still in place: No Assessment/Plan Chief Complaint/Hosp Course Assessment/Plan: 66 yo M with spinal stenosis admitted for acute on chronic back pain and UE weakness 2/2 cervical stenosis. Pt is sp laminectomy and fusion 7.14 (POD # 17) 1. Acute on chronic back pain with upper extremity weakness secondary to cervical cord stenosis now sp neurosurgical intervention POD # 17. HV drained removed last week as well. - neurosurgery still following, continue physical therapy, follow-up their recommendations -Patient apparently did not qualify for acute rehab, awaiting possible [place] facility placement now, will follow up with assistant case manager on this -For now continue p.o. Dilaudid as needed and methadone twice daily. 2 Prediabetes: Previous hemoglobin A1c 6.1. -Continue metformin 3. DVT and GI prophylaxis: SCD's, Protonix. 4. Depression with SI: pt with questionable suicidal ideation, evaluated by telepsych melonieuer this admission, and again on 05/30 telemetry psych evaluation performed-these issues have resolved now. Patient presently denies any suicidal ideation or depression. - cont psych meds, Remeron and Paxil as well. 5. Bilateral feet pain: Patient does have signs of possible toenail infection. Appreciate podiatry consult - f/u podiatry rec's regarding tx, including antifungal cream Dispo: Case management working on finding snf placement for patient. 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 Continue physical therapy, follow-up neurosurgery recommendations, pain control as well. Problems: Exam/Review of Systems Vital Signs Vitals Vital Signs Date Time Temp Pulse Resp B/P Pulse Ox O2 Delivery O2 Flow Rate FiO2 06/13/17 08:06 97.5 91 18 175/80 100 06/10/17 02:00 Room Air Intake and Output 06/12/17 06/12/17 06/13/17 15:00 23:00 07:00 Intake Total 800 ml 650 ml Output Total 600 ml 400 ml Balance 200 ml 250 ml Results Result Diagram: 06/12/17 0185 Medications Medications Current Medications Acetaminophen (Tylenol Tab) 650 mg Q6H PRN PO PAIN LEVEL 1-3 OR FEVER; Start 7 /4/17 at 21:00 Gabapentin (Neurontin) 300 mg TID PO Last administered on 06/13/17 08:24; Admin Dose 300 MG; Start 05/16/17 at 21:00 Miscellaneous Information 1 ea NOTE XX ; Start 05/17/17 at 17:30 Glucose (Glutose) 15 gm Q15M PRN PO DECREASED GLUCOSE; Start 05/17/17 at 17:30 Glucose (Glutose) 22.5 gm Q15M PRN PO DECREASED GLUCOSE; Start 05/17/17 at 17:30 Dextrose (D50w Syringe) 25 ml Q15M PRN IV DECREASED GLUCOSE; Start 05/17/17 at 17:30 Dextrose (D50w Syringe) 50 ml Q15M PRN IV DECREASED GLUCOSE; Start 05/17/17 at 17:30 Glucagon (Glucagen) 1 mg Q15M PRN IM DECREASED GLUCOSE; Start 05/17/17 at 17:30 Glucose (Glutose) 15 gm Q15M PRN BUCCAL DECREASED GLUCOSE; Start 05/17/17 at 17: 30 Hydroxyzine HCl (Atarax) 25 mg Q6H PRN PO ITCHING Last administered on 06:53; Admin Dose 25 MG; Start 05/19/17 at 03:30 Docusate Sodium (Colace) 100 mg BID PO Last administered on 06/13/17 08:24; Admin Dose 100 MG; Start 05/19/17 at 21:00 Senna (Senokot) 1 tab BID PO Last administered on 06/12/17 20:32; Admin Dose 1 TAB; Start 05/19/17 at 21:00 Polyethylene Glycol (Miralax) 17 gm DAILY PO Last administered on 06/08/17 09: 10; Admin Dose 17 GM; Start 05/21/17 at 09:00 Neomycin/ Polymyxin/ Bacitracin (Neosporin Topical Oint) 1 applic AM TOP Last administered on 06/13/17 08:29; Admin Dose 1 APPLIC; Start 05/23/17 at 09:00 Lactulose (Enulose) 20 gm DAILY PRN PO CONSTIPATION Last administered on 20:09; Admin Dose 20 GM; Start 05/22/17 at 18:30 Bisacodyl (Dulcolax Supp) 10 mg DAILY PRN [place] CONSTIPATION Last administered on 06/03/17 10:50; Admin Dose 10 MG; Start 05/22/17 at 18:30 Ondansetron HCl (Zofran Inj) 4 mg Q6H PRN IV NAUSEA AND/OR VOMITING Last administered on 06/04/17 21:14; Admin Dose 4 MG; Start 05/27/17 at 00:30 Sodium Biphosphate/ Sodium Phosphate (Fleet Enema) 133 ml DAILY PRN [place] CONSTIPATION Last administered on 05/29/17 21:14; Admin Dose 133 ML; Start at 20:30 Paroxetine HCl (Paxil) 10 mg DAILY PO Last administered on 06/13/17 08:25; Admin Dose 10 MG; Start 05/31/17 at 12:30 Mupirocin (Bactroban) 1 applic BID TOP Last administered on 06/13/17 08:28; Admin Dose 1 APPLIC; Start 05/31/17 at 13:00 Miscellaneous Information (Pending Santyl Order For Wound Care) This patient tran... PRN PRN XX WOUND CARE; Start 06/01/17 at 15:00 Collagenase (Santyl) 1 applic DAILY TOP Last administered on 06/13/17 08:29; Admin Dose 1 APPLIC; Start 06/01/17 at 15:00 Mirtazapine (Remeron) 15 mg HS PO Last administered on 06/12/17 20:32; Admin Dose 15 MG; Start 06/03/17 at 21:00 Clotrimazole (Lotrimin Cr) 1 applic BID TOP Last administered on 06/13/17 08:29 ; Admin Dose 1 APPLIC; Start 06/04/17 at 21:00 Lidocaine (Lidocaine 5% Oint) 1 applic TID PRN TOP PAIN; Start 06/04/17 at 20: 00 Sodium Hypochlorite (Dakin'S (1/4 Strength)) 1 applic DAILY IRR Last administered on 06/13/17 08:28; Admin Dose 1 APPLIC; Start 06/07/17 at 09:00 Hydromorphone HCl (Dilaudid) 2 mg Q4H PRN PO PAIN Last administered on 17:59; Admin Dose 2 MG; Start 06/07/17 at 10:00 Methadone HCl (Methadone Liq) 7 mg BID PO Last administered on 06/13/17t 08:24; Admin Dose 7 MG; Start 06/08/17 at 21:00 INNA ASCENCIO Jun 13, 2017 12:09
--- NOTE | 2017-06-13 12:23 | PN ---
Date/Time of Note Date/Time of Note DATE: 06/13/17 TIME: 12:21 Assessment/Plan VTE Prophylaxis VTE Prophylaxis Intervention: SCD's Lines/Catheters IV Catheter Type (from Nrs): Saline Lock Urinary Cath still in place: No Assessment/Plan Chief Complaint/Hosp Course Assessment/Plan: 66 yo M with spinal stenosis admitted for acute on chronic back pain and UE weakness 2/2 cervical stenosis. Pt is sp laminectomy and fusion 7.14 (POD # 18) 1. Acute on chronic back pain with upper extremity weakness secondary to cervical cord stenosis now sp neurosurgical intervention POD # 18. HV drained removed last week as well. - neurosurgery still following, continue physical therapy, follow-up their recommendations -Patient apparently did not qualify for acute rehab, awaiting possible custodial facility placement now, will follow up with sample case porter on this -For now continue p.o. Dilaudid as needed and methadone twice daily. 2 Prediabetes: Previous hemoglobin A1c 6.1. -Continue metformin 3. DVT and GI prophylaxis: SCD's, Protonix. 4. Depression with SI: pt with questionable suicidal ideation, evaluated by telepsych melonieuer this admission, and again on 05/30 telemetry psych evaluation performed-these issues have resolved now. Patient presently denies any suicidal ideation or depression. - cont psych meds, Remeron and Paxil as well. 5. Bilateral feet pain: Patient does have signs of possible toenail infection. Appreciate podiatry consult - f/u podiatry rec's regarding tx, including antifungal cream Dispo: Case management working on finding snf placement for patient. 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 Continue physical therapy, follow-up neurosurgery recommendations, pain control as well. Problems: Subjective 24 Hr Interval Summary Free Text/Dictation Patient not able to work with physical therapy this morning. Per nursing staff however he is taking his medicines. No acute events overnight. Exam/Review of Systems Vital Signs Vitals Vital Signs Date Time Temp Pulse Resp B/P Pulse Ox O2 Delivery O2 Flow Rate FiO2 06/13/17 08:06 97.5 91 18 175/80 100 06/10/17 02:00 Room Air Intake and Output 06/12/17 06/12/17 06/13/17 15:00 23:00 07:00 Intake Total 800 ml 650 ml Output Total 600 ml 400 ml Balance 200 ml 250 ml Exam nad, laying in bed, not wearing c collar when in bed no mrg lungs clear abd soft no rashes Results Result Diagram: 06/12/17 0186 Medications Medications Current Medications Acetaminophen (Tylenol Tab) 650 mg Q6H PRN PO PAIN LEVEL 1-3 OR FEVER; Start at 21:00 Gabapentin (Neurontin) 300 mg TID PO Last administered on 06/13/17 08:24; Admin Dose 300 MG; Start 05/16/17 at 21:00 Miscellaneous Information 1 ea NOTE XX ; Start 05/17/17 at 17:30 Glucose (Glutose) 15 gm Q15M PRN PO DECREASED GLUCOSE; Start 05/17/17 at 17:30 Glucose (Glutose) 22.5 gm Q15M PRN PO DECREASED GLUCOSE; Start 05/17/17 at 17:30 Dextrose (D50w Syringe) 25 ml Q15M PRN IV DECREASED GLUCOSE; Start 05/17/17 at 17:30 Dextrose (D50w Syringe) 50 ml Q15M PRN IV DECREASED GLUCOSE; Start 05/17/17 at 17:30 Glucagon (Glucagen) 1 mg Q15M PRN IM DECREASED GLUCOSE; Start 05/17/17 at 17:30 Glucose (Glutose) 15 gm Q15M PRN BUCCAL DECREASED GLUCOSE; Start 05/17/17 at 17: 30 Hydroxyzine HCl (Atarax) 25 mg Q6H PRN PO ITCHING Last administered on 06:53; Admin Dose 25 MG; Start 05/19/17 at 03:30 Docusate Sodium (Colace) 100 mg BID PO Last administered on 06/13/17 08:24; Admin Dose 100 MG; Start 05/19/17 at 21:00 Senna (Senokot) 1 tab BID PO Last administered on 06/12/17 20:32; Admin Dose 1 TAB; Start 05/19/17 at 21:00 Polyethylene Glycol (Miralax) 17 gm DAILY PO Last administered on 06/08/17 09: 10; Admin Dose 17 GM; Start 05/21/17 at 09:00 Neomycin/ Polymyxin/ Bacitracin (Neosporin Topical Oint) 1 applic AM TOP Last administered on 06/13/17 08:29; Admin Dose 1 APPLIC; Start 05/23/17 at 09:00 Lactulose (Enulose) 20 gm DAILY PRN PO CONSTIPATION Last administered on 20:09; Admin Dose 20 GM; Start 05/22/17 at 18:30 Bisacodyl (Dulcolax Supp) 10 mg DAILY PRN [place] CONSTIPATION Last administered on 06/03/17 10:50; Admin Dose 10 MG; Start 05/22/17 at 18:30 Ondansetron HCl (Zofran Inj) 4 mg Q6H PRN IV NAUSEA AND/OR VOMITING Last administered on 06/04/17 21:14; Admin Dose 4 MG; Start 05/27/17 at 00:30 Sodium Biphosphate/ Sodium Phosphate (Fleet Enema) 133 ml DAILY PRN [place] CONSTIPATION Last administered on 05/29/17 21:14; Admin Dose 133 ML; Start at 20:30 Paroxetine HCl (Paxil) 10 mg DAILY PO Last administered on 06/13/17 08:25; Admin Dose 10 MG; Start 05/31/17 at 12:30 Mupirocin (Bactroban) 1 applic BID TOP Last administered on 06/13/17 08:28; Admin Dose 1 APPLIC; Start 05/31/17 at 13:00 Miscellaneous Information (Pending Santyl Order For Wound Care) This patient tran... PRN PRN XX WOUND CARE; Start 06/01/17 at 15:00 Collagenase (Santyl) 1 applic DAILY TOP Last administered on 06/13/17 08:29; Admin Dose 1 APPLIC; Start 06/01/17 at 15:00 Mirtazapine (Remeron) 15 mg HS PO Last administered on 06/12/17 20:32; Admin Dose 15 MG; Start 06/03/17 at 21:00 Clotrimazole (Lotrimin Cr) 1 applic BID TOP Last administered on 06/13/17 08:29 ; Admin Dose 1 APPLIC; Start 06/04/17 at 21:00 Lidocaine (Lidocaine 5% Oint) 1 applic TID PRN TOP PAIN; Start 06/04/17 at 20: 00 Sodium Hypochlorite (Dakin'S (1/4 Strength)) 1 applic DAILY IRR Last administered on 06/13/17 08:28; Admin Dose 1 APPLIC; Start 06/07/17 at 09:00 Hydromorphone HCl (Dilaudid) 2 mg Q4H PRN PO PAIN Last administered on 17:59; Admin Dose 2 MG; Start 06/07/17 at 10:00 Methadone HCl (Methadone Liq) 7 mg BID PO Last administered on 06/13/17 08:24; Admin Dose 7 MG; Start 06/08/17 at 21:00 INNA ASCENCIO Jun 13, 2017 12:23
[2017-06-13] MEDS: HYDROmorphONE 2 MG TAB PO PRN ×2 (15:14→21:14)
--- NOTE | 2017-06-13 15:58 | PN ---
Date/Time of Note Date/Time of Note DATE: 06/13/17 TIME: 15:53 Assessment/Plan Lines/Catheters IV Catheter Type (from Nrsg): Saline Lock Munoz in Place (from Nrsg): No Assessment/Plan Chief Complaint/Hosp Course 1. Left buttock wound s/p excisional debridement 06/06; scant drainage, healing well -debridement prn -frequent turning and offloading -specialty mattress -local care - optimize nutrition -vitamin C and short term zinc 2. Back pain: s/p laminectomy with fusion; pain improved; placement pending -up with PT 3. Prediabetes: hgba1c 6.1 -blood sugar optimization 4. Depression with suicidal ideation:no verbalization of SI: resolved 5. Microcytic anemia: chronic disease vs.iron deficiency vs. acute bleed vs. other; no acute bleed noted; h/h stable 6. Hyponatremia: normalized 7 Hypertension: labile -medical management Patient seen and examined in collaboration with Dr. Luís Mendoza Problems: Subjective 24 Hr Interval Summary Feels well. Min drainage coming from left buttock wound. Min discomfort from area. Working with PT. No fevers, chills, tran, dizziness, sz, n/v/d. + bowel function. Placement pending. Exam/Review of Systems Vital Signs Vitals Vital Signs Date Time Temp Pulse Resp B/P Pulse Ox O2 Delivery O2 Flow Rate FiO2 06/13/17 08:06 97.5 91 18 175/80 100 06/10/17 02:00 Room Air Intake and Output 06/12/17 06/12/17 06/13/17 15:00 23:00 07:00 Intake Total 800 ml 650 ml Output Total 600 ml 400 ml Balance 200 ml 250 ml Exam Free Text/Dictation Constitutional: alert, oriented Psych: nl mood/affect, pleasant Head: atraumatic, normocephalic Eyes: nl lids, nl sclera ENMT: mucosa pink and moist, nl nasal mucosa & septum Neck: other s/p laminectomy/fusion Respiratory: clear to auscultation, normal air movement Cardiovascular: nl pulses, regular rate and rhythm Gastrointestinal: nondistended, non-tender, soft Musculoskeletal: nl extremities to inspection, nl gait and stance Extremities: normal pulses Neurological: nl mental status, nl speech, nl strength Skin: other (left buttock wound with scant drainage; woundbed pink with min slough) Results Result Diagram: 06/12/17 0435 GILA WALKER NP Jun 13, 2017 15:58
[2017-06-13 20:19] VITALS: BP 131/62; RESP 20
[2017-06-13] MEDS: MIRTAZAPINE 15 MG TAB PO SCH ×2 (21:00→21:13)
[2017-06-14] MEDS: HYDROmorphONE 2 MG TAB PO PRN ×4 (01:10→21:02)
[2017-06-14 02:25] VITALS: BP 135/60; RESP 18
[2017-06-14] MEDS: MUPIROCIN 2% 22 GM OINT TOP SCH ×2 (09:00→21:04)
[2017-06-14] MEDS: metFORMIN 500 MG TAB PO SCH ×2 (09:00→16:48)
[2017-06-14] MEDS: DOCUSATE SODIUM 100 MG CAP PO SCH ×2 (09:00→21:02)
[2017-06-14] MEDS: POLYETHYLENE GLYCOL 17 GM PACKET PO SCH (09:00)
[2017-06-14] MEDS: SENNA TAB PO SCH ×2 (09:00→21:00)
[2017-06-14] MEDS: SODIUM HYPOCHLORITE 0.125% 473 ML BTL IRR SCH (09:01)
[2017-06-14] MEDS: GABAPENTIN 300 MG CAP PO SCH ×3 (09:01→21:02)
[2017-06-14] MEDS: METHADONE (1 MG/ML 5 ML PO UD SYG) PO SCH ×2 (09:01→21:15)
[2017-06-14] MEDS: PAROXETINE 10 MG TAB PO SCH (09:02)
[2017-06-14] MEDS: CLOTRIMAZOLE 1% 30 GM CR TOP SCH ×2 (09:02→21:04)
[2017-06-14] MEDS: NEOMYC/POLYMYX/BACIT 30 GM OINT TOP SCH (09:02)
[2017-06-14] MEDS: COLLAGENASE 30 GM TUBE TOP SCH (09:02)
[2017-06-14 09:25] VITALS: BP 151/73; RESP 20
--- NOTE | 2017-06-14 12:22 | PN ---
Date/Time of Note Date/Time of Note DATE: 06/14/17 TIME: 12:21 Assessment/Plan VTE Prophylaxis VTE Prophylaxis Intervention: SCD's Lines/Catheters IV [facility] Saline Lock Urinary Cath still in place: No Assessment/Plan Chief Complaint/Hosp Course Assessment/Plan: 66 yo M with spinal stenosis admitted for acute on chronic back pain and UE weakness 2/2 cervical stenosis. Pt is sp laminectomy and fusion 7.14 (POD # 19) 1. Acute on chronic back pain with upper extremity weakness secondary to cervical cord stenosis now sp neurosurgical intervention POD # 19. HV drained removed last week as well. - neurosurgery still following, continue physical therapy, follow-up their recommendations -Patient apparently did not qualify for acute rehab, awaiting possible snf facility placement now, will follow up with community case manager on this -For now continue p.o. Dilaudid as needed and methadone twice daily. 2 Prediabetes: Previous hemoglobin A1c 6.1. -Continue metformin 3. DVT and GI prophylaxis: SCD's, Protonix. 4. Depression with SI: pt with questionable suicidal ideation earlier this admission, was evaluated by telepsych then, and again on 05/30 telemetry psych evaluation performed-these issues have resolved now. Patient presently denies any suicidal ideation or depression. - cont psych meds, Remeron and Paxil as well. 5. Bilateral feet pain: Patient does have signs of possible toenail infection. Appreciate podiatry consult - f/u podiatry rec's regarding tx, including antifungal cream Dispo: Case management working on finding snf placement for patient. 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 Continue physical therapy, follow-up neurosurgery recommendations, pain control as well. Problems: Subjective 24 Hr Interval Summary Free Text/Dictation No acute events overnight. Still waiting on [facility] placement. Exam/Review of Systems Vital Signs Vitals Vital Signs Date Time Temp Pulse Resp B/P Pulse Ox O2 Delivery O2 Flow Rate FiO2 06/14/17 09:25 98.2 86 20 151/73 97 Intake and Output 06/13/17 06/13/17 06/14/17 15:00 23:00 07:00 Intake Total 600 ml 1200 ml Output Total 400 ml 200 ml Balance 200 ml 1000 ml Exam nad, laying in bed, not wearing c collar when in bed no mrg lungs clear abd soft no rashes Results Result Diagram: 06/12/17 8335 Medications Medications Current Medications Acetaminophen (Tylenol Tab) 650 mg Q6H PRN PO PAIN LEVEL 1-3 OR FEVER; Start at 21:00 Gabapentin (Neurontin) 300 mg TID PO Last administered on 06/14/17 09:01; Admin Dose 300 MG; Start 05/16/17 at 21:00 Miscellaneous Information 1 ea NOTE XX ; Start 05/17/17 at 17:30 Glucose (Glutose) 15 gm Q15M PRN PO DECREASED GLUCOSE; Start 05/17/17 at 17:30 Glucose (Glutose) 22.5 gm Q15M PRN PO DECREASED GLUCOSE; Start 05/17/17 at 17:30 Dextrose (D50w Syringe) 25 ml Q15M PRN IV DECREASED GLUCOSE; Start 05/17/17 at 17:30 Dextrose (D50w Syringe) 50 ml Q15M PRN IV DECREASED GLUCOSE; Start 05/17/17 at 17:30 Glucagon (Glucagen) 1 mg Q15M PRN IM DECREASED GLUCOSE; Start 05/17/17 at 17:30 Glucose (Glutose) 15 gm Q15M PRN BUCCAL DECREASED GLUCOSE; Start 05/17/17 at 17: 30 Hydroxyzine HCl (Atarax) 25 mg Q6H PRN PO ITCHING Last administered on 06:53; Admin Dose 25 MG; Start 05/19/17 at 03:30 Docusate Sodium (Colace) 100 mg BID PO Last administered on 06/13/17 08:24; Admin Dose 100 MG; Start 05/19/17 at 21:00 Senna (Senokot) 1 tab BID PO Last administered on 06/12/17 20:32; Admin Dose 1 TAB; Start 05/19/17 at 21:00 Polyethylene Glycol (Miralax) 17 gm DAILY PO Last administered on 06/08/17 09: 10; Admin Dose 17 GM; Start 05/21/17 at 09:00 Neomycin/ Polymyxin/ Bacitracin (Neosporin Topical Oint) 1 applic AM TOP Last administered on 06/14/17 09:02; Admin Dose 1 APPLIC; Start 05/23/17 at 09:00 Lactulose (Enulose) 20 gm DAILY PRN PO CONSTIPATION Last administered on 20:09; Admin Dose 20 GM; Start 05/22/17 at 18:30 Bisacodyl (Dulcolax Supp) 10 mg DAILY PRN [place] CONSTIPATION Last administered on 06/03/17 10:50; Admin Dose 10 MG; Start 05/22/17 at 18:30 Ondansetron HCl (Zofran Inj) 4 mg Q6H PRN IV NAUSEA AND/OR VOMITING Last administered on 06/04/17 21:14; Admin Dose 4 MG; Start 05/27/17 at 00:30 Sodium Biphosphate/ Sodium Phosphate (Fleet Enema) 133 ml DAILY PRN [place] CONSTIPATION Last administered on 05/29/17 21:14; Admin Dose 133 ML; Start at 20:30 Paroxetine HCl (Paxil) 10 mg DAILY PO Last administered on 06/14/17 09:02; Admin Dose 10 MG; Start 05/31/17 at 12:30 Mupirocin (Bactroban) 1 applic BID TOP Last administered on 06/13/17 08:28; Admin Dose 1 APPLIC; Start 05/31/17 at 13:00 Miscellaneous Information (Pending Santyl Order For Wound Care) This patient tran... PRN PRN XX WOUND CARE; Start 06/01/17 at 15:00 Collagenase (Santyl) 1 applic DAILY TOP Last administered on 06/14/17 09:02; Admin Dose 1 APPLIC; Start 06/01/17 at 15:00 Mirtazapine (Remeron) 15 mg HS PO Last administered on 06/12/17 20:32; Admin Dose 15 MG; Start 06/03/17 at 21:00 Clotrimazole (Lotrimin Cr) 1 applic BID TOP Last administered on 06/14/17 09:02 ; Admin Dose 1 APPLIC; Start 06/04/17 at 21:00 Lidocaine (Lidocaine 5% Oint) 1 applic TID PRN TOP PAIN; Start 06/04/17 at 20: 00 Sodium Hypochlorite (Dakin'S (1/4 Strength)) 1 applic DAILY IRR Last administered on 06/14/17 09:01; Admin Dose 1 APPLIC; Start 06/07/17 at 09:00 Hydromorphone HCl (Dilaudid) 2 mg Q4H PRN PO PAIN Last administered on 05:57; Admin Dose 2 MG; Start 06/07/17 at 10:00 Methadone HCl (Methadone Liq) 7 mg BID PO Last administered on 06/14/17 09:01; Admin Dose 7 MG; Start 06/08/17 at 21:00 INNA ASCENCIO Jun 14, 2017 12:22
[2017-06-14 19:56] VITALS: BP 149/75; RESP 20
[2017-06-14] MEDS: MIRTAZAPINE 15 MG TAB PO SCH (21:02)
--- NOTE | 2017-06-14 23:37 | PN ---
Date/Time of Note Date/Time of Note DATE: 06/14/17 TIME: 23:31 Assessment/Plan Lines/Catheters IV Catheter Type (from Nrs): Saline Lock Munoz in Place (from Nrs): No Assessment/Plan Chief Complaint/Hosp Course 1. Left buttock wound s/p excisional debridement 06/06; scant drainage, healing well -debridement prn -frequent turning and offloading -specialty mattress -local care - optimize nutrition -vitamin C and short term zinc 2. Back pain: s/p laminectomy with fusion; pain improved; placement pending -up with PT 3. Prediabetes: hgba1c 6.1 -blood sugar optimization 4. Depression with suicidal ideation:no verbalization of SI: resolved 5. Microcytic anemia: chronic disease vs.iron deficiency vs. acute bleed vs. other; no acute bleed noted; h/h stable 6. Hypertension: labile -medical management Patient seen and examined in collaboration with Dr. Luís Mendoza Problems: Subjective 24 Hr Interval Summary Pending placement. Feeling well. min discomfort. Up with PT.Scant drainage from wound. No c/o acute pain, sob, cough, fevers, chills. Exam/Review of Systems Vital Signs Vitals Vital Signs Date Time Temp Pulse Resp B/P Pulse Ox O2 Delivery O2 Flow Rate FiO2 06/14/17 19:56 98.3 75 20 149/75 98 Intake and Output 06/13/17 06/13/17 06/14/17 15:00 23:00 07:00 Intake Total 600 ml 1200 ml Output Total 400 ml 200 ml Balance 200 ml 1000 ml Exam Free Text/Dictation Constitutional: alert, oriented Psych: nl mood/affect, Head: atraumatic, normocephalic Eyes: nl lids, nl sclera ENMT: mucosa pink and moist, nl nasal mucosa & septum Neck: other s/p laminectomy/fusion; intermittenly off c-colarr Respiratory: clear to auscultation, normal air movement Cardiovascular: nl pulses, regular rate and rhythm Gastrointestinal: nondistended, non-tender, soft Musculoskeletal: nl extremities to inspection, nl gait and stance Extremities: normal pulses Neurological: nl mental status, nl speech, nl strength Skin: other (left buttock wound with scant drainage; woundbed pink) Results Result Diagram: 06/12/17 0435 GILA WALKER NP Jun 14, 2017 23:37
[2017-06-15 02:40] VITALS: BP 145/76; RESP 17
[2017-06-15] MEDS: HYDROmorphONE 2 MG TAB PO PRN ×4 (03:19→22:00)
[2017-06-15] MEDS: SODIUM HYPOCHLORITE 0.125% 473 ML BTL IRR SCH (06:39)
[2017-06-15 08:50] VITALS: BP 130/60; RESP 20
[2017-06-15] MEDS: POLYETHYLENE GLYCOL 17 GM PACKET PO SCH (09:00)
[2017-06-15] MEDS: SENNA TAB PO SCH ×2 (09:00→21:17)
--- NOTE | 2017-06-15 09:01 | PN ---
Date/Time of Note Date/Time of Note DATE: 06/15/17 TIME: 09:00 Assessment/Plan Lines/Catheters IV Catheter Type (from Nrsg): Saline Lock Munoz in Place (from Nrsg): No Assessment/Plan Chief Complaint/Hosp Course 1. Left buttock wound s/p excisional debridement 06/06; scant drainage, healing well -debridement prn -frequent turning and offloading -specialty mattress -local care - optimize nutrition -vitamin C and short term zinc 2. Back pain: s/p laminectomy with fusion; pain improved; placement pending -up with PT 3. Prediabetes: hgba1c 6.1 -blood sugar optimization 4. Depression with suicidal ideation:no verbalization of SI: resolved 5. Microcytic anemia: chronic disease vs.iron deficiency vs. acute bleed vs. other; no acute bleed noted; h/h stable 6. Hypertension: labile -medical management Patient seen and examined in collaboration with Dr. Luís Mendoza Problems: Subjective 24 Hr Interval Summary Feeling well. No c/o pain/discomfort from wound. No drainage from wound. Up with PT. No c/o sob, cough, fevers, chills, cp. Exam/Review of Systems Vital Signs Vitals Vital Signs Date Time Temp Pulse Resp B/P Pulse Ox O2 Delivery O2 Flow Rate FiO2 06/15/17 02:40 98.1 73 17 145/76 98 Intake and Output 06/14/17 06/14/17 06/15/17 15:00 23:00 07:00 Intake Total 1000 ml 1100 ml Balance 1000 ml 1100 ml Exam Free Text/Dictation Constitutional: alert, oriented Psych: nl mood/affect, Head: atraumatic, normocephalic Eyes: nl lids, nl sclera ENMT: mucosa pink and moist, nl nasal mucosa & septum Neck: other s/p laminectomy/fusion Respiratory: clear to auscultation, normal air movement Cardiovascular: nl pulses, regular rate and rhythm Gastrointestinal: nondistended, non-tender, soft Musculoskeletal: nl extremities to inspection Extremities: normal pulses Neurological: nl mental status, nl speech, nl strength Skin: other (left buttock wound with scant drainage; wound bed pink, no periwound erythema) Results Result Diagram: 06/12/17 0435 GILA WALKER NP Jun 15, 2017 09:01
[2017-06-15] MEDS: GABAPENTIN 300 MG CAP PO SCH ×3 (09:21→21:17)
[2017-06-15] MEDS: metFORMIN 500 MG TAB PO SCH ×2 (09:21→17:52)
[2017-06-15] MEDS: DOCUSATE SODIUM 100 MG CAP PO SCH ×2 (09:21→21:17)
[2017-06-15] MEDS: PAROXETINE 10 MG TAB PO SCH (09:21)
[2017-06-15] MEDS: METHADONE (1 MG/ML 5 ML PO UD SYG) PO SCH ×2 (09:22→21:17)
[2017-06-15] MEDS: LIDOCAINE 5% 35 GM OINT TOP PRN (09:22)
[2017-06-15] MEDS: CLOTRIMAZOLE 1% 30 GM CR TOP SCH ×2 (09:23→21:17)
[2017-06-15] MEDS: MUPIROCIN 2% 22 GM OINT TOP SCH ×2 (09:23→21:17)
[2017-06-15] MEDS: COLLAGENASE 30 GM TUBE TOP SCH (09:23)
[2017-06-15] MEDS: NEOMYC/POLYMYX/BACIT 30 GM OINT TOP SCH (09:23)
--- NOTE | 2017-06-15 12:36 | PN ---
Date/Time of Note Date/Time of Note DATE: 06/15/17 TIME: 12:35 Assessment/Plan VTE Prophylaxis VTE Prophylaxis Intervention: SCD's Lines/Catheters IV Catheter Type (from Nrs): Saline Lock Urinary Cath still in place: No Assessment/Plan Chief Complaint/Hosp Course Assessment/Plan: 66 yo M with spinal stenosis admitted for acute on chronic back pain and UE weakness 2/2 cervical stenosis. Pt is sp laminectomy and fusion 7.14 (POD # 20) 1. Acute on chronic back pain with upper extremity weakness secondary to cervical cord stenosis now sp neurosurgical intervention POD # 20. HV drained removed last week as well. - neurosurgery still following, continue physical therapy, follow-up their recommendations -Patient apparently did not qualify for acute rehab, awaiting possible prison facility placement now, will follow up with case fitter on this -For now continue p.o. Dilaudid as needed and methadone twice daily. 2 Prediabetes: Previous hemoglobin A1c 6.1. -Continue metformin 3. DVT and GI prophylaxis: SCD's, Protonix. 4. Depression with SI: pt with questionable suicidal ideation earlier this admission, was evaluated by telepsych then, and again on 05/30 telemetry psych evaluation performed-these issues have resolved now. Patient presently denies any suicidal ideation or depression. - cont psych meds, Remeron and Paxil as well. 5. Bilateral feet pain: Patient does have signs of possible toenail infection. Appreciate podiatry consult - f/u podiatry rec's regarding tx, including antifungal cream Dispo: Case management working on finding snf placement for patient. 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 Continue physical therapy, follow-up neurosurgery recommendations, pain control as well. Problems: Subjective 24 Hr Interval Summary Free Text/Dictation No acute events overnight. Exam/Review of Systems Vital Signs Vitals Vital Signs Date Time Temp Pulse Resp B/P Pulse Ox O2 Delivery O2 Flow Rate FiO2 06/15/17 08:50 98.2 90 20 130/60 98 Intake and Output 06/14/17 06/14/17 06/15/17 14:59 22:59 06:59 Intake Total 1000 ml 1100 ml Balance 1000 ml 1100 ml Exam nad, laying in bed, not wearing c collar when in bed no mrg lungs clear abd soft no rashes Results Result Diagram: 06/12/17 6795 Medications Medications Current Medications Acetaminophen (Tylenol Tab) 650 mg Q6H PRN PO PAIN LEVEL 1-3 OR FEVER; Start at 21:00 Gabapentin (Neurontin) 300 mg TID PO Last administered on 06/15/17 09:21; Admin Dose 300 MG; Start 05/16/17 at 21:00 Miscellaneous Information 1 ea NOTE XX ; Start 05/17/17 at 17:30 Glucose (Glutose) 15 gm Q15M PRN PO DECREASED GLUCOSE; Start 05/17/17 at 17:30 Glucose (Glutose) 22.5 gm Q15M PRN PO DECREASED GLUCOSE; Start 05/17/17 at 17:30 Dextrose (D50w Syringe) 25 ml Q15M PRN IV DECREASED GLUCOSE; Start 05/17/17 at 17:30 Dextrose (D50w Syringe) 50 ml Q15M PRN IV DECREASED GLUCOSE; Start 05/17/17 at 17:30 Glucagon (Glucagen) 1 mg Q15M PRN IM DECREASED GLUCOSE; Start 05/17/17 at 17:30 Glucose (Glutose) 15 gm Q15M PRN BUCCAL DECREASED GLUCOSE; Start 05/17/17 at 17: 30 Hydroxyzine HCl (Atarax) 25 mg Q6H PRN PO ITCHING Last administered on 06:53; Admin Dose 25 MG; Start 05/19/17 at 03:30 Docusate Sodium (Colace) 100 mg BID PO Last administered on 06/15/17 09:21; Admin Dose 100 MG; Start 05/19/17 at 21:00 Senna (Senokot) 1 tab BID PO Last administered on 06/12/17 20:32; Admin Dose 1 TAB; Start 05/19/17 at 21:00 Polyethylene Glycol (Miralax) 17 gm DAILY PO Last administered on 06/08/17 09: 10; Admin Dose 17 GM; Start 05/21/17 at 09:00 Neomycin/ Polymyxin/ Bacitracin (Neosporin Topical Oint) 1 applic AM TOP Last administered on 06/15/17 09:23; Admin Dose 1 APPLIC; Start 05/23/17 at 09:00 Lactulose (Enulose) 20 gm DAILY PRN PO CONSTIPATION Last administered on 20:09; Admin Dose 20 GM; Start 05/22/17 at 18:30 Bisacodyl (Dulcolax Supp) 10 mg DAILY PRN [place] CONSTIPATION Last administered on 06/03/17 10:50; Admin Dose 10 MG; Start 05/22/17 at 18:30 Ondansetron HCl (Zofran Inj) 4 mg Q6H PRN IV NAUSEA AND/OR VOMITING Last administered on 06/04/17 21:14; Admin Dose 4 MG; Start 05/27/17 at 00:30 Sodium Biphosphate/ Sodium Phosphate (Fleet Enema) 133 ml DAILY PRN [place] CONSTIPATION Last administered on 05/29/17 21:14; Admin Dose 133 ML; Start at 20:30 Paroxetine HCl (Paxil) 10 mg DAILY PO Last administered on 06/15/17 09:21; Admin Dose 10 MG; Start 05/31/17 at 12:30 Mupirocin (Bactroban) 1 applic BID TOP Last administered on 06/15/17 09:23; Admin Dose 1 APPLIC; Start 05/31/17 at 13:00 Miscellaneous Information (Pending Santyl Order For Wound Care) This patient tran... PRN PRN XX WOUND CARE; Start 06/01/17 at 15:00 Collagenase (Santyl) 1 applic DAILY TOP Last administered on 06/15/17 09:23; Admin Dose 1 APPLIC; Start 06/01/17 at 15:00 Mirtazapine (Remeron) 15 mg HS PO Last administered on 06/14/17 21:02; Admin Dose 15 MG; Start 06/03/17 at 21:00 Clotrimazole (Lotrimin Cr) 1 applic BID TOP Last administered on 06/15/17 09:23 ; Admin Dose 1 APPLIC; Start 06/04/17 at 21:00 Lidocaine (Lidocaine 5% Oint) 1 applic TID PRN TOP PAIN Last administered on 09:22; Admin Dose 1 APPLIC; Start 06/04/17 at 20:00 Sodium Hypochlorite (Dakin'S (1/4 Strength)) 1 applic DAILY IRR Last administered on 06/15/17 06:39; Admin Dose 1 APPLIC; Start 06/07/17 at 09:00 Hydromorphone HCl (Dilaudid) 2 mg Q4H PRN PO PAIN Last administered on 03:19; Admin Dose 2 MG; Start 06/07/17 at 10:00 Methadone HCl (Methadone Liq) 7 mg BID PO Last administered on 06/15/17 09:22; Admin Dose 7 MG; Start 06/08/17 at 21:00 INNA ASCENCIO Jun 15, 2017 12:36
[2017-06-15 15:55] VITALS: BP 132/62; RESP 18
[2017-06-15 20:00] VITALS: BP 136/66; RESP 20
[2017-06-15] MEDS: MIRTAZAPINE 15 MG TAB PO SCH (21:17)
[2017-06-16] MEDS: HYDROmorphONE 2 MG TAB PO PRN ×4 (01:57→19:46)
[2017-06-16 02:00] VITALS: BP 132/62; RESP 20
[2017-06-16 08:14] VITALS: BP 122/60; RESP 18
[2017-06-16] MEDS: POLYETHYLENE GLYCOL 17 GM PACKET PO SCH (09:00)
[2017-06-16] MEDS: SENNA TAB PO SCH ×2 (09:00→20:53)
[2017-06-16] MEDS: DOCUSATE SODIUM 100 MG CAP PO SCH ×2 (09:25→20:53)
[2017-06-16] MEDS: GABAPENTIN 300 MG CAP PO SCH ×3 (09:26→20:53)
[2017-06-16] MEDS: metFORMIN 500 MG TAB PO SCH ×2 (09:26→17:55)
[2017-06-16] MEDS: PAROXETINE 10 MG TAB PO SCH (09:26)
[2017-06-16] MEDS: LIDOCAINE 5% 35 GM OINT TOP PRN (09:27)
[2017-06-16] MEDS: METHADONE (1 MG/ML 5 ML PO UD SYG) PO SCH ×2 (09:27→20:53)
[2017-06-16] MEDS: CLOTRIMAZOLE 1% 30 GM CR TOP SCH ×2 (09:28→20:54)
[2017-06-16] MEDS: COLLAGENASE 30 GM TUBE TOP SCH (09:28)
[2017-06-16] MEDS: MUPIROCIN 2% 22 GM OINT TOP SCH ×2 (09:28→20:54)
[2017-06-16] MEDS: NEOMYC/POLYMYX/BACIT 30 GM OINT TOP SCH (09:28)
[2017-06-16] MEDS: SODIUM HYPOCHLORITE 0.125% 473 ML BTL IRR SCH (09:28)
--- NOTE | 2017-06-16 12:05 | PN ---
Date/Time of Note Date/Time of Note DATE: 06/16/17 TIME: 12:02 Assessment/Plan Lines/Catheters IV Catheter Type (from Nrsg): Saline Lock Munoz in Place (from Nrsg): No Assessment/Plan Chief Complaint/Hosp Course 1. Left buttock wound s/p excisional debridement 06/06; scant drainage, healing well -frequent turning and offloading -specialty mattress -local care -optimize nutrition -vitamin C and short term zinc 2. Back pain: s/p laminectomy with fusion; pain improved; placement pending -up with PT 3. Prediabetes: hgba1c 6.1 -blood sugar optimization 4. Depression with suicidal ideation:no verbalization of SI: resolved 5. Microcytic anemia: chronic disease vs.iron deficiency vs. acute bleed vs. other; no acute bleed noted; h/h stable 6. Hypertension: labile -medical management Patient seen and examined in collaboration with Dr. Luís Mendoza. Thank you. Problems: Subjective 24 Hr Interval Summary Awaiting placement. Up with PT. Improved pain. No drainage from wounds. No fevers, chills, n/v/d, dysuria. +bowel function. Exam/Review of Systems Vital Signs Vitals Vital Signs Date Time Temp Pulse Resp B/P Pulse Ox O2 Delivery O2 Flow Rate FiO2 06/16/17 08:14 98.4 87 18 122/60 97 Intake and Output 06/15/17 06/15/17 06/16/17 15:00 23:00 07:00 Intake Total 1320 ml 850 ml Balance 1320 ml 850 ml Exam Free Text/Dictation Constitutional: alert, oriented Psych: nl mood/affect, Head: atraumatic, normocephalic Eyes: nl lids, nl sclera ENMT: mucosa pink and moist, nl nasal mucosa & septum Neck: other s/p laminectomy/fusion Respiratory: clear to auscultation, normal air movement Cardiovascular: nl pulses, regular rate and rhythm Gastrointestinal: nondistended, non-tender, soft Musculoskeletal: nl extremities to inspection Extremities: normal pulses Neurological: nl mental status, nl speech, nl strength Skin: other (left buttock wound with scant drainage; wound bed pink, no periwound erythema, nonmalodorous) Results Result Diagram: 06/12/17 0435 GILA WALKER NP Jun 16, 2017 12:05
--- NOTE | 2017-06-16 12:27 | PN ---
Date/Time of Note Date/Time of Note DATE: 06/16/17 TIME: 12:27 Assessment/Plan VTE Prophylaxis VTE Prophylaxis Intervention: SCD's Lines/Catheters [facility] Saline Lock Urinary Cath still in place: No Assessment/Plan Chief Complaint/Hosp Course Assessment/Plan: 66 yo M with spinal stenosis admitted for acute on chronic back pain and UE weakness 2/2 cervical stenosis. Pt is sp laminectomy and fusion 7.14 (POD # 21) 1. Acute on chronic back pain with upper extremity weakness secondary to cervical cord stenosis now sp neurosurgical intervention POD # 21. HV drained removed last week as well. - neurosurgery still following, continue physical therapy, follow-up their recommendations -Patient apparently did not qualify for acute rehab, awaiting possible [facility] facility placement now, will follow up with manager case management on this -For now continue p.o. Dilaudid as needed and methadone twice daily. 2 Prediabetes: Previous hemoglobin A1c 6.1. -Continue metformin 3. DVT and GI prophylaxis: SCD's, Protonix. 4. Depression with SI: pt with questionable suicidal ideation earlier this admission, was evaluated by telepsych then, and again on 05/30 telemetry psych evaluation performed-these issues have resolved now. Patient presently denies any suicidal ideation or depression. - cont psych meds, Remeron and Paxil as well. 5. Bilateral feet pain: Patient does have signs of possible toenail infection. Appreciate podiatry consult - f/u podiatry rec's regarding tx, including antifungal cream Dispo: Case management working on finding snf placement for patient. 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 Continue physical therapy, follow-up neurosurgery recommendations, pain control as well. Problems: Subjective 24 Hr Interval Summary Free Text/Dictation No acute events overnight. Worked with physical therapy. Exam/Review of Systems Vital Signs Vitals Vital Signs Date Time Temp Pulse Resp B/P Pulse Ox O2 Delivery O2 Flow Rate FiO2 06/16/17 08:14 98.4 87 18 122/60 97 Intake and Output 06/15/17 06/15/17 06/16/17 15:00 23:00 07:00 Intake Total 1320 ml 850 ml Balance 1320 ml 850 ml Exam nad, laying in bed, not wearing c collar when in bed no mrg lungs clear abd soft no rashes Results Result Diagram: 06/12/17 0435 Medications Medications Current Medications Acetaminophen (Tylenol Tab) 650 mg Q6H PRN PO PAIN LEVEL 1-3 OR FEVER; Start at 21:00 Gabapentin (Neurontin) 300 mg TID PO Last administered on 06/16/17 09:26; Admin Dose 300 MG; Start 05/16/17 at 21:00 Miscellaneous Information 1 ea NOTE XX ; Start 05/17/17 at 17:30 Glucose (Glutose) 15 gm Q15M PRN PO DECREASED GLUCOSE; Start 05/17/17 at 17:30 Glucose (Glutose) 22.5 gm Q15M PRN PO DECREASED GLUCOSE; Start 05/17/17 at 17:30 Dextrose (D50w Syringe) 25 ml Q15M PRN IV DECREASED GLUCOSE; Start 05/17/17 at 17:30 Dextrose (D50w Syringe) 50 ml Q15M PRN IV DECREASED GLUCOSE; Start 05/17/17 at 17:30 Glucagon (Glucagen) 1 mg Q15M PRN IM DECREASED GLUCOSE; Start 05/17/17 at 17:30 Glucose (Glutose) 15 gm Q15M PRN BUCCAL DECREASED GLUCOSE; Start 05/17/17 at 17: 30 Hydroxyzine HCl (Atarax) 25 mg Q6H PRN PO ITCHING Last administered on 06:53; Admin Dose 25 MG; Start 05/19/17 at 03:30 Docusate Sodium (Colace) 100 mg BID PO Last administered on 06/16/17 09:25; Admin Dose 100 MG; Start 05/19/17 at 21:00 Senna (Senokot) 1 tab BID PO Last administered on 06/15/17 21:17; Admin Dose 1 TAB; Start 05/19/17 at 21:00 Polyethylene Glycol (Miralax) 17 gm DAILY PO Last administered on 06/08/17 09: 10; Admin Dose 17 GM; Start 05/21/17 at 09:00 Neomycin/ Polymyxin/ Bacitracin (Neosporin Topical Oint) 1 applic AM TOP Last administered on 06/16/17 09:28; Admin Dose 1 APPLIC; Start 05/23/17 at 09:00 Lactulose (Enulose) 20 gm DAILY PRN PO CONSTIPATION Last administered on 20:09; Admin Dose 20 GM; Start 05/22/17 at 18:30 Bisacodyl (Dulcolax Supp) 10 mg DAILY PRN [place] CONSTIPATION Last administered on 06/03/17 10:50; Admin Dose 10 MG; Start 05/22/17 at 18:30 Ondansetron HCl (Zofran Inj) 4 mg Q6H PRN IV NAUSEA AND/OR VOMITING Last administered on 06/04/17 21:14; Admin Dose 4 MG; Start 05/27/17 at 00:30 Sodium Biphosphate/ Sodium Phosphate (Fleet Enema) 133 ml DAILY PRN [place] CONSTIPATION Last administered on 05/29/17 21:14; Admin Dose 133 ML; Start at 20:30 Paroxetine HCl (Paxil) 10 mg DAILY PO Last administered on 06/16/17 09:26; Admin Dose 10 MG; Start 05/31/17 at 12:30 Mupirocin (Bactroban) 1 applic BID TOP Last administered on 06/16/17 09:28; Admin Dose 1 APPLIC; Start 05/31/17 at 13:00 Miscellaneous Information (Pending Santyl Order For Wound Care) This patient tran... PRN PRN XX WOUND CARE; Start 06/01/17 at 15:00 Collagenase (Santyl) 1 applic DAILY TOP Last administered on 06/16/17 09:28; Admin Dose 1 APPLIC; Start 06/01/17 at 15:00 Mirtazapine (Remeron) 15 mg HS PO Last administered on 06/15/17 21:17; Admin Dose 15 MG; Start 06/03/17 at 21:00 Clotrimazole (Lotrimin Cr) 1 applic BID TOP Last administered on 06/16/17 09:28 ; Admin Dose 1 APPLIC; Start 06/04/17 at 21:00 Lidocaine (Lidocaine 5% Oint) 1 applic TID PRN TOP PAIN Last administered on 09:27; Admin Dose 1 APPLIC; Start 06/04/17 at 20:00 Sodium Hypochlorite (Dakin'S (1/4 Strength)) 1 applic DAILY IRR Last administered on 06/16/17 09:28; Admin Dose 1 APPLIC; Start 06/07/17 at 09:00 Hydromorphone HCl (Dilaudid) 2 mg Q4H PRN PO PAIN Last administered on 06:03; Admin Dose 2 MG; Start 06/07/17 at 10:00 Methadone HCl (Methadone Liq) 7 mg BID PO Last administered on 06/16/17 09:27; Admin Dose 7 MG; Start 06/08/17 at 21:00 INNA ASCENCIO Jun 16, 2017 12:27
[2017-06-16 14:16] VITALS: BP 106/58; RESP 20
[2017-06-16 19:55] VITALS: BP 137/70; RESP 19
[2017-06-16] MEDS: MIRTAZAPINE 15 MG TAB PO SCH (20:53)
[2017-06-17] MEDS: HYDROmorphONE 2 MG TAB PO PRN ×5 (02:21→18:53)
[2017-06-17 03:14] VITALS: BP 139/72; RESP 18
[2017-06-17] MEDS: SENNA TAB PO SCH ×3 (08:39→21:08)
[2017-06-17] MEDS: metFORMIN 500 MG TAB PO SCH ×2 (08:39→18:31)
[2017-06-17] MEDS: DOCUSATE SODIUM 100 MG CAP PO SCH ×2 (08:39→21:08)
[2017-06-17] MEDS: GABAPENTIN 300 MG CAP PO SCH ×3 (08:39→21:08)
[2017-06-17] MEDS: METHADONE (1 MG/ML 5 ML PO UD SYG) PO SCH ×2 (08:40→21:08)
[2017-06-17] MEDS: PAROXETINE 10 MG TAB PO SCH (08:40)
[2017-06-17] MEDS: POLYETHYLENE GLYCOL 17 GM PACKET PO SCH (08:40)
[2017-06-17 08:42] VITALS: BP 131/63; RESP 18
[2017-06-17] MEDS: MUPIROCIN 2% 22 GM OINT TOP SCH ×2 (08:47→21:09)
[2017-06-17] MEDS: SODIUM HYPOCHLORITE 0.125% 473 ML BTL IRR SCH (08:47)
[2017-06-17] MEDS: CLOTRIMAZOLE 1% 30 GM CR TOP SCH ×2 (08:48→21:10)
[2017-06-17] MEDS: LIDOCAINE 5% 35 GM OINT TOP PRN (08:48)
[2017-06-17] MEDS: COLLAGENASE 30 GM TUBE TOP SCH (08:48)
[2017-06-17] MEDS: NEOMYC/POLYMYX/BACIT 30 GM OINT TOP SCH (08:54)
--- NOTE | 2017-06-17 13:45 | PN ---
Date/Time of Note Date/Time of Note DATE: 06/17/17 TIME: 13:44 Assessment/Plan VTE Prophylaxis VTE Prophylaxis Intervention: SCD's Lines/Catheters IV C[facility]ter Type (from [facility]): Saline Lock Urinary Cath still in place: No Assessment/Plan Chief Complaint/Hosp Course Assessment/Plan: 66 yo M with spinal stenosis admitted for acute on chronic back pain and UE weakness 2/2 cervical stenosis. Pt is sp laminectomy and fusion 7.14 (POD # 22) 1. Acute on chronic back pain with upper extremity weakness secondary to cervical cord stenosis now sp neurosurgical intervention POD # 22. HV drained removed last week as well. - neurosurgery still following, continue physical therapy, follow-up their recommendations -Patient apparently did not qualify for acute rehab, awaiting possible snf facility placement now, will follow up with [employer] on this -For now continue p.o. Dilaudid as needed and methadone twice daily. 2 Prediabetes: Previous hemoglobin A1c 6.1. -Continue metformin 3. DVT and GI prophylaxis: SCD's, Protonix. 4. Depression with SI: pt with questionable suicidal ideation earlier this admission, was evaluated by telepsych then, and again on 05/30 telemetry psych evaluation performed-these issues have resolved now. Patient presently denies any suicidal ideation or depression. - cont psych meds, Remeron and Paxil as well. 5. Bilateral feet pain: Patient does have signs of possible toenail infection. Appreciate podiatry consult - f/u podiatry rec's regarding tx, including antifungal cream Dispo: Case management working on finding snf placement for patient. 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 Continue physical therapy, follow-up neurosurgery recommendations, pain control as well. Problems: Subjective 24 Hr Interval Summary Free Text/Dictation No acute events overnight, worked with PT. Exam/Review of Systems Vital Signs Vitals Vital Signs Date Time Temp Pulse Resp B/P Pulse Ox O2 Delivery O2 Flow Rate FiO2 06/17/17 08:42 98.7 91 18 131/63 97 Intake and Output 06/16/17 06/16/17 06/17/17 15:00 23:00 07:00 Intake Total 640 ml 1280 ml Output Total 840 ml 650 ml Balance -200 ml 630 ml Exam nad, laying in bed, not wearing c collar when in bed no mrg lungs clear abd soft no rashes Results Results 24 hrs Laboratory Tests Test 06/17/17 08:45 Bedside Glucose 167 Medications Medications Current Medications Acetaminophen (Tylenol Tab) 650 mg Q6H PRN PO PAIN LEVEL 1-3 OR FEVER; Start at 21:00 Gabapentin (Neurontin) 300 mg TID PO Last administered on 06/17/17 08:39; Admin Dose 300 MG; Start 05/16/17 at 21:00 Miscellaneous Information 1 ea NOTE XX ; Start 05/17/17 at 17:30 Glucose (Glutose) 15 gm Q15M PRN PO DECREASED GLUCOSE; Start 05/17/17 at 17:30 Glucose (Glutose) 22.5 gm Q15M PRN PO DECREASED GLUCOSE; Start 05/17/17 at 17:30 Dextrose (D50w Syringe) 25 ml Q15M PRN IV DECREASED GLUCOSE; Start 05/17/17 at 17:30 Dextrose (D50w Syringe) 50 ml Q15M PRN IV DECREASED GLUCOSE; Start 05/17/17 at 17:30 Glucagon (Glucagen) 1 mg Q15M PRN IM DECREASED GLUCOSE; Start 05/17/17 at 17:30 Glucose (Glutose) 15 gm Q15M PRN BUCCAL DECREASED GLUCOSE; Start 05/17/17 at 17: 30 Hydroxyzine HCl (Atarax) 25 mg Q6H PRN PO ITCHING Last administered on 06:53; Admin Dose 25 MG; Start 05/19/17 at 03:30 Docusate Sodium (Colace) 100 mg BID PO Last administered on 06/17/17 08:39; Admin Dose 100 MG; Start 05/19/17 at 21:00 Senna (Senokot) 1 tab BID PO Last administered on 06/17/17 08:39; Admin Dose 1 TAB; Start 05/19/17 at 21:00 Polyethylene Glycol (Miralax) 17 gm DAILY PO Last administered on 06/08/17 09: 10; Admin Dose 17 GM; Start 05/21/17 at 09:00 Neomycin/ Polymyxin/ Bacitracin (Neosporin Topical Oint) 1 applic AM TOP Last administered on 06/17/17 08:54; Admin Dose 1 APPLIC; Start 05/23/17 at 09:00 Lactulose (Enulose) 20 gm DAILY PRN PO CONSTIPATION Last administered on 20:09; Admin Dose 20 GM; Start 05/22/17 at 18:30 Bisacodyl (Dulcolax Supp) 10 mg DAILY PRN [place] CONSTIPATION Last administered on 06/03/17 10:50; Admin Dose 10 MG; Start 05/22/17 at 18:30 Ondansetron HCl (Zofran Inj) 4 mg Q6H PRN IV NAUSEA AND/OR VOMITING Last administered on 06/04/17 21:14; Admin Dose 4 MG; Start 05/27/17 at 00:30 Sodium Biphosphate/ Sodium Phosphate (Fleet Enema) 133 ml DAILY PRN [place] CONSTIPATION Last administered on 05/29/17 21:14; Admin Dose 133 ML; Start at 20:30 Paroxetine HCl (Paxil) 10 mg DAILY PO Last administered on 06/17/17 08:40; Admin Dose 10 MG; Start 05/31/17 at 12:30 Mupirocin (Bactroban) 1 applic BID TOP Last administered on 06/17/17 08:47; Admin Dose 1 APPLIC; Start 05/31/17 at 13:00 Miscellaneous Information (Pending Santyl Order For Wound Care) This patient tran... PRN PRN XX WOUND CARE; Start 06/01/17 at 15:00 Collagenase (Santyl) 1 applic DAILY TOP Last administered on 06/17/17 08:48; Admin Dose 1 APPLIC; Start 06/01/17 at 15:00 Mirtazapine (Remeron) 15 mg HS PO Last administered on 06/16/17 20:53; Admin Dose 15 MG; Start 06/03/17 at 21:00 Clotrimazole (Lotrimin Cr) 1 applic BID TOP Last administered on 06/17/17 08:48 ; Admin Dose 1 APPLIC; Start 06/04/17 at 21:00 Lidocaine (Lidocaine 5% Oint) 1 applic TID PRN TOP PAIN Last administered on 08:48; Admin Dose 1 APPLIC; Start 06/04/17 at 20:00 Sodium Hypochlorite (Dakin'S (1/4 Strength)) 1 applic DAILY IRR Last administered on 06/17/17 08:47; Admin Dose 1 APPLIC; Start 06/07/17 at 09:00 Hydromorphone HCl (Dilaudid) 2 mg Q4H PRN PO PAIN Last administered on 10:23; Admin Dose 2 MG; Start 06/07/17 at 10:00 Methadone HCl (Methadone Liq) 7 mg BID PO Last administered on 06/17/17 08:40; Admin Dose 7 MG; Start 06/08/17 at 21:00 INNA ASCENCIO Jun 17, 2017 13:45
[2017-06-17 15:00] VITALS: BP 135/67; RESP 18
[2017-06-17 20:37] VITALS: BP 133/71; RESP 20
[2017-06-17] MEDS: MIRTAZAPINE 15 MG TAB PO SCH (21:08)
[2017-06-18] MEDS: HYDROmorphONE 2 MG TAB PO PRN ×4 (00:59→18:03)
[2017-06-18 04:23] VITALS: BP 143/67; RESP 20
[2017-06-18 07:59] VITALS: BP 135/64; RESP 20
[2017-06-18] MEDS: POLYETHYLENE GLYCOL 17 GM PACKET PO SCH (09:00)
[2017-06-18] MEDS: COLLAGENASE 30 GM TUBE TOP SCH (09:31)
[2017-06-18] MEDS: SODIUM HYPOCHLORITE 0.125% 473 ML BTL IRR SCH (09:31)
[2017-06-18] MEDS: MUPIROCIN 2% 22 GM OINT TOP SCH ×2 (09:32→20:37)
[2017-06-18] MEDS: CLOTRIMAZOLE 1% 30 GM CR TOP SCH ×2 (09:32→20:37)
[2017-06-18] MEDS: NEOMYC/POLYMYX/BACIT 30 GM OINT TOP SCH (09:32)
[2017-06-18] MEDS: metFORMIN 500 MG TAB PO SCH ×2 (09:33→18:03)
[2017-06-18] MEDS: DOCUSATE SODIUM 100 MG CAP PO SCH ×2 (09:34→20:36)
[2017-06-18] MEDS: SENNA TAB PO SCH ×2 (09:34→20:36)
[2017-06-18] MEDS: PAROXETINE 10 MG TAB PO SCH (09:35)
[2017-06-18] MEDS: GABAPENTIN 300 MG CAP PO SCH ×3 (09:35→20:36)
[2017-06-18] MEDS: METHADONE (1 MG/ML 5 ML PO UD SYG) PO SCH ×2 (09:36→20:36)
--- NOTE | 2017-06-18 10:58 | PN ---
Date/Time of Note Date/Time of Note DATE: 06/18/17 TIME: 10:56 Assessment/Plan VTE Prophylaxis VTE Prophylaxis Intervention: SCD's Lines/Catheters IV Catheter Type (from Nrs): Saline Lock Urinary Cath still in place: No Assessment/Plan Chief Complaint/Hosp Course Assessment/Plan: 66 yo M with spinal stenosis admitted for acute on chronic back pain and UE weakness 2/2 cervical stenosis. Pt is sp laminectomy and fusion 7.14 (POD # 23) 1. Acute on chronic back pain with upper extremity weakness secondary to cervical cord stenosis now sp neurosurgical intervention POD # 23. HV drained removed by NSS team days ago as well. - neurosurgery still following, continue physical therapy, follow-up their recommendations -Patient apparently did not qualify for acute rehab, awaiting possible custodial facility placement now, will follow up with manager rn case on this -For now continue p.o. Dilaudid as needed and methadone twice daily. 2 Prediabetes: Previous hemoglobin A1c 6.1. -Continue metformin 3. DVT and GI prophylaxis: SCD's, Protonix. 4. Depression with SI: pt with questionable suicidal ideation earlier this admission, was evaluated by telepsych then, and again on 05/30 telemetry psych evaluation performed-these issues have resolved now. Patient presently denies any suicidal ideation or depression. - cont psych meds, Remeron and Paxil as well. 5. Bilateral feet pain: Patient does have signs of possible toenail infection. Appreciate podiatry consult - f/u podiatry rec's regarding tx, including antifungal cream Dispo: Case management working on finding snf placement for patient. 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 Continue physical therapy, follow-up neurosurgery recommendations, pain control as well. Problems: Subjective 24 Hr Interval Summary Free Text/Dictation No acute events overnight, worked with PT yesterday. Exam/Review of Systems Vital Signs Vitals Vital Signs Date Time Temp Pulse Resp B/P Pulse Ox O2 Delivery O2 Flow Rate FiO2 06/18/17 07:59 98.0 111 20 135/64 94 Intake and Output 06/17/17 06/17/17 06/18/17 15:00 23:00 07:00 Intake Total 1164 ml 1200 ml Output Total 950 ml 200 ml Balance 214 ml 1000 ml Exam nad, laying in bed, not wearing c collar when in bed no mrg lungs clear abd soft no rashes Medications Medications Current Medications Acetaminophen (Tylenol Tab) 650 mg Q6H PRN PO PAIN LEVEL 1-3 OR FEVER; Start at 21:00 Gabapentin (Neurontin) 300 mg TID PO Last administered on 06/18/17 09:35; Admin Dose 300 MG; Start 05/16/17 at 21:00 Miscellaneous Information 1 ea NOTE XX ; Start 05/17/17 at 17:30 Glucose (Glutose) 15 gm Q15M PRN PO DECREASED GLUCOSE; Start 05/17/17 at 17:30 Glucose (Glutose) 22.5 gm Q15M PRN PO DECREASED GLUCOSE; Start 05/17/17 at 17:30 Dextrose (D50w Syringe) 25 ml Q15M PRN IV DECREASED GLUCOSE; Start 05/17/17 at 17:30 Dextrose (D50w Syringe) 50 ml Q15M PRN IV DECREASED GLUCOSE; Start 05/17/17 at 17:30 Glucagon (Glucagen) 1 mg Q15M PRN IM DECREASED GLUCOSE; Start 05/17/17 at 17:30 Glucose (Glutose) 15 gm Q15M PRN BUCCAL DECREASED GLUCOSE; Start 05/17/17 at 17: 30 Hydroxyzine HCl (Atarax) 25 mg Q6H PRN PO ITCHING Last administered on 06:53; Admin Dose 25 MG; Start 05/19/17 at 03:30 Docusate Sodium (Colace) 100 mg BID PO Last administered on 06/18/17 09:34; Admin Dose 100 MG; Start 05/19/17 at 21:00 Senna (Senokot) 1 tab BID PO Last administered on 06/18/17 09:34; Admin Dose 1 TAB; Start 05/19/17 at 21:00 Polyethylene Glycol (Miralax) 17 gm DAILY PO Last administered on 06/08/17 09: 10; Admin Dose 17 GM; Start 05/21/17 at 09:00 Neomycin/ Polymyxin/ Bacitracin (Neosporin Topical Oint) 1 applic AM TOP Last administered on 06/18/17 09:32; Admin Dose 1 APPLIC; Start 05/23/17 at 09:00 Lactulose (Enulose) 20 gm DAILY PRN PO CONSTIPATION Last administered on 20:09; Admin Dose 20 GM; Start 05/22/17 at 18:30 Bisacodyl (Dulcolax Supp) 10 mg DAILY PRN [place] CONSTIPATION Last administered on 06/03/17 10:50; Admin Dose 10 MG; Start 05/22/17 at 18:30 Ondansetron HCl (Zofran Inj) 4 mg Q6H PRN IV NAUSEA AND/OR VOMITING Last administered on 06/04/17 21:14; Admin Dose 4 MG; Start 05/27/17 at 00:30 Sodium Biphosphate/ Sodium Phosphate (Fleet Enema) 133 ml DAILY PRN [place] CONSTIPATION Last administered on 05/29/17 21:14; Admin Dose 133 ML; Start at 20:30 Paroxetine HCl (Paxil) 10 mg DAILY PO Last administered on 06/18/17 09:35; Admin Dose 10 MG; Start 05/31/17 at 12:30 Mupirocin (Bactroban) 1 applic BID TOP Last administered on 06/18/17 09:32; Admin Dose 1 APPLIC; Start 05/31/17 at 13:00 Miscellaneous Information (Pending Santyl Order For Wound Care) This patient tran... PRN PRN XX WOUND CARE; Start 06/01/17 at 15:00 Collagenase (Santyl) 1 applic DAILY TOP Last administered on 06/18/17 09:31; Admin Dose 1 APPLIC; Start 06/01/17 at 15:00 Mirtazapine (Remeron) 15 mg HS PO Last administered on 06/17/17 21:08; Admin Dose 15 MG; Start 06/03/17 at 21:00 Clotrimazole (Lotrimin Cr) 1 applic BID TOP Last administered on 06/18/17 09:32 ; Admin Dose 1 APPLIC; Start 06/04/17 at 21:00 Lidocaine (Lidocaine 5% Oint) 1 applic TID PRN TOP PAIN Last administered on 08:48; Admin Dose 1 APPLIC; Start 06/04/17 at 20:00 Sodium Hypochlorite (Dakin'S (1/4 Strength)) 1 applic DAILY IRR Last administered on 06/18/17 09:31; Admin Dose 1 APPLIC; Start 06/07/17 at 09:00 Hydromorphone HCl (Dilaudid) 2 mg Q4H PRN PO PAIN Last administered on 05:04; Admin Dose 2 MG; Start 06/07/17 at 10:00 Methadone HCl (Methadone Liq) 7 mg BID PO Last administered on 06/18/17 09:36; Admin Dose 7 MG; Start 06/08/17 at 21:00 INNA ASCENCIO Jun 18, 2017 10:58
--- NOTE | 2017-06-18 19:38 | PN ---
Date/Time of Note Date/Time of Note DATE: 06/18/17 TIME: 19:33 Assessment/Plan Lines/Catheters IV Catheter Type (from Nrsg): Saline Lock Munoz in Place (from Nrs): No Assessment/Plan Chief Complaint/Hosp Course 1. Left buttock wound s/p excisional debridement 06/06; scant drainage, continuing to heal well -frequent turning and offloading -specialty mattress -local care -optimize nutrition -vitamin C and short term zinc 2. Back pain: s/p laminectomy with fusion; pain improved; placement ongoing -up with PT 3. Prediabetes: hgba1c 6.1 4. Depression with suicidal ideation:no verbalization of SI: resolved 5. Microcytic anemia: chronic disease vs.iron deficiency vs. acute bleed vs. other; no acute bleed noted; h/h stable -further workup per medicine 6. Hypertension: -medical management Patient seen and examined in collaboration with Dr. Luís Mendoza. Thank you. Problems: Subjective 24 Hr Interval Summary Patient resting comfortably. Intermittent pain but able to participate with PT. Scant drainage from wound. No fevrs, chills, cp, palpitations, tran, dizziness, n/ v/d/dysuria. Pending placement. Exam/Review of Systems Vital Signs Vitals Vital Signs Date Time Temp Pulse Resp B/P Pulse Ox O2 Delivery O2 Flow Rate FiO2 06/18/17 07:59 98.0 111 20 135/64 94 Intake and Output 06/17/17 06/17/17 06/18/17 15:00 23:00 07:00 Intake Total 1164 ml 1200 ml Output Total 950 ml 200 ml Balance 214 ml 1000 ml Exam Free Text/Dictation Constitutional: alert, oriented Psych: nl mood/affect, Head: atraumatic, normocephalic Eyes: nl lids, nl sclera ENMT: mucosa pink and moist, nl nasal mucosa & septum Neck: other s/p laminectomy/fusion Respiratory: clear to auscultation, normal air movement Cardiovascular: nl pulses, regular rate and rhythm Gastrointestinal: nondistended, non-tender, soft Musculoskeletal: nl extremities to inspection Extremities: normal pulses Neurological: nl mental status, nl speech, nl strength Skin: other (left buttock wound with scant drainage; wound bed pink, no periwound erythema, nonmalodorous, healing well) SUMINISTRADO,GILA SENIOR SALES ASSOCIATE Jun 18, 2017 19:38
[2017-06-18] MEDS: MIRTAZAPINE 15 MG TAB PO SCH (20:36)
[2017-06-18 21:02] VITALS: BP 139/69; RESP 18
[2017-06-19] MEDS: HYDROmorphONE 2 MG TAB PO PRN ×5 (01:01→23:12)
[2017-06-19 02:46] VITALS: BP 136/67; RESP 18
[2017-06-19] MEDS: SENNA TAB PO SCH ×2 (08:22→20:23)
[2017-06-19] MEDS: metFORMIN 500 MG TAB PO SCH ×2 (08:22→18:17)
[2017-06-19] MEDS: GABAPENTIN 300 MG CAP PO SCH ×3 (08:22→20:23)
[2017-06-19] MEDS: DOCUSATE SODIUM 100 MG CAP PO SCH ×2 (08:22→20:23)
[2017-06-19] MEDS: MUPIROCIN 2% 22 GM OINT TOP SCH ×2 (08:22→20:29)
[2017-06-19] MEDS: PAROXETINE 10 MG TAB PO SCH (08:22)
[2017-06-19] MEDS: SODIUM HYPOCHLORITE 0.125% 473 ML BTL IRR SCH (08:23)
[2017-06-19] MEDS: COLLAGENASE 30 GM TUBE TOP SCH (08:23)
[2017-06-19] MEDS: POLYETHYLENE GLYCOL 17 GM PACKET PO SCH (08:25)
[2017-06-19] MEDS: NEOMYC/POLYMYX/BACIT 30 GM OINT TOP SCH (08:25)
[2017-06-19] MEDS: METHADONE (1 MG/ML 5 ML PO UD SYG) PO SCH ×2 (08:25→20:23)
[2017-06-19] MEDS: CLOTRIMAZOLE 1% 30 GM CR TOP SCH ×2 (08:26→20:30)
[2017-06-19 08:28] VITALS: BP 151/80; RESP 19
--- NOTE | 2017-06-19 11:14 | PN ---
Date/Time of Note Date/Time of Note DATE: 06/19/17 TIME: 11:11 Assessment/Plan Lines/Catheters IV Catheter Type (from Nrs): Saline Lock Munoz in Place (from Nrs): No Assessment/Plan Chief Complaint/Hosp Course 1. Left buttock wound s/p excisional debridement 06/06; scant drainage, continuing to heal well -frequent turning and offloading -specialty mattress -local care -optimize nutrition -vitamin C and short term zinc 2. Back pain: s/p laminectomy with fusion; pain improved; placement ongoing -up with PT 3. Prediabetes: hgba1c 6.1 4. Depression with suicidal ideation:no verbalization of SI: resolved 5. Microcytic anemia: chronic disease vs.iron deficiency vs. acute bleed vs. other; no acute bleed noted; h/h stable -further workup per medicine 6. Hypertension: labile -med management Patient seen and examined in collaboration with Dr. Luís Mendoza. Thank you. Problems: Subjective 24 Hr Interval Summary Placement pending. wound without drainage or discomfort. Continues to have intermittent pain but managed by pain medicine; still able to participate with therapy. No fevers, chills, n/v/d, cough, cp, palpitations. Exam/Review of Systems Vital Signs Vitals Vital Signs Date Time Temp Pulse Resp B/P Pulse Ox O2 Delivery O2 Flow Rate FiO2 06/19/17 08:28 97.5 56 19 151/80 96 Intake and Output 06/18/17 06/18/17 06/19/17 15:00 23:00 07:00 Intake Total 910 ml 800 ml Output Total 700 ml 1000 ml Balance 210 ml -200 ml Exam Free Text/Dictation Constitutional: alert, oriented Psych: nl mood/affect, Head: atraumatic, normocephalic Eyes: nl lids, nl sclera ENMT: mucosa pink and moist, nl nasal mucosa & septum Neck: other s/p laminectomy/fusion Respiratory: clear to auscultation, normal air movement Cardiovascular: nl pulses, regular rate and rhythm Gastrointestinal: nondistended, non-tender, soft Musculoskeletal: nl extremities to inspection Extremities: normal pulses Neurological: nl mental status, nl speech, nl strength Skin: other (left buttock wound with scant drainage; wound bed pink, no periwound erythema, nonmalodorous, healing well) SUMINISTRADO,GILA HAND CLOTH FOLDER Jun 19, 2017 11:13
[2017-06-19 14:07] VITALS: BP 138/63; RESP 12
--- NOTE | 2017-06-19 14:11 | PN ---
Date/Time of Note Date/Time of Note DATE: 06/19/17 TIME: 14:09 Assessment/Plan VTE Prophylaxis VTE Prophylaxis Intervention: SCD's Lines/Catheters IV Catheter Type (from Nrsg): Saline Lock Urinary Cath still in place: No Assessment/Plan Assessment/Plan 66 yo M with spinal stenosis admitted for acute on chronic back pain and UE weakness 2/2 cervical stenosis. sp laminectomy and fusion 7 1. Acute on chronic back pain with upper extremity weakness secondary to cervical cord stenosis now sp neurosurgical intervention 7.. HV drained removed by NSS team - neurosurgery still following, continue physical therapy, follow-up their recommendations -Patient apparently did not qualify for acute rehab, awaiting possible [facility] facility placement now, CM following -For now continue p.o. Dilaudid as needed and methadone twice daily. palliative following 2 Prediabetes: Previous hemoglobin A1c 6.1. -Continue metformin 3. Depression with SI: pt with questionable suicidal ideation earlier this admission, was evaluated by telepsych then, and again on 05/30. no indication for psych hospitalization on 05.30 eval. - cont psych meds 4. 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 sacral wound: sp gen surg debridement 06.06 6. DVT prophx, DM diet Dispo: Case management working on finding snf placement for patient. Subjective 24 Hr Interval Summary Free Text/Dictation Pt still doesn't think he is strong enough to care for himself at the sober living Exam/Review of Systems Vital Signs Vitals Vital Signs Date Time Temp Pulse Resp B/P Pulse Ox O2 Delivery O2 Flow Rate FiO2 06/19/17 14:07 98.5 91 12 138/63 91 Intake and Output 06/18/17 06/18/17 06/19/17 15:00 23:00 07:00 Intake Total 910 ml 800 ml Output Total 700 ml 1000 ml Balance 210 ml -200 ml Exam nad ,sitting up in bed not wearing c collar no mrg lungs clear abd soft no rashes Medications Medications Current Medications Acetaminophen (Tylenol Tab) 650 mg Q6H PRN PO PAIN LEVEL 1-3 OR FEVER; Start at 21:00 Gabapentin (Neurontin) 300 mg TID PO Last administered on 06/19/17t 13:24; Admin Dose 300 MG; Start 05/16/17 at 21:00 Miscellaneous Information 1 ea NOTE XX ; Start 05/17/17 at 17:30 Glucose (Glutose) 15 gm Q15M PRN PO DECREASED GLUCOSE; Start 05/17/17 at 17:30 Glucose (Glutose) 22.5 gm Q15M PRN PO DECREASED GLUCOSE; Start 05/17/17 at 17:30 Dextrose (D50w Syringe) 25 ml Q15M PRN IV DECREASED GLUCOSE; Start 05/17/17 at 17:30 Dextrose (D50w Syringe) 50 ml Q15M PRN IV DECREASED GLUCOSE; Start 05/17/17 at 17:30 Glucagon (Glucagen) 1 mg Q15M PRN IM DECREASED GLUCOSE; Start 05/17/17 at 17:30 Glucose (Glutose) 15 gm Q15M PRN BUCCAL DECREASED GLUCOSE; Start 05/17/17 at 17: 30 Hydroxyzine HCl (Atarax) 25 mg Q6H PRN PO ITCHING Last administered on 06:53; Admin Dose 25 MG; Start 05/19/17 at 03:30 Docusate Sodium (Colace) 100 mg BID PO Last administered on 06/19/17 08:22; Admin Dose 100 MG; Start 05/19/17 at 21:00 Senna (Senokot) 1 tab BID PO Last administered on 06/19/17 08:22; Admin Dose 1 TAB; Start 05/19/17 at 21:00 Polyethylene Glycol (Miralax) 17 gm DAILY PO Last administered on 06/19/17 08: 25; Admin Dose 17 GM; Start 05/21/17 at 09:00 Neomycin/ Polymyxin/ Bacitracin (Neosporin Topical Oint) 1 applic AM TOP Last administered on 06/19/17 08:25; Admin Dose 1 APPLIC; Start 05/23/17 at 09:00 Lactulose (Enulose) 20 gm DAILY PRN PO CONSTIPATION Last administered on 20:09; Admin Dose 20 GM; Start 05/22/17 at 18:30 Bisacodyl (Dulcolax Supp) 10 mg DAILY PRN [place] CONSTIPATION Last administered on 06/03/17 10:50; Admin Dose 10 MG; Start 05/22/17 at 18:30 Ondansetron HCl (Zofran Inj) 4 mg Q6H PRN IV NAUSEA AND/OR VOMITING Last administered on 06/04/17 21:14; Admin Dose 4 MG; Start 05/27/17 at 00:30 Sodium Biphosphate/ Sodium Phosphate (Fleet Enema) 133 ml DAILY PRN [place] CONSTIPATION Last administered on 05/29/17 21:14; Admin Dose 133 ML; Start at 20:30 Paroxetine HCl (Paxil) 10 mg DAILY PO Last administered on 06/19/17 08:22; Admin Dose 10 MG; Start 05/31/17 at 12:30 Mupirocin (Bactroban) 1 applic BID TOP Last administered on 06/19/17 08:22; Admin Dose 1 APPLIC; Start 05/31/17 at 13:00 Miscellaneous Information (Pending Santyl Order For Wound Care) This patient tran... PRN PRN XX WOUND CARE; Start 06/01/17 at 15:00 Collagenase (Santyl) 1 applic DAILY TOP Last administered on 06/19/17 08:23; Admin Dose 1 APPLIC; Start 06/01/17 at 15:00 Mirtazapine (Remeron) 15 mg HS PO Last administered on 06/18/17 20:36; Admin Dose 15 MG; Start 06/03/17 at 21:00 Clotrimazole (Lotrimin Cr) 1 applic BID TOP Last administered on 06/19/17 08:26 ; Admin Dose 1 APPLIC; Start 06/04/17 at 21:00 Lidocaine (Lidocaine 5% Oint) 1 applic TID PRN TOP PAIN Last administered on 08:48; Admin Dose 1 APPLIC; Start 06/04/17 at 20:00 Sodium Hypochlorite (Dakin'S (1/4 Strength)) 1 applic DAILY IRR Last administered on 06/19/17 08:23; Admin Dose 1 APPLIC; Start 06/07/17 at 09:00 Hydromorphone HCl (Dilaudid) 2 mg Q4H PRN PO PAIN Last administered on 12:04; Admin Dose 2 MG; Start 06/07/17 at 10:00 Methadone HCl (Methadone Liq) 7 mg BID PO Last administered on 06/19/17 08:25; Admin Dose 7 MG; Start 06/08/17 at 21:00 ERIC HORN MD Jun 19, 2017 14:11
[2017-06-19 19:37] VITALS: BP 125/68; RESP 18
[2017-06-19] MEDS: LACTULOSE 30ML CUP PO PRN (20:22)
[2017-06-19] MEDS: MIRTAZAPINE 15 MG TAB PO SCH (20:23)
[2017-06-20 01:41] VITALS: BP_SYST 146; BP_SYST 175; BP_DIAS 75; BP_DIAS 82; RESP 18
[2017-06-20] MEDS: HYDROmorphONE 2 MG TAB PO PRN ×4 (03:14→18:21)
[2017-06-20] MEDS: metFORMIN 500 MG TAB PO SCH ×2 (08:21→18:20)
[2017-06-20] MEDS: DOCUSATE SODIUM 100 MG CAP PO SCH ×2 (08:21→20:49)
[2017-06-20] MEDS: GABAPENTIN 300 MG CAP PO SCH ×3 (08:22→20:49)
[2017-06-20] MEDS: PAROXETINE 10 MG TAB PO SCH (08:22)
[2017-06-20] MEDS: NEOMYC/POLYMYX/BACIT 30 GM OINT TOP SCH (08:32)
[2017-06-20] MEDS: SODIUM HYPOCHLORITE 0.125% 473 ML BTL IRR SCH (08:32)
[2017-06-20] MEDS: MUPIROCIN 2% 22 GM OINT TOP SCH ×2 (08:33→20:50)
[2017-06-20] MEDS: COLLAGENASE 30 GM TUBE TOP SCH (08:33)
[2017-06-20] MEDS: CLOTRIMAZOLE 1% 30 GM CR TOP SCH ×2 (08:33→20:51)
[2017-06-20 08:40] VITALS: BP 134/76; RESP 20
[2017-06-20] MEDS: SENNA TAB PO SCH ×2 (09:00→20:49)
[2017-06-20] MEDS: POLYETHYLENE GLYCOL 17 GM PACKET PO SCH (09:00)
[2017-06-20] MEDS: METHADONE (1 MG/ML 5 ML PO UD SYG) PO SCH ×2 (09:38→20:50)
[2017-06-20 13:55] VITALS: BP 141/71; RESP 20
--- NOTE | 2017-06-20 16:49 | PN ---
Date/Time of Note Date/Time of Note DATE: 06/20/17 TIME: 16:48 Assessment/Plan VTE Prophylaxis VTE Prophylaxis Intervention: SCD's Lines/Catheters IV Catheter Type (from Nrsg): Saline Lock Urinary Cath still in place: No Assessment/Plan Assessment/Plan 66 yo M with spinal stenosis admitted for acute on chronic back pain and UE weakness 2/2 cervical stenosis. sp laminectomy and fusion 7. 1. Acute on chronic back pain with upper extremity weakness secondary to cervical cord stenosis now sp neurosurgical intervention 7.. HV drained removed by NSS team - neurosurgery still following, continue physical therapy -Patient apparently did not qualify for acute rehab, awaiting possible [facility] facility placement now, CM following -For now continue p.o. Dilaudid as needed and methadone twice daily. palliative following 2 Prediabetes: Previous hemoglobin A1c 6.1. -Continue metformin 3. Depression with SI: pt with questionable suicidal ideation earlier this admission, was evaluated by telepsych then, and again on 05/30. no indication for psych hospitalization on 05.30 eval. - cont psych meds 4. 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 sacral wound: sp gen surg debridement 06.06 6. DVT prophx, DM diet Dispo: Case management working on finding snf placement for patient. Subjective 24 Hr Interval Summary Free Text/Dictation Worried about ADL abilities on his own Exam/Review of Systems Vital Signs Vitals Vital Signs Date Time Temp Pulse Resp B/P Pulse Ox O2 Delivery O2 Flow Rate FiO2 06/20/17 13:55 98.2 93 20 141/71 98 Intake and Output 06/19/17 06/19/17 06/20/17 15:00 23:00 07:00 Intake Total 1640 ml 950 ml Output Total 700 ml 900 ml Balance 940 ml 50 ml Exam nad ,sitting up in bed, not wearing c collar no mrg lungs clear abd soft no le edema Medications Medications Current Medications Acetaminophen (Tylenol Tab) 650 mg Q6H PRN PO PAIN LEVEL 1-3 OR FEVER; Start at 21:00 Gabapentin (Neurontin) 300 mg TID PO Last administered on 06/20/17t 12:49; Admin Dose 300 MG; Start 05/16/17 at 21:00 Miscellaneous Information 1 ea NOTE XX ; Start 05/17/17 at 17:30 Glucose (Glutose) 15 gm Q15M PRN PO DECREASED GLUCOSE; Start 05/17/17 at 17:30 Glucose (Glutose) 22.5 gm Q15M PRN PO DECREASED GLUCOSE; Start 05/17/17 at 17:30 Dextrose (D50w Syringe) 25 ml Q15M PRN IV DECREASED GLUCOSE; Start 05/17/17 at 17:30 Dextrose (D50w Syringe) 50 ml Q15M PRN IV DECREASED GLUCOSE; Start 05/17/17 at 17:30 Glucagon (Glucagen) 1 mg Q15M PRN IM DECREASED GLUCOSE; Start 05/17/17 at 17:30 Glucose (Glutose) 15 gm Q15M PRN BUCCAL DECREASED GLUCOSE; Start 05/17/17 at 17: 30 Hydroxyzine HCl (Atarax) 25 mg Q6H PRN PO ITCHING Last administered on 06:53; Admin Dose 25 MG; Start 05/19/17 at 03:30 Docusate Sodium (Colace) 100 mg BID PO Last administered on 06/20/17 08:21; Admin Dose 100 MG; Start 05/19/17 at 21:00 Senna (Senokot) 1 tab BID PO Last administered on 06/19/17 20:23; Admin Dose 1 TAB; Start 05/19/17 at 21:00 Polyethylene Glycol (Miralax) 17 gm DAILY PO Last administered on 06/19/17 08: 25; Admin Dose 17 GM; Start 05/21/17 at 09:00 Neomycin/ Polymyxin/ Bacitracin (Neosporin Topical Oint) 1 applic AM TOP Last administered on 06/20/17 08:32; Admin Dose 1 APPLIC; Start 05/23/17 at 09:00 Lactulose (Enulose) 20 gm DAILY PRN PO CONSTIPATION Last administered on 20:22; Admin Dose 20 GM; Start 05/22/17 at 18:30 Bisacodyl (Dulcolax Supp) 10 mg DAILY PRN [place] CONSTIPATION Last administered on 06/03/17 10:50; Admin Dose 10 MG; Start 05/22/17 at 18:30 Ondansetron HCl (Zofran Inj) 4 mg Q6H PRN IV NAUSEA AND/OR VOMITING Last administered on 06/04/17 21:14; Admin Dose 4 MG; Start 05/27/17 at 00:30 Sodium Biphosphate/ Sodium Phosphate (Fleet Enema) 133 ml DAILY PRN [place] CONSTIPATION Last administered on 05/29/17 21:14; Admin Dose 133 ML; Start at 20:30 Paroxetine HCl (Paxil) 10 mg DAILY PO Last administered on 06/20/17 08:22; Admin Dose 10 MG; Start 05/31/17 at 12:30 Mupirocin (Bactroban) 1 applic BID TOP Last administered on 06/20/17 08:33; Admin Dose 1 APPLIC; Start 05/31/17 at 13:00 Miscellaneous Information (Pending Santyl Order For Wound Care) This patient tran... PRN PRN XX WOUND CARE; Start 06/01/17 at 15:00 Collagenase (Santyl) 1 applic DAILY TOP Last administered on 06/20/17 08:33; Admin Dose 1 APPLIC; Start 06/01/17 at 15:00 Mirtazapine (Remeron) 15 mg HS PO Last administered on 06/19/17 20:23; Admin Dose 15 MG; Start 06/03/17 at 21:00 Clotrimazole (Lotrimin Cr) 1 applic BID TOP Last administered on 06/20/17 08:33 ; Admin Dose 1 APPLIC; Start 06/04/17 at 21:00 Lidocaine (Lidocaine 5% Oint) 1 applic TID PRN TOP PAIN Last administered on 08:48; Admin Dose 1 APPLIC; Start 06/04/17 at 20:00 Sodium Hypochlorite (Dakin'S (1/4 Strength)) 1 applic DAILY IRR Last administered on 06/20/17 08:32; Admin Dose 1 APPLIC; Start 06/07/17 at 09:00 Hydromorphone HCl (Dilaudid) 2 mg Q4H PRN PO PAIN Last administered on 14:13; Admin Dose 2 MG; Start 06/07/17 at 10:00 Methadone HCl (Methadone Liq) 7 mg BID PO Last administered on 06/20/17 09:38; Admin Dose 7 MG; Start 06/08/17 at 21:00 ERIC HORN MD Jun 20, 2017 16:49
[2017-06-20 19:46] VITALS: BP 140/70; PULSE 74; RESP 18
[2017-06-20] MEDS: MIRTAZAPINE 15 MG TAB PO SCH (20:49)
--- NOTE | 2017-06-20 21:48 | PN ---
Date/Time of Note Date/Time of Note DATE: 06/20/17 TIME: 21:38 Assessment/Plan Lines/Catheters IV Catheter Type (from Nrsg): Saline Lock Munoz in Place (from Nrsg): No Assessment/Plan Chief Complaint/Hosp Course 1. Left buttock wound s/p excisional debridement 06/06; continuing to heal well -frequent turning and offloading -specialty mattress -continue local care outpatient -optimize nutrition -vitamin C and short term zinc 2. Back pain: s/p laminectomy with fusion; pain improved; placement ongoing -up with PT 3. Prediabetes: hgba1c 6.1 4. Depression with suicidal ideation:no verbalization of SI: resolved 5. Microcytic anemia: chronic disease vs.iron deficiency vs. acute bleed vs. other; no acute bleed noted; h/h stable -further workup per medicine 6. Hypertension: labile -med management Patient seen and examined in collaboration with Dr. Luís Mendoza. Thank you. Problems: Subjective 24 Hr Interval Summary Feeling well. Continuing to work with PT. Intermittent back pain- pain management ongoing. Wound healing well. No fevers, chills, cp, palpitations, sob , cough n/v/d. Exam/Review of Systems Vital Signs Vitals Vital Signs Date Time Temp Pulse Resp B/P Pulse Ox O2 Delivery O2 Flow Rate FiO2 06/20/17 19:46 98.2 74 18 140/70 97 Room Air Intake and Output 06/19/17 06/19/17 06/20/17 15:00 23:00 07:00 Intake Total 1640 ml 950 ml Output Total 700 ml 900 ml Balance 940 ml 50 ml Exam Free Text/Dictation Constitutional: alert, oriented Psych: nl mood/affect, Head: atraumatic, normocephalic Eyes: nl lids, nl sclera ENMT: mucosa pink and moist, nl nasal mucosa & septum Neck: other s/p laminectomy/fusion Respiratory: clear to auscultation, normal air movement Cardiovascular: nl pulses, regular rate and rhythm Gastrointestinal: nondistended, non-tender, soft Musculoskeletal: nl extremities to inspection Extremities: normal pulses Neurological: nl mental status, nl speech, nl strength Skin: other (left buttock wound with min drainage; wound bed pink, no periwound erythema, nonmalodorous, healing well) SUMINISTRADO,GILA SILK SCREEN CUTTER Jun 20, 2017 21:48
[2017-06-21] MEDS: HYDROmorphONE 2 MG TAB PO PRN ×4 (01:47→18:06)
[2017-06-21 01:58] VITALS: BP 138/64; RESP 18
[2017-06-21 07:59] VITALS: BP 155/74; RESP 18
[2017-06-21] MEDS: SENNA TAB PO SCH ×2 (09:00→22:04)
[2017-06-21] MEDS: POLYETHYLENE GLYCOL 17 GM PACKET PO SCH (09:00)
[2017-06-21] MEDS: DOCUSATE SODIUM 100 MG CAP PO SCH ×2 (09:00→22:04)
[2017-06-21] MEDS: GABAPENTIN 300 MG CAP PO SCH ×3 (09:01→22:04)
[2017-06-21] MEDS: metFORMIN 500 MG TAB PO SCH ×2 (09:01→18:03)
[2017-06-21] MEDS: PAROXETINE 10 MG TAB PO SCH (09:02)
[2017-06-21] MEDS: CLOTRIMAZOLE 1% 30 GM CR TOP SCH ×2 (09:03→22:05)
[2017-06-21] MEDS: SODIUM HYPOCHLORITE 0.125% 473 ML BTL IRR SCH (09:03)
[2017-06-21] MEDS: MUPIROCIN 2% 22 GM OINT TOP SCH ×2 (09:03→22:05)
[2017-06-21] MEDS: NEOMYC/POLYMYX/BACIT 30 GM OINT TOP SCH (09:03)
[2017-06-21] MEDS: COLLAGENASE 30 GM TUBE TOP SCH (09:04)
[2017-06-21] MEDS: METHADONE (1 MG/ML 5 ML PO UD SYG) PO SCH ×2 (09:52→22:04)
--- NOTE | 2017-06-21 10:02 | PN ---
Date/Time of Note Date/Time of Note DATE: 06/21/17 TIME: 09:59 Assessment/Plan Lines/Catheters IV Catheter Type (from Nrs): Saline Lock Munoz in Place (from Nrs): No Assessment/Plan Chief Complaint/Hosp Course 1. Left buttock wound s/p excisional debridement 06/06; continuing to heal well -frequent turning and offloading -specialty mattress -continue local care outpatient -optimize nutrition -vitamin C and short term zinc 2. Back pain: s/p laminectomy with fusion; pain improved; still unable to place patient -up with PT 3. Prediabetes: hgba1c 6.1 4. Depression with suicidal ideation:no verbalization of SI: resolved 5. Microcytic anemia: chronic disease vs.iron deficiency vs. acute bleed vs. other; no acute bleed noted; h/h stable 6. Hypertension: labile -med management Patient seen and examined in collaboration with Dr. Luís Mendoza. Thank you. Problems: Subjective 24 Hr Interval Summary Patient feels well. No drainage from wound. Some itching from wound. Working with PT. No c/o pain, dizziness, tran, cp, palpitations, n/v/d/dysuria. Exam/Review of Systems Vital Signs Vitals Vital Signs Date Time Temp Pulse Resp B/P Pulse Ox O2 Delivery O2 Flow Rate FiO2 06/21/17 07:59 98.2 91 18 155/74 97 06/20/17 19:46 Room Air Intake and Output 06/20/17 06/20/17 06/21/17 15:00 23:00 07:00 Intake Total 920 ml 1200 ml Output Total 400 ml 1100 ml Balance 520 ml 100 ml Exam Free Text/Dictation Constitutional: alert, oriented, pleasant, conversant Psych: nl mood/affect, Head: atraumatic, normocephalic Eyes: nl lids, nl sclera ENMT: mucosa pink and moist, nl nasal mucosa & septum Neck: other s/p laminectomy/fusion Respiratory: clear to auscultation, normal air movement Cardiovascular: nl pulses, regular rate and rhythm Gastrointestinal: nondistended, non-tender, soft Musculoskeletal: nl extremities to inspection Extremities: normal pulses Neurological: nl mental status, nl speech, nl strength Skin: other (left buttock wound with min drainage; wound bed pink, no periwound erythema, nonmalodorous, min itching, healing well) GILA WALKER NP Jun 21, 2017 10:02
--- NOTE | 2017-06-21 14:28 | PN ---
Date/Time of Note Date/Time of Note DATE: 06/21/17 TIME: 14:27 Assessment/Plan VTE Prophylaxis VTE Prophylaxis Intervention: SCD's Lines/Catheters IV Catheter Type (from Nrsg): Saline Lock Urinary Cath still in place: No Assessment/Plan Assessment/Plan 66 yo M with spinal stenosis admitted for acute on chronic back pain and UE weakness 2/2 cervical stenosis. sp laminectomy and fusion 7. 1. Acute on chronic back pain with upper extremity weakness secondary to cervical cord stenosis now sp neurosurgical intervention 7.. HV drained removed by NSS team - neurosurgery still following, continue physical therapy -Patient apparently did not qualify for acute rehab, awaiting possible [facility] facility placement now, CM following -For now continue p.o. Dilaudid as needed and methadone twice daily. palliative following 2 Prediabetes: Previous hemoglobin A1c 6.1. -Continue metformin 3. Depression with SI: pt with questionable suicidal ideation earlier this admission, was evaluated by telepsych then, and again on 05/30. no indication for psych hospitalization on 05.30 eval. - cont psych meds 4. 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 sacral wound: sp gen surg debridement 06.06 6. DVT prophx, DM diet Dispo: Case management working on finding snf placement for patient. Subjective 24 Hr Interval Summary Free Text/Dictation improving slowly per PT note Exam/Review of Systems Vital Signs Vitals Vital Signs Date Time Temp Pulse Resp B/P Pulse Ox O2 Delivery O2 Flow Rate FiO2 06/21/17 07:59 98.2 91 18 155/74 97 06/20/17 19:46 Room Air Intake and Output 06/20/17 06/20/17 06/21/17 15:00 23:00 07:00 Intake Total 920 ml 1200 ml Output Total 400 ml 1100 ml Balance 520 ml 100 ml Exam sitting up in bed no mrg lungs clear abd soft no rashes Medications Medications Current Medications Acetaminophen (Tylenol Tab) 650 mg Q6H PRN PO PAIN LEVEL 1-3 OR FEVER; Start at 21:00 Gabapentin (Neurontin) 300 mg TID PO Last administered on 06/21/17t 14:13; Admin Dose 300 MG; Start 05/16/17 at 21:00 Miscellaneous Information 1 ea NOTE XX ; Start 05/17/17 at 17:30 Glucose (Glutose) 15 gm Q15M PRN PO DECREASED GLUCOSE; Start 05/17/17 at 17:30 Glucose (Glutose) 22.5 gm Q15M PRN PO DECREASED GLUCOSE; Start 05/17/17 at 17:30 Dextrose (D50w Syringe) 25 ml Q15M PRN IV DECREASED GLUCOSE; Start 05/17/17 at 17:30 Dextrose (D50w Syringe) 50 ml Q15M PRN IV DECREASED GLUCOSE; Start 05/17/17 at 17:30 Glucagon (Glucagen) 1 mg Q15M PRN IM DECREASED GLUCOSE; Start 05/17/17 at 17:30 Glucose (Glutose) 15 gm Q15M PRN BUCCAL DECREASED GLUCOSE; Start 05/17/17 at 17: 30 Hydroxyzine HCl (Atarax) 25 mg Q6H PRN PO ITCHING Last administered on 06:53; Admin Dose 25 MG; Start 05/19/17 at 03:30 Docusate Sodium (Colace) 100 mg BID PO Last administered on 06/20/17 08:21; Admin Dose 100 MG; Start 05/19/17 at 21:00 Senna (Senokot) 1 tab BID PO Last administered on 06/19/17 20:23; Admin Dose 1 TAB; Start 05/19/17 at 21:00 Polyethylene Glycol (Miralax) 17 gm DAILY PO Last administered on 06/19/17 08: 25; Admin Dose 17 GM; Start 05/21/17 at 09:00 Neomycin/ Polymyxin/ Bacitracin (Neosporin Topical Oint) 1 applic AM TOP Last administered on 06/21/17 09:03; Admin Dose 1 APPLIC; Start 05/23/17 at 09:00 Lactulose (Enulose) 20 gm DAILY PRN PO CONSTIPATION Last administered on 20:22; Admin Dose 20 GM; Start 05/22/17 at 18:30 Bisacodyl (Dulcolax Supp) 10 mg DAILY PRN [place] CONSTIPATION Last administered on 06/03/17 10:50; Admin Dose 10 MG; Start 05/22/17 at 18:30 Ondansetron HCl (Zofran Inj) 4 mg Q6H PRN IV NAUSEA AND/OR VOMITING Last administered on 06/04/17 21:14; Admin Dose 4 MG; Start 05/27/17 at 00:30 Sodium Biphosphate/ Sodium Phosphate (Fleet Enema) 133 ml DAILY PRN [place] CONSTIPATION Last administered on 05/29/17 21:14; Admin Dose 133 ML; Start at 20:30 Paroxetine HCl (Paxil) 10 mg DAILY PO Last administered on 06/21/17 09:02; Admin Dose 10 MG; Start 05/31/17 at 12:30 Mupirocin (Bactroban) 1 applic BID TOP Last administered on 06/21/17 09:03; Admin Dose 1 APPLIC; Start 05/31/17 at 13:00 Miscellaneous Information (Pending Santyl Order For Wound Care) This patient tran... PRN PRN XX WOUND CARE; Start 06/01/17 at 15:00 Collagenase (Santyl) 1 applic DAILY TOP Last administered on 06/21/17 09:04; Admin Dose 1 APPLIC; Start 06/01/17 at 15:00 Mirtazapine (Remeron) 15 mg HS PO Last administered on 06/20/17 20:49; Admin Dose 15 MG; Start 06/03/17 at 21:00 Clotrimazole (Lotrimin Cr) 1 applic BID TOP Last administered on 06/21/17 09:03 ; Admin Dose 1 APPLIC; Start 06/04/17 at 21:00 Lidocaine (Lidocaine 5% Oint) 1 applic TID PRN TOP PAIN Last administered on 08:48; Admin Dose 1 APPLIC; Start 06/04/17 at 20:00 Sodium Hypochlorite (Dakin'S (1/4 Strength)) 1 applic DAILY IRR Last administered on 06/21/17 09:03; Admin Dose 1 APPLIC; Start 06/07/17 at 09:00 Hydromorphone HCl (Dilaudid) 2 mg Q4H PRN PO PAIN Last administered on 14:16; Admin Dose 2 MG; Start 06/07/17 at 10:00 Methadone HCl (Methadone Liq) 7 mg BID PO Last administered on 06/21/17 09:52; Admin Dose 7 MG; Start 06/08/17 at 21:00 ERIC HORN MD Jun 21, 2017 14:28
[2017-06-21 15:47] VITALS: BP 156/74; RESP 20
[2017-06-21 21:15] VITALS: BP 154/70; RESP 18
[2017-06-21] MEDS: MIRTAZAPINE 15 MG TAB PO SCH (22:04)
[2017-06-22 02:47] VITALS: BP 142/75; RESP 20
[2017-06-22] MEDS: HYDROmorphONE 2 MG TAB PO PRN ×3 (03:51→16:23)
[2017-06-22] MEDS: metFORMIN 500 MG TAB PO SCH ×3 (07:50→18:03)
[2017-06-22 08:49] VITALS: BP 125/67; RESP 16
[2017-06-22] MEDS: MUPIROCIN 2% 22 GM OINT TOP SCH ×2 (09:00→21:00)
[2017-06-22] MEDS: COLLAGENASE 30 GM TUBE TOP SCH ×2 (09:00→09:27)
[2017-06-22] MEDS: GABAPENTIN 300 MG CAP PO SCH ×4 (09:00→20:59)
[2017-06-22] MEDS: SODIUM HYPOCHLORITE 0.125% 473 ML BTL IRR SCH ×2 (09:00→09:25)
[2017-06-22] MEDS: DOCUSATE SODIUM 100 MG CAP PO SCH ×3 (09:00→21:00)
[2017-06-22] MEDS: PAROXETINE 10 MG TAB PO SCH ×3 (09:00→11:34)
[2017-06-22] MEDS: METHADONE (1 MG/ML 5 ML PO UD SYG) PO SCH ×4 (09:00→21:01)
[2017-06-22] MEDS: POLYETHYLENE GLYCOL 17 GM PACKET PO SCH ×2 (09:00→09:26)
[2017-06-22] MEDS: SENNA TAB PO SCH ×3 (09:00→21:00)
[2017-06-22] MEDS: CLOTRIMAZOLE 1% 30 GM CR TOP SCH ×3 (09:00→21:00)
[2017-06-22] MEDS: NEOMYC/POLYMYX/BACIT 30 GM OINT TOP SCH ×2 (09:00→09:26)
--- NOTE | 2017-06-22 11:36 | PN ---
Date/Time of Note Date/Time of Note DATE: 06/22/17 TIME: 11:33 Assessment/Plan Lines/Catheters IV Catheter Type (from Nrs): Saline Lock Munoz in Place (from Nrs): No Assessment/Plan Chief Complaint/Hosp Course 1. Left buttock wound s/p excisional debridement 06/06; continuing to heal well -frequent turning and offloading -specialty mattress -continue local care outpatient -optimize nutrition -vitamin C 2. Back pain: s/p laminectomy with fusion; pain improved; placement pending -up with PT 3. Prediabetes: hgba1c 6.1 4. Depression with suicidal ideation:no verbalization of SI: resolved 5. Microcytic anemia: chronic disease vs.iron deficiency vs. acute bleed vs. other; no acute bleed noted; h/h stable 6. Hypertension: labile -med management Patient seen and examined in collaboration with Dr. Luís Mendoza. Thank you. Problems: Subjective 24 Hr Interval Summary Feels good. No c/o pain/discomfort from wounds. Intermittent back pain. No fevers, chills, tran, dizziness, cp, palpitations, excessive wound drainage, n/v/d /dysuria. Exam/Review of Systems Vital Signs Vitals Vital Signs Date Time Temp Pulse Resp B/P Pulse Ox O2 Delivery O2 Flow Rate FiO2 06/22/17 08:49 98.0 89 16 125/67 96 06/20/17 19:46 Room Air Intake and Output 06/21/17 06/21/17 06/22/17 15:00 23:00 07:00 Intake Total 1300 ml Output Total 150 ml Balance 1150 ml Exam Free Text/Dictation Constitutional: alert, oriented, pleasant, conversant, motivated for therapy Psych: nl mood/affect, Head: atraumatic, normocephalic Eyes: nl lids, nl sclera ENMT: mucosa pink and moist, nl nasal mucosa & septum Neck: other s/p laminectomy/fusion Respiratory: clear to auscultation, normal air movement Cardiovascular: nl pulses, regular rate and rhythm Gastrointestinal: nondistended, non-tender, soft Musculoskeletal: nl extremities to inspection Extremities: normal pulses Neurological: nl mental status, nl speech, nl strength Skin: other (left buttock wound with scant drainage; wound bed pink, no periwound erythema, nonmalodorous, healing well) SUMINISTRADO,GILA MACHINE SORTER Jun 22, 2017 11:35
--- NOTE | 2017-06-22 15:19 | PN ---
Date/Time of Note Date/Time of Note DATE: 06/22/17 TIME: 15:18 Assessment/Plan VTE Prophylaxis VTE Prophylaxis Intervention: SCD's Lines/Catheters IV Catheter Type (from Nrsg): Saline Lock Urinary Cath still in place: No Assessment/Plan Assessment/Plan 66 yo M with spinal stenosis admitted for acute on chronic back pain and UE weakness 2/2 cervical stenosis. sp laminectomy and fusion 7 1. Acute on chronic back pain with upper extremity weakness secondary to cervical cord stenosis now sp neurosurgical intervention 7.. HV drained removed by NSS team - neurosurgery still following, continue physical therapy -Patient apparently did not qualify for acute rehab, awaiting possible jail facility placement now, CM following -For now continue p.o. Dilaudid as needed and methadone twice daily. palliative following 2 Prediabetes: Previous hemoglobin A1c 6.1. -Continue metformin 3. Depression with SI: pt with questionable suicidal ideation earlier this admission, was evaluated by telepsych then, and again on 05/30. no indication for psych hospitalization on 05.30 eval. - cont psych meds 4. 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 sacral wound: sp gen surg debridement 06.06 6. DVT prophx, DM diet Dispo: Case management working on finding snf placement for patient. Pt's lack of PT progress dw PT. 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 abd soft no rashes no edema Medications Medications Current Medications Acetaminophen (Tylenol Tab) 650 mg Q6H PRN PO PAIN LEVEL 1-3 OR FEVER; Start at 21:00 Gabapentin (Neurontin) 300 mg TID PO Last administered on 06/22/17t 11:32; Admin Dose 300 MG; Start 05/16/17 at 21:00 Miscellaneous Information 1 ea NOTE XX ; Start 05/17/17 at 17:30 Glucose (Glutose) 15 gm Q15M PRN PO DECREASED GLUCOSE; Start 05/17/17 at 17:30 Glucose (Glutose) 22.5 gm Q15M PRN PO DECREASED GLUCOSE; Start 05/17/17 at 17:30 Dextrose (D50w Syringe) 25 ml Q15M PRN IV DECREASED GLUCOSE; Start 05/17/17 at 17:30 Dextrose (D50w Syringe) 50 ml Q15M PRN IV DECREASED GLUCOSE; Start 05/17/17 at 17:30 Glucagon (Glucagen) 1 mg Q15M PRN IM DECREASED GLUCOSE; Start 05/17/17 at 17:30 Glucose (Glutose) 15 gm Q15M PRN BUCCAL DECREASED GLUCOSE; Start 05/17/17 at 17: 30 Hydroxyzine HCl (Atarax) 25 mg Q6H PRN PO ITCHING Last administered on 06:53; Admin Dose 25 MG; Start 05/19/17 at 03:30 Docusate Sodium (Colace) 100 mg BID PO Last administered on 06/21/17 22:04; Admin Dose 100 MG; Start 05/19/17 at 21:00 Senna (Senokot) 1 tab BID PO Last administered on 06/21/17 22:04; Admin Dose 1 TAB; Start 05/19/17 at 21:00 Polyethylene Glycol (Miralax) 17 gm DAILY PO Last administered on 06/19/17 08: 25; Admin Dose 17 GM; Start 05/21/17 at 09:00 Neomycin/ Polymyxin/ Bacitracin (Neosporin Topical Oint) 1 applic AM TOP Last administered on 06/21/17 09:03; Admin Dose 1 APPLIC; Start 05/23/17 at 09:00 Lactulose (Enulose) 20 gm DAILY PRN PO CONSTIPATION Last administered on 20:22; Admin Dose 20 GM; Start 05/22/17 at 18:30 Bisacodyl (Dulcolax Supp) 10 mg DAILY PRN [place] CONSTIPATION Last administered on 06/03/17 10:50; Admin Dose 10 MG; Start 05/22/17 at 18:30 Ondansetron HCl (Zofran Inj) 4 mg Q6H PRN IV NAUSEA AND/OR VOMITING Last administered on 06/04/17 21:14; Admin Dose 4 MG; Start 05/27/17 at 00:30 Sodium Biphosphate/ Sodium Phosphate (Fleet Enema) 133 ml DAILY PRN [place] CONSTIPATION Last administered on 05/29/17 21:14; Admin Dose 133 ML; Start at 20:30 Paroxetine HCl (Paxil) 10 mg DAILY PO Last administered on 06/22/17 11:34; Admin Dose 10 MG; Start 05/31/17 at 12:30 Mupirocin (Bactroban) 1 applic BID TOP Last administered on 06/21/17 22:05; Admin Dose 1 APPLIC; Start 05/31/17 at 13:00 Miscellaneous Information (Pending Santyl Order For Wound Care) This patient tran... PRN PRN XX WOUND CARE; Start 06/01/17 at 15:00 Collagenase (Santyl) 1 applic DAILY TOP Last administered on 06/21/17 09:04; Admin Dose 1 APPLIC; Start 06/01/17 at 15:00 Mirtazapine (Remeron) 15 mg HS PO Last administered on 06/21/17 22:04; Admin Dose 15 MG; Start 06/03/17 at 21:00 Clotrimazole (Lotrimin Cr) 1 applic BID TOP Last administered on 06/21/17 22:05 ; Admin Dose 1 APPLIC; Start 06/04/17 at 21:00 Lidocaine (Lidocaine 5% Oint) 1 applic TID PRN TOP PAIN Last administered on 08:48; Admin Dose 1 APPLIC; Start 06/04/17 at 20:00 Sodium Hypochlorite (Dakin'S (1/4 Strength)) 1 applic DAILY IRR Last administered on 06/21/17 09:03; Admin Dose 1 APPLIC; Start 06/07/17 at 09:00 Hydromorphone HCl (Dilaudid) 2 mg Q4H PRN PO PAIN Last administered on 11:33; Admin Dose 2 MG; Start 06/07/17 at 10:00 Methadone HCl (Methadone Liq) 7 mg BID PO Last administered on 8/10/17at 11:02 ; Admin Dose 7 MG; Start 06/08/17 at 21:00 ERIC HORN MD Jun 22, 2017 15:19
[2017-06-22 20:10] VITALS: BP 140/71; RESP 20
[2017-06-22] MEDS ORDERED: AL HYDROX/MG HYDROX/SIMETH 30 ML CUP PO PRN (20:30)
[2017-06-22] MEDS: MIRTAZAPINE 15 MG TAB PO SCH (21:00)
[2017-06-23] MEDS: HYDROmorphONE 2 MG TAB PO PRN ×4 (00:54→17:58)
[2017-06-23 01:45] VITALS: BP 142/71; PULSE 84; RESP 18
[2017-06-23] MEDS: GABAPENTIN 300 MG CAP PO SCH ×3 (08:18→21:30)
[2017-06-23] MEDS: PAROXETINE 10 MG TAB PO SCH (08:18)
[2017-06-23] MEDS: metFORMIN 500 MG TAB PO SCH ×2 (08:18→17:58)
[2017-06-23] MEDS: SODIUM HYPOCHLORITE 0.125% 473 ML BTL IRR SCH (08:19)
[2017-06-23] MEDS: METHADONE (1 MG/ML 5 ML PO UD SYG) PO SCH ×2 (08:19→21:31)
[2017-06-23] MEDS: SENNA TAB PO SCH ×2 (08:20→21:00)
[2017-06-23] MEDS: DOCUSATE SODIUM 100 MG CAP PO SCH ×2 (08:20→21:00)
[2017-06-23] MEDS: POLYETHYLENE GLYCOL 17 GM PACKET PO SCH (08:20)
[2017-06-23] MEDS: LIDOCAINE 5% 35 GM OINT TOP PRN (08:21)
[2017-06-23] MEDS: MUPIROCIN 2% 22 GM OINT TOP SCH ×2 (08:21→21:31)
[2017-06-23] MEDS: NEOMYC/POLYMYX/BACIT 30 GM OINT TOP SCH (08:21)
[2017-06-23] MEDS: CLOTRIMAZOLE 1% 30 GM CR TOP SCH ×2 (08:21→21:31)
[2017-06-23] MEDS: COLLAGENASE 30 GM TUBE TOP SCH (08:22)
--- NOTE | 2017-06-23 08:34 | RADRPT ---
PROCEDURE: CT Cervical Spine without intravenous contrast CLINICAL INDICATION: Acute on chronic weakness. COMPARISON: MRI 05/19/2017. CT 05/09/2017. TECHNIQUE: Axial noncontrast CT images of the cervical spine with coronal and sagittal reformats. DOSE ESTIMATE: CTDI vol = 22 mGy. DLP = 433 mGy-cm. One or more of the following dose reduction te chniques were used: automated exposure control, adjustment of the mA and/or kV according to patient size, or use of iterative reconstruction. FINDINGS: Treatment: Interval C3-C6 decompressive laminectomies with posterior fusion using rods and bilatera l pedicle screws. No hardware fracture. No suspicious louann-hardware lucency. Alignment: Slight dextroconvex curvature of the cervical spine with apex at C4-C5. New 3 mm anteroli sthesis of C4 and C5. Vertebrae: No fracture, vertebral body height loss, or destructive bone lesion. Moderate anterior en dplate spurring, endplate sclerosis, and uncovertebral joint arthropathy between C3-C4 and C6-C7. Discs: Dessication and disk space narrowing between C4-C5 and C6-C7. Degenerative change: C2-C3 : Mature bony fusion across the C2-C3 facets joint. No central canal or foraminal narrowing. C3-C4 : Mild bilateral uncovertebral joint arthropathy results in mild bilateral foraminal narrowing . The spinal canal is decompressed. C4-C5 : The anterolisthesis, accompanied by moderate bilateral facet arthropathy results in severe b ilateral foraminal narrowing. The spinal canal is decompressed. C5-C6 : Posterior disk osteophyte complex with moderate bilateral facet arthropathy results in sever e bilateral foraminal narrowing. The spinal canal is decompressed. C6-C7 : Bilateral uncovertebral joint arthropathy, left more than right, results in severe bilateral foraminal narrowing. The spinal canal is decompressed. C7-T1 : No significant uncovertebral or facet joint arthropathy. No central canal or foraminal narro wing. Paraspinal soft tissues: Expected changes related to interval decompression and fusion.. Visualized posterior fossa: Normal. Visualized neck: Mild calcified atherosclerotic arterial plaque. Visualized lung apices: Normal. Additional comment: None. IMPRESSION: 1. Interval C3-C6 decompressive laminectomies with posterior instrumented fusion. No evidence of tran rdware complication. 2. New dextroconvex curvature of the lumbar spine with grade 1 anterolisthesis of C4 and C5. 3. Marked degenerative changes between C3-C4 and C6-C7 result in moderate or severe bilateral dru inal narrowing. RPTAT: PP Physician Carroll Date Time Electronically viewed and signed by Serge Ho Physician on 06/23/2017 08:34 LG/
[2017-06-23 08:41] VITALS: BP 138/66; RESP 20
--- NOTE | 2017-06-23 08:52 | RADRPT ---
PROCEDURE: CT Thoracic Spine without intravenous contrast CLINICAL INDICATION: Acute on chronic weakness. COMPARISON: MRI 05/16/2017. TECHNIQUE: Axial CT images of the thoracic spine with coronal and sagittal reformats. DOSE: CTDI vol = 31 mGy. DLP = 1187 mGy-cm. One or more of the following dose reduction techniques were used: automated exposure control, adjustment of the mA and/or kV according to patient size, or use of iterative reconstruction. FINDINGS: Alignment: Normal. Vertebrae: No acute fracture, height loss, or suspicious bone lesion. Rudimentary L1 ribs, transitio nal anatomy. Discs: Moderate anterior and lateral endplate spurring between T3-T4 and T8-T9. Degenerative change: T1-T2 : Mild endplate spurring on the right results in mild right foraminal narrowing. T2-T3 : Slight dextroconvex curvature results in mild right foraminal narrowing. T3-T4 : No central canal or foraminal narrowing. T4-T5 : Mild post endplate spurring results in mild bilateral foraminal narrowing. T5-T6 : No significant central canal or foraminal narrowing. T6-T7 : No significant central canal or foraminal narrowing. T7-T8 : No significant central canal or foraminal narrowing. T8-T9 : 5 mm calcified left central focal disk protrusion with endplate irregularity results in at l east by central canal narrowing, effacement of the left lateral recess, and mild left foraminal narr owing. T9-T10 : No significant central canal or foraminal narrowing. T10-T11 : No significant central canal or foraminal narrowing. T11-T12 : Normal. Para-vertebral soft tissues: Normal. Visualized chest and abdomen: 5 mm nodule in the right upper lobe of the lung (series 4, image 36). Calcified lymph nodes at the right lung hilum, sequela of remote granulomatous disease. Nodular gordo er capsule with an enlarged caudate lobe and prominent hilum, findings suggesting cirrhosis. The po rtal vein is enlarged to 17 mm. There are multiple portocaval, superior mesenteric axis roots, qian rohepatic, celiac access root lymph nodes measuring up to 3.0 cm. 11 mm dense lesion within the lef t kidney (series 4, image 127) Additional comment: None. IMPRESSION: 1. Mild degenerative changes of the thoracic spine, most notable at T8-T9. 2. Cirrhotic liver morphology with evidence of portal venous hypertension and retroperitoneal lympha denopathy. MRI with and without intravenous contrast is recommended for further evaluation to asse ss for malignancy. 3. 5 mm nodule in the right upper lobe of the lung. Metastasis cannot be excluded. RPTAT: PP Physician Carroll Date Time Electronically viewed and signed by Physician Carroll on 06/23/2017 08:51 LG/
--- NOTE | 2017-06-23 09:42 | RADRPT ---
PROCEDURE: CT Lumbar Spine without intravenous contrast CLINICAL INDICATION: Acute on chronic weakness. COMPARISON: MRI lumbar spine 05/16/2017. CT 05/05/2017 TECHNIQUE: Axial noncontrast CT images of the lumbar spine with coronal and sagittal reformats. DOSE ESTIMATE: CTDI vol = 38 mGy. DLP = 967 mGy-cm. One or more of the following dose reduction te chniques were used: automated exposure control, adjustment of the mA and/or kV according to patient size, or use of iterative reconstruction. FINDINGS: Alignment: Levoconvex scoliosis with apex at L2-L3. Vertebrae: Degenerative endplate Schmorl's nodes about L2-L3, L4-L5, and L5-S1. Marked vertebral geovani dy sclerosis about L2-L3, L4-L5, and L5-S1 Discs: Dessication with disk height loss at L1-L2, L2-L3, L4-L5, and L5-S1. Degenerative change: T12-L1: Mild facet arthropathy without canal or foraminal narrowing. L1-L2: Calcified posterior disk osteophyte complex with moderate right facet arthropathy, ligamentum flavum laxity, and posterior epidural fat results in at least mild central canal narrowing, mild le ft foraminal narrowing, and moderate right foraminal narrowing L2-L3: Calcified disk bulge, mild left facet arthropathy, moderate right facet arthropathy, ligament um flavum laxity, and circumferential epidural fat results in at least mild central canal narrowing, mild left foraminal narrowing, and moderate right foraminal narrowing. L3-L4: Disk bulge, moderate bilateral facet arthropathy, ligamentum flavum laxity, and posterior epi dural fat results in at least mild central canal narrowing and mild bilateral foraminal narrowing. L4-L5:Large partially calcified disk bulge, mild facet arthropathy, ligamentum flavum laxity, and ci rcumferential epidural fat results in at least moderate central canal narrowing in mild bilateral fo raminal narrowing. L5-S1: Circumferential epidural fat move tapers the spinal canal below the L5-S1 disk level. Large calcified disk herniation, mild bilateral facet arthropathy, ligamentum flavum laxity, and circumfer ential epidural fat results in mild central canal narrowing, moderate left foraminal narrowing, and severe right foraminal narrowing. Para-vertebral soft tissues: Normal. Visualized abdomen and pelvis: The low density lesion within the left kidney is incompletely charact erized. Nodular liver capsule. Multiple enlarged retroperitoneal and upper abdominal lymph nodes. Left adrenal nodule measuring 2.0 cm (series 4, image 11). Mild aortoiliac atherosclerosis. Modera te degenerative changes of both sacroiliac joints. Additional comment: None. IMPRESSION: 1. Levoconvex scoliosis of the lumbar spine with moderate to severe degenerative changes. Overall, the extent of degenerative changes is similar imaging examinations performed in April 2017 and May 2017. 2. Left adrenal nodule measuring 2 cm, which is incompletely characterized. RPTAT: PP Physician Carroll Date Time Electronically viewed and signed by Physician Carroll on 06/23/2017 09:42 LG/
--- NOTE | 2017-06-23 11:17 | PN ---
Date/Time of Note Date/Time of Note DATE: 06/23/17 TIME: 11:14 Assessment/Plan Lines/Catheters IV Catheter Type (from Nrsg): Saline Lock Munoz in Place (from Nrsg): No Assessment/Plan Chief Complaint/Hosp Course 1. Left buttock wound s/p excisional debridement 06/06; continuing to heal well -frequent turning and offloading -specialty mattress -continue local care outpatient -optimize nutrition -vitamin C 2. Back pain: s/p laminectomy with fusion; pain improved; placement pending -up with PT 3. Prediabetes: hgba1c 6.1 4. Depression with suicidal ideation:no verbalization of SI: resolved 5. Microcytic anemia: chronic disease vs.iron deficiency vs. acute bleed vs. other; no acute bleed noted; h/h stable 6. Hypertension: labile -med management Patient seen and examined in collaboration with Dr. Luís Mendoza. Thank you. Problems: Subjective 24 Hr Interval Summary Placement pending. Feeling well. Working with PT. No fevers, chills, cough, cp, n/v/d/dysuria, excessive wound drainage. Exam/Review of Systems Vital Signs Vitals Vital Signs Date Time Temp Pulse Resp B/P Pulse Ox O2 Delivery O2 Flow Rate FiO2 06/23/17 08:41 98.2 87 20 138/66 100 06/23/17 01:45 Room Air Intake and Output 06/22/17 06/22/17 06/23/17 14:59 22:59 06:59 Intake Total 800 ml Output Total 500 ml Balance 300 ml Exam Free Text/Dictation Constitutional: alert, oriented,somnolent Psych: nl mood/affect, Head: atraumatic, normocephalic Eyes: nl lids, nl sclera ENMT: mucosa pink and moist, nl nasal mucosa & septum Neck: other s/p laminectomy/fusion Respiratory: clear to auscultation, normal air movement Cardiovascular: nl pulses, regular rate and rhythm Gastrointestinal: nondistended, non-tender, soft Musculoskeletal: nl extremities to inspection Extremities: normal pulses Neurological: nl mental status, nl speech, nl strength Skin: other (left buttock wound with scant drainage; wound bed pink with min slough, no periwound erythema, nonmalodorous) GILA WALKER NP Jun 23, 2017 11:17
[2017-06-23 15:44] VITALS: BP 124/65; RESP 20
--- NOTE | 2017-06-23 17:31 | PN ---
Date/Time of Note Date/Time of Note DATE: 06/23/17 TIME: 17:30 Assessment/Plan VTE Prophylaxis VTE Prophylaxis Intervention: SCD's Lines/Catheters IV Catheter Type (from Nrsg): Saline Lock Urinary Cath still in place: No Assessment/Plan Assessment/Plan 66 yo M with spinal stenosis admitted for acute on chronic back pain and UE weakness 2/2 cervical stenosis. sp laminectomy and fusion 7.14. New imaging without new gross derangement. 1. Acute on chronic back pain with upper extremity weakness secondary to cervical cord stenosis now sp neurosurgical intervention 7.14. HV drained removed by NSS team - neurosurgery signed off, continue physical therapy -Patient apparently did not qualify for acute rehab, awaiting possible [facility] facility placement now, CM following -For now continue p.o. Dilaudid as needed and methadone twice daily. palliative following 2 Prediabetes: Previous hemoglobin A1c 6.1. -Continue metformin 3. Depression with SI: pt with questionable suicidal ideation earlier this admission, was evaluated by telepsych then, and again on 05/30. no indication for psych hospitalization on 05.30 eval. - cont psych meds 4. 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 sacral wound: sp gen surg debridement 06.06 6. DVT prophx, DM diet Dispo: Case management working on finding snf placement for patient. Subjective 24 Hr Interval Summary Free Text/Dictation No acute overnight events Exam/Review of Systems Vital Signs Vitals Vital Signs Date Time Temp Pulse Resp B/P Pulse Ox O2 Delivery O2 Flow Rate FiO2 06/23/17 15:44 98.9 96 20 124/65 96 06/23/17 01:45 Room Air Intake and Output 06/22/17 06/22/17 06/23/17 15:00 23:00 07:00 Intake Total 800 ml Output Total 500 ml Balance 300 ml Exam sitting up in bed, respirations nonlabored abd nondistended no rashes no le edema CT results reviewed Medications Medications Current Medications Acetaminophen (Tylenol Tab) 650 mg Q6H PRN PO PAIN LEVEL 1-3 OR FEVER; Start at 21:00 Gabapentin (Neurontin) 300 mg TID PO Last administered on 06/23/17t 08:18; Admin Dose 300 MG; Start 05/16/17 at 21:00 Miscellaneous Information 1 ea NOTE XX ; Start 05/17/17 at 17:30 Glucose (Glutose) 15 gm Q15M PRN PO DECREASED GLUCOSE; Start 05/17/17 at 17:30 Glucose (Glutose) 22.5 gm Q15M PRN PO DECREASED GLUCOSE; Start 05/17/17 at 17:30 Dextrose (D50w Syringe) 25 ml Q15M PRN IV DECREASED GLUCOSE; Start 05/17/17 at 17:30 Dextrose (D50w Syringe) 50 ml Q15M PRN IV DECREASED GLUCOSE; Start 05/17/17 at 17:30 Glucagon (Glucagen) 1 mg Q15M PRN IM DECREASED GLUCOSE; Start 05/17/17 at 17:30 Glucose (Glutose) 15 gm Q15M PRN BUCCAL DECREASED GLUCOSE; Start 05/17/17 at 17: 30 Hydroxyzine HCl (Atarax) 25 mg Q6H PRN PO ITCHING Last administered on 06:53; Admin Dose 25 MG; Start 05/19/17 at 03:30 Docusate Sodium (Colace) 100 mg BID PO Last administered on 06/21/17 22:04; Admin Dose 100 MG; Start 05/19/17 at 21:00 Senna (Senokot) 1 tab BID PO Last administered on 06/21/17 22:04; Admin Dose 1 TAB; Start 05/19/17 at 21:00 Polyethylene Glycol (Miralax) 17 gm DAILY PO Last administered on 06/19/17 08: 25; Admin Dose 17 GM; Start 05/21/17 at 09:00 Neomycin/ Polymyxin/ Bacitracin (Neosporin Topical Oint) 1 applic AM TOP Last administered on 06/23/17 08:21; Admin Dose 1 APPLIC; Start 05/23/17 at 09:00 Lactulose (Enulose) 20 gm DAILY PRN PO CONSTIPATION Last administered on 20:22; Admin Dose 20 GM; Start 05/22/17 at 18:30 Bisacodyl (Dulcolax Supp) [address] CONSTIPATION Last administered on 06/03/17 10:50; Admin Dose 10 MG; Start 05/22/17 at 18:30 Ondansetron HCl (Zofran Inj) 4 mg Q6H PRN IV NAUSEA AND/OR VOMITING Last administered on 06/04/17 21:14; Admin Dose 4 MG; Start 05/27/17 at 00:30 Sodium Biphosphate/ Sodium Phosphate (Fleet Enema) [address] CONSTIPATION Last administered on 05/29/17 21:14; Admin Dose 133 ML; Start at 20:30 Paroxetine HCl (Paxil) 10 mg DAILY PO Last administered on 06/23/17 08:18; Admin Dose 10 MG; Start 05/31/17 at 12:30 Mupirocin (Bactroban) 1 applic BID TOP Last administered on 06/23/17 08:21; Admin Dose 1 APPLIC; Start 05/31/17 at 13:00 Miscellaneous Information (Pending Santyl Order For Wound Care) This patient tran... PRN PRN XX WOUND CARE; Start 06/01/17 at 15:00 Collagenase (Santyl) 1 applic DAILY TOP Last administered on 06/21/17 09:04; Admin Dose 1 APPLIC; Start 06/01/17 at 15:00 Mirtazapine (Remeron) 15 mg HS PO Last administered on 06/21/17 22:04; Admin Dose 15 MG; Start 06/03/17 at 21:00 Clotrimazole (Lotrimin Cr) 1 applic BID TOP Last administered on 06/23/17 08: 21; Admin Dose 1 APPLIC; Start 06/04/17 at 21:00 Lidocaine (Lidocaine 5% Oint) 1 applic TID PRN TOP PAIN Last administered on 08:21; Admin Dose 1 APPLIC; Start 06/04/17 at 20:00 Sodium Hypochlorite (Dakin'S (1/4 Strength)) 1 applic DAILY IRR Last administered on 06/23/17 08:19; Admin Dose 1 APPLIC; Start 06/07/17 at 09:00 Hydromorphone HCl (Dilaudid) 2 mg Q4H PRN PO PAIN Last administered on 11:17; Admin Dose 2 MG; Start 06/07/17 at 10:00 Methadone HCl (Methadone Liq) 7 mg BID PO Last administered on 06/23/17 08:19 ; Admin Dose 7 MG; Start 06/08/17 at 21:00 Al Hydrox/Mg Hydrox/Simethicone (Mag-Al Plus) 30 ml Q6H PRN PO GASTROINTESTINAL UPSET; Start 06/22/17 at 20:30 ERIC HORN MD Jun 23, 2017 17:31
[2017-06-23 20:22] VITALS: BP 139/69; RESP 22
[2017-06-23] MEDS: MIRTAZAPINE 15 MG TAB PO SCH (21:30)
[2017-06-24] MEDS: HYDROmorphONE 2 MG TAB PO PRN ×3 (01:30→18:29)
[2017-06-24 08:00] VITALS: BP 134/74; RESP 20
[2017-06-24] MEDS: metFORMIN 500 MG TAB PO SCH ×2 (08:52→18:27)
[2017-06-24] MEDS: METHADONE (1 MG/ML 5 ML PO UD SYG) PO SCH ×2 (08:53→21:07)
[2017-06-24] MEDS: CLOTRIMAZOLE 1% 30 GM CR TOP SCH ×2 (08:53→21:07)
[2017-06-24] MEDS: SODIUM HYPOCHLORITE 0.125% 473 ML BTL IRR SCH (08:53)
[2017-06-24] MEDS: PAROXETINE 10 MG TAB PO SCH (08:53)
[2017-06-24] MEDS: GABAPENTIN 300 MG CAP PO SCH ×3 (08:53→21:06)
[2017-06-24] MEDS: NEOMYC/POLYMYX/BACIT 30 GM OINT TOP SCH (08:53)
[2017-06-24] MEDS: MUPIROCIN 2% 22 GM OINT TOP SCH ×2 (08:54→21:07)
[2017-06-24] MEDS: SENNA TAB PO SCH ×2 (08:54→21:00)
[2017-06-24] MEDS: POLYETHYLENE GLYCOL 17 GM PACKET PO SCH (08:54)
[2017-06-24] MEDS: DOCUSATE SODIUM 100 MG CAP PO SCH ×2 (08:54→21:00)
[2017-06-24] MEDS: COLLAGENASE 30 GM TUBE TOP SCH (08:55)
[2017-06-24 14:00] VITALS: BP 140/70; RESP 20
--- NOTE | 2017-06-24 19:11 | PN ---
Date/Time of Note Date/Time of Note DATE: 06/24/17 TIME: 19:09 Assessment/Plan VTE Prophylaxis VTE Prophylaxis Intervention: SCD's Lines/Catheters IV Catheter Type (from Nrsg): Saline Lock Urinary Cath still in place: No Assessment/Plan Assessment/Plan 66 yo M with spinal stenosis admitted for acute on chronic back pain and UE weakness 2/2 cervical stenosis. sp laminectomy and fusion 7.. updated imaging without new gross derangement. 1. Acute on chronic back pain with upper extremity weakness secondary to cervical cord stenosis now sp neurosurgical intervention 7.. HV drained removed by NSS team - neurosurgery signed off, continue physical therapy -Patient apparently did not qualify for acute rehab, awaiting possible longterm facility placement now, CM following -For now continue p.o. Dilaudid as needed and methadone twice daily. -->talk to palliative on Monday about weaning methadone 2 Prediabetes: Previous hemoglobin A1c 6.1. -Continue metformin 3. Depression with SI: pt with questionable suicidal ideation earlier this admission, was evaluated by telepsych then, and again on 05/30. no indication for psych hospitalization on 05.30 eval. - cont psych meds 4. 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 sacral wound: sp gen surg debridement 06.06 6. DVT prophx, DM diet Dispo: Case management working on finding snf placement for patient. Subjective 24 Hr Interval Summary Free Text/Dictation Seen working with PT, walking in the peña with their assistance Exam/Review of Systems Vital Signs Vitals Vital Signs Date Time Temp Pulse Resp B/P Pulse Ox O2 Delivery O2 Flow Rate FiO2 06/24/17 14:00 97.9 90 20 140/70 98 06/23/17 01:45 Room Air Intake and Output 06/23/17 06/23/17 06/24/17 15:00 23:00 07:00 Intake Total 1140 ml 800 ml Balance 1140 ml 800 ml Exam nad, wearing c collar resp nonlabored no gross abd distension no edema no rashes Medications Medications Current Medications Acetaminophen (Tylenol Tab) 650 mg Q6H PRN PO PAIN LEVEL 1-3 OR FEVER; Start at 21:00 Gabapentin (Neurontin) 300 mg TID PO Last administered on 06/24/17t 13:30; Admin Dose 300 MG; Start 05/16/17 at 21:00 Miscellaneous Information 1 ea NOTE XX ; Start 05/17/17 at 17:30 Glucose (Glutose) 15 gm Q15M PRN PO DECREASED GLUCOSE; Start 05/17/17 at 17:30 Glucose (Glutose) 22.5 gm Q15M PRN PO DECREASED GLUCOSE; Start 05/17/17 at 17:30 Dextrose (D50w Syringe) 25 ml Q15M PRN IV DECREASED GLUCOSE; Start 05/17/17 at 17:30 Dextrose (D50w Syringe) 50 ml Q15M PRN IV DECREASED GLUCOSE; Start 05/17/17 at 17:30 Glucagon (Glucagen) 1 mg Q15M PRN IM DECREASED GLUCOSE; Start 05/17/17 at 17:30 Glucose (Glutose) 15 gm Q15M PRN BUCCAL DECREASED GLUCOSE; Start 05/17/17 at 17: 30 Hydroxyzine HCl (Atarax) 25 mg Q6H PRN PO ITCHING Last administered on 06:53; Admin Dose 25 MG; Start 05/19/17 at 03:30 Docusate Sodium (Colace) 100 mg BID PO Last administered on 06/21/17 22:04; Admin Dose 100 MG; Start 05/19/17 at 21:00 Senna (Senokot) 1 tab BID PO Last administered on 06/21/17 22:04; Admin Dose 1 TAB; Start 05/19/17 at 21:00 Polyethylene Glycol (Miralax) 17 gm DAILY PO Last administered on 06/19/17 08: 25; Admin Dose 17 GM; Start 05/21/17 at 09:00 Neomycin/ Polymyxin/ Bacitracin (Neosporin Topical Oint) 1 applic AM TOP Last administered on 06/24/17 08:53; Admin Dose 1 APPLIC; Start 05/23/17 at 09:00 Lactulose (Enulose) 20 gm DAILY PRN PO CONSTIPATION Last administered on 20:22; Admin Dose 20 GM; Start 05/22/17 at 18:30 Bisacodyl (Dulcolax Supp) 10 mg DAILY PRN [place] CONSTIPATION Last administered on 06/03/17 10:50; Admin Dose 10 MG; Start 05/22/17 at 18:30 Ondansetron HCl (Zofran Inj) 4 mg Q6H PRN IV NAUSEA AND/OR VOMITING Last administered on 06/04/17 21:14; Admin Dose 4 MG; Start 05/27/17 at 00:30 Sodium Biphosphate/ Sodium Phosphate (Fleet Enema) 133 ml DAILY PRN [place] CONSTIPATION Last administered on 05/29/17 21:14; Admin Dose 133 ML; Start at 20:30 Paroxetine HCl (Paxil) 10 mg DAILY PO Last administered on 06/24/17 08:53; Admin Dose 10 MG; Start 05/31/17 at 12:30 Mupirocin (Bactroban) 1 applic BID TOP Last administered on 06/24/17 08:54; Admin Dose 1 APPLIC; Start 05/31/17 at 13:00 Miscellaneous Information (Pending Santyl Order For Wound Care) This patient tran... PRN PRN XX WOUND CARE; Start 06/01/17 at 15:00 Collagenase (Santyl) 1 applic DAILY TOP Last administered on 06/21/17 09:04; Admin Dose 1 APPLIC; Start 06/01/17 at 15:00 Mirtazapine (Remeron) 15 mg HS PO Last administered on 06/23/17 21:30; Admin Dose 15 MG; Start 06/03/17 at 21:00 Clotrimazole (Lotrimin Cr) 1 applic BID TOP Last administered on 06/24/17 08: 53; Admin Dose 1 APPLIC; Start 06/04/17 at 21:00 Lidocaine (Lidocaine 5% Oint) 1 applic TID PRN TOP PAIN Last administered on 08:21; Admin Dose 1 APPLIC; Start 06/04/17 at 20:00 Sodium Hypochlorite (Dakin'S (1/4 Strength)) 1 applic DAILY IRR Last administered on 06/24/17 08:53; Admin Dose 1 APPLIC; Start 06/07/17 at 09:00 Hydromorphone HCl (Dilaudid) 2 mg Q4H PRN PO PAIN Last administered on 18:29; Admin Dose 2 MG; Start 06/07/17 at 10:00 Methadone HCl (Methadone Liq) 7 mg BID PO Last administered on 06/24/17 08:53 ; Admin Dose 7 MG; Start 06/08/17 at 21:00 Al Hydrox/Mg Hydrox/Simethicone (Mag-Al Plus) 30 ml Q6H PRN PO GASTROINTESTINAL UPSET; Start 06/22/17 at 20:30 ERIC HORN MD Jun 24, 2017 19:10
[2017-06-24] MEDS: MIRTAZAPINE 15 MG TAB PO SCH (21:00)
[2017-06-24 21:13] VITALS: BP 139/78; RESP 18
--- NOTE | 2017-06-24 23:22 | PN ---
Date/Time of Note Date/Time of Note DATE: 06/24/17 TIME: 23:21 Assessment/Plan Lines/Catheters IV Catheter Type (from Nrsg): Saline Lock Munoz in Place (from Nrsg): No Assessment/Plan Chief Complaint/Hosp Course 1. Left buttock wound s/p excisional debridement 06/06 -frequent turning and offloading -specialty mattress -continue local care outpatient -optimize nutrition -vitamin C 2. Back pain: s/p laminectomy with fusion; pain improved; placement pending -up with PT 3. Prediabetes: hgba1c 6.1 4. Depression with suicidal ideation:no verbalization of SI: resolved 5. Microcytic anemia: chronic disease vs.iron deficiency vs. acute bleed vs. other; no acute bleed noted; h/h stable 6. Hypertension: labile -med management Patient seen and examined in collaboration with Dr. Luís Mendoza. Thank you. Problems: Subjective 24 Hr Interval Summary Feels well. Improved energy and appetite. Up with PT. No fevers, chills, cp, sob , cough, n/v/d/dysuria. No pain/discomfort from wounds. Exam/Review of Systems Vital Signs Vitals Vital Signs Date Time Temp Pulse Resp B/P Pulse Ox O2 Delivery O2 Flow Rate FiO2 07/01/17 07:25 98.4 92 18 120/75 98 07/01/17 02:00 Room Air Intake and Output 06/30/17 06/30/17 07/01/17 15:00 23:00 07:00 Intake Total 720 ml Output Total 500 ml Balance 220 ml Exam Free Text/Dictation Constitutional: alert, oriented,somnolent Psych: nl mood/affect, Head: atraumatic, normocephalic Eyes: nl lids, nl sclera ENMT: mucosa pink and moist, nl nasal mucosa & septum Neck: other s/p laminectomy/fusion Respiratory: clear to auscultation, normal air movement Cardiovascular: nl pulses, regular rate and rhythm Gastrointestinal: nondistended, non-tender, soft Musculoskeletal: nl extremities to inspection Extremities: normal pulses Neurological: nl mental status, nl speech, nl strength Skin: other (left buttock wound with scant drainage; wound bed pink, no periwound erythema, nonmalodorous) Results Result Diagram: 06/30/17 1220 06/29/17 1722 GILA WALKER NP Jun 24, 2017 23:22
[2017-06-25 03:18] VITALS: BP 143/76; RESP 18
[2017-06-25 08:09] VITALS: BP 146/73; RESP 20
[2017-06-25] MEDS: GABAPENTIN 300 MG CAP PO SCH ×3 (08:28→21:33)
[2017-06-25] MEDS: metFORMIN 500 MG TAB PO SCH ×2 (08:28→18:44)
[2017-06-25] MEDS: PAROXETINE 10 MG TAB PO SCH (08:29)
[2017-06-25] MEDS: DOCUSATE SODIUM 100 MG CAP PO SCH ×2 (08:29→21:00)
[2017-06-25] MEDS: METHADONE (1 MG/ML 5 ML PO UD SYG) PO SCH ×2 (08:29→21:34)
[2017-06-25] MEDS: POLYETHYLENE GLYCOL 17 GM PACKET PO SCH (08:29)
[2017-06-25] MEDS: SENNA TAB PO SCH ×2 (08:29→21:00)
[2017-06-25] MEDS: MUPIROCIN 2% 22 GM OINT TOP SCH ×2 (08:30→21:38)
[2017-06-25] MEDS: CLOTRIMAZOLE 1% 30 GM CR TOP SCH ×2 (08:30→21:38)
[2017-06-25] MEDS: SODIUM HYPOCHLORITE 0.125% 473 ML BTL IRR SCH (08:30)
[2017-06-25] MEDS: COLLAGENASE 30 GM TUBE TOP SCH (09:00)
[2017-06-25] MEDS: NEOMYC/POLYMYX/BACIT 30 GM OINT TOP SCH (09:00)
--- NOTE | 2017-06-25 11:38 | PN ---
Date/Time of Note Date/Time of Note DATE: 06/25/17 TIME: 11:32 Assessment/Plan Lines/Catheters IV Catheter Type (from Nrs): Saline Lock Munoz in Place (from Nrs): No Assessment/Plan Chief Complaint/Hosp Course 1. Left buttock wound s/p excisional debridement 06/06; continuing to heal well -frequent turning and offloading -specialty mattress -continue local care outpatient -optimize nutrition -vitamin C 2. Back pain: s/p laminectomy with fusion; pain improved; placement pending 3. Right lung nodule with cirrhotic liver morphology; concern for malignancy -work up per medicine -poss onc consult 4. Loose stools: -stool studies 5. Microcytic anemia: chronic disease vs.iron deficiency vs. acute bleed vs. other; no acute bleed noted; h/h stable 6. Hypertension: labile -med management Patient seen and examined in collaboration with Dr. Luís Mendoza. Thank you. Problems: Subjective 24 Hr Interval Summary Patient with loose stools. Feeling fatigued. No excessive drainage from wounds. No fevers, chills, cp, palpitations, sob, cough, n/v/d/dysuria. Exam/Review of Systems Vital Signs Vitals Vital Signs Date Time Temp Pulse Resp B/P Pulse Ox O2 Delivery O2 Flow Rate FiO2 06/25/17 08:09 98.1 93 20 146/73 97 06/23/17 01:45 Room Air Intake and Output 06/24/17 06/24/17 06/25/17 15:00 23:00 07:00 Intake Total 1200 ml 700 ml Output Total 800 ml Balance 400 ml 700 ml Exam Free Text/Dictation Constitutional: alert, oriented,fatigued Psych: nl mood/affect, Head: atraumatic, normocephalic Eyes: nl lids, nl sclera ENMT: mucosa pink and moist, nl nasal mucosa & septum Neck: other s/p laminectomy/fusion Respiratory: clear to auscultation, normal air movement Cardiovascular: nl pulses, regular rate and rhythm Gastrointestinal: nondistended, non-tender, soft Musculoskeletal: nl extremities to inspection Extremities: normal pulses Neurological: nl mental status, nl speech, nl strength Skin: other (left buttock wound with scant drainage; wound bed pink with min slough, no periwound erythema, nonmalodorous, healing well) SUMINISTRADO,GILA INVESTIGATION OFFICER Jun 25, 2017 11:37
[2017-06-25] MEDS: HYDROmorphONE 2 MG TAB PO PRN ×2 (13:25→18:44)
--- NOTE | 2017-06-25 14:15 | PN ---
Date/Time of Note Date/Time of Note DATE: 06/25/17 TIME: 14:09 Assessment/Plan VTE Prophylaxis VTE Prophylaxis Intervention: SCD's Lines/Catheters IV Catheter Type (from Nrsg): Saline Lock Urinary Cath still in place: No Assessment/Plan Assessment/Plan 66 yo M with spinal stenosis admitted for acute on chronic back pain and UE weakness 2/2 cervical stenosis. sp laminectomy and fusion 7.14. updated imaging without new gross derangement regarding his spine, however liver with cirrhotic morphology and lung lesion noted. 0. abnormal liver imaging and lung lesions check dedicated MR imaging A/P for liver, CT chest. check Hep C ab 1. Acute on chronic back pain with upper extremity weakness secondary to cervical cord stenosis now sp neurosurgical intervention 7.14. HV drained removed by NSS team - neurosurgery signed off, continue physical therapy -Patient apparently did not qualify for acute rehab, awaiting possible assisted facility placement now, CM following -For now continue p.o. Dilaudid as needed and methadone twice daily. -->talk to palliative on Monday about weaning methadone 2 Prediabetes: Previous hemoglobin A1c 6.1. -Continue metformin 3. Depression with SI: pt with questionable suicidal ideation earlier this admission, was evaluated by telepsych then, and again on 05/30. no indication for psych hospitalization on 05.30 eval. - cont psych meds 4. 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 sacral wound: sp gen surg debridement 06.06 6. DVT prophx, DM diet 7. diarrhea: check CDiff Dispo: Case management working on finding snf placement for patient. Subjective 24 Hr Interval Summary Free Text/Dictation Pt with diarrhea which started today. States he has a h/o Hep C, never diagnosed with cirrhosis previous Exam/Review of Systems Vital Signs Vitals Vital Signs Date Time Temp Pulse Resp B/P Pulse Ox O2 Delivery O2 Flow Rate FiO2 06/25/17 08:09 98.1 93 20 146/73 97 06/23/17 01:45 Room Air Intake and Output 06/24/17 06/24/17 06/25/17 15:00 23:00 07:00 Intake Total 1200 ml 700 ml Output Total 800 ml Balance 400 ml 700 ml Exam nad laying in bed no mrg lungs clear abd soft no rashes CT's from 06.23 with incidental finding of cirrhotic liver morphology with ?LAD and lung nodule Medications Medications Current Medications Acetaminophen (Tylenol Tab) 650 mg Q6H PRN PO PAIN LEVEL 1-3 OR FEVER; Start at 21:00 Gabapentin (Neurontin) 300 mg TID PO Last administered on 06/25/17 13:21; Admin Dose 300 MG; Start 05/16/17 at 21:00 Miscellaneous Information 1 ea NOTE XX ; Start 05/17/17 at 17:30 Glucose (Glutose) 15 gm Q15M PRN PO DECREASED GLUCOSE; Start 05/17/17 at 17:30 Glucose (Glutose) 22.5 gm Q15M PRN PO DECREASED GLUCOSE; Start 05/17/17 at 17:30 Dextrose (D50w Syringe) 25 ml Q15M PRN IV DECREASED GLUCOSE; Start 05/17/17 at 17:30 Dextrose (D50w Syringe) 50 ml Q15M PRN IV DECREASED GLUCOSE; Start 05/17/17 at 17:30 Glucagon (Glucagen) 1 mg Q15M PRN IM DECREASED GLUCOSE; Start 05/17/17 at 17:30 Glucose (Glutose) 15 gm Q15M PRN BUCCAL DECREASED GLUCOSE; Start 05/17/17 at 17: 30 Hydroxyzine HCl (Atarax) 25 mg Q6H PRN PO ITCHING Last administered on 06:53; Admin Dose 25 MG; Start 05/19/17 at 03:30 Docusate Sodium (Colace) 100 mg BID PO Last administered on 06/21/17 22:04; Admin Dose 100 MG; Start 05/19/17 at 21:00 Senna (Senokot) 1 tab BID PO Last administered on 06/21/17 22:04; Admin Dose 1 TAB; Start 05/19/17 at 21:00 Polyethylene Glycol (Miralax) 17 gm DAILY PO Last administered on 06/19/17 08: 25; Admin Dose 17 GM; Start 05/21/17 at 09:00 Lactulose (Enulose) 20 gm DAILY PRN PO CONSTIPATION Last administered on 20:22; Admin Dose 20 GM; Start 05/22/17 at 18:30 Bisacodyl (Dulcolax Supp) 10 mg DAILY PRN [place] CONSTIPATION Last administered on 7/22/17at 10:50; Admin Dose 10 MG; Start 05/22/17 at 18:30 Ondansetron HCl (Zofran Inj) 4 mg Q6H PRN IV NAUSEA AND/OR VOMITING Last administered on 06/04/17 21:14; Admin Dose 4 MG; Start 05/27/17 at 00:30 Sodium Biphosphate/ Sodium Phosphate (Fleet Enema) 133 ml DAILY PRN [place] CONSTIPATION Last administered on 05/29/17 21:14; Admin Dose 133 ML; Start at 20:30 Paroxetine HCl (Paxil) 10 mg DAILY PO Last administered on 06/25/17 08:29; Admin Dose 10 MG; Start 05/31/17 at 12:30 Mupirocin (Bactroban) 1 applic BID TOP Last administered on 06/25/17 08:30; Admin Dose 1 APPLIC; Start 05/31/17 at 13:00 Collagenase (Santyl) 1 applic DAILY TOP Last administered on 06/21/17 09:04; Admin Dose 1 APPLIC; Start 06/01/17 at 15:00 Mirtazapine (Remeron) 15 mg HS PO Last administered on 06/23/17 21:30; Admin Dose 15 MG; Start 06/03/17 at 21:00 Clotrimazole (Lotrimin Cr) 1 applic BID TOP Last administered on 06/25/17 08: 30; Admin Dose 1 APPLIC; Start 06/04/17 at 21:00 Lidocaine (Lidocaine 5% Oint) 1 applic TID PRN TOP PAIN Last administered on 08:21; Admin Dose 1 APPLIC; Start 06/04/17 at 20:00 Sodium Hypochlorite (Dakin'S (1/4 Strength)) 1 applic DAILY IRR Last administered on 06/25/17 08:30; Admin Dose 1 APPLIC; Start 06/07/17 at 09:00 Hydromorphone HCl (Dilaudid) 2 mg Q4H PRN PO PAIN Last administered on 13:25; Admin Dose 2 MG; Start 06/07/17 at 10:00 Methadone HCl (Methadone Liq) 7 mg BID PO Last administered on 06/25/17 08:29 ; Admin Dose 7 MG; Start 06/08/17 at 21:00 Al Hydrox/Mg Hydrox/Simethicone (Mag-Al Plus) 30 ml Q6H PRN PO GASTROINTESTINAL UPSET; Start 06/22/17 at 20:30 ERIC HORN MD Jun 25, 2017 14:15
[2017-06-25 14:54] VITALS: BP 150/79; RESP 20
[2017-06-25 20:27] VITALS: BP 142/79; RESP 18
[2017-06-25] MEDS: MIRTAZAPINE 15 MG TAB PO SCH (21:33)
--- NOTE | 2017-06-26 01:34 | RADRPT ---
AMENDMENT: 07/15/2017 11:34:47 PM Maris Rossi M.D Dose information: The estimated radiation dose (CTDIvol mGy) for each series in this exam 14.2 . The estimated cumulative dose (DLP mGy-cm)is 541 . One or more of the following dose reduction techniques were used: - Automated exposure control. - Adjustment of the mA and/or kV according to patient size. - Use of iterative reconstruction technique. Sagittal and coronal re-formations were constructed. PROCEDURE: CT CHEST WITHOUT CONTRAST: CLINICAL INDICATION: 66 years of age, male . Pulmonary nodule seen on the thoracic spine CT. COMPARISON: Thoracic spine CT June 22, 2017 TECHNIQUE: CT of the chest was performed without IV contrast. Dose information: The estimated radiation dose (CTDIvol mGy) for each series in this exam is . Th e estimated cumulative dose (DLP mGy-cm)is . FINDINGS: In the absence of intravenous contrast, the study constitutes a limited assessment of the solid orga ns and vessels. CHEST: Medical devices: None. Thyroid: Normal. Lymph nodes: Calcified right hilar lymph nodes from old healed granulomatous infection. Vasculature: Atherosclerosis aorta. No aneurysm. Negative for abnormal enlargement of the main pul monary artery. Heart: Mild coronary artery calcification along LAD. Negative for pericardial effusion. No pericard ial effusion. Other mediastinal structures: Normal. Lung parenchyma and pleura: There is a 0.5 cm right upper lobe pulmonary nodule that corresponds to the nodule seen on recent thoracic spine CT (02/08). There is a 0.3 cm subpleural nodule in the left upper lobe (/). Mild lung emphysema. Mild patchy opacity right upper lobe is likely inflammato ry (3/46). Bilateral dependent atelectasis. Trace bilateral pleural effusions. Airways: Normal. Chest wall: Mild body wall edema. Upper abdomen: Nodular liver surface contour in keeping with cirrhosis. Distended gallbladder. Spl enomegaly measuring 14 cm. Scattered calcified splenic granulomas. Indeterminate hypodensities lef t kidney likely represent cysts. Suspected nonobstructing calculi superior pole right kidney. Trac e perihepatic free fluid. Musculoskeletal: Multilevel degenerative changes in spine with anterior bridging osteophytes in keep ing with DISH. Left glenohumeral osteoarthritis. No suspicious bone lesions. IMPRESSION: 1. Two small pulmonary nodules measuring up to 0.5 cm in the right upper lobe. In the absence of a k nown primary neoplasm or risk factors for metastatic disease, recommend followup according to [place] guidelines. If there is a significant positive smoking history, recommend follow-up low-dose c hest CT in 12 months or correlation with more remote previous imaging. In the absence of a signific ant positive smoking history, no further imaging is required. 2. Trace bilateral pleural effusions and dependent atelectasis. 3. Cirrhosis with portal venous hypertension with splenomegaly and trace ascites. RPTAT: HCTS Physician Floyd Date Time Electronically viewed and signed by Godwin Rossi Physician on 07/15/2017 23:35 CS/
[2017-06-26 02:57] VITALS: BP 165/81; RESP 18
[2017-06-26 08:17] VITALS: BP 150/82; RESP 17
[2017-06-26] MEDS: COLLAGENASE 30 GM TUBE TOP SCH (09:00)
[2017-06-26] MEDS: SENNA TAB PO SCH ×2 (09:00→21:00)
[2017-06-26] MEDS: POLYETHYLENE GLYCOL 17 GM PACKET PO SCH (09:00)
[2017-06-26] MEDS: DOCUSATE SODIUM 100 MG CAP PO SCH ×2 (09:00→21:00)
--- NOTE | 2017-06-26 09:49 | PN ---
Date/Time of Note Date/Time of Note DATE: 06/26/17 TIME: 09:46 Assessment/Plan Lines/Catheters IV Catheter Type (from [facility]): Saline Lock Munoz in Place (from [facility]): No Assessment/Plan Chief Complaint/Hosp Course 1. Left buttock wound s/p excisional debridement 06/06; continuing to heal well -frequent turning and offloading -specialty mattress -continue local care outpatient -optimize nutrition -vitamin C 2. Back pain: s/p laminectomy with fusion; pain improved 3. Right lung nodule with cirrhotic liver morphology; concern for malignancy -work up per medicine -poss onc consult -?hepatology consult 4. Loose stools: cdiff neg -stool studies 5. Microcytic anemia: chronic disease vs.iron deficiency vs. acute bleed vs. other; no acute bleed noted; h/h stable 6. Hypertension: labile -med management Patient seen and examined in collaboration with Dr. Luís Mendoza. Thank you. Problems: Subjective 24 Hr Interval Summary Feels ok. decrease in appetite. Loose stools. No fevers, chills, n/v/d/dysuria, cp, cough, excessive drainage from wound. Exam/Review of Systems Vital Signs Vitals Vital Signs Date Time Temp Pulse Resp B/P Pulse Ox O2 Delivery O2 Flow Rate FiO2 06/26/17 08:17 98.6 90 17 150/82 99 06/23/17 01:45 Room Air Intake and Output 06/25/17 06/25/17 06/26/17 15:00 23:00 07:00 Intake Total 500 ml 680 ml Balance 500 ml 680 ml Exam Free Text/Dictation Constitutional: alert, oriented,fatigued Psych: nl mood/affect, Head: atraumatic, normocephalic Eyes: nl lids, nl sclera ENMT: mucosa pink and moist, nl nasal mucosa & septum Neck: other s/p laminectomy/fusion Respiratory: normal air movement Cardiovascular: nl pulses, regular rate and rhythm Gastrointestinal: nondistended, non-tender, soft Musculoskeletal: nl extremities to inspection Extremities: normal pulses Neurological: nl mental status, nl speech, nl strength Skin: other (left buttock wound with scant drainage; wound bed pink with min slough, no periwound erythema, nonmalodorous, healing well) GILA WALKER NP Jun 26, 2017 09:49
[2017-06-26] MEDS: GABAPENTIN 300 MG CAP PO SCH ×3 (09:54→20:37)
[2017-06-26] MEDS: metFORMIN 500 MG TAB PO SCH (09:54)
[2017-06-26] MEDS: PAROXETINE 10 MG TAB PO SCH (09:54)
[2017-06-26] MEDS: SODIUM HYPOCHLORITE 0.125% 473 ML BTL IRR SCH (09:55)
[2017-06-26] MEDS: METHADONE (1 MG/ML 5 ML PO UD SYG) PO SCH ×2 (09:55→20:38)
[2017-06-26] MEDS: CLOTRIMAZOLE 1% 30 GM CR TOP SCH ×2 (09:56→20:39)
[2017-06-26] MEDS: MUPIROCIN 2% 22 GM OINT TOP SCH ×2 (09:56→20:39)
[2017-06-26] MEDS: HYDROmorphONE 2 MG TAB PO PRN (12:50)
--- NOTE | 2017-06-26 13:55 | PN ---
Date/Time of Note Date/Time of Note DATE: 06/26/17 TIME: 13:42 Assessment/Plan VTE Prophylaxis VTE Prophylaxis Intervention: SCD's Lines/Catheters IV Catheter Type (from Nrs): Saline Lock Urinary Cath still in place: No Assessment/Plan Chief Complaint/Hosp Course Assessment/Plan: 66 yo M with spinal stenosis admitted for acute on chronic back pain and UE weakness 2/2 cervical stenosis. sp laminectomy and fusion 7.14. updated imaging without new gross derangement regarding his spine, however liver with cirrhotic morphology and lung lesion noted. 0. abnormal liver imaging and lung lesions -Follow-up dedicated MR imaging A/P for liver, CT chest. Hepatitis C antibody was positive, will check acute hepatitis panel as well 1. Acute on chronic back pain with upper extremity weakness secondary to cervical cord stenosis now sp neurosurgical intervention 7.14. HV drained removed by NSS team - neurosurgery signed off, continue physical therapy -Patient apparently did not qualify for acute rehab, awaiting possible intermediate facility placement now, CM following -For now continue p.o. Dilaudid as needed and methadone twice daily. --> Talk to palliative about weaning methadone 2 Prediabetes: Previous hemoglobin A1c 6.1. -For now we will hold metformin given MRI abdomen pelvis with contrast pending 3. Depression with SI: pt with questionable suicidal ideation earlier this admission, was evaluated by telepsych then, and again on 05/30. no indication for psych hospitalization on 05.30 eval. - cont psych meds 4. 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 sacral wound: sp gen surg debridement 7.25 -Follow-up surgery recommendations 6. DVT prophx, DM diet 7. diarrhea: Resolving now. C. difficile test was negative. -Imodium as needed. Dispo: Case management working on finding snf placement for patient. Problems: Subjective 24 Hr Interval Summary Free Text/Dictation No diarrhea today. Awaiting MRI abdomen and pelvis to be performed. Exam/Review of Systems Vital Signs Vitals Vital Signs Date Time Temp Pulse Resp B/P Pulse Ox O2 Delivery O2 Flow Rate FiO2 06/26/17 08:17 98.6 90 17 150/82 99 06/23/17 01:45 Room Air Intake and Output 06/25/17 06/25/17 06/26/17 15:00 23:00 07:00 Intake Total 500 ml 680 ml Balance 500 ml 680 ml Exam nad laying in bed no mrg lungs clear abd soft no lower extremity edema bilaterally Results Results 24 hrs Laboratory Tests Test 06/26/17 04:32 Hepatitis C Antibody REACTIVE H Medications Medications Current Medications Acetaminophen (Tylenol Tab) 650 mg Q6H PRN PO PAIN LEVEL 1-3 OR FEVER; Start at 21:00 Gabapentin (Neurontin) 300 mg TID PO Last administered on 06/26/17 12:50; Admin Dose 300 MG; Start 05/16/17 at 21:00 Miscellaneous Information 1 ea NOTE XX ; Start 05/17/17 at 17:30 Glucose (Glutose) 15 gm Q15M PRN PO DECREASED GLUCOSE; Start 05/17/17 at 17:30 Glucose (Glutose) 22.5 gm Q15M PRN PO DECREASED GLUCOSE; Start 05/17/17 at 17:30 Dextrose (D50w Syringe) 25 ml Q15M PRN IV DECREASED GLUCOSE; Start 05/17/17 at 17:30 Dextrose (D50w Syringe) 50 ml Q15M PRN IV DECREASED GLUCOSE; Start 05/17/17 at 17:30 Glucagon (Glucagen) 1 mg Q15M PRN IM DECREASED GLUCOSE; Start 05/17/17 at 17:30 Glucose (Glutose) 15 gm Q15M PRN BUCCAL DECREASED GLUCOSE; Start 05/17/17 at 17: 30 Hydroxyzine HCl (Atarax) 25 mg Q6H PRN PO ITCHING Last administered on 06:53; Admin Dose 25 MG; Start 05/19/17 at 03:30 Docusate Sodium (Colace) 100 mg BID PO Last administered on 06/21/17 22:04; Admin Dose 100 MG; Start 05/19/17 at 21:00 Senna (Senokot) 1 tab BID PO Last administered on 06/21/17 22:04; Admin Dose 1 TAB; Start 05/19/17 at 21:00 Polyethylene Glycol (Miralax) 17 gm DAILY PO Last administered on 06/19/17 08: 25; Admin Dose 17 GM; Start 05/21/17 at 09:00 Lactulose (Enulose) 20 gm DAILY PRN PO CONSTIPATION Last administered on 20:22; Admin Dose 20 GM; Start 05/22/17 at 18:30 Bisacodyl (Dulcolax Supp) 10 mg DAILY PRN [place] CONSTIPATION Last administered on 06/03/17 10:50; Admin Dose 10 MG; Start 05/22/17 at 18:30 Ondansetron HCl (Zofran Inj) 4 mg Q6H PRN IV NAUSEA AND/OR VOMITING Last administered on 06/04/17 21:14; Admin Dose 4 MG; Start 05/27/17 at 00:30 Sodium Biphosphate/ Sodium Phosphate (Fleet Enema) 133 ml DAILY PRN [place] CONSTIPATION Last administered on 05/29/17 21:14; Admin Dose 133 ML; Start at 20:30 Paroxetine HCl (Paxil) 10 mg DAILY PO Last administered on 06/26/17 09:54; Admin Dose 10 MG; Start 05/31/17 at 12:30 Mupirocin (Bactroban) 1 applic BID TOP Last administered on 06/26/17 09:56; Admin Dose 1 APPLIC; Start 05/31/17 at 13:00 Collagenase (Santyl) 1 applic DAILY TOP Last administered on 06/21/17 09:04; Admin Dose 1 APPLIC; Start 06/01/17 at 15:00 Mirtazapine (Remeron) 15 mg HS PO Last administered on 06/25/17 21:33; Admin Dose 15 MG; Start 06/03/17 at 21:00 Clotrimazole (Lotrimin Cr) 1 applic BID TOP Last administered on 06/26/17 09: 56; Admin Dose 1 APPLIC; Start 06/04/17 at 21:00 Lidocaine (Lidocaine 5% Oint) 1 applic TID PRN TOP PAIN Last administered on 08:21; Admin Dose 1 APPLIC; Start 06/04/17 at 20:00 Sodium Hypochlorite (Dakin'S (1/4 Strength)) 1 applic DAILY IRR Last administered on 06/26/17 09:55; Admin Dose 1 APPLIC; Start 06/07/17 at 09:00 Hydromorphone HCl (Dilaudid) 2 mg Q4H PRN PO PAIN Last administered on 12:50; Admin Dose 2 MG; Start 06/07/17 at 10:00 Methadone HCl (Methadone Liq) 7 mg BID PO Last administered on 06/26/17t 09:55 ; Admin Dose 7 MG; Start 06/08/17 at 21:00 Al Hydrox/Mg Hydrox/Simethicone (Mag-Al Plus) 30 ml Q6H PRN PO GASTROINTESTINAL UPSET; Start 06/22/17 at 20:30 INNA ASCENCIO Jun 26, 2017 13:55
[2017-06-26] MEDS ORDERED: ONDANSETRON 4 MG TAB PO PRN (14:00)
[2017-06-26] MEDS ORDERED: LOPERAMIDE 2 MG CAP PO PRN (14:00)
[2017-06-26] MEDS: ONDANSETRON 4 MG INJ IV PRN (14:21)
[2017-06-26 14:22] VITALS: BP 131/71; RESP 19
[2017-06-26 16:15] LABS: HAAIG REFLEX REFLEX FILED
[2017-06-26 17:32] LABS: ALBUMIN 2.2 g/dl (3.3-4.9); BILIRUBIN,INDIRECT 0.3 mg/dl (0-1.1); BILIRUBIN,TOTAL 0.3 mg/dl (0.2-1.3); TOTAL PROTEIN 5.7 g/dl (6.1-8.1)
[2017-06-26 18:53] LABS: HEPATITIS B CORE ANTIBODY NEGATIVE (NEGATIVE)
--- NOTE | 2017-06-26 19:31 | RADRPT ---
PROCEDURE: MR pelvis with and without contrast CLINICAL INDICATION: Diagnosis of abnormal liver imaging on CT, weakness TECHNIQUE: MRI of the pelvis with and without contrast was performed. 20 cc of Magnevist was injec josette intravenously. MRI of the abdomen above the level of the pelvis could not be performed due to pa tient discomfort and inability to tolerate. COMPARISON: CT chest without contrast of 06/25/[address] lumbar spine without contrast of 06/22/20 17 FINDINGS: No definite pelvic mass is seen. There is diffuse subcutaneous edema. There is appearance of a sma ll amount of ascites in the lower posterior pelvis. No abnormality of the bladder is seen. Osteoar throsis at bilateral hips. The prostate is not enlarged. Degenerative changes in the visualized lo wer lumbar spine. No enlarged lymph nodes are seen in the pelvis. IMPRESSION: Small amount of ascites. Diffuse subcutaneous edema Otherwise no acute abnormality seen in the pelvi s. Dedicated CT of the abdomen and pelvis with contrast is recommended for further evaluation. RPTAT: HJES .Mitchel Ricardo MD, MD Date Time Electronically viewed and signed by .Mitchel Ricardo MD, on 06/26/2017 19:30 .S/
[2017-06-26 20:20] VITALS: BP 140/74; RESP 18
[2017-06-26] MEDS: MIRTAZAPINE 15 MG TAB PO SCH (20:37)
[2017-06-27 00:06] VITALS: BP 136/69; RESP 19
[2017-06-27] MEDS: HYDROmorphONE 2 MG TAB PO PRN ×3 (02:34→19:23)
[2017-06-27 02:42] VITALS: BP 135/76; RESP 19
[2017-06-27 05:29] VITALS: BP 109/52; PULSE 65; RESP 18
[2017-06-27 08:19] VITALS: BP 135/73; RESP 19
[2017-06-27] MEDS: MUPIROCIN 2% 22 GM OINT TOP SCH ×2 (08:42→20:37)
[2017-06-27] MEDS: METHADONE (1 MG/ML 5 ML PO UD SYG) PO SCH ×2 (08:42→20:37)
[2017-06-27] MEDS: DOCUSATE SODIUM 100 MG CAP PO SCH ×2 (08:42→20:24)
[2017-06-27] MEDS: SODIUM HYPOCHLORITE 0.125% 473 ML BTL IRR SCH (08:42)
[2017-06-27] MEDS: COLLAGENASE 30 GM TUBE TOP SCH (08:43)
[2017-06-27] MEDS: SENNA TAB PO SCH ×2 (08:43→20:25)
[2017-06-27] MEDS: PAROXETINE 10 MG TAB PO SCH (08:43)
[2017-06-27] MEDS: POLYETHYLENE GLYCOL 17 GM PACKET PO SCH (08:43)
[2017-06-27] MEDS: GABAPENTIN 300 MG CAP PO SCH ×3 (08:43→20:37)
[2017-06-27] MEDS: CLOTRIMAZOLE 1% 30 GM CR TOP SCH ×2 (08:43→22:29)
--- NOTE | 2017-06-27 13:39 | PN ---
Date/Time of Note Date/Time of Note DATE: 06/27/17 TIME: 13:36 Assessment/Plan Lines/Catheters IV Catheter Type (from Nrs): Saline Lock Munoz in Place (from Nrs): No Assessment/Plan Chief Complaint/Hosp Course 1. Left buttock wound s/p excisional debridement 06/06; continuing to heal well -frequent turning and offloading -specialty mattress -continue local care -optimize nutrition -vitamin C 2. Back pain: s/p laminectomy with fusion; pain improved 3. Right lung nodule with cirrhotic liver morphology; concern for malignancy + hep C -work up per medicine -poss onc consult -?hepatology consult 4. Loose stools: cdiff neg: resolved -stool studies if peristent 5. Microcytic anemia: chronic disease vs.iron deficiency vs. acute bleed vs. other; no acute bleed noted; h/h stable 6. Hypertension: labile -med management Patient seen and examined in collaboration with Dr. Luís Mendoza. Thank you. Problems: Subjective 24 Hr Interval Summary Feeling ok. Less stools. Up with therapy but more fatigues, decreased appetite. +hep c. No fevers, chills, cp,sob, cough, n/v/d/dysuria. Wound healing well. Exam/Review of Systems Vital Signs Vitals Vital Signs Date Time Temp Pulse Resp B/P Pulse Ox O2 Delivery O2 Flow Rate FiO2 06/27/17 08:19 98.7 97 19 135/73 98 06/27/17 05:29 Room Air Intake and Output 06/26/17 06/26/17 06/27/17 15:00 23:00 07:00 Intake Total 840 ml 500 ml Balance 840 ml 500 ml Exam Free Text/Dictation Constitutional: alert, oriented,fatigued, poor appetite Psych: nl mood/affect, Head: atraumatic, normocephalic Eyes: nl lids, nl sclera ENMT: mucosa pink and moist, nl nasal mucosa & septum Neck: other s/p laminectomy/fusion Respiratory: normal air movement Cardiovascular: nl pulses, regular rate and rhythm Gastrointestinal: nondistended, non-tender, soft, rotund Musculoskeletal: nl extremities to inspection Extremities: normal pulses Neurological: nl mental status, nl speech, nl strength Skin: other (left buttock wound with scant drainage; wound bed pink with min slough, no periwound erythema, nonmalodorous, healing well) GILA WALKER NP Jun 27, 2017 13:39
--- NOTE | 2017-06-27 13:50 | PN ---
Date/Time of Note Date/Time of Note DATE: 06/27/17 TIME: 13:45 Assessment/Plan VTE Prophylaxis VTE Prophylaxis Intervention: SCD's Lines/Catheters IV Catheter Type (from Nrs): Saline Lock Urinary Cath still in place: No Assessment/Plan Chief Complaint/Hosp Course Assessment/Plan: 66 yo M with spinal stenosis admitted for acute on chronic back pain and UE weakness 2/2 cervical stenosis. sp laminectomy and fusion 7.. updated imaging without new gross derangement regarding his spine, however liver with cirrhotic morphology and lung lesion noted. 0. abnormal liver imaging and lung lesions -Follow-up dedicated MR of pelvis was performed yesterday, nondiagnostic. Hepatitis C antibody was positive. -We will get CT abdomen pelvis with IV contrast dedicated study to further assess liver. 1. Acute on chronic back pain with upper extremity weakness secondary to cervical cord stenosis now sp neurosurgical intervention 7.. HV drained removed by NSS team - neurosurgery signed off, continue physical therapy -Patient apparently did not qualify for acute rehab, awaiting possible assisted facility placement now, CM following -For now continue p.o. Dilaudid as needed and methadone twice daily. --> Talk to palliative about weaning methadone 2 Prediabetes: Previous hemoglobin A1c 6.1. -For now we will hold metformin given MRI abdomen pelvis with contrast pending 3. Depression with SI: pt with questionable suicidal ideation earlier this admission, was evaluated by telepsych then, and again on 05/30. no indication for psych hospitalization on 05.30 eval. - cont psych meds 4. 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 sacral wound: sp gen surg debridement 7. -Follow-up surgery recommendations 6. DVT prophx, DM diet 7. diarrhea: Resolving now. C. difficile test was negative. -Imodium as needed. Dispo: Case management working on finding snf placement for patient. Problems: Subjective 24 Hr Interval Summary Free Text/Dictation Patient seen by OT this morning. Presently ambulating in the hallway with physical therapy and front wheel walker. No acute events overnight. Had MRI of the pelvis only performed yesterday. Exam/Review of Systems Vital Signs Vitals Vital Signs Date Time Temp Pulse Resp B/P Pulse Ox O2 Delivery O2 Flow Rate FiO2 06/27/17 08:19 98.7 97 19 135/73 98 06/27/17 05:29 Room Air Intake and Output 06/26/17 06/26/17 06/27/17 15:00 23:00 07:00 Intake Total 840 ml 500 ml Balance 840 ml 500 ml Exam nad laying in bed no mrg lungs clear abd soft no lower extremity edema bilaterally Medications Medications Current Medications Acetaminophen (Tylenol Tab) 650 mg Q6H PRN PO PAIN LEVEL 1-3 OR FEVER; Start at 21:00 Gabapentin (Neurontin) 300 mg TID PO Last administered on 06/27/17 08:43; Admin Dose 300 MG; Start 05/16/17 at 21:00 Miscellaneous Information 1 ea NOTE XX ; Start 05/17/17 at 17:30 Glucose (Glutose) 15 gm Q15M PRN PO DECREASED GLUCOSE; Start 05/17/17 at 17:30 Glucose (Glutose) 22.5 gm Q15M PRN PO DECREASED GLUCOSE; Start 05/17/17 at 17:30 Dextrose (D50w Syringe) 25 ml Q15M PRN IV DECREASED GLUCOSE; Start 05/17/17 at 17:30 Dextrose (D50w Syringe) 50 ml Q15M PRN IV DECREASED GLUCOSE; Start 05/17/17 at 17:30 Glucagon (Glucagen) 1 mg Q15M PRN IM DECREASED GLUCOSE; Start 05/17/17 at 17:30 Glucose (Glutose) 15 gm Q15M PRN BUCCAL DECREASED GLUCOSE; Start 05/17/17 at 17: 30 Hydroxyzine HCl (Atarax) 25 mg Q6H PRN PO ITCHING Last administered on 06:53; Admin Dose 25 MG; Start 05/19/17 at 03:30 Docusate Sodium (Colace) 100 mg BID PO Last administered on 06/21/17 22:04; Admin Dose 100 MG; Start 05/19/17 at 21:00 Senna (Senokot) 1 tab BID PO Last administered on 06/21/17 22:04; Admin Dose 1 TAB; Start 05/19/17 at 21:00 Polyethylene Glycol (Miralax) 17 gm DAILY PO Last administered on 06/19/17 08: 25; Admin Dose 17 GM; Start 05/21/17 at 09:00 Lactulose (Enulose) 20 gm DAILY PRN PO CONSTIPATION Last administered on 20:22; Admin Dose 20 GM; Start 05/22/17 at 18:30 Bisacodyl (Dulcolax Supp) 10 mg DAILY PRN [place] CONSTIPATION Last administered on 06/03/17 10:50; Admin Dose 10 MG; Start 05/22/17 at 18:30 Ondansetron HCl (Zofran Inj) 4 mg Q6H PRN IV NAUSEA AND/OR VOMITING Last administered on 06/26/17 14:21; Admin Dose 4 MG; Start 05/27/17 at 00:30 Sodium Biphosphate/ Sodium Phosphate (Fleet Enema) 133 ml DAILY PRN [place] CONSTIPATION Last administered on 05/29/17 21:14; Admin Dose 133 ML; Start at 20:30 Paroxetine HCl (Paxil) 10 mg DAILY PO Last administered on 06/27/17 08:43; Admin Dose 10 MG; Start 05/31/17 at 12:30 Mupirocin (Bactroban) 1 applic BID TOP Last administered on 06/27/17 08:42; Admin Dose 1 APPLIC; Start 05/31/17 at 13:00 Collagenase (Santyl) 1 applic DAILY TOP Last administered on 06/21/17 09:04; Admin Dose 1 APPLIC; Start 06/01/17 at 15:00 Mirtazapine (Remeron) 15 mg HS PO Last administered on 06/26/17 20:37; Admin Dose 15 MG; Start 06/03/17 at 21:00 Clotrimazole (Lotrimin Cr) 1 applic BID TOP Last administered on 06/27/17 08: 43; Admin Dose 1 APPLIC; Start 06/04/17 at 21:00 Lidocaine (Lidocaine 5% Oint) 1 applic TID PRN TOP PAIN Last administered on 08:21; Admin Dose 1 APPLIC; Start 06/04/17 at 20:00 Sodium Hypochlorite (Dakin'S (1/4 Strength)) 1 applic DAILY IRR Last administered on 06/27/17 08:42; Admin Dose 1 APPLIC; Start 06/07/17 at 09:00 Hydromorphone HCl (Dilaudid) 2 mg Q4H PRN PO PAIN Last administered on 12:31; Admin Dose 2 MG; Start 06/07/17 at 10:00 Methadone HCl (Methadone Liq) 7 mg BID PO Last administered on 06/27/17t 08:42 ; Admin Dose 7 MG; Start 06/08/17 at 21:00 Al Hydrox/Mg Hydrox/Simethicone (Mag-Al Plus) 30 ml Q6H PRN PO GASTROINTESTINAL UPSET; Start 06/22/17 at 20:30 Loperamide HCl (Imodium Cap) 2 mg QID PRN PO DIARRHEA; Start 06/26/17 at 14:00 Ondansetron HCl (Zofran Tab) 4 mg Q6H PRN PO NAUSEA AND/OR VOMITING; Start at 14:00 INNA ASCENCIO Jun 27, 2017 13:50
[2017-06-27] MEDS ORDERED: BARIUM SULF 2% 450 ML BTL (BERRY SMOOTHIE) PO ONE (14:00)
[2017-06-27 16:13] VITALS: BP 141/73; RESP 18
[2017-06-27 19:36] VITALS: BP 152/72; RESP 18
[2017-06-27] MEDS: MIRTAZAPINE 15 MG TAB PO SCH ×2 (20:37→20:47)
[2017-06-28 01:43] VITALS: BP 142/71; RESP 18
[2017-06-28] MEDS: HYDROmorphONE 2 MG TAB PO PRN ×4 (01:58→15:01)
[2017-06-28] MEDS: PAROXETINE 10 MG TAB PO SCH (08:59)
[2017-06-28] MEDS: GABAPENTIN 300 MG CAP PO SCH ×3 (08:59→20:11)
[2017-06-28] MEDS: DOCUSATE SODIUM 100 MG CAP PO SCH ×2 (09:00→20:10)
[2017-06-28] MEDS: METHADONE (1 MG/ML 5 ML PO UD SYG) PO SCH ×2 (09:00→20:10)
[2017-06-28] MEDS: POLYETHYLENE GLYCOL 17 GM PACKET PO SCH (09:00)
[2017-06-28] MEDS: SENNA TAB PO SCH ×2 (09:00→20:11)
[2017-06-28] MEDS: COLLAGENASE 30 GM TUBE TOP SCH (09:00)
[2017-06-28] MEDS: SODIUM HYPOCHLORITE 0.125% 473 ML BTL IRR SCH (09:01)
[2017-06-28] MEDS: MUPIROCIN 2% 22 GM OINT TOP SCH ×2 (09:01→20:11)
[2017-06-28] MEDS: CLOTRIMAZOLE 1% 30 GM CR TOP SCH ×2 (09:01→20:11)
[2017-06-28] MEDS ORDERED: IODIXANOL LOCM 100 ML BTL ONE (10:05)
[2017-06-28] MEDS ORDERED: SOD CHLORIDE 0.9% 100 ML ONE (10:05)
--- NOTE | 2017-06-28 10:32 | RADRPT ---
PROCEDURE: CT Abdomen and Pelvis with contrast. CLINICAL INDICATION: Hepatitis C TECHNIQUE: CT of the abdomen and pelvis was performed on a multi-detector scanner following the un complicated IV administration of 100 cc of Omnipaque 300. Coronal and sagittal images were reformat josette from the axial data set. One or more of the following dose reduction techniques were used: auto mated exposure control, adjustment of the mA and/or kV according to patient size, use of iterative reconstruction technique. CTDI = 19.75 mGy. DLP = 1294.73 mGy-cm. COMPARISON: CT, 06/25/2017 FINDINGS: CT abdomen: The lung bases are clear. The heart size is normal, without pericardial effusion. The liver is cir rhotic. No gross evidence of focal hepatic mass is identified. Portal and hepatic veins remain pat ent. Trace amount of perihepatic ascites is noted. Splenomegaly is noted, measuring 15 cm. Gallbl adder, biliary tree, pancreas, adrenal glands and kidneys are unremarkable except for benign renal c ysts. No urolithiasis or obstructive uropathy is identified. The stomach is mildly distended and d ebris filled, but otherwise grossly unremarkable. Mild to moderate gastroesophageal varices are not ed. There is no abdominal aortic aneurysm or dissection. Aortic vascular calcifications are present. T here is no retroperitoneal lymphadenopathy. The ab hepatis region is clear. CT pelvis: No bowel obstruction, free intraperitoneal air or abscess is identified. Mild retained fecal materi al may indicate constipation. There is no diverticulosis, diverticulitis, colitis or appendicitis. Urinary bladder contains several small calculi. No pelvic mass, free fluid or lymphadenopathy is i dentified. The surrounding osseous structures are remarkable for degenerative enthesopathy of the spine. No os teolytic or osteoblastic lesion is detected. IMPRESSION: 1. The liver is cirrhotic, with signs of portal hypertension including mild to moderate gastroesoph ageal varices, mild splenomegaly, and trace perihepatic ascites. No gross evidence of focal hepatic mass is identified. 2. Scattered aortoiliac atherosclerotic calcifications are present. 3. Mild retained fecal material may indicate constipation. 4. No mass, lymphadenopathy, or focal acute inflammatory process is identified. RPTAT: EE .Bonilla Silverio MD, MD Date Time Electronically viewed and signed by .Bonilla Silverio MD, MD on 06/28/2017 10:31 .R/
--- NOTE | 2017-06-28 11:43 | PN ---
Date/Time of Note Date/Time of Note DATE: 06/28/17 TIME: 11:41 Assessment/Plan VTE Prophylaxis VTE Prophylaxis Intervention: SCD's Lines/Catheters IV Catheter Type (from Nrs): Saline Lock Urinary Cath still in place: No Assessment/Plan Chief Complaint/Hosp Course Assessment/Plan: 66 yo M with spinal stenosis admitted for acute on chronic back pain and UE weakness 2/2 cervical stenosis. sp laminectomy and fusion 7.14. updated imaging without new gross derangement regarding his spine, however liver with cirrhotic morphology and lung lesion noted. 0. abnormal liver imaging and lung lesions -Follow-up dedicated MR of pelvis was performed 2 days ago: Nondiagnostic. Hepatitis C antibody was positive. CT abdomen pelvis does show signs of + cirrhosis with signs of portal hypertension including mild to moderate gastroesophageal varices, mild splenomegaly, and trace perihepatic ascites, but no signs of any hepatic masses however. -Monitor for now, including for any signs of ascites 1. Acute on chronic back pain with upper extremity weakness secondary to cervical cord stenosis now sp neurosurgical intervention 7.14. HV drained removed by NSS team - neurosurgery signed off, continue physical therapy -Patient apparently did not qualify for acute rehab, awaiting possible shelter facility placement now, CM following -For now continue p.o. Dilaudid as needed and methadone twice daily. --> Talk to palliative about weaning methadone 2 Prediabetes: Previous hemoglobin A1c 6.1. -For now we will hold metformin given MRI abdomen pelvis with contrast pending 3. Depression with SI: pt with questionable suicidal ideation earlier this admission, was evaluated by telepsych then, and again on 05/30. no indication for psych hospitalization on 05.30 eval. - cont psych meds 4. 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 sacral wound: sp gen surg debridement 7. -Follow-up surgery recommendations 6. DVT prophx, DM diet 7. diarrhea: Resolving now. C. difficile test was negative. -Imodium as needed. Dispo: Case management working on finding snf placement for patient. Problems: Subjective 24 Hr Interval Summary Free Text/Dictation Patient had CT scan of abdomen and pelvis performed yesterday. Worked with physical therapy. Exam/Review of Systems Vital Signs Vitals Vital Signs Date Time Temp Pulse Resp B/P Pulse Ox O2 Delivery O2 Flow Rate FiO2 06/28/17 01:43 98.1 86 18 142/71 98 06/27/17 05:29 Room Air Intake and Output 06/27/17 06/27/17 06/28/17 15:00 23:00 07:00 Intake Total 2240 ml 700 ml Output Total 200 ml Balance 2040 ml 700 ml Exam nad laying in bed no mrg lungs clear abd soft no lower extremity edema bilaterally Medications Medications Current Medications Acetaminophen (Tylenol Tab) 650 mg Q6H PRN PO PAIN LEVEL 1-3 OR FEVER; Start at 21:00 Gabapentin (Neurontin) 300 mg TID PO Last administered on 06/28/17 08:59; Admin Dose 300 MG; Start 05/16/17 at 21:00 Miscellaneous Information 1 ea NOTE XX ; Start 05/17/17 at 17:30 Glucose (Glutose) 15 gm Q15M PRN PO DECREASED GLUCOSE; Start 05/17/17 at 17:30 Glucose (Glutose) 22.5 gm Q15M PRN PO DECREASED GLUCOSE; Start 05/17/17 at 17:30 Dextrose (D50w Syringe) 25 ml Q15M PRN IV DECREASED GLUCOSE; Start 05/17/17 at 17:30 Dextrose (D50w Syringe) 50 ml Q15M PRN IV DECREASED GLUCOSE; Start 05/17/17 at 17:30 Glucagon (Glucagen) 1 mg Q15M PRN IM DECREASED GLUCOSE; Start 05/17/17 at 17:30 Glucose (Glutose) 15 gm Q15M PRN BUCCAL DECREASED GLUCOSE; Start 05/17/17 at 17: 30 Hydroxyzine HCl (Atarax) 25 mg Q6H PRN PO ITCHING Last administered on 06:53; Admin Dose 25 MG; Start 05/19/17 at 03:30 Docusate Sodium (Colace) 100 mg BID PO Last administered on 06/21/17 22:04; Admin Dose 100 MG; Start 05/19/17 at 21:00 Senna (Senokot) 1 tab BID PO Last administered on 06/21/17 22:04; Admin Dose 1 TAB; Start 05/19/17 at 21:00 Polyethylene Glycol (Miralax) 17 gm DAILY PO Last administered on 06/19/17 08: 25; Admin Dose 17 GM; Start 05/21/17 at 09:00 Lactulose (Enulose) 20 gm DAILY PRN PO CONSTIPATION Last administered on 20:22; Admin Dose 20 GM; Start 05/22/17 at 18:30 Bisacodyl (Dulcolax Supp) 10 mg DAILY PRN [place] CONSTIPATION Last administered on 06/03/17 10:50; Admin Dose 10 MG; Start 05/22/17 at 18:30 Ondansetron HCl (Zofran Inj) 4 mg Q6H PRN IV NAUSEA AND/OR VOMITING Last administered on 06/26/17 14:21; Admin Dose 4 MG; Start 05/27/17 at 00:30 Sodium Biphosphate/ Sodium Phosphate (Fleet Enema) 133 ml DAILY PRN [place] CONSTIPATION Last administered on 05/29/17 21:14; Admin Dose 133 ML; Start at 20:30 Paroxetine HCl (Paxil) 10 mg DAILY PO Last administered on 06/28/17 08:59; Admin Dose 10 MG; Start 05/31/17 at 12:30 Mupirocin (Bactroban) 1 applic BID TOP Last administered on 06/28/17 09:01; Admin Dose 1 APPLIC; Start 05/31/17 at 13:00 Collagenase (Santyl) 1 applic DAILY TOP Last administered on 06/28/17 09:00; Admin Dose 1 APPLIC; Start 06/01/17 at 15:00 Mirtazapine (Remeron) 15 mg HS PO Last administered on 06/26/17 20:37; Admin Dose 15 MG; Start 06/03/17 at 21:00 Clotrimazole (Lotrimin Cr) 1 applic BID TOP Last administered on 06/28/17 09: 01; Admin Dose 1 APPLIC; Start 06/04/17 at 21:00 Lidocaine (Lidocaine 5% Oint) 1 applic TID PRN TOP PAIN Last administered on 08:21; Admin Dose 1 APPLIC; Start 06/04/17 at 20:00 Sodium Hypochlorite (Dakin'S (1/4 Strength)) 1 applic DAILY IRR Last administered on 06/28/17 09:01; Admin Dose 1 APPLIC; Start 06/07/17 at 09:00 Hydromorphone HCl (Dilaudid) 2 mg Q4H PRN PO PAIN Last administered on 11:15; Admin Dose 2 MG; Start 06/07/17 at 10:00 Methadone HCl (Methadone Liq) 7 mg BID PO Last administered on 06/28/17 09:00 ; Admin Dose 7 MG; Start 06/08/17 at 21:00 Al Hydrox/Mg Hydrox/Simethicone (Mag-Al Plus) 30 ml Q6H PRN PO GASTROINTESTINAL UPSET; Start 06/22/17 at 20:30 Loperamide HCl (Imodium Cap) 2 mg QID PRN PO DIARRHEA; Start 06/26/17 at 14:00 Ondansetron HCl (Zofran Tab) 4 mg Q6H PRN PO NAUSEA AND/OR VOMITING; Start at 14:00 INNA ASCENCIO Jun 28, 2017 11:43
--- NOTE | 2017-06-28 12:08 | PN ---
Date/Time of Note Date/Time of Note DATE: 06/28/17 TIME: 12:00 Assessment/Plan Lines/Catheters IV Catheter Type (from Nrs): Saline Lock Munoz in Place (from Nrs): No Assessment/Plan Chief Complaint/Hosp Course 1. Left buttock wound s/p excisional debridement 06/06; continuing to heal well -frequent turning and offloading -specialty mattress -continue local care -optimize nutrition -vitamin C 2. Back pain: s/p laminectomy with fusion; pain improved 3. Right lung nodule with cirrhotic liver morphology; concern for malignancy + hep C; repeat CT: no mass 4. Loose stools: cdiff neg: resolved -stool studies if peristent 5. Microcytic anemia: chronic disease vs.iron deficiency vs. acute bleed vs. other; no acute bleed noted; h/h stable 6. Hypertension: labile -med management 7. Liver cirrhosis, portal hypertension, gastroesophageal varices, mild splenomegaly, and trace perihepatic ascites -supportive -weight clerk follow up Patient seen and examined in collaboration with Dr. Luís Mendoza. Thank you. Problems: Subjective 24 Hr Interval Summary Feels well. Appetite improved. No loose stools. Wound without excessive drainage /discomfort. No v/n/dysuria. Exam/Review of Systems Vital Signs Vitals Vital Signs Date Time Temp Pulse Resp B/P Pulse Ox O2 Delivery O2 Flow Rate FiO2 06/28/17 01:43 98.1 86 18 142/71 98 06/27/17 05:29 Room Air Intake and Output 06/27/17 06/27/17 06/28/17 15:00 23:00 07:00 Intake Total 2240 ml 700 ml Output Total 200 ml Balance 2040 ml 700 ml Exam Free Text/Dictation Constitutional: alert, oriented,fatigued, appetite improved Psych: nl mood/affect, Head: atraumatic, normocephalic Eyes: nl lids, nl sclera ENMT: mucosa pink and moist, nl nasal mucosa & septum Neck: other s/p laminectomy/fusion Respiratory: normal air movement Cardiovascular: nl pulses, regular rate and rhythm Gastrointestinal: nondistended, non-tender, soft, rotund Musculoskeletal: nl extremities to inspection Extremities: normal pulses Neurological: nl mental status, nl speech, nl strength Skin: other (left buttock wound with scant drainage; wound bed pink no periwound erythema, nonmalodorous, healing well) GILA WALKER NP Jun 28, 2017 12:07
[2017-06-28 13:56] VITALS: BP 144/78; RESP 19
[2017-06-28 19:25] VITALS: BP 131/75; RESP 20
[2017-06-28 19:29] VITALS: BP 115/59; RESP 20
[2017-06-28] MEDS: MIRTAZAPINE 15 MG TAB PO SCH (20:11)
[2017-06-29] MEDS: METHADONE (1 MG/ML 5 ML PO UD SYG) PO SCH ×3 (01:47→21:11)
[2017-06-29 03:29] VITALS: BP 131/71; RESP 22
[2017-06-29] MEDS: HYDROmorphONE 2 MG TAB PO PRN ×5 (05:46→23:54)
[2017-06-29 08:33] VITALS: BP 156/82; RESP 22
[2017-06-29] MEDS: SODIUM HYPOCHLORITE 0.125% 473 ML BTL IRR SCH (09:30)
[2017-06-29] MEDS: DOCUSATE SODIUM 100 MG CAP PO SCH ×2 (09:30→21:00)
[2017-06-29] MEDS: POLYETHYLENE GLYCOL 17 GM PACKET PO SCH (09:30)
[2017-06-29] MEDS: MUPIROCIN 2% 22 GM OINT TOP SCH ×2 (09:30→21:13)
[2017-06-29] MEDS: COLLAGENASE 30 GM TUBE TOP SCH ×2 (09:30→10:21)
[2017-06-29] MEDS: SENNA TAB PO SCH ×2 (09:30→21:00)
[2017-06-29] MEDS: GABAPENTIN 300 MG CAP PO SCH ×3 (10:02→21:00)
[2017-06-29] MEDS: PAROXETINE 10 MG TAB PO SCH (10:03)
--- NOTE | 2017-06-29 11:05 | PN ---
Date/Time of Note Date/Time of Note DATE: 06/29/17 TIME: 10:50 Assessment/Plan Lines/Catheters IV Catheter Type (from Nrs): Saline Lock Munoz in Place (from Nrs): No Assessment/Plan Chief Complaint/Hosp Course 1. Left buttock wound s/p excisional debridement 06/06; continuing to heal well -frequent turning and offloading -specialty mattress -continue local care: [facility] -optimize nutrition -vitamin C 2. Back pain: s/p laminectomy with fusion; pain improved 3. Right lung nodule with cirrhotic liver morphology; concern for malignancy + hep C; repeat CT: no mass 4. Loose stools: cdiff neg: resolved -stool studies if peristent 5. Microcytic anemia: chronic disease vs.iron deficiency vs. acute bleed vs. other; no acute bleed noted; h/h stable 6. Hypertension: labile -med management 7. Liver cirrhosis, portal hypertension, gastroesophageal varices, mild splenomegaly, and trace perihepatic ascites -supportive -transmission engineer follow up Patient seen and examined in collaboration with Dr. Luís Mendoza. Thank you. Problems: Subjective 24 Hr Interval Summary Feeling well. Good appetite. Up with PT. Buttock wound without excessive drainage. No fevers, chills, sob, cough, cp, palpitations, n/v/d/dysuria. Exam/Review of Systems Vital Signs Vitals Vital Signs Date Time Temp Pulse Resp B/P Pulse Ox O2 Delivery O2 Flow Rate FiO2 06/29/17 08:33 98.9 96 22 156/82 96 06/27/17 05:29 Room Air Intake and Output 06/28/17 06/28/17 06/29/17 15:00 23:00 07:00 Intake Total 2800 ml 480 ml Output Total 200 ml Balance 2600 ml 480 ml Exam Free Text/Dictation Constitutional: alert, oriented, appetite improved Psych: nl mood/affect, Head: atraumatic, normocephalic Eyes: nl lids, nl sclera ENMT: mucosa pink and moist, nl nasal mucosa & septum Neck: other s/p laminectomy/fusion Respiratory: normal air movement Cardiovascular: nl pulses, regular rate and rhythm Gastrointestinal: nondistended, non-tender, soft, rotund Musculoskeletal: nl extremities to inspection Extremities: normal pulses Neurological: nl mental status, nl speech, nl strength Skin: other (left buttock wound with scant drainage; wound bed pink no periwound erythema, nonmalodorous, granulating, healing well) GILA WALKER NP Jun 29, 2017 11:05
[2017-06-29] MEDS: CLOTRIMAZOLE 1% 30 GM CR TOP SCH ×2 (12:41→21:12)
[2017-06-29 13:20] VITALS: BP 132/78; RESP 22
--- NOTE | 2017-06-29 13:36 | PN ---
Date/Time of Note Date/Time of Note DATE: 06/29/17 TIME: 13:34 Assessment/Plan VTE Prophylaxis VTE Prophylaxis Intervention: SCD's Lines/Catheters IV Catheter Type (from Nrs): Saline Lock Urinary Cath still in place: No Assessment/Plan Chief Complaint/Hosp Course Assessment/Plan: 66 yo M with spinal stenosis admitted for acute on chronic back pain and UE weakness 2/2 cervical stenosis. sp laminectomy and fusion 7.14. updated imaging without new gross derangement regarding his spine, however liver with cirrhotic morphology and lung lesion noted. 0. abnormal liver imaging and lung lesions -Follow-up dedicated MR of pelvis was performed 2 days ago: Nondiagnostic. Hepatitis C antibody was positive, as well as viral load hepatitis C greater than [address] abdomen pelvis does show signs of + cirrhosis with signs of portal hypertension including mild to moderate gastroesophageal varices, mild splenomegaly, and trace perihepatic ascites, but no signs of any hepatic masses however. -Monitor for now, including for any signs of ascites -We will get GI consult as well given positive cirrhosis and positive hepatitis C. 1. Acute on chronic back pain with upper extremity weakness secondary to cervical cord stenosis now sp neurosurgical intervention 7.. HV drained removed by NSS team - neurosurgery signed off, continue physical therapy -Patient apparently did not qualify for acute rehab, awaiting possible half-way facility placement now, CM following -For now continue p.o. Dilaudid as needed and methadone twice daily. --> Talk to palliative about weaning methadone 2 Prediabetes: Previous hemoglobin A1c 6.1. -Will restart metformin 3. Depression with SI: pt with questionable suicidal ideation earlier this admission, was evaluated by telepsych then, and again on 05/30. no indication for psych hospitalization on 05.30 eval. - cont psych meds 4. 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 sacral wound: sp gen surg debridement 7.25 -Follow-up surgery recommendations 6. DVT prophx, DM diet 7. diarrhea: Resolving now. C. difficile test was negative. -Imodium as needed. Dispo: Case management working on finding snf placement for patient. Problems: Subjective 24 Hr Interval Summary Free Text/Dictation Patient worked with physical therapy and occupational therapy yesterday, no acute events overnight. Exam/Review of Systems Vital Signs Vitals Vital Signs Date Time Temp Pulse Resp B/P Pulse Ox O2 Delivery O2 Flow Rate FiO2 06/29/17 08:33 98.9 96 22 156/82 96 06/27/17 05:29 Room Air Intake and Output 06/28/17 06/28/17 06/29/17 15:00 23:00 07:00 Intake Total 2800 ml 480 ml Output Total 200 ml Balance 2600 ml 480 ml Exam nad laying in bed no mrg lungs clear abd soft no lower extremity edema bilaterally Medications Medications Current Medications Acetaminophen (Tylenol Tab) 650 mg Q6H PRN PO PAIN LEVEL 1-3 OR FEVER; Start at 21:00 Gabapentin (Neurontin) 300 mg TID PO Last administered on 06/29/17 10:02; Admin Dose 300 MG; Start 05/16/17 at 21:00 Miscellaneous Information 1 ea NOTE XX ; Start 05/17/17 at 17:30 Glucose (Glutose) 15 gm Q15M PRN PO DECREASED GLUCOSE; Start 05/17/17 at 17:30 Glucose (Glutose) 22.5 gm Q15M PRN PO DECREASED GLUCOSE; Start 05/17/17 at 17:30 Dextrose (D50w Syringe) 25 ml Q15M PRN IV DECREASED GLUCOSE; Start 05/17/17 at 17:30 Dextrose (D50w Syringe) 50 ml Q15M PRN IV DECREASED GLUCOSE; Start 05/17/17 at 17:30 Glucagon (Glucagen) 1 mg Q15M PRN IM DECREASED GLUCOSE; Start 05/17/17 at 17:30 Glucose (Glutose) 15 gm Q15M PRN BUCCAL DECREASED GLUCOSE; Start 05/17/17 at 17: 30 Hydroxyzine HCl (Atarax) 25 mg Q6H PRN PO ITCHING Last administered on 06:53; Admin Dose 25 MG; Start 05/19/17 at 03:30 Docusate Sodium (Colace) 100 mg BID PO Last administered on 06/21/17 22:04; Admin Dose 100 MG; Start 05/19/17 at 21:00 Senna (Senokot) 1 tab BID PO Last administered on 06/21/17 22:04; Admin Dose 1 TAB; Start 05/19/17 at 21:00 Polyethylene Glycol (Miralax) 17 gm DAILY PO Last administered on 06/19/17 08: 25; Admin Dose 17 GM; Start 05/21/17 at 09:00 Lactulose (Enulose) 20 gm DAILY PRN PO CONSTIPATION Last administered on 20:22; Admin Dose 20 GM; Start 05/22/17 at 18:30 Bisacodyl (Dulcolax Supp) 10 mg DAILY PRN [place] CONSTIPATION Last administered on 06/03/17 10:50; Admin Dose 10 MG; Start 05/22/17 at 18:30 Ondansetron HCl (Zofran Inj) 4 mg Q6H PRN IV NAUSEA AND/OR VOMITING Last administered on 06/26/17 14:21; Admin Dose 4 MG; Start 05/27/17 at 00:30 Sodium Biphosphate/ Sodium Phosphate (Fleet Enema) 133 ml DAILY PRN [place] CONSTIPATION Last administered on 05/29/17 21:14; Admin Dose 133 ML; Start at 20:30 Paroxetine HCl (Paxil) 10 mg DAILY PO Last administered on 06/29/17 10:03; Admin Dose 10 MG; Start 05/31/17 at 12:30 Mupirocin (Bactroban) 1 applic BID TOP Last administered on 06/28/17 09:01; Admin Dose 1 APPLIC; Start 05/31/17 at 13:00 Collagenase (Santyl) 1 applic DAILY TOP Last administered on 06/29/17 10:21; Admin Dose 1 APPLIC; Start 06/01/17 at 15:00 Mirtazapine (Remeron) 15 mg HS PO Last administered on 06/26/17 20:37; Admin Dose 15 MG; Start 06/03/17 at 21:00 Clotrimazole (Lotrimin Cr) 1 applic BID TOP Last administered on 06/29/17 12: 41; Admin Dose 1 APPLIC; Start 06/04/17 at 21:00 Lidocaine (Lidocaine 5% Oint) 1 applic TID PRN TOP PAIN Last administered on 08:21; Admin Dose 1 APPLIC; Start 06/04/17 at 20:00 Sodium Hypochlorite (Dakin'S (1/4 Strength)) 1 applic DAILY IRR Last administered on 06/28/17 09:01; Admin Dose 1 APPLIC; Start 06/07/17 at 09:00 Hydromorphone HCl (Dilaudid) 2 mg Q4H PRN PO PAIN Last administered on 11:03; Admin Dose 2 MG; Start 06/07/17 at 10:00 Methadone HCl (Methadone Liq) 7 mg BID PO Last administered on 06/29/17 09:58 ; Admin Dose 7 MG; Start 06/08/17 at 21:00 Al Hydrox/Mg Hydrox/Simethicone (Mag-Al Plus) 30 ml Q6H PRN PO GASTROINTESTINAL UPSET; Start 06/22/17 at 20:30 Loperamide HCl (Imodium Cap) 2 mg QID PRN PO DIARRHEA; Start 06/26/17 at 14:00 Ondansetron HCl (Zofran Tab) 4 mg Q6H PRN PO NAUSEA AND/OR VOMITING; Start at 14:00 INNA ASCENCIO Jun 29, 2017 13:36
[2017-06-29] MEDS: LOPERAMIDE 2 MG CAP PO PRN (14:07)
[2017-06-29 18:39] LABS: ALBUMIN 2.6 g/dl (3.3-4.9); ALBUMIN/GLOBULIN RATIO 0.65; BILIRUBIN,INDIRECT 0.4 mg/dl (0-1.1); BILIRUBIN,TOTAL 0.4 mg/dl (0.2-1.3); CALCIUM 8.5 mg/dl (8.4-10.2); CREATININE 0.68 mg/dl (0.61-1.24); POTASSIUM 3.8 mmol/L (3.5-5.1); TOTAL PROTEIN 6.6 g/dl (6.1-8.1)
[2017-06-29 20:38] VITALS: BP 132/71; RESP 20
[2017-06-29] MEDS: MIRTAZAPINE 15 MG TAB PO SCH (21:00)
[2017-06-30] MEDS: LOPERAMIDE 2 MG CAP PO PRN (03:33)
[2017-06-30] MEDS: HYDROmorphONE 2 MG TAB PO PRN ×5 (03:46→21:28)
[2017-06-30 07:59] VITALS: BP 154/88; RESP 18
[2017-06-30] MEDS: METHADONE (1 MG/ML 5 ML PO UD SYG) PO SCH ×2 (08:39→21:09)
[2017-06-30] MEDS: GABAPENTIN 300 MG CAP PO SCH ×3 (08:39→21:07)
[2017-06-30] MEDS: PAROXETINE 10 MG TAB PO SCH (08:39)
[2017-06-30] MEDS: POLYETHYLENE GLYCOL 17 GM PACKET PO SCH (08:43)
[2017-06-30] MEDS: DOCUSATE SODIUM 100 MG CAP PO SCH ×2 (08:43→21:00)
[2017-06-30] MEDS: MUPIROCIN 2% 22 GM OINT TOP SCH ×2 (08:43→21:00)
[2017-06-30] MEDS: SENNA TAB PO SCH ×2 (08:43→21:00)
[2017-06-30] MEDS: CLOTRIMAZOLE 1% 30 GM CR TOP SCH ×2 (08:44→21:00)
--- NOTE | 2017-06-30 09:38 | PN ---
Date/Time of Note Date/Time of Note DATE: 06/30/17 TIME: 09:34 Assessment/Plan Lines/Catheters IV Catheter Type (from Nrs): Saline Lock Munoz in Place (from Nrs): No Assessment/Plan Chief Complaint/Hosp Course 1. Left buttock wound s/p excisional debridement 06/06; continuing to heal well -frequent turning and offloading -specialty mattress -continue local care: [facility] -optimize nutrition -vitamin C 2. Back pain: s/p laminectomy with fusion; pain improved 3.Liver cirrhosis, portal hypertension, gastroesophageal varices, mild splenomegaly, and trace perihepatic ascites; lft's improving -supportive -candy cutter hand follow up pending 4. Loose stools: cdiff neg: resolved -stool studies if peristent 5. Microcytic anemia: chronic disease vs.iron deficiency vs. acute bleed vs. other; no acute bleed noted; h/h stable 6. Hypertension: labile -med management Patient seen and examined in collaboration with Dr. Luís Mendoza. Thank you. Problems: Subjective 24 Hr Interval Summary Feels well. No c/o abdominal pain, wound discomfort. No drainage from wound. No fevers, chills, cp, palpitations, sob, cough. Placement pending. Exam/Review of Systems Vital Signs Vitals Vital Signs Date Time Temp Pulse Resp B/P Pulse Ox O2 Delivery O2 Flow Rate FiO2 06/30/17 07:59 98.3 78 18 154/88 99 06/27/17 05:29 Room Air Intake and Output 06/29/17 06/29/17 06/30/17 15:00 23:00 07:00 Intake Total 600 ml 480 ml Output Total 500 ml 600 ml Balance 100 ml -120 ml Exam Free Text/Dictation Constitutional: alert, oriented Psych: nl mood/affect, Head: atraumatic, normocephalic Eyes: nl lids, nl sclera ENMT: mucosa pink and moist, nl nasal mucosa & septum Neck: other s/p laminectomy/fusion Respiratory: normal air movement Cardiovascular: nl pulses, regular rate and rhythm Gastrointestinal: nondistended, non-tender, soft, rotund Musculoskeletal: nl extremities to inspection Extremities: normal pulses Neurological: nl mental status, nl speech, nl strength Skin: other (left buttock wound without drainage; wound bed pink no periwound erythema, nonmalodorous, granulating, healing well) Results Result Diagram: 06/29/17 1722 GILA WALKER NP Jun 30, 2017 09:38
--- NOTE | 2017-06-30 11:00 | PN ---
Date/Time of Note Date/Time of Note DATE: 06/30/17 TIME: 10:57 Assessment/Plan VTE Prophylaxis VTE Prophylaxis Intervention: SCD's Lines/Catheters IV Catheter Type (from Nrsg): Saline Lock Urinary Cath still in place: No Assessment/Plan Chief Complaint/Hosp Course Assessment/Plan: 66 yo M with spinal stenosis admitted for acute on chronic back pain and UE weakness 2/2 cervical stenosis. sp laminectomy and fusion 7.14. updated imaging without new gross derangement regarding his spine, however liver with cirrhotic morphology and lung lesion noted. 0. abnormal liver imaging and lung lesions -Follow-up dedicated MR of pelvis was performed 3 days ago: Nondiagnostic. Hepatitis C antibody was positive, as well as viral load hepatitis C greater than [address] abdomen pelvis does show signs of + cirrhosis with signs of portal hypertension including mild to moderate gastroesophageal varices, mild splenomegaly, and trace perihepatic ascites, but no signs of any hepatic masses however. -Monitor for now, including for any signs of ascites -awaiting GI consult as well given positive cirrhosis and positive hepatitis C. 1. Acute on chronic back pain with upper extremity weakness secondary to cervical cord stenosis now sp neurosurgical intervention 7.. HV drained removed by NSS team - neurosurgery signed off, continue physical therapy -Patient apparently did not qualify for acute rehab, awaiting possible long-term facility placement now, CM following -For now continue p.o. Dilaudid as needed and methadone twice daily. --> Talk to palliative about weaning methadone 2 Prediabetes: Previous hemoglobin A1c 6.1. -metformin 3. Depression with SI: pt with questionable suicidal ideation earlier this admission, was evaluated by telepsych then, and again on 05/30. no indication for psych hospitalization on 05.30 eval. - cont psych meds 4. 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 sacral wound: sp gen surg debridement 7. -Follow-up surgery recommendations 6. DVT prophx, DM diet 7. diarrhea: Resolving now. C. difficile test was negative. -Imodium as needed. Dispo: Case management working on finding snf placement for patient. Problems: Subjective 24 Hr Interval Summary Free Text/Dictation No acute events overnight, seen by PT and surgery teams. Awaiting GI eval. Still some + diarrhea. Exam/Review of Systems Vital Signs Vitals Vital Signs Date Time Temp Pulse Resp B/P Pulse Ox O2 Delivery O2 Flow Rate FiO2 06/30/17 07:59 98.3 78 18 154/88 99 06/27/17 05:29 Room Air Intake and Output 06/29/17 06/29/17 06/30/17 15:00 23:00 07:00 Intake Total 600 ml 480 ml Output Total 500 ml 600 ml Balance 100 ml -120 ml Exam nad laying in bed no mrg lungs clear abd soft no lower extremity edema bilaterally Results Result Diagram: 06/29/17 1722 Results 24 hrs Laboratory Tests Test 06/29/17 17:22 Sodium Level 139 Potassium Level 3.8 Chloride Level 102 Carbon Dioxide Level 25 Anion Gap 16 Blood Urea Nitrogen 11 Creatinine 0.68 Glucose Level 83 Calcium Level 8.5 Total Bilirubin 0.4 Direct Bilirubin 0.00 Indirect Bilirubin 0.4 Aspartate Amino Transf (AST/SGOT) 104 H Alanine Aminotransferase (ALT/SGPT) 73 H Alkaline Phosphatase 125 H Total Protein 6.6 Albumin 2.6 L Globulin 4.00 H Albumin/Globulin Ratio 0.65 Medications Medications Current Medications Acetaminophen (Tylenol Tab) 650 mg Q6H PRN PO PAIN LEVEL 1-3 OR FEVER; Start at 21:00 Gabapentin (Neurontin) 300 mg TID PO Last administered on 06/30/17t 08:39; Admin Dose 300 MG; Start 05/16/17 at 21:00 Miscellaneous Information 1 ea NOTE XX ; Start 05/17/17 at 17:30 Glucose (Glutose) 15 gm Q15M PRN PO DECREASED GLUCOSE; Start 05/17/17 at 17:30 Glucose (Glutose) 22.5 gm Q15M PRN PO DECREASED GLUCOSE; Start 05/17/17 at 17:30 Dextrose (D50w Syringe) 25 ml Q15M PRN IV DECREASED GLUCOSE; Start 05/17/17 at 17:30 Dextrose (D50w Syringe) 50 ml Q15M PRN IV DECREASED GLUCOSE; Start 05/17/17 at 17:30 Glucagon (Glucagen) 1 mg Q15M PRN IM DECREASED GLUCOSE; Start 05/17/17 at 17:30 Glucose (Glutose) 15 gm Q15M PRN BUCCAL DECREASED GLUCOSE; Start 05/17/17 at 17: 30 Hydroxyzine HCl (Atarax) 25 mg Q6H PRN PO ITCHING Last administered on 06:53; Admin Dose 25 MG; Start 05/19/17 at 03:30 Docusate Sodium (Colace) 100 mg BID PO Last administered on 06/21/17 22:04; Admin Dose 100 MG; Start 05/19/17 at 21:00 Senna (Senokot) 1 tab BID PO Last administered on 06/21/17 22:04; Admin Dose 1 TAB; Start 05/19/17 at 21:00 Polyethylene Glycol (Miralax) 17 gm DAILY PO Last administered on 06/19/17 08: 25; Admin Dose 17 GM; Start 05/21/17 at 09:00 Lactulose (Enulose) 20 gm DAILY PRN PO CONSTIPATION Last administered on 20:22; Admin Dose 20 GM; Start 05/22/17 at 18:30 Bisacodyl (Dulcolax Supp) 10 mg DAILY PRN [place] CONSTIPATION Last administered on 06/03/17 10:50; Admin Dose 10 MG; Start 05/22/17 at 18:30 Ondansetron HCl (Zofran Inj) 4 mg Q6H PRN IV NAUSEA AND/OR VOMITING Last administered on 06/26/17 14:21; Admin Dose 4 MG; Start 05/27/17 at 00:30 Sodium Biphosphate/ Sodium Phosphate (Fleet Enema) 133 ml DAILY PRN [place] CONSTIPATION Last administered on 05/29/17 21:14; Admin Dose 133 ML; Start at 20:30 Paroxetine HCl (Paxil) 10 mg DAILY PO Last administered on 06/30/17 08:39; Admin Dose 10 MG; Start 05/31/17 at 12:30 Mupirocin (Bactroban) 1 applic BID TOP Last administered on 06/29/17 21:13; Admin Dose 1 APPLIC; Start 05/31/17 at 13:00 Mirtazapine (Remeron) 15 mg HS PO Last administered on 06/26/17 20:37; Admin Dose 15 MG; Start 06/03/17 at 21:00 Clotrimazole (Lotrimin Cr) 1 applic BID TOP Last administered on 06/30/17 08: 44; Admin Dose 1 APPLIC; Start 06/04/17 at 21:00 Lidocaine (Lidocaine 5% Oint) 1 applic TID PRN TOP PAIN Last administered on 08:21; Admin Dose 1 APPLIC; Start 06/04/17 at 20:00 Hydromorphone HCl (Dilaudid) 2 mg Q4H PRN PO PAIN Last administered on 07:33; Admin Dose 2 MG; Start 06/07/17 at 10:00 Methadone HCl (Methadone Liq) 7 mg BID PO Last administered on 06/30/17 08:39 ; Admin Dose 7 MG; Start 06/08/17 at 21:00 Al Hydrox/Mg Hydrox/Simethicone (Mag-Al Plus) 30 ml Q6H PRN PO GASTROINTESTINAL UPSET; Start 06/22/17 at 20:30 Ondansetron HCl (Zofran Tab) 4 mg Q6H PRN PO NAUSEA AND/OR VOMITING; Start at 14:00 Loperamide HCl (Imodium Cap) 2 mg Q6 PRN PO DIARRHEA Last administered on 03:33; Admin Dose 2 MG; Start 06/29/17 at 13:30 INNA ASCENCIO Jun 30, 2017 11:00
[2017-06-30 12:44] LABS: HEMATOCRIT 34.7 % (42.0-52.0); HEMOGLOBIN 11.3 g/dl (14.0-18.0)
[2017-06-30 13:47] VITALS: BP 142/79; RESP 18
[2017-06-30] MEDS: metFORMIN 850 MG TAB GTB SCH (18:29)
[2017-06-30] MEDS: MIRTAZAPINE 15 MG TAB PO SCH (21:00)
[2017-06-30 21:29] VITALS: BP 119/87; RESP 20
[2017-07-01] MEDS: HYDROmorphONE 2 MG TAB PO PRN ×7 (01:36→22:33)
[2017-07-01 02:00] VITALS: BP 118/65; PULSE 66; RESP 17
[2017-07-01 07:25] VITALS: BP 120/75; RESP 18
[2017-07-01] MEDS: PAROXETINE 10 MG TAB PO SCH (08:26)
[2017-07-01] MEDS: GABAPENTIN 300 MG CAP PO SCH ×3 (08:26→20:38)
[2017-07-01] MEDS: metFORMIN 850 MG TAB GTB SCH ×2 (08:26→17:53)
[2017-07-01] MEDS: SENNA TAB PO SCH ×2 (08:27→21:00)
[2017-07-01] MEDS: METHADONE (1 MG/ML 5 ML PO UD SYG) PO SCH ×2 (08:27→20:40)
[2017-07-01] MEDS: POLYETHYLENE GLYCOL 17 GM PACKET PO SCH (08:27)
[2017-07-01] MEDS: CLOTRIMAZOLE 1% 30 GM CR TOP SCH ×2 (08:31→21:00)
[2017-07-01] MEDS: DOCUSATE SODIUM 100 MG CAP PO SCH ×2 (08:31→21:00)
[2017-07-01] MEDS: MUPIROCIN 2% 22 GM OINT TOP SCH ×2 (08:32→21:00)
--- NOTE | 2017-07-01 10:22 | PN ---
Date/Time of Note Date/Time of Note DATE: 07/01/17 TIME: 10:21 Assessment/Plan VTE Prophylaxis VTE Prophylaxis Intervention: SCD's Lines/Catheters IV Catheter Type (from Nrs): Saline Lock Urinary Cath still in place: No Assessment/Plan Chief Complaint/Hosp Course Assessment/Plan: 66 yo M with spinal stenosis admitted for acute on chronic back pain and UE weakness 2/2 cervical stenosis. sp laminectomy and fusion 7.14. updated imaging without new gross derangement regarding his spine, however liver with cirrhotic morphology and lung lesion noted. 0. abnormal liver imaging and lung lesions -Follow-up dedicated MR of pelvis was performed 3 days ago: Nondiagnostic. Hepatitis C antibody was positive, as well as viral load hepatitis C greater than [address] abdomen pelvis does show signs of + cirrhosis with signs of portal hypertension including mild to moderate gastroesophageal varices, mild splenomegaly, and trace perihepatic ascites, but no signs of any hepatic masses however. -Monitor for now, including for any signs of ascites development -awaiting GI consult as well given positive cirrhosis and positive hepatitis C. 1. Acute on chronic back pain with upper extremity weakness secondary to cervical cord stenosis now sp neurosurgical intervention 7.. HV drained removed by NSS team - neurosurgery signed off, continue physical therapy -Patient apparently did not qualify for acute rehab, awaiting possible long term facility placement now, CM following -For now continue p.o. Dilaudid as needed and methadone twice daily. --> Talk to palliative about weaning methadone 2 Prediabetes: Previous hemoglobin A1c 6.1. -metformin 3. Depression with SI: pt with questionable suicidal ideation earlier this admission, was evaluated by telepsych then, and again on 05/30. no indication for psych hospitalization on 05.30 eval. - cont psych meds 4. 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 sacral wound: sp gen surg debridement 7. -Follow-up surgery recommendations 6. DVT prophx, DM diet 7. diarrhea: Resolving now. C. difficile test was negative. -Imodium as needed. Dispo: Case management working on finding snf placement for patient. Problems: Subjective 24 Hr Interval Summary Free Text/Dictation No acute events overnight. Working with physical therapy presently. Exam/Review of Systems Vital Signs Vitals Vital Signs Date Time Temp Pulse Resp B/P Pulse Ox O2 Delivery O2 Flow Rate FiO2 07/01/17 07:25 98.4 92 18 120/75 98 07/01/17 02:00 Room Air Intake and Output 06/30/17 06/30/17 07/01/17 15:00 23:00 07:00 Intake Total 720 ml Output Total 500 ml Balance 220 ml Exam nad laying in bed no mrg lungs clear abd soft no lower extremity edema bilaterally Results Result Diagram: 06/30/17 1220 06/29/17 1722 Results 24 hrs Laboratory Tests Test 06/30/17 12:20 Hemoglobin 11.3 L Hematocrit 34.7 L Medications Medications Current Medications Acetaminophen (Tylenol Tab) 650 mg Q6H PRN PO PAIN LEVEL 1-3 OR FEVER; Start at 21:00 Gabapentin (Neurontin) 300 mg TID PO Last administered on 07/01/17 08:26; Admin Dose 300 MG; Start 05/16/17 at 21:00 Miscellaneous Information 1 ea NOTE XX ; Start 05/17/17 at 17:30 Glucose (Glutose) 15 gm Q15M PRN PO DECREASED GLUCOSE; Start 05/17/17 at 17:30 Glucose (Glutose) 22.5 gm Q15M PRN PO DECREASED GLUCOSE; Start 05/17/17 at 17:30 Dextrose (D50w Syringe) 25 ml Q15M PRN IV DECREASED GLUCOSE; Start 05/17/17 at 17:30 Dextrose (D50w Syringe) 50 ml Q15M PRN IV DECREASED GLUCOSE; Start 05/17/17 at 17:30 Glucagon (Glucagen) 1 mg Q15M PRN IM DECREASED GLUCOSE; Start 05/17/17 at 17:30 Glucose (Glutose) 15 gm Q15M PRN BUCCAL DECREASED GLUCOSE; Start 05/17/17 at 17: 30 Hydroxyzine HCl (Atarax) 25 mg Q6H PRN PO ITCHING Last administered on 06:53; Admin Dose 25 MG; Start 05/19/17 at 03:30 Docusate Sodium (Colace) 100 mg BID PO Last administered on 06/21/17 22:04; Admin Dose 100 MG; Start 05/19/17 at 21:00 Senna (Senokot) 1 tab BID PO Last administered on 06/21/17 22:04; Admin Dose 1 TAB; Start 05/19/17 at 21:00 Polyethylene Glycol (Miralax) 17 gm DAILY PO Last administered on 06/19/17 08: 25; Admin Dose 17 GM; Start 05/21/17 at 09:00 Lactulose (Enulose) 20 gm DAILY PRN PO CONSTIPATION Last administered on 20:22; Admin Dose 20 GM; Start 05/22/17 at 18:30 Bisacodyl (Dulcolax Supp) 10 mg DAILY PRN [place] CONSTIPATION Last administered on 06/03/17 10:50; Admin Dose 10 MG; Start 05/22/17 at 18:30 Ondansetron HCl (Zofran Inj) 4 mg Q6H PRN IV NAUSEA AND/OR VOMITING Last administered on 06/26/17 14:21; Admin Dose 4 MG; Start 05/27/17 at 00:30 Sodium Biphosphate/ Sodium Phosphate (Fleet Enema) 133 ml DAILY PRN [place] CONSTIPATION Last administered on 05/29/17 21:14; Admin Dose 133 ML; Start at 20:30 Paroxetine HCl (Paxil) 10 mg DAILY PO Last administered on 07/01/17 08:26; Admin Dose 10 MG; Start 05/31/17 at 12:30 Mupirocin (Bactroban) 1 applic BID TOP Last administered on 07/01/17 08:32; Admin Dose 1 APPLIC; Start 05/31/17 at 13:00 Mirtazapine (Remeron) 15 mg HS PO Last administered on 06/26/17 20:37; Admin Dose 15 MG; Start 06/03/17 at 21:00 Clotrimazole (Lotrimin Cr) 1 applic BID TOP Last administered on 07/01/17 08: 31; Admin Dose 1 APPLIC; Start 06/04/17 at 21:00 Lidocaine (Lidocaine 5% Oint) 1 applic TID PRN TOP PAIN Last administered on 08:21; Admin Dose 1 APPLIC; Start 06/04/17 at 20:00 Hydromorphone HCl (Dilaudid) 2 mg Q4H PRN PO PAIN Last administered on 09:38; Admin Dose 2 MG; Start 06/07/17 at 10:00 Methadone HCl (Methadone Liq) 7 mg BID PO Last administered on 07/01/17 08:27 ; Admin Dose 7 MG; Start 06/08/17 at 21:00 Al Hydrox/Mg Hydrox/Simethicone (Mag-Al Plus) 30 ml Q6H PRN PO GASTROINTESTINAL UPSET; Start 06/22/17 at 20:30 Ondansetron HCl (Zofran Tab) 4 mg Q6H PRN PO NAUSEA AND/OR VOMITING; Start at 14:00 Loperamide HCl (Imodium Cap) 2 mg Q6 PRN PO DIARRHEA Last administered on 03:33; Admin Dose 2 MG; Start 06/29/17 at 13:30 INNA ASCENCIO Jul 01, 2017 10:22
--- NOTE | 2017-07-01 11:44 | CONS ---
Date/Time of Note Date/Time of Note DATE: 07/01/17 TIME: 11:38 Assessment/Plan Assessment/Plan Additional Assessment/Plan Assessment: * Chronic hepatitis C * Probable early cirrhosis * Spinal stenosis * Prediabetes Plan * Outpatient evaluation management of hepatitis C. The patient has been informed to seek an appointment as soon as he is recovered from his current condition. Consultation Date/Type/Reason Admit Date/Time May 16, 2017 at 21:19 Date of Consultation: Jul 01, 2017 Type of Consultation: GI Reason for Consultation Hepatitis C Hx of Present Illness 66-year-old male with prolonged hospitalization due to back surgery for spinal stenosis. Patient has been found to have hepatitis C positive antibody and also a high viral load on PCR. The patient is asymptomatic from the liver and gastrointestinal point of view with the exception of mild constipation attributable to narcotics. The patient will benefit from full evaluation and outpatient treatment for hepatitis C. The patient has been advised to seek an appointment for that purpose once she is discharged from the hospital. At present time there is no therapeutic intervention planned from the GI point of view. I will follow the patient on a as needed basis. Constitutional: improved Eyes: No visual change ENT: No congestion, No sore throat Respiratory: No cough, No shortness of breath Cardiovascular: No lightheadedness, No palpitations Gastrointestinal: constipation (Narcotic induced), No diarrhea, No nausea, No vomiting Genitourinary: No dysuria Musculoskeletal: back pain Neurologic: focal-weakness (Upper extremities), No confusion Psychological: nl mood/affect, no complaints Past Medical History Medical History: other (Spinal stenosis) Past Surgical History Past Surgical Hx: no surgical history Social History Alcohol Use: occasionally Smoking Status: Unknown if ever smoked Drug Use: none Exam/Review of Systems Vital Signs Vitals Vital Signs Date Time Temp Pulse Resp B/P Pulse Ox O2 Delivery O2 Flow Rate FiO2 07/01/17 07:25 98.4 92 18 120/75 98 07/01/17 02:00 Room Air Intake and Output 06/30/17 06/30/17 07/01/17 15:00 23:00 07:00 Intake Total 720 ml Output Total 500 ml Balance 220 ml Exam Constitutional: alert, oriented, well developed Psych: nl mood/affect, no complaints Head: atraumatic, normocephalic Eyes: EOMI, PERRL, nl conjunctiva, nl lids, nl sclera ENMT: nl external ears & nose, nl lips & teeth, nl nasal mucosa & septum Neck: non-tender, supple Respiratory: clear to auscultation, normal air movement Cardiovascular: nl pulses, regular rate and rhythm Gastrointestinal: bowel sounds, nl liver, spleen, non-tender, soft, No ascites, No distended, No hepatomegaly, No mass, No rebound or guarding Musculoskeletal: nl extremities to inspection Extremities: normal pulses Skin: nl turgor, No rash or lesions Lymph: nl lymph nodes Results Result Diagram: 06/30/17 1220 06/29/17 1722 Results 24 hrs Laboratory Tests Test 06/30/17 12:20 Hemoglobin 11.3 L Hematocrit 34.7 L Medications Medications Current Medications Acetaminophen (Tylenol Tab) 650 mg Q6H PRN PO PAIN LEVEL 1-3 OR FEVER; Start at 21:00 Gabapentin (Neurontin) 300 mg TID PO Last administered on 07/01/17 08:26; Admin Dose 300 MG; Start 05/16/17 at 21:00 Miscellaneous Information 1 ea NOTE XX ; Start 05/17/17 at 17:30 Glucose (Glutose) 15 gm Q15M PRN PO DECREASED GLUCOSE; Start 05/17/17 at 17:30 Glucose (Glutose) 22.5 gm Q15M PRN PO DECREASED GLUCOSE; Start 05/17/17 at 17:30 Dextrose (D50w Syringe) 25 ml Q15M PRN IV DECREASED GLUCOSE; Start 05/17/17 at 17:30 Dextrose (D50w Syringe) 50 ml Q15M PRN IV DECREASED GLUCOSE; Start 05/17/17 at 17:30 Glucagon (Glucagen) 1 mg Q15M PRN IM DECREASED GLUCOSE; Start 05/17/17 at 17:30 Glucose (Glutose) 15 gm Q15M PRN BUCCAL DECREASED GLUCOSE; Start 05/17/17 at 17: 30 Hydroxyzine HCl (Atarax) 25 mg Q6H PRN PO ITCHING Last administered on 06:53; Admin Dose 25 MG; Start 05/19/17 at 03:30 Docusate Sodium (Colace) 100 mg BID PO Last administered on 06/21/17 22:04; Admin Dose 100 MG; Start 05/19/17 at 21:00 Senna (Senokot) 1 tab BID PO Last administered on 06/21/17 22:04; Admin Dose 1 TAB; Start 05/19/17 at 21:00 Polyethylene Glycol (Miralax) 17 gm DAILY PO Last administered on 06/19/17 08: 25; Admin Dose 17 GM; Start 05/21/17 at 09:00 Lactulose (Enulose) 20 gm DAILY PRN PO CONSTIPATION Last administered on 20:22; Admin Dose 20 GM; Start 05/22/17 at 18:30 Bisacodyl (Dulcolax Supp) 10 mg DAILY PRN [place] CONSTIPATION Last administered on 06/03/17 10:50; Admin Dose 10 MG; Start 05/22/17 at 18:30 Ondansetron HCl (Zofran Inj) 4 mg Q6H PRN IV NAUSEA AND/OR VOMITING Last administered on 06/26/17 14:21; Admin Dose 4 MG; Start 05/27/17 at 00:30 Sodium Biphosphate/ Sodium Phosphate (Fleet Enema) 133 ml DAILY PRN [place] CONSTIPATION Last administered on 05/29/17 21:14; Admin Dose 133 ML; Start at 20:30 Paroxetine HCl (Paxil) 10 mg DAILY PO Last administered on 07/01/17 08:26; Admin Dose 10 MG; Start 05/31/17 at 12:30 Mupirocin (Bactroban) 1 applic BID TOP Last administered on 07/01/17 08:32; Admin Dose 1 APPLIC; Start 05/31/17 at 13:00 Mirtazapine (Remeron) 15 mg HS PO Last administered on 06/26/17 20:37; Admin Dose 15 MG; Start 06/03/17 at 21:00 Clotrimazole (Lotrimin Cr) 1 applic BID TOP Last administered on 07/01/17 08: 31; Admin Dose 1 APPLIC; Start 06/04/17 at 21:00 Lidocaine (Lidocaine 5% Oint) 1 applic TID PRN TOP PAIN Last administered on 08:21; Admin Dose 1 APPLIC; Start 06/04/17 at 20:00 Hydromorphone HCl (Dilaudid) 2 mg Q4H PRN PO PAIN Last administered on 09:38; Admin Dose 2 MG; Start 06/07/17 at 10:00 Methadone HCl (Methadone Liq) 7 mg BID PO Last administered on 07/01/17 08:27 ; Admin Dose 7 MG; Start 06/08/17 at 21:00 Al Hydrox/Mg Hydrox/Simethicone (Mag-Al Plus) 30 ml Q6H PRN PO GASTROINTESTINAL UPSET; Start 06/22/17 at 20:30 Ondansetron HCl (Zofran Tab) 4 mg Q6H PRN PO NAUSEA AND/OR VOMITING; Start at 14:00 Loperamide HCl (Imodium Cap) 2 mg Q6 PRN PO DIARRHEA Last administered on 03:33; Admin Dose 2 MG; Start 06/29/17 at 13:30 ZEENAT POST MD Jul 01, 2017 11:44
[2017-07-01] MEDS: LOPERAMIDE 2 MG CAP PO PRN (14:04)
[2017-07-01 20:00] VITALS: BP 148/76; RESP 19
[2017-07-01 20:30] VITALS: BP 128/66; PULSE 76; RESP 18
[2017-07-01] MEDS: MIRTAZAPINE 15 MG TAB PO SCH (21:00)
[2017-07-02] MEDS: HYDROmorphONE 2 MG TAB PO PRN ×4 (02:36→17:22)
[2017-07-02] MEDS: metFORMIN 850 MG TAB GTB SCH ×2 (08:34→18:11)
[2017-07-02] MEDS: DOCUSATE SODIUM 100 MG CAP PO SCH ×3 (08:34→21:32)
[2017-07-02] MEDS: PAROXETINE 10 MG TAB PO SCH (08:34)
[2017-07-02] MEDS: POLYETHYLENE GLYCOL 17 GM PACKET PO SCH ×2 (08:34→08:35)
[2017-07-02] MEDS: GABAPENTIN 300 MG CAP PO SCH ×3 (08:34→21:32)
[2017-07-02] MEDS: SENNA TAB PO SCH ×3 (08:34→21:32)
[2017-07-02] MEDS: CLOTRIMAZOLE 1% 30 GM CR TOP SCH ×2 (08:35→21:32)
[2017-07-02] MEDS: MUPIROCIN 2% 22 GM OINT TOP SCH ×2 (08:35→21:33)
[2017-07-02] MEDS: METHADONE (1 MG/ML 5 ML PO UD SYG) PO SCH ×2 (08:35→21:32)
--- NOTE | 2017-07-02 11:05 | PN ---
Date/Time of Note Date/Time of Note DATE: 07/02/17 TIME: 11:03 Assessment/Plan VTE Prophylaxis VTE Prophylaxis Intervention: SCD's Lines/Catheters IV Catheter Type (from Nrs): Saline Lock Urinary Cath still in place: No Assessment/Plan Chief Complaint/Hosp Course Assessment/Plan: 66 yo M with spinal stenosis admitted for acute on chronic back pain and UE weakness 2/2 cervical stenosis. sp laminectomy and fusion 7.14. updated imaging without new gross derangement regarding his spine, however liver with cirrhotic morphology and lung lesion noted. 0. abnormal liver imaging and lung lesions -Follow-up dedicated MR of pelvis was performed 4 days ago: Nondiagnostic. Hepatitis C antibody was positive, as well as viral load hepatitis C greater than [address] abdomen pelvis does show signs of + cirrhosis with signs of portal hypertension including mild to moderate gastroesophageal varices, mild splenomegaly, and trace perihepatic ascites, but no signs of any hepatic masses however. -Monitor for now, including for any signs of ascites development -Per GI team, will need outpatient workup for hepatitis C treatment and for his likely early cirrhosis 1. Acute on chronic back pain with upper extremity weakness secondary to cervical cord stenosis now sp neurosurgical intervention 7.14. HV drained removed by NSS team - neurosurgery signed off, continue physical therapy -Patient apparently did not qualify for acute rehab, awaiting possible correction facility placement now, CM following -For now continue p.o. Dilaudid as needed and methadone twice daily. --> Talk to palliative about weaning methadone 2 Prediabetes: Previous hemoglobin A1c 6.1. -metformin 3. Depression with SI: pt with questionable suicidal ideation earlier this admission, was evaluated by telepsych then, and again on 05/30. no indication for psych hospitalization on 05.30 eval. - cont psych meds 4. 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 sacral wound: sp gen surg debridement 7.25 -Follow-up surgery recommendations 6. DVT prophx, DM diet 7. diarrhea: Resolving now. C. difficile test was negative. -Imodium as needed. Dispo: Case management working on finding snf placement for patient. Problems: Subjective 24 Hr Interval Summary Free Text/Dictation Worked with PT yesterday. Seen by GI team yesterday. No acute events overnight. Exam/Review of Systems Vital Signs Vitals Vital Signs Date Time Temp Pulse Resp B/P Pulse Ox O2 Delivery O2 Flow Rate FiO2 07/01/17 20:30 98.2 76 18 128/66 98 Room Air Intake and Output 07/01/17 07/01/17 07/02/17 15:00 23:00 07:00 Intake Total 940 ml 1200 ml Balance 940 ml 1200 ml Exam nad laying in bed no mrg lungs clear abd soft no lower extremity edema bilaterally Results Result Diagram: 06/30/17 1220 06/29/17 1722 Medications Medications Current Medications Acetaminophen (Tylenol Tab) 650 mg Q6H PRN PO PAIN LEVEL 1-3 OR FEVER; Start at 21:00 Gabapentin (Neurontin) 300 mg TID PO Last administered on 07/02/17 08:34; Admin Dose 300 MG; Start 05/16/17 at 21:00 Miscellaneous Information 1 ea NOTE XX ; Start 05/17/17 at 17:30 Glucose (Glutose) 15 gm Q15M PRN PO DECREASED GLUCOSE; Start 05/17/17 at 17:30 Glucose (Glutose) 22.5 gm Q15M PRN PO DECREASED GLUCOSE; Start 05/17/17 at 17:30 Dextrose (D50w Syringe) 25 ml Q15M PRN IV DECREASED GLUCOSE; Start 05/17/17 at 17:30 Dextrose (D50w Syringe) 50 ml Q15M PRN IV DECREASED GLUCOSE; Start 05/17/17 at 17:30 Glucagon (Glucagen) 1 mg Q15M PRN IM DECREASED GLUCOSE; Start 05/17/17 at 17:30 Glucose (Glutose) 15 gm Q15M PRN BUCCAL DECREASED GLUCOSE; Start 05/17/17 at 17: 30 Hydroxyzine HCl (Atarax) 25 mg Q6H PRN PO ITCHING Last administered on 06:53; Admin Dose 25 MG; Start 05/19/17 at 03:30 Docusate Sodium (Colace) 100 mg BID PO Last administered on 07/02/17 08:34; Admin Dose 100 MG; Start 05/19/17 at 21:00 Senna (Senokot) 1 tab BID PO Last administered on 07/02/17 08:34; Admin Dose 1 TAB; Start 05/19/17 at 21:00 Polyethylene Glycol (Miralax) 17 gm DAILY PO Last administered on 07/02/17 08: 34; Admin Dose 17 GM; Start 05/21/17 at 09:00 Lactulose (Enulose) 20 gm DAILY PRN PO CONSTIPATION Last administered on 20:22; Admin Dose 20 GM; Start 05/22/17 at 18:30 Bisacodyl (Dulcolax Supp) 10 mg DAILY PRN [place] CONSTIPATION Last administered on 06/03/17 10:50; Admin Dose 10 MG; Start 05/22/17 at 18:30 Ondansetron HCl (Zofran Inj) 4 mg Q6H PRN IV NAUSEA AND/OR VOMITING Last administered on 06/26/17 14:21; Admin Dose 4 MG; Start 05/27/17 at 00:30 Sodium Biphosphate/ Sodium Phosphate (Fleet Enema) 133 ml DAILY PRN [place] CONSTIPATION Last administered on 05/29/17 21:14; Admin Dose 133 ML; Start at 20:30 Paroxetine HCl (Paxil) 10 mg DAILY PO Last administered on 07/02/17 08:34; Admin Dose 10 MG; Start 05/31/17 at 12:30 Mupirocin (Bactroban) 1 applic BID TOP Last administered on 07/02/17 08:35; Admin Dose 1 APPLIC; Start 05/31/17 at 13:00 Mirtazapine (Remeron) 15 mg HS PO Last administered on 06/26/17 20:37; Admin Dose 15 MG; Start 06/03/17 at 21:00 Clotrimazole (Lotrimin Cr) 1 applic BID TOP Last administered on 07/02/17 08: 35; Admin Dose 1 APPLIC; Start 06/04/17 at 21:00 Lidocaine (Lidocaine 5% Oint) 1 applic TID PRN TOP PAIN Last administered on 08:21; Admin Dose 1 APPLIC; Start 06/04/17 at 20:00 Hydromorphone HCl (Dilaudid) 2 mg Q4H PRN PO PAIN Last administered on 06:33; Admin Dose 2 MG; Start 06/07/17 at 10:00 Methadone HCl (Methadone Liq) 7 mg BID PO Last administered on 07/02/17 08:35 ; Admin Dose 7 MG; Start 06/08/17 at 21:00 Al Hydrox/Mg Hydrox/Simethicone (Mag-Al Plus) 30 ml Q6H PRN PO GASTROINTESTINAL UPSET; Start 06/22/17 at 20:30 Ondansetron HCl (Zofran Tab) 4 mg Q6H PRN PO NAUSEA AND/OR VOMITING; Start at 14:00 Loperamide HCl (Imodium Cap) 2 mg Q6 PRN PO DIARRHEA Last administered on t 14:04; Admin Dose 2 MG; Start 06/29/17 at 13:30 INNA ASCENCIO Jul 02, 2017 11:05
--- NOTE | 2017-07-02 16:37 | PN ---
Date/Time of Note Date/Time of Note DATE: 07/01/17 TIME: 16:34 Assessment/Plan Lines/Catheters IV Catheter Type (from Nrs): Saline Lock Munoz in Place (from Nrs): No Assessment/Plan Chief Complaint/Hosp Course 1. Left buttock wound s/p excisional debridement 06/06; continuing to heal well -frequent turning and offloading -specialty mattress -continue local care: may jakub crowley's -optimize nutrition -vitamin C 2. Back pain: s/p laminectomy with fusion; pain improved 3.Liver cirrhosis, portal hypertension, gastroesophageal varices, mild splenomegaly, and trace perihepatic ascites; lft's improving -supportive -sandwich counter attendant follow up pending 4. Loose stools: cdiff neg: resolved -stool studies if peristent 5. Microcytic anemia: chronic disease vs.iron deficiency vs. acute bleed vs. other; no acute bleed noted; h/h stable 6. Hypertension: labile -med management Thank you, Late entry 07/01 Problems: Subjective 24 Hr Interval Summary Feels well. No c/o abdominal pain, wound discomfort. No drainage from wound. No fevers, chills, cp, palpitations, sob, cough. Placement pending. Exam/Review of Systems Vital Signs Vitals Vital Signs Date Time Temp Pulse Resp B/P Pulse Ox O2 Delivery O2 Flow Rate FiO2 07/01/17 20:30 98.2 76 18 128/66 98 Room Air Intake and Output 07/01/17 07/01/17 07/02/17 15:00 23:00 07:00 Intake Total 940 ml 1200 ml Balance 940 ml 1200 ml Exam Free Text/Dictation Constitutional: alert, oriented Psych: nl mood/affect, Head: atraumatic, normocephalic Eyes: nl lids, nl sclera ENMT: mucosa pink and moist, nl nasal mucosa & septum Neck: other s/p laminectomy/fusion Respiratory: normal air movement Cardiovascular: nl pulses, regular rate and rhythm Gastrointestinal: nondistended, non-tender, soft, rotund Musculoskeletal: nl extremities to inspection Extremities: normal pulses Neurological: nl mental status, nl speech, nl strength Skin: other (left buttock wound without drainage; wound bed pink no periwound erythema, nonmalodorous, granulating, healing well) Results Result Diagram: 06/30/17 1220 06/29/17 1722 JAZMYN BARAKAT MD Jul 02, 2017 16:37
--- NOTE | 2017-07-02 16:38 | PN ---
Date/Time of Note Date/Time of Note DATE: 07/02/17 TIME: 16:37 Assessment/Plan Lines/Catheters IV Catheter Type (from Nrs): Saline Lock Munoz in Place (from Nrs): No Assessment/Plan Chief Complaint/Hosp Course 1. Left buttock wound s/p excisional debridement 06/06; continuing to heal well -frequent turning and offloading -specialty mattress -continue local care: may dc keo's -optimize nutrition -vitamin C 2. Back pain: s/p laminectomy with fusion; pain improved 3.Liver cirrhosis, portal hypertension, gastroesophageal varices, mild splenomegaly, and trace perihepatic ascites; lft's improving -supportive -research hydraulic engineer follow up pending 4. Loose stools: cdiff neg: resolved -stool studies if peristent 5. Microcytic anemia: chronic disease vs.iron deficiency vs. acute bleed vs. other; no acute bleed noted; h/h stable 6. Hypertension: labile -med management Thank you, Problems: Subjective 24 Hr Interval Summary Feels well. No c/o abdominal pain, wound discomfort. No drainage from wound. No fevers, chills, cp, palpitations, sob, cough. Exam/Review of Systems Vital Signs Vitals Vital Signs Date Time Temp Pulse Resp B/P Pulse Ox O2 Delivery O2 Flow Rate FiO2 07/01/17 20:30 98.2 76 18 128/66 98 Room Air Intake and Output 07/01/17 07/01/17 07/02/17 15:00 23:00 07:00 Intake Total 940 ml 1200 ml Balance 940 ml 1200 ml Exam Free Text/Dictation Constitutional: alert, oriented Psych: nl mood/affect, Head: atraumatic, normocephalic Eyes: nl lids, nl sclera ENMT: mucosa pink and moist, nl nasal mucosa & septum Neck: other s/p laminectomy/fusion Respiratory: normal air movement Cardiovascular: nl pulses, regular rate and rhythm Gastrointestinal: nondistended, non-tender, soft, rotund Musculoskeletal: nl extremities to inspection Extremities: normal pulses Neurological: nl mental status, nl speech, nl strength Skin: other (left buttock wound without drainage; wound bed pink no periwound erythema, nonmalodorous, granulating, healing well) Results Result Diagram: 06/30/17 1220 06/29/17 1722 JAZMYN BARAKAT MD Jul 02, 2017 16:38
[2017-07-02 19:19] VITALS: BP 130/79; RESP 18
[2017-07-02] MEDS: MIRTAZAPINE 15 MG TAB PO SCH (21:00)
[2017-07-03] MEDS: HYDROmorphONE 2 MG TAB PO PRN ×6 (01:58→23:35)
[2017-07-03 02:02] VITALS: BP 135/72; RESP 18
[2017-07-03 07:50] VITALS: BP 117/66; RESP 20
[2017-07-03] MEDS: SENNA TAB PO SCH (09:00)
[2017-07-03] MEDS: MUPIROCIN 2% 22 GM OINT TOP SCH (09:00)
[2017-07-03] MEDS: DOCUSATE SODIUM 100 MG CAP PO SCH ×4 (09:00→21:00)
[2017-07-03] MEDS: POLYETHYLENE GLYCOL 17 GM PACKET PO SCH (09:00)
[2017-07-03] MEDS: metFORMIN 850 MG TAB GTB SCH ×2 (09:20→17:46)
[2017-07-03] MEDS: PAROXETINE 10 MG TAB PO SCH (09:20)
[2017-07-03] MEDS: GABAPENTIN 300 MG CAP PO SCH ×3 (09:20→20:20)
[2017-07-03] MEDS: METHADONE (1 MG/ML 5 ML PO UD SYG) PO SCH ×2 (09:20→20:20)
[2017-07-03] MEDS: CLOTRIMAZOLE 1% 30 GM CR TOP SCH ×2 (09:21→20:22)
--- NOTE | 2017-07-03 09:59 | PN ---
Date/Time of Note Date/Time of Note DATE: 07/03/17 TIME: 09:54 Assessment/Plan Lines/Catheters IV Catheter Type (from Nrs): Peripheral IV Munoz in Place (from Nrs): No Assessment/Plan Chief Complaint/Hosp Course 1. Left buttock wound s/p excisional debridement 06/06; continuing to heal well -frequent turning and offloading -specialty mattress -continue local care -optimize nutrition -vitamin C 2. Back pain: s/p laminectomy with fusion; pain improved; improved mobility with PT 3.Liver cirrhosis, portal hypertension, gastroesophageal varices, mild splenomegaly, and trace perihepatic ascites; lft's improving -supportive -outpatient follow up with hepatology 4. Loose stools: cdiff neg: resolved 5. Microcytic anemia: chronic disease vs.iron deficiency vs. acute bleed vs. other; no acute bleed noted; h/h stable 6. Hypertension: improved -med management Patient seen and examined in collaboration with Dr. Luís Mendoza. Thank you. Problems: Subjective 24 Hr Interval Summary Feels well. Good appetite. Working with PT. No c/o pain, sob, cough, n/v/d/ dysuria, cp, palpitations, excessive wound drainage. Exam/Review of Systems Vital Signs Vitals Vital Signs Date Time Temp Pulse Resp B/P Pulse Ox O2 Delivery O2 Flow Rate FiO2 07/03/17 07:50 98.9 84 20 117/66 98 07/01/17 20:30 Room Air Intake and Output 07/02/17 07/02/17 07/03/17 15:00 23:00 07:00 Intake Total 1020 ml 700 ml Output Total 800 ml Balance 1020 ml -100 ml Exam Free Text/Dictation Constitutional: alert, oriented, pleasant, improved energy Psych: nl mood/affect, Head: atraumatic, normocephalic Eyes: nl lids, nl sclera ENMT: mucosa pink and moist, nl nasal mucosa & septum Neck: other s/p laminectomy/fusion Respiratory: normal air movement Cardiovascular: nl pulses, regular rate and rhythm Gastrointestinal: nondistended, non-tender, soft, rotund Musculoskeletal: nl extremities to inspection Extremities: normal pulses Neurological: nl mental status, nl speech, nl strength Skin: other (left buttock wound without drainage; wound bed pink no periwound erythema, nonmalodorous, granulating) Results Result Diagram: 06/30/17 1220 06/29/17 1722 GILA WALKER NP Jul 03, 2017 09:59
--- NOTE | 2017-07-03 16:13 | PN ---
Date/Time of Note Date/Time of Note DATE: 07/03/17 TIME: 16:10 Assessment/Plan VTE Prophylaxis VTE Prophylaxis Intervention: SCD's Lines/Catheters IV Catheter Type (from Nrsg): Saline Lock Urinary Cath still in place: No Assessment/Plan Assessment/Plan 66 yo M with spinal stenosis admitted for acute on chronic back pain and UE weakness 2/2 cervical stenosis. sp laminectomy and fusion 7.14. Also incidentally noted to have hepatitis C cirrhosis. 1. Acute on chronic back pain with upper extremity weakness secondary to cervical cord stenosis now sp neurosurgical intervention 7.14. HV drained removed by NSS team -neurosurgery signed off, continue physical therapy -Patient apparently did not qualify for acute rehab, awaiting possible intermediate facility placement now, CM following -For now continue p.o. Dilaudid as needed and methadone twice daily. --> Talked to palliative about weaning methadone 2 Prediabetes: Previous hemoglobin A1c 6.1. -metformin 3. Depression with SI: pt with questionable suicidal ideation earlier this admission, was evaluated by telepsych then, and again on 05/30. no indication for psych hospitalization on 05.30 eval. - cont psych meds 4. 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 sacral wound: sp gen surg debridement 06.06 6. DVT prophx, DM diet 7. Hep C cirrhosis: outpatient follow up Dispo: Case management working on finding snf placement for patient. Subjective 24 Hr Interval Summary Free Text/Dictation We briefly discussed pt's hep C and that it can be treated as an outpatient Exam/Review of Systems Vital Signs Vitals Vital Signs Date Time Temp Pulse Resp B/P Pulse Ox O2 Delivery O2 Flow Rate FiO2 07/03/17 07:50 98.9 84 20 117/66 98 07/01/17 20:30 Room Air Intake and Output 07/02/17 07/02/17 07/03/17 15:00 23:00 07:00 Intake Total 1020 ml 700 ml Output Total 800 ml Balance 1020 ml -100 ml Exam nad, laying in bed no mrg lungs clear abd soft no rashes Results Result Diagram: 06/30/17 1220 06/29/17 1722 Results 24 hrs Laboratory Tests Test 07/03/17 13:08 Bedside Glucose 126 Medications Medications Current Medications Acetaminophen (Tylenol Tab) 650 mg Q6H PRN PO PAIN LEVEL 1-3 OR FEVER; Start at 21:00 Gabapentin (Neurontin) 300 mg TID PO Last administered on 07/03/17 13:20; Admin Dose 300 MG; Start 05/16/17 at 21:00 Miscellaneous Information 1 ea NOTE XX ; Start 05/17/17 at 17:30 Glucose (Glutose) 15 gm Q15M PRN PO DECREASED GLUCOSE; Start 05/17/17 at 17:30 Glucose (Glutose) 22.5 gm Q15M PRN PO DECREASED GLUCOSE; Start 05/17/17 at 17:30 Dextrose (D50w Syringe) 25 ml Q15M PRN IV DECREASED GLUCOSE; Start 05/17/17 at 17:30 Dextrose (D50w Syringe) 50 ml Q15M PRN IV DECREASED GLUCOSE; Start 05/17/17 at 17:30 Glucagon (Glucagen) 1 mg Q15M PRN IM DECREASED GLUCOSE; Start 05/17/17 at 17:30 Glucose (Glutose) 15 gm Q15M PRN BUCCAL DECREASED GLUCOSE; Start 05/17/17 at 17: 30 Hydroxyzine HCl (Atarax) 25 mg Q6H PRN PO ITCHING Last administered on 06:53; Admin Dose 25 MG; Start 05/19/17 at 03:30 Docusate Sodium (Colace) 100 mg BID PO Last administered on 07/02/17 21:32; Admin Dose 100 MG; Start 05/19/17 at 21:00 Senna (Senokot) 1 tab BID PO Last administered on 07/02/17 21:32; Admin Dose 1 TAB; Start 05/19/17 at 21:00 Polyethylene Glycol (Miralax) 17 gm DAILY PO Last administered on 06/19/17 08: 25; Admin Dose 17 GM; Start 05/21/17 at 09:00 Lactulose (Enulose) 20 gm DAILY PRN PO CONSTIPATION Last administered on 20:22; Admin Dose 20 GM; Start 05/22/17 at 18:30 Bisacodyl (Dulcolax Supp) 10 mg DAILY PRN MD CONSTIPATION Last administered on 06/03/17 10:50; Admin Dose 10 MG; Start 05/22/17 at 18:30 Ondansetron HCl (Zofran Inj) 4 mg Q6H PRN IV NAUSEA AND/OR VOMITING Last administered on 06/26/17 14:21; Admin Dose 4 MG; Start 05/27/17 at 00:30 Sodium Biphosphate/ Sodium Phosphate (Fleet Enema) 133 ml DAILY PRN MD CONSTIPATION Last administered on 05/29/17 21:14; Admin Dose 133 ML; Start at 20:30 Paroxetine HCl (Paxil) 10 mg DAILY PO Last administered on 07/03/17 09:20; Admin Dose 10 MG; Start 05/31/17 at 12:30 Mupirocin (Bactroban) 1 applic BID TOP Last administered on 07/02/17 21:33; Admin Dose 1 APPLIC; Start 05/31/17 at 13:00 Mirtazapine (Remeron) 15 mg HS PO Last administered on 06/26/17 20:37; Admin Dose 15 MG; Start 06/03/17 at 21:00 Clotrimazole (Lotrimin Cr) 1 applic BID TOP Last administered on 07/03/17 09: 21; Admin Dose 1 APPLIC; Start 06/04/17 at 21:00 Lidocaine (Lidocaine 5% Oint) 1 applic TID PRN TOP PAIN Last administered on 08:21; Admin Dose 1 APPLIC; Start 06/04/17 at 20:00 Hydromorphone HCl (Dilaudid) 2 mg Q4H PRN PO PAIN Last administered on 13:20; Admin Dose 2 MG; Start 06/07/17 at 10:00 Methadone HCl (Methadone Liq) 7 mg BID PO Last administered on 07/03/17 09:20 ; Admin Dose 7 MG; Start 06/08/17 at 21:00 Al Hydrox/Mg Hydrox/Simethicone (Mag-Al Plus) 30 ml Q6H PRN PO GASTROINTESTINAL UPSET; Start 06/22/17 at 20:30 Ondansetron HCl (Zofran Tab) 4 mg Q6H PRN PO NAUSEA AND/OR VOMITING; Start at 14:00 Loperamide HCl (Imodium Cap) 2 mg Q6 PRN PO DIARRHEA Last administered on 14:04; Admin Dose 2 MG; Start 06/29/17 at 13:30 ERIC HORN MD Jul 03, 2017 16:13
[2017-07-03 19:16] VITALS: BP 121/82; RESP 18
[2017-07-03] MEDS: MIRTAZAPINE 15 MG TAB PO SCH (20:40)
[2017-07-04 01:29] VITALS: BP 133/74; RESP 18
[2017-07-04] MEDS: HYDROmorphONE 2 MG TAB PO PRN ×3 (03:19→17:02)
[2017-07-04 08:00] VITALS: BP 125/76; RESP 18
[2017-07-04] MEDS: METHADONE (1 MG/ML 5 ML PO UD SYG) PO SCH ×2 (08:54→20:31)
[2017-07-04] MEDS: DOCUSATE SODIUM 100 MG CAP PO SCH ×2 (08:54→21:00)
[2017-07-04] MEDS: metFORMIN 850 MG TAB GTB SCH ×2 (08:54→17:02)
[2017-07-04] MEDS: GABAPENTIN 300 MG CAP PO SCH ×3 (08:54→20:31)
[2017-07-04] MEDS: PAROXETINE 10 MG TAB PO SCH (08:54)
[2017-07-04] MEDS: CLOTRIMAZOLE 1% 30 GM CR TOP SCH ×2 (13:01→21:00)
--- NOTE | 2017-07-04 15:44 | PN ---
Date/Time of Note Date/Time of Note DATE: 07/04/17 TIME: 15:41 Assessment/Plan Lines/Catheters IV Catheter Type (from Nrs): Peripheral IV Munoz in Place (from Nrs): No Assessment/Plan Chief Complaint/Hosp Course 1. Left buttock wound s/p excisional debridement 06/06; continuing to heal well -frequent turning and offloading -specialty mattress -continue local care -optimize nutrition -vitamin C 2. Back pain: s/p laminectomy with fusion; pain improved; improved mobility with PT 3.Liver cirrhosis, portal hypertension, gastroesophageal varices, mild splenomegaly, and trace perihepatic ascites; lft's improving -supportive -outpatient follow up with hepatology 4. Loose stools: cdiff neg: resolved 5. Microcytic anemia: chronic disease vs.iron deficiency vs. acute bleed vs. other; no acute bleed noted; h/h improved 6. Hypertension: improved -med management Patient seen and examined in collaboration with Dr. Luís Mendoza. Thank you. Problems: Subjective 24 Hr Interval Summary Feels well. Good energy. Up with PT. Buttock wound continuing to heal well without discomfort or drainage. No fevers, chills, pain, n/v/d/dysuria, sob, cough, abdominal discomfort. Exam/Review of Systems Vital Signs Vitals Vital Signs Date Time Temp Pulse Resp B/P Pulse Ox O2 Delivery O2 Flow Rate FiO2 07/04/17 08:00 98.5 93 18 125/76 97 07/01/17 20:30 Room Air Intake and Output 07/03/17 07/03/17 07/04/17 15:00 23:00 07:00 Intake Total 2100 ml 700 ml Output Total 1200 ml Balance 2100 ml -500 ml Exam Free Text/Dictation Constitutional: alert, oriented, pleasant, improved energy Psych: nl mood/affect, Head: atraumatic, normocephalic Eyes: nl lids, nl sclera ENMT: mucosa pink and moist, nl nasal mucosa & septum Neck: other s/p laminectomy/fusion Respiratory: normal air movement Cardiovascular: nl pulses, regular rate and rhythm Gastrointestinal: nondistended, non-tender, soft, rotund Musculoskeletal: nl extremities to inspection Extremities: normal pulses Neurological: nl mental status, nl speech, nl strength Skin: other (left buttock wound without drainage; wound bed pink no periwound erythema, nonmalodorous, granulating) Results Result Diagram: 06/30/17 1220 GILA WALKER NP Jul 04, 2017 15:44
--- NOTE | 2017-07-04 16:36 | PN ---
Date/Time of Note Date/Time of Note DATE: 07/04/17 TIME: 16:35 Assessment/Plan VTE Prophylaxis VTE Prophylaxis Intervention: SCD's Lines/Catheters IV Catheter Type (from Nrsg): Peripheral IV Urinary Cath still in place: No Assessment/Plan Assessment/Plan 66 yo M with spinal stenosis admitted for acute on chronic back pain and UE weakness 2/2 cervical stenosis. sp laminectomy and fusion 7.14. Also incidentally found to have hepatitis C. 1. Acute on chronic back pain with upper extremity weakness secondary to cervical cord stenosis now sp neurosurgical intervention 7.14. HV drained removed by NSS team -neurosurgery signed off, continue physical therapy -Patient apparently did not qualify for acute rehab, awaiting possible snf facility placement now, CM following -For now continue p.o. Dilaudid as needed and methadone twice daily. --> Talked to palliative about weaning methadone 2 Prediabetes: Previous hemoglobin A1c 6.1. -metformin 3. Depression with SI: pt with questionable suicidal ideation earlier this admission, was evaluated by telepsych then, and again on 05/30. no indication for psych hospitalization on 05.30 eval. - cont psych meds 4. 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 sacral wound: sp gen surg debridement 7 6. DVT prophx, DM diet 7. Hep C cirrhosis: outpatient follow up Dispo: Case management working on finding snf placement for patient. Subjective 24 Hr Interval Summary Free Text/Dictation still awaiting placement Exam/Review of Systems Vital Signs Vitals Vital Signs Date Time Temp Pulse Resp B/P Pulse Ox O2 Delivery O2 Flow Rate FiO2 07/04/17 08:00 98.5 93 18 125/76 97 07/01/17 20:30 Room Air Intake and Output 07/03/17 07/03/17 07/04/17 15:00 23:00 07:00 Intake Total 2100 ml 700 ml Output Total 1200 ml Balance 2100 ml -500 ml Exam nad laying in bed no rashes resp nonlabored no edema no abd distension Results Result Diagram: 06/30/17 1220 Medications Medications Current Medications Acetaminophen (Tylenol Tab) 650 mg Q6H PRN PO PAIN LEVEL 1-3 OR FEVER; Start at 21:00 Gabapentin (Neurontin) 300 mg TID PO Last administered on 07/04/17 13:01; Admin Dose 300 MG; Start 05/16/17 at 21:00 Miscellaneous Information 1 ea NOTE XX ; Start 05/17/17 at 17:30 Glucose (Glutose) 15 gm Q15M PRN PO DECREASED GLUCOSE; Start 05/17/17 at 17:30 Glucose (Glutose) 22.5 gm Q15M PRN PO DECREASED GLUCOSE; Start 05/17/17 at 17:30 Dextrose (D50w Syringe) 25 ml Q15M PRN IV DECREASED GLUCOSE; Start 05/17/17 at 17:30 Dextrose (D50w Syringe) 50 ml Q15M PRN IV DECREASED GLUCOSE; Start 05/17/17 at 17:30 Glucagon (Glucagen) 1 mg Q15M PRN IM DECREASED GLUCOSE; Start 05/17/17 at 17:30 Glucose (Glutose) 15 gm Q15M PRN BUCCAL DECREASED GLUCOSE; Start 05/17/17 at 17: 30 Hydroxyzine HCl (Atarax) 25 mg Q6H PRN PO ITCHING Last administered on 06:53; Admin Dose 25 MG; Start 05/19/17 at 03:30 Docusate Sodium (Colace) 100 mg BID PO Last administered on 07/04/17 08:54; Admin Dose 100 MG; Start 05/19/17 at 21:00 Ondansetron HCl (Zofran Inj) 4 mg Q6H PRN IV NAUSEA AND/OR VOMITING Last administered on 06/26/17 14:21; Admin Dose 4 MG; Start 05/27/17 at 00:30 Paroxetine HCl (Paxil) 10 mg DAILY PO Last administered on 07/04/17 08:54; Admin Dose 10 MG; Start 05/31/17 at 12:30 Mirtazapine (Remeron) 15 mg HS PO Last administered on 06/26/17 20:37; Admin Dose 15 MG; Start 06/03/17 at 21:00 Clotrimazole (Lotrimin Cr) 1 applic BID TOP Last administered on 07/04/17 13: 01; Admin Dose 1 APPLIC; Start 06/04/17 at 21:00 Lidocaine (Lidocaine 5% Oint) 1 applic TID PRN TOP PAIN Last administered on 08:21; Admin Dose 1 APPLIC; Start 06/04/17 at 20:00 Hydromorphone HCl (Dilaudid) 2 mg Q4H PRN PO PAIN Last administered on 13:02; Admin Dose 2 MG; Start 06/07/17 at 10:00 Methadone HCl (Methadone Liq) 7 mg BID PO Last administered on 07/04/17 08:54 ; Admin Dose 7 MG; Start 06/08/17 at 21:00 Al Hydrox/Mg Hydrox/Simethicone (Mag-Al Plus) 30 ml Q6H PRN PO GASTROINTESTINAL UPSET; Start 06/22/17 at 20:30 Ondansetron HCl (Zofran Tab) 4 mg Q6H PRN PO NAUSEA AND/OR VOMITING; Start at 14:00 Loperamide HCl (Imodium Cap) 2 mg Q6 PRN PO DIARRHEA Last administered on 14:04; Admin Dose 2 MG; Start 06/29/17 at 13:30 ERIC HORN MD Jul 04, 2017 16:36
[2017-07-04 19:22] VITALS: BP 129/74; RESP 18
[2017-07-04 20:20] VITALS: BP 133/75; RESP 20
[2017-07-04] MEDS: MIRTAZAPINE 15 MG TAB PO SCH (21:00)
[2017-07-05] MEDS: HYDROmorphONE 2 MG TAB PO PRN ×4 (00:29→16:25)
[2017-07-05 02:11] VITALS: BP 133/75; RESP 18
[2017-07-05 07:37] VITALS: BP 147/75; RESP 20
[2017-07-05] MEDS: DOCUSATE SODIUM 100 MG CAP PO SCH ×2 (09:00→20:50)
[2017-07-05] MEDS: GABAPENTIN 300 MG CAP PO SCH ×3 (09:47→20:44)
[2017-07-05] MEDS: metFORMIN 850 MG TAB GTB SCH ×2 (09:47→18:45)
[2017-07-05] MEDS: PAROXETINE 10 MG TAB PO SCH (09:47)
[2017-07-05] MEDS: METHADONE (1 MG/ML 5 ML PO UD SYG) PO SCH ×2 (09:47→20:45)
[2017-07-05] MEDS: CLOTRIMAZOLE 1% 30 GM CR TOP SCH ×2 (09:48→20:45)
[2017-07-05 13:48] VITALS: BP 148/79; RESP 20
--- NOTE | 2017-07-05 14:05 | PN ---
Date/Time of Note Date/Time of Note DATE: 07/05/17 TIME: 14:05 Assessment/Plan VTE Prophylaxis VTE Prophylaxis Intervention: SCD's Lines/Catheters IV Catheter Type (from Nrsg): Saline Lock Urinary Cath still in place: No Assessment/Plan Assessment/Plan 66 yo M with spinal stenosis admitted for acute on chronic back pain and UE weakness 2/2 cervical stenosis. sp laminectomy and fusion 7.14. Also incidentally found to have hepatitis C. 1. Acute on chronic back pain with upper extremity weakness secondary to cervical cord stenosis now sp neurosurgical intervention 7.14. HV drained removed by NSS team -neurosurgery signed off, continue physical therapy -Patient apparently did not qualify for acute rehab, awaiting possible half-way facility placement now, CM following -For now continue p.o. Dilaudid as needed and methadone twice daily. --> Talked to palliative about weaning methadone 2 Prediabetes: Previous hemoglobin A1c 6.1. -metformin 3. Depression with SI: pt with questionable suicidal ideation earlier this admission, was evaluated by telepsych then, and again on 05/30. no indication for psych hospitalization on 05.30 eval. - cont psych meds 4. 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 sacral wound: sp gen surg debridement 7 6. DVT prophx, DM diet 7. Hep C cirrhosis: outpatient follow up Dispo: Case management working on finding snf placement for patient. Subjective 24 Hr Interval Summary Free Text/Dictation Sitting in chair, reading a Bible Exam/Review of Systems Vital Signs Vitals Vital Signs Date Time Temp Pulse Resp B/P Pulse Ox O2 Delivery O2 Flow Rate FiO2 07/05/17 13:48 98.5 98 20 148/79 96 07/01/17 20:30 Room Air Intake and Output 07/04/17 07/04/17 07/05/17 15:00 23:00 07:00 Intake Total 850 ml Output Total 1500 ml Balance -650 ml Exam nad no mrg lungs clear abd soft no rashes Medications Medications Current Medications Acetaminophen (Tylenol Tab) 650 mg Q6H PRN PO PAIN LEVEL 1-3 OR FEVER; Start at 21:00 Gabapentin (Neurontin) 300 mg TID PO Last administered on 07/05/17t 13:35; Admin Dose 300 MG; Start 05/16/17 at 21:00 Miscellaneous Information 1 ea NOTE XX ; Start 05/17/17 at 17:30 Glucose (Glutose) 15 gm Q15M PRN PO DECREASED GLUCOSE; Start 05/17/17 at 17:30 Glucose (Glutose) 22.5 gm Q15M PRN PO DECREASED GLUCOSE; Start 05/17/17 at 17:30 Dextrose (D50w Syringe) 25 ml Q15M PRN IV DECREASED GLUCOSE; Start 05/17/17 at 17:30 Dextrose (D50w Syringe) 50 ml Q15M PRN IV DECREASED GLUCOSE; Start 05/17/17 at 17:30 Glucagon (Glucagen) 1 mg Q15M PRN IM DECREASED GLUCOSE; Start 05/17/17 at 17:30 Glucose (Glutose) 15 gm Q15M PRN BUCCAL DECREASED GLUCOSE; Start 05/17/17 at 17: 30 Hydroxyzine HCl (Atarax) 25 mg Q6H PRN PO ITCHING Last administered on 06:53; Admin Dose 25 MG; Start 05/19/17 at 03:30 Docusate Sodium (Colace) 100 mg BID PO Last administered on 07/04/17 08:54; Admin Dose 100 MG; Start 05/19/17 at 21:00 Ondansetron HCl (Zofran Inj) 4 mg Q6H PRN IV NAUSEA AND/OR VOMITING Last administered on 06/26/17 14:21; Admin Dose 4 MG; Start 05/27/17 at 00:30 Paroxetine HCl (Paxil) 10 mg DAILY PO Last administered on 07/05/17 09:47; Admin Dose 10 MG; Start 05/31/17 at 12:30 Mirtazapine (Remeron) 15 mg HS PO Last administered on 06/26/17 20:37; Admin Dose 15 MG; Start 06/03/17 at 21:00 Clotrimazole (Lotrimin Cr) 1 applic BID TOP Last administered on 07/05/17 09: 48; Admin Dose 1 APPLIC; Start 06/04/17 at 21:00 Lidocaine (Lidocaine 5% Oint) 1 applic TID PRN TOP PAIN Last administered on 08:21; Admin Dose 1 APPLIC; Start 06/04/17 at 20:00 Hydromorphone HCl (Dilaudid) 2 mg Q4H PRN PO PAIN Last administered on 12:30; Admin Dose 2 MG; Start 06/07/17 at 10:00 Methadone HCl (Methadone Liq) 7 mg BID PO Last administered on 07/05/17 09:47 ; Admin Dose 7 MG; Start 06/08/17 at 21:00 Al Hydrox/Mg Hydrox/Simethicone (Mag-Al Plus) 30 ml Q6H PRN PO GASTROINTESTINAL UPSET; Start 06/22/17 at 20:30 Ondansetron HCl (Zofran Tab) 4 mg Q6H PRN PO NAUSEA AND/OR VOMITING; Start at 14:00 Loperamide HCl (Imodium Cap) 2 mg Q6 PRN PO DIARRHEA Last administered on 14:04; Admin Dose 2 MG; Start 06/29/17 at 13:30 ERIC HORN MD Jul 05, 2017 14:05
[2017-07-05 20:00] VITALS: BP 141/78; RESP 20
[2017-07-05] MEDS: MIRTAZAPINE 15 MG TAB PO SCH (20:50)
[2017-07-06 02:00] VITALS: BP 137/74; RESP 19
[2017-07-06 08:24] VITALS: BP 132/73; RESP 20
[2017-07-06] MEDS: DOCUSATE SODIUM 100 MG CAP PO SCH ×2 (09:00→21:00)
[2017-07-06] MEDS: metFORMIN 850 MG TAB GTB SCH ×2 (09:10→18:15)
[2017-07-06] MEDS: PAROXETINE 10 MG TAB PO SCH (09:10)
[2017-07-06] MEDS: GABAPENTIN 300 MG CAP PO SCH ×3 (09:10→21:28)
[2017-07-06] MEDS: CLOTRIMAZOLE 1% 30 GM CR TOP SCH ×2 (09:11→21:32)
[2017-07-06] MEDS: METHADONE (1 MG/ML 5 ML PO UD SYG) PO SCH ×2 (09:16→21:29)
[2017-07-06] MEDS: HYDROmorphONE 2 MG TAB PO PRN ×2 (12:08→16:19)
--- NOTE | 2017-07-06 13:38 | PN ---
Date/Time of Note Date/Time of Note DATE: 07/06/17 TIME: 13:37 Assessment/Plan VTE Prophylaxis VTE Prophylaxis Intervention: SCD's Lines/Catheters IV Catheter Type (from Nrsg): Saline Lock Urinary Cath still in place: No Assessment/Plan Assessment/Plan 66 yo M with spinal stenosis admitted for acute on chronic back pain and UE weakness 2/2 cervical stenosis. sp laminectomy and fusion 7.14. Also incidentally found to have hepatitis C cirrhosis. 1. Acute on chronic back pain with upper extremity weakness secondary to cervical cord stenosis now sp neurosurgical intervention 7.14. HV drained removed by NSS team -neurosurgery signed off, continue physical therapy -Patient apparently did not qualify for acute rehab, awaiting possible longterm facility placement now, CM following -For now continue p.o. Dilaudid as needed and methadone twice daily. --> START METHADONE WEAN 2 Prediabetes: Previous hemoglobin A1c 6.1. -metformin 3. Depression with SI: pt with questionable suicidal ideation earlier this admission, was evaluated by telepsych then, and again on 05/30. no indication for psych hospitalization on 05.30 eval. - cont psych meds 4. 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 sacral wound: sp gen surg debridement 7 6. DVT prophx, DM diet 7. Hep C cirrhosis: outpatient follow up Dispo: Case management working on finding snf placement for patient. Subjective 24 Hr Interval Summary Free Text/Dictation hand ability improving Exam/Review of Systems Vital Signs Vitals Vital Signs Date Time Temp Pulse Resp B/P Pulse Ox O2 Delivery O2 Flow Rate FiO2 07/06/17 08:24 97.9 87 20 132/73 98 Intake and Output 07/05/17 07/05/17 07/06/17 15:00 23:00 07:00 Intake Total 2000 ml 1050 ml Output Total 600 ml 850 ml Balance 1400 ml 200 ml Exam nad no mrg lungs clear abd soft no rashes Medications Medications Current Medications Acetaminophen (Tylenol Tab) 650 mg Q6H PRN PO PAIN LEVEL 1-3 OR FEVER; Start at 21:00 Gabapentin (Neurontin) 300 mg TID PO Last administered on 07/06/17t 12:08; Admin Dose 300 MG; Start 05/16/17 at 21:00 Miscellaneous Information 1 ea NOTE XX ; Start 05/17/17 at 17:30 Glucose (Glutose) 15 gm Q15M PRN PO DECREASED GLUCOSE; Start 05/17/17 at 17:30 Glucose (Glutose) 22.5 gm Q15M PRN PO DECREASED GLUCOSE; Start 05/17/17 at 17:30 Dextrose (D50w Syringe) 25 ml Q15M PRN IV DECREASED GLUCOSE; Start 05/17/17 at 17:30 Dextrose (D50w Syringe) 50 ml Q15M PRN IV DECREASED GLUCOSE; Start 05/17/17 at 17:30 Glucagon (Glucagen) 1 mg Q15M PRN IM DECREASED GLUCOSE; Start 05/17/17 at 17:30 Glucose (Glutose) 15 gm Q15M PRN BUCCAL DECREASED GLUCOSE; Start 05/17/17 at 17: 30 Hydroxyzine HCl (Atarax) 25 mg Q6H PRN PO ITCHING Last administered on 06:53; Admin Dose 25 MG; Start 05/19/17 at 03:30 Docusate Sodium (Colace) 100 mg BID PO Last administered on 07/04/17 08:54; Admin Dose 100 MG; Start 05/19/17 at 21:00 Ondansetron HCl (Zofran Inj) 4 mg Q6H PRN IV NAUSEA AND/OR VOMITING Last administered on 06/26/17 14:21; Admin Dose 4 MG; Start 05/27/17 at 00:30 Paroxetine HCl (Paxil) 10 mg DAILY PO Last administered on 07/06/17 09:10; Admin Dose 10 MG; Start 05/31/17 at 12:30 Mirtazapine (Remeron) 15 mg HS PO Last administered on 06/26/17 20:37; Admin Dose 15 MG; Start 06/03/17 at 21:00 Clotrimazole (Lotrimin Cr) 1 applic BID TOP Last administered on 07/06/17 09: 11; Admin Dose 1 APPLIC; Start 06/04/17 at 21:00 Lidocaine (Lidocaine 5% Oint) 1 applic TID PRN TOP PAIN Last administered on 08:21; Admin Dose 1 APPLIC; Start 06/04/17 at 20:00 Hydromorphone HCl (Dilaudid) 2 mg Q4H PRN PO PAIN Last administered on 12:08; Admin Dose 2 MG; Start 06/07/17 at 10:00 Methadone HCl (Methadone Liq) 7 mg BID PO Last administered on 07/06/17 09:16 ; Admin Dose 7 MG; Start 06/08/17 at 21:00 Al Hydrox/Mg Hydrox/Simethicone (Mag-Al Plus) 30 ml Q6H PRN PO GASTROINTESTINAL UPSET; Start 06/22/17 at 20:30 Ondansetron HCl (Zofran Tab) 4 mg Q6H PRN PO NAUSEA AND/OR VOMITING; Start at 14:00 Loperamide HCl (Imodium Cap) 2 mg Q6 PRN PO DIARRHEA Last administered on 14:04; Admin Dose 2 MG; Start 06/29/17 at 13:30 ERIC HORN MD Jul 06, 2017 13:38
[2017-07-06 15:55] VITALS: BP 143/76; RESP 20
[2017-07-06 20:40] VITALS: BP 139/72; RESP 22
[2017-07-06] MEDS: MIRTAZAPINE 15 MG TAB PO SCH (21:00)
[2017-07-06] MEDS: METHADONE (1 MG/1 ML PO SYG) PO SCH (21:29)
--- NOTE | 2017-07-06 22:30 | PN ---
Date/Time of Note Date/Time of Note DATE: 07/06/17 TIME: 22:24 Assessment/Plan Lines/Catheters IV Catheter Type (from Nrs): Saline Lock Munoz in Place (from Nrs): No Assessment/Plan Chief Complaint/Hosp Course 1. Left buttock wound s/p excisional debridement 06/06; healing -frequent turning and offloading -specialty mattress -continue local care -optimize nutrition -vitamin C 2. Back pain: s/p laminectomy with fusion; pain improved; improved mobility with PT 3.Liver cirrhosis, portal hypertension, gastroesophageal varices, mild splenomegaly, and trace perihepatic ascites; lft's improving -supportive -outpatient follow up with hepatology 4. Hypertension: -med management 5. Microcytic anemia: chronic disease vs.iron deficiency vs. acute bleed vs. other; no acute bleed noted; Patient seen and examined in collaboration with Dr. Luís Mendoza. Thank you. Problems: Subjective 24 Hr Interval Summary Continues to feel well. Good energy. Working with PT. No excessive drainage or discomfort from wound. No fevers,chills, sob, cough, n/v/d/dysuria, c, palpitations. Exam/Review of Systems Vital Signs Vitals Vital Signs Date Time Temp Pulse Resp B/P Pulse Ox O2 Delivery O2 Flow Rate FiO2 07/06/17 20:40 98.5 95 22 139/72 100 Intake and Output 07/05/17 07/05/17 07/06/17 15:00 23:00 07:00 Intake Total 2000 ml 1050 ml Output Total 600 ml 850 ml Balance 1400 ml 200 ml Exam Free Text/Dictation Constitutional: alert, oriented, pleasant Psych: nl mood/affect, Head: atraumatic, normocephalic Eyes: nl lids, nl sclera ENMT: mucosa pink and moist, nl nasal mucosa & septum Neck: other s/p laminectomy/fusion; limited ROM Respiratory: normal air movement Cardiovascular: nl pulses, regular rate and rhythm Gastrointestinal: nondistended, non-tender, soft, rotund Musculoskeletal: nl extremities to inspection Extremities: normal pulses Neurological: nl mental status, nl speech, nl strength Skin: other (left buttock wound with dry dry dressing, No drainage noted) GILA WALKER NP Jul 06, 2017 22:30
[2017-07-07] MEDS: HYDROmorphONE 2 MG TAB PO PRN ×4 (00:03→16:47)
[2017-07-07 08:07] VITALS: BP 119/72; RESP 16
[2017-07-07] MEDS: METHADONE (1 MG/1 ML PO SYG) PO SCH ×3 (08:50→20:31)
[2017-07-07] MEDS: DOCUSATE SODIUM 100 MG CAP PO SCH ×2 (08:50→20:31)
[2017-07-07] MEDS: PAROXETINE 10 MG TAB PO SCH (08:50)
[2017-07-07] MEDS: metFORMIN 850 MG TAB GTB SCH ×2 (08:50→18:29)
[2017-07-07] MEDS: GABAPENTIN 300 MG CAP PO SCH ×3 (08:50→20:30)
[2017-07-07] MEDS: METHADONE (1 MG/ML 5 ML PO UD SYG) PO SCH ×3 (08:53→20:31)
[2017-07-07] MEDS: CLOTRIMAZOLE 1% 30 GM CR TOP SCH ×2 (08:54→20:31)
--- NOTE | 2017-07-07 11:30 | PN ---
Date/Time of Note Date/Time of Note DATE: 07/07/17 TIME: 10:40 Assessment/Plan Lines/Catheters IV Catheter Type (from Nrs): Saline Lock Munoz in Place (from Nrs): No Assessment/Plan Chief Complaint/Hosp Course 1. Left buttock wound s/p excisional debridement 06/06; healing well -frequent turning and offloading -specialty mattress -continue local care -optimize nutrition -vitamin C 2. Back pain: s/p laminectomy with fusion; pain improved; improved mobility with PT 3.Liver cirrhosis, portal hypertension, gastroesophageal varices, mild splenomegaly, and trace perihepatic ascites; lft's improving -supportive -outpatient follow up with hepatology 4. Hypertension: -med management 5. Microcytic anemia: chronic disease vs.iron deficiency vs. acute bleed vs. other; no acute bleed noted; Patient seen and examined in collaboration with Dr. Luís Mendoza. Thank you. Problems: Subjective 24 Hr Interval Summary Sad mood today. No c/o pain, excessive drainage from wound, back discomfort, fevers, chills, n/v/d/dysuria, cp, palpitations, new weakness. Up with PT. Tolerating diet. Exam/Review of Systems Vital Signs Vitals Vital Signs Date Time Temp Pulse Resp B/P Pulse Ox O2 Delivery O2 Flow Rate FiO2 07/07/17 08:07 97.9 84 16 119/72 96 Intake and Output 07/06/17 07/06/17 07/07/17 15:00 23:00 07:00 Intake Total 1540 ml 950 ml Output Total 900 ml Balance 1540 ml 50 ml Exam Free Text/Dictation Constitutional: alert, oriented, quiet Psych: nl mood/affect, Head: atraumatic, normocephalic Eyes: nl lids, nl sclera ENMT: mucosa pink and moist, nl nasal mucosa & septum Neck: other s/p laminectomy/fusion; limited ROM Respiratory: normal air movement Cardiovascular: nl pulses, regular rate and rhythm Gastrointestinal: nondistended, non-tender, soft, rotund Musculoskeletal: nl extremities to inspection Extremities: normal pulses Neurological: nl mental status, nl speech, nl strength Skin: other (left buttock wound with dry dry dressing, scant drainage noted) GILA WALKER NP Jul 07, 2017 11:29
[2017-07-07 14:00] VITALS: BP 124/79; RESP 17
--- NOTE | 2017-07-07 16:01 | PN ---
Date/Time of Note Date/Time of Note DATE: 07/07/17 TIME: 16:00 Assessment/Plan VTE Prophylaxis VTE Prophylaxis Intervention: SCD's Lines/Catheters IV Catheter Type (from Nrsg): Saline Lock Urinary Cath still in place: No Assessment/Plan Assessment/Plan 6 yo M with spinal stenosis admitted for acute on chronic back pain and UE weakness 2/2 cervical stenosis. sp laminectomy and fusion 7.. Also incidentally found to have hepatitis C cirrhosis. 1. Acute on chronic back pain with upper extremity weakness secondary to cervical cord stenosis now sp neurosurgical intervention 7.. HV drained removed by NSS team -neurosurgery signed off, continue physical therapy -Patient apparently did not qualify for acute rehab, awaiting possible [place] [facility] facility placement now, CM following -For now continue p.o. Dilaudid as needed and methadone twice daily. --> START METHADONE WEAN. I asked palliatve foreign law consultant to see patient for help with outpatient pain regimen 2 Prediabetes: Previous hemoglobin A1c 6.1. -metformin 3. Depression with SI: pt with questionable suicidal ideation earlier this admission, was evaluated by telepsych then, and again on 05/30. no indication for psych hospitalization on 05.30 eval. - cont psych meds 4. 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 sacral wound: sp gen surg debridement 06.06 6. DVT prophx, DM diet 7. Hep C cirrhosis: outpatient follow up Dispo: Case management working on finding snf placement for patient v outpatient PT/OT Subjective 24 Hr Interval Summary Free Text/Dictation Very concerned about pain meds post discharge Exam/Review of Systems Vital Signs Vitals Vital Signs Date Time Temp Pulse Resp B/P Pulse Ox O2 Delivery O2 Flow Rate FiO2 07/07/17 14:00 98.2 103 17 124/79 98 Intake and Output 07/06/17 07/06/17 07/07/17 14:59 22:59 06:59 Intake Total 1540 ml 950 ml Output Total 900 ml Balance 1540 ml 50 ml Exam nad no mrg lungs clear abd soft no rashes Medications Medications Current Medications Acetaminophen (Tylenol Tab) 650 mg Q6H PRN PO PAIN LEVEL 1-3 OR FEVER; Start at 21:00 Gabapentin (Neurontin) 300 mg TID PO Last administered on 07/07/17t 13:00; Admin Dose 300 MG; Start 05/16/17 at 21:00 Miscellaneous Information 1 ea NOTE XX ; Start 05/17/17 at 17:30 Glucose (Glutose) 15 gm Q15M PRN PO DECREASED GLUCOSE; Start 05/17/17 at 17:30 Glucose (Glutose) 22.5 gm Q15M PRN PO DECREASED GLUCOSE; Start 05/17/17 at 17:30 Dextrose (D50w Syringe) 25 ml Q15M PRN IV DECREASED GLUCOSE; Start 05/17/17 at 17:30 Dextrose (D50w Syringe) 50 ml Q15M PRN IV DECREASED GLUCOSE; Start 05/17/17 at 17:30 Glucagon (Glucagen) 1 mg Q15M PRN IM DECREASED GLUCOSE; Start 05/17/17 at 17:30 Glucose (Glutose) 15 gm Q15M PRN BUCCAL DECREASED GLUCOSE; Start 05/17/17 at 17: 30 Hydroxyzine HCl (Atarax) 25 mg Q6H PRN PO ITCHING Last administered on 06:53; Admin Dose 25 MG; Start 05/19/17 at 03:30 Docusate Sodium (Colace) 100 mg BID PO Last administered on 07/04/17 08:54; Admin Dose 100 MG; Start 05/19/17 at 21:00 Ondansetron HCl (Zofran Inj) 4 mg Q6H PRN IV NAUSEA AND/OR VOMITING Last administered on 06/26/17 14:21; Admin Dose 4 MG; Start 05/27/17 at 00:30 Paroxetine HCl (Paxil) 10 mg DAILY PO Last administered on 07/07/17 08:50; Admin Dose 10 MG; Start 05/31/17 at 12:30 Mirtazapine (Remeron) 15 mg HS PO Last administered on 06/26/17 20:37; Admin Dose 15 MG; Start 06/03/17 at 21:00 Clotrimazole (Lotrimin Cr) 1 applic BID TOP Last administered on 07/07/17 08: 54; Admin Dose 1 APPLIC; Start 06/04/17 at 21:00 Lidocaine (Lidocaine 5% Oint) 1 applic TID PRN TOP PAIN Last administered on 08:21; Admin Dose 1 APPLIC; Start 06/04/17 at 20:00 Hydromorphone HCl (Dilaudid) 2 mg Q4H PRN PO PAIN Last administered on 10:52; Admin Dose 2 MG; Start 06/07/17 at 10:00 Al Hydrox/Mg Hydrox/Simethicone (Mag-Al Plus) 30 ml Q6H PRN PO GASTROINTESTINAL UPSET; Start 06/22/17 at 20:30 Ondansetron HCl (Zofran Tab) 4 mg Q6H PRN PO NAUSEA AND/OR VOMITING; Start at 14:00 Loperamide HCl (Imodium Cap) 2 mg Q6 PRN PO DIARRHEA Last administered on 14:04; Admin Dose 2 MG; Start 06/29/17 at 13:30 Methadone HCl (Methadone Liq) 5 mg BID PO Last administered on 07/06/17 21:29 ; Admin Dose 5 MG; Start 07/06/17 at 21:00 Methadone HCl (Methadone Liq (Ped)) 1 mg BID PO Last administered on 07/06/17 21:29; Admin Dose 1 MG; Start 07/06/17 at 21:00 ERIC HORN MD Jul 07, 2017 16:01
[2017-07-07 20:05] VITALS: BP 137/65; RESP 22
[2017-07-07] MEDS: MIRTAZAPINE 15 MG TAB PO SCH (20:31)
[2017-07-08 02:00] VITALS: BP 127/81; PULSE 69; RESP 16
[2017-07-08] MEDS: HYDROmorphONE 2 MG TAB PO PRN ×5 (03:05→21:07)
[2017-07-08] MEDS: GABAPENTIN 300 MG CAP PO SCH ×3 (08:18→21:06)
[2017-07-08] MEDS: metFORMIN 850 MG TAB GTB SCH ×2 (08:18→17:47)
[2017-07-08] MEDS: DOCUSATE SODIUM 100 MG CAP PO SCH ×3 (08:19→21:00)
[2017-07-08] MEDS: CLOTRIMAZOLE 1% 30 GM CR TOP SCH ×2 (08:22→21:07)
[2017-07-08] MEDS: PAROXETINE 10 MG TAB PO SCH (08:22)
[2017-07-08 08:35] VITALS: BP 116/62; RESP 18
[2017-07-08] MEDS: METHADONE (1 MG/ML 5 ML PO UD SYG) PO SCH (10:34)
--- NOTE | 2017-07-08 15:05 | PN ---
Date/Time of Note Date/Time of Note DATE: 07/08/17 TIME: 15:05 Assessment/Plan VTE Prophylaxis VTE Prophylaxis Intervention: SCD's Lines/Catheters IV Catheter Type (from Nrsg): Saline Lock Urinary Cath still in place: No Assessment/Plan Assessment/Plan 66 yo M with spinal stenosis admitted for acute on chronic back pain and UE weakness 2/2 cervical stenosis. sp laminectomy and fusion 7.. Also incidentally found to have hepatitis C cirrhosis. 1. Acute on chronic back pain with upper extremity weakness secondary to cervical cord stenosis now sp neurosurgical intervention 7.. HV drained removed by NSS team -neurosurgery signed off, continue physical therapy -Patient apparently did not qualify for acute rehab, awaiting possible correction facility placement now, CM following -For now continue p.o. Dilaudid as needed and methadone twice daily. -->CONT METHADONE WEAN. I asked palliatve information services consultant to see patient for help with outpatient pain regimen 2 Prediabetes: Previous hemoglobin A1c 6.1. -metformin 3. Depression with SI: pt with questionable suicidal ideation earlier this admission, was evaluated by telepsych then, and again on 05/30. no indication for psych hospitalization on 05.30 eval. - cont psych meds 4. 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 sacral wound: sp gen surg debridement 06.06 6. DVT prophx, DM diet 7. Hep C cirrhosis: outpatient follow up Dispo: Case management working on finding snf placement for patient v outpatient PT/OT Subjective 24 Hr Interval Summary Free Text/Dictation NAD sitting up in bed Exam/Review of Systems Vital Signs Vitals Vital Signs Date Time Temp Pulse Resp B/P Pulse Ox O2 Delivery O2 Flow Rate FiO2 07/08/17 08:35 98.0 94 18 116/62 98 07/08/17 02:00 Room Air Intake and Output 07/07/17 07/07/17 07/08/17 15:00 23:00 07:00 Intake Total 1060 ml 800 ml Balance 1060 ml 800 ml Exam nad resp nonlabored no abd distension no edema no rashes Results Results 24 hrs Laboratory Tests Test 07/08/17 08:26 Bedside Glucose 103 Medications Medications Current Medications Acetaminophen (Tylenol Tab) 650 mg Q6H PRN PO PAIN LEVEL 1-3 OR FEVER; Start at 21:00 Gabapentin (Neurontin) 300 mg TID PO Last administered on 07/08/17 13:48; Admin Dose 300 MG; Start 05/16/17 at 21:00 Miscellaneous Information 1 ea NOTE XX ; Start 05/17/17 at 17:30 Glucose (Glutose) 15 gm Q15M PRN PO DECREASED GLUCOSE; Start 05/17/17 at 17:30 Glucose (Glutose) 22.5 gm Q15M PRN PO DECREASED GLUCOSE; Start 05/17/17 at 17:30 Dextrose (D50w Syringe) 25 ml Q15M PRN IV DECREASED GLUCOSE; Start 05/17/17 at 17:30 Dextrose (D50w Syringe) 50 ml Q15M PRN IV DECREASED GLUCOSE; Start 05/17/17 at 17:30 Glucagon (Glucagen) 1 mg Q15M PRN IM DECREASED GLUCOSE; Start 05/17/17 at 17:30 Glucose (Glutose) 15 gm Q15M PRN BUCCAL DECREASED GLUCOSE; Start 05/17/17 at 17: 30 Hydroxyzine HCl (Atarax) 25 mg Q6H PRN PO ITCHING Last administered on 06:53; Admin Dose 25 MG; Start 05/19/17 at 03:30 Docusate Sodium (Colace) 100 mg BID PO Last administered on 07/04/17 08:54; Admin Dose 100 MG; Start 05/19/17 at 21:00 Ondansetron HCl (Zofran Inj) 4 mg Q6H PRN IV NAUSEA AND/OR VOMITING Last administered on 06/26/17 14:21; Admin Dose 4 MG; Start 05/27/17 at 00:30 Paroxetine HCl (Paxil) 10 mg DAILY PO Last administered on 07/08/17 08:22; Admin Dose 10 MG; Start 05/31/17 at 12:30 Mirtazapine (Remeron) 15 mg HS PO Last administered on 06/26/17 20:37; Admin Dose 15 MG; Start 06/03/17 at 21:00 Clotrimazole (Lotrimin Cr) 1 applic BID TOP Last administered on 07/08/17 08: 22; Admin Dose 1 APPLIC; Start 06/04/17 at 21:00 Lidocaine (Lidocaine 5% Oint) 1 applic TID PRN TOP PAIN Last administered on 08:21; Admin Dose 1 APPLIC; Start 06/04/17 at 20:00 Hydromorphone HCl (Dilaudid) 2 mg Q4H PRN PO PAIN Last administered on 13:43; Admin Dose 2 MG; Start 06/07/17 at 10:00 Al Hydrox/Mg Hydrox/Simethicone (Mag-Al Plus) 30 ml Q6H PRN PO GASTROINTESTINAL UPSET; Start 06/22/17 at 20:30 Ondansetron HCl (Zofran Tab) 4 mg Q6H PRN PO NAUSEA AND/OR VOMITING; Start at 14:00 Loperamide HCl (Imodium Cap) 2 mg Q6 PRN PO DIARRHEA Last administered on 14:04; Admin Dose 2 MG; Start 06/29/17 at 13:30 Methadone HCl (Methadone Liq) 3 mg DAILY PO Last administered on 07/08/17 10: 34; Admin Dose 3 MG; Start 07/08/17 at 09:00 ERIC HORN MD Jul 08, 2017 15:05
[2017-07-08 16:05] VITALS: BP 120/70; RESP 18
[2017-07-08 19:36] VITALS: BP 140/70; RESP 20
[2017-07-08] MEDS: MIRTAZAPINE 15 MG TAB PO SCH (21:00)
--- NOTE | 2017-07-08 22:59 | PN ---
Date/Time of Note Date/Time of Note DATE: 07/08/17 TIME: 22:53 Assessment/Plan Lines/Catheters IV Catheter Type (from Nrsg): Saline Lock Munoz in Place (from Nrsg): No Assessment/Plan Chief Complaint/Hosp Course 1. Left buttock wound s/p excisional debridement 06/06; healing well -frequent turning and offloading -specialty mattress -continue local care -optimize nutrition -vitamin C 2. Back pain: s/p laminectomy with fusion; pain improved; improved mobility with PT -per palliative 3.Liver cirrhosis, portal hypertension, gastroesophageal varices, mild splenomegaly, and trace perihepatic ascites; lft's improving -supportive -outpatient follow up with hepatology 4. Hypertension: -med management 5. Microcytic anemia: chronic disease vs.iron deficiency vs. acute bleed vs. other; no acute bleed noted; Patient seen and examined in collaboration with Dr. Luís Mendoza. Thank you. Problems: Subjective 24 Hr Interval Summary Feels ok. Energy up, working with PT. Back pain improved. No excessive drainage from wound. No fevers, chills, pain, sob, cough, n/v/d/dysuria. Placement pending. Exam/Review of Systems Vital Signs Vitals Vital Signs Date Time Temp Pulse Resp B/P Pulse Ox O2 Delivery O2 Flow Rate FiO2 07/08/17 19:36 98.3 92 20 140/70 100 07/08/17 02:00 Room Air Intake and Output 07/07/17 07/07/17 07/08/17 15:00 23:00 07:00 Intake Total 1060 ml 800 ml Balance 1060 ml 800 ml Exam Free Text/Dictation Constitutional: alert, oriented, withdrawn Psych: nl mood/affect, Head: atraumatic, normocephalic Eyes: nl lids, nl sclera ENMT: mucosa pink and moist, nl nasal mucosa & septum Neck: other s/p laminectomy/fusion; limited ROM-improved Respiratory: normal air movement Cardiovascular: nl pulses, regular rate and rhythm Gastrointestinal: nondistended, non-tender, soft, rotund Musculoskeletal: nl extremities to inspection Extremities: normal pulses Neurological: nl mental status, nl speech, nl strength Skin: other (left buttock wound with dry dry dressing, scant drainage noted) GILA WALKER NP Jul 08, 2017 22:59
[2017-07-09 01:48] VITALS: BP 156/75; RESP 22
[2017-07-09] MEDS: HYDROmorphONE 2 MG TAB PO PRN ×5 (05:23→21:53)
[2017-07-09 07:31] VITALS: BP 143/69; RESP 18
[2017-07-09] MEDS: CLOTRIMAZOLE 1% 30 GM CR TOP SCH ×2 (08:52→20:27)
[2017-07-09] MEDS: DOCUSATE SODIUM 100 MG CAP PO SCH ×2 (09:00→20:30)
[2017-07-09] MEDS: metFORMIN 850 MG TAB GTB SCH ×2 (09:04→17:53)
[2017-07-09] MEDS: PAROXETINE 10 MG TAB PO SCH (09:04)
[2017-07-09] MEDS: METHADONE (1 MG/ML 5 ML PO UD SYG) PO SCH (09:04)
[2017-07-09] MEDS: GABAPENTIN 300 MG CAP PO SCH ×3 (09:04→21:53)
--- NOTE | 2017-07-09 12:25 | PN ---
Date/Time of Note Date/Time of Note DATE: 07/09/17 TIME: 12:18 Assessment/Plan VTE Prophylaxis VTE Prophylaxis Intervention: SCD's Lines/Catheters IV Catheter Type (from Nrsg): Saline Lock Urinary Cath still in place: No Assessment/Plan Assessment/Plan 66 yo M with spinal stenosis admitted for acute on chronic back pain and UE weakness 2/2 cervical stenosis. sp laminectomy and fusion 7.14. Also incidentally found to have hepatitis C cirrhosis. 1. Acute on chronic back pain with upper extremity weakness secondary to cervical cord stenosis now sp neurosurgical intervention 7.14. HV drained removed by NSS team -neurosurgery signed off, continue physical therapy -Patient apparently did not qualify for acute rehab, awaiting possible detention facility placement now, CM following -For now continue p.o. Dilaudid as needed and methadone twice daily. -->CONT METHADONE WEAN. I asked palliatve building performance consultant to see patient for help with outpatient pain regimen 2 Prediabetes: Previous hemoglobin A1c 6.1. -metformin 3. Depression with SI: pt with questionable suicidal ideation earlier this admission, was evaluated by telepsych then, and again on 05/30. no indication for psych hospitalization on 05.30 eval. - cont psych meds 4. 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 sacral wound: sp gen surg debridement 7 6. DVT prophx, DM diet 7. Hep C cirrhosis: outpatient follow up 8. Lung nodules: incidental finding on CT 8.13-->need repeat imaging in 12 mos as outpatient, this should be included in patient's discharge instructions 9. Incidental adrenal nodule: likely benign given small size but pt should follow up with endo for further eval, this should be included in patient's discharge instructions Dispo: Case management working on finding snf placement for patient v outpatient PT/OT Subjective 24 Hr Interval Summary Free Text/Dictation Sitting up in bed Exam/Review of Systems Vital Signs Vitals Vital Signs Date Time Temp Pulse Resp B/P Pulse Ox O2 Delivery O2 Flow Rate FiO2 07/09/17 07:31 98.2 96 18 143/69 99 07/08/17 02:00 Room Air Intake and Output 07/08/17 07/08/17 07/09/17 15:00 23:00 07:00 Intake Total 760 ml Balance 760 ml Exam nad resp nonlabored no gross abd distension no edema no rashes Medications Medications Current Medications Acetaminophen (Tylenol Tab) 650 mg Q6H PRN PO PAIN LEVEL 1-3 OR FEVER; Start at 21:00 Gabapentin (Neurontin) 300 mg TID PO Last administered on 07/09/17 09:04; Admin Dose 300 MG; Start 05/16/17 at 21:00 Miscellaneous Information 1 ea NOTE XX ; Start 05/17/17 at 17:30 Glucose (Glutose) 15 gm Q15M PRN PO DECREASED GLUCOSE; Start 05/17/17 at 17:30 Glucose (Glutose) 22.5 gm Q15M PRN PO DECREASED GLUCOSE; Start 05/17/17 at 17:30 Dextrose (D50w Syringe) 25 ml Q15M PRN IV DECREASED GLUCOSE; Start 05/17/17 at 17:30 Dextrose (D50w Syringe) 50 ml Q15M PRN IV DECREASED GLUCOSE; Start 05/17/17 at 17:30 Glucagon (Glucagen) 1 mg Q15M PRN IM DECREASED GLUCOSE; Start 05/17/17 at 17:30 Glucose (Glutose) 15 gm Q15M PRN BUCCAL DECREASED GLUCOSE; Start 05/17/17 at 17: 30 Hydroxyzine HCl (Atarax) 25 mg Q6H PRN PO ITCHING Last administered on 06:53; Admin Dose 25 MG; Start 05/19/17 at 03:30 Docusate Sodium (Colace) 100 mg BID PO Last administered on 07/04/17 08:54; Admin Dose 100 MG; Start 05/19/17 at 21:00 Ondansetron HCl (Zofran Inj) 4 mg Q6H PRN IV NAUSEA AND/OR VOMITING Last administered on 06/26/17 14:21; Admin Dose 4 MG; Start 05/27/17 at 00:30 Paroxetine HCl (Paxil) 10 mg DAILY PO Last administered on 07/09/17 09:04; Admin Dose 10 MG; Start 05/31/17 at 12:30 Mirtazapine (Remeron) 15 mg HS PO Last administered on 06/26/17 20:37; Admin Dose 15 MG; Start 06/03/17 at 21:00 Clotrimazole (Lotrimin Cr) 1 applic BID TOP Last administered on 07/08/17 21: 07; Admin Dose 1 APPLIC; Start 06/04/17 at 21:00 Lidocaine (Lidocaine 5% Oint) 1 applic TID PRN TOP PAIN Last administered on 08:21; Admin Dose 1 APPLIC; Start 06/04/17 at 20:00 Hydromorphone HCl (Dilaudid) 2 mg Q4H PRN PO PAIN Last administered on 09:59; Admin Dose 2 MG; Start 06/07/17 at 10:00 Al Hydrox/Mg Hydrox/Simethicone (Mag-Al Plus) 30 ml Q6H PRN PO GASTROINTESTINAL UPSET; Start 06/22/17 at 20:30 Ondansetron HCl (Zofran Tab) 4 mg Q6H PRN PO NAUSEA AND/OR VOMITING; Start at 14:00 Loperamide HCl (Imodium Cap) 2 mg Q6 PRN PO DIARRHEA Last administered on 14:04; Admin Dose 2 MG; Start 06/29/17 at 13:30 Methadone HCl (Methadone Liq) 3 mg DAILY PO Last administered on 07/09/17 09: 04; Admin Dose 3 MG; Start 07/08/17 at 09:00 ERIC HORN MD Jul 09, 2017 12:25
--- NOTE | 2017-07-09 13:23 | PN ---
Date/Time of Note Date/Time of Note DATE: 07/09/17 TIME: 13:10 Assessment/Plan Lines/Catheters IV Catheter Type (from Nrs): Saline Lock Munoz in Place (from Nrs): No Assessment/Plan Chief Complaint/Hosp Course 1. Left buttock wound s/p excisional debridement 06/06; healing well -frequent turning and offloading -specialty mattress -continue local care -optimize nutrition -vitamin C 2. Back pain: s/p laminectomy with fusion; pain improved; improved mobility with PT -per palliative 3.Liver cirrhosis, portal hypertension, gastroesophageal varices, mild splenomegaly, and trace perihepatic ascites -supportive -outpatient follow up with hepatology 4. Hypertension: -med management 5. Microcytic anemia: chronic disease vs.iron deficiency vs. acute bleed vs. other; no acute bleed noted; Patient seen and examined in collaboration with Dr. Luís Mendoza. Thank you. Problems: Subjective 24 Hr Interval Summary No acute change or events overnight. No fevers, chills, abdominal pain, back pain. Improved mobility. Up to chair. Exam/Review of Systems Vital Signs Vitals Vital Signs Date Time Temp Pulse Resp B/P Pulse Ox O2 Delivery O2 Flow Rate FiO2 07/09/17 07:31 98.2 96 18 143/69 99 07/08/17 02:00 Room Air Intake and Output 07/08/17 07/08/17 07/09/17 15:00 23:00 07:00 Intake Total 760 ml Balance 760 ml Exam Free Text/Dictation Constitutional: alert, oriented, withdrawn Psych: nl mood/affect, Head: atraumatic, normocephalic Eyes: nl lids, nl sclera ENMT: mucosa pink and moist, nl nasal mucosa & septum Neck: other s/p laminectomy/fusion; limited ROM-improved Respiratory: normal air movement Cardiovascular: nl pulses, regular rate and rhythm Gastrointestinal: nondistended, non-tender, soft, rotund Musculoskeletal: nl extremities to inspection Extremities: normal pulses Neurological: nl mental status, nl speech, nl strength Skin: other (left buttock wound with dry dressing, scant drainage noted) GILA WALKER NP Jul 09, 2017 13:22
[2017-07-09 13:37] VITALS: BP 152/86; RESP 20
[2017-07-09 19:55] VITALS: BP 146/80; RESP 18
[2017-07-09] MEDS: MIRTAZAPINE 15 MG TAB PO SCH (20:30)
[2017-07-10] MEDS: HYDROmorphONE 2 MG TAB PO PRN ×5 (01:57→21:21)
[2017-07-10 02:18] VITALS: BP 131/70; RESP 18
[2017-07-10] MEDS: metFORMIN 850 MG TAB GTB SCH ×2 (08:37→17:30)
[2017-07-10] MEDS: GABAPENTIN 300 MG CAP PO SCH ×3 (08:37→21:21)
[2017-07-10] MEDS: PAROXETINE 10 MG TAB PO SCH (08:37)
[2017-07-10] MEDS: CLOTRIMAZOLE 1% 30 GM CR TOP SCH ×2 (09:00→21:00)
[2017-07-10] MEDS: DOCUSATE SODIUM 100 MG CAP PO SCH ×2 (09:00→21:00)
[2017-07-10 09:53] VITALS: BP 118/69; RESP 20
--- NOTE | 2017-07-10 10:55 | PN ---
Date/Time of Note Date/Time of Note DATE: 07/10/17 TIME: 10:51 Assessment/Plan Lines/Catheters IV Catheter Type (from Nrs): Saline Lock Munoz in Place (from Nrs): No Assessment/Plan Chief Complaint/Hosp Course 1. Left buttock wound s/p excisional debridement 06/06; healing well -frequent turning and offloading -specialty mattress -continue local care -optimize nutrition -vitamin C -assess patient ability to perform wound care on his own; otherwise may need homehealth for wound care 2. Back pain: s/p laminectomy with fusion; pain improved; improved mobility with PT -per palliative 3.Liver cirrhosis, portal hypertension, gastroesophageal varices, mild splenomegaly, and trace perihepatic ascites -supportive -outpatient follow up with hepatology 4. Hypertension: -med management 5. Microcytic anemia: chronic disease vs.iron deficiency vs. acute bleed vs. other; no acute bleed noted; Patient seen and examined in collaboration with Dr. Luís Mendoza. Thank you. Problems: Subjective 24 Hr Interval Summary Pending placement. No excessive wound drainage. Increase energy, up to chair. No fevers, chills, sob, congested cough, n/v/d/dysuria. +bowel function. Exam/Review of Systems Vital Signs Vitals Vital Signs Date Time Temp Pulse Resp B/P Pulse Ox O2 Delivery O2 Flow Rate FiO2 07/10/17 09:53 97.8 83 20 118/69 98 07/08/17 02:00 Room Air Intake and Output 07/09/17 07/09/17 07/10/17 15:00 23:00 07:00 Intake Total 1250 ml Output Total 1550 ml Balance -300 ml Exam Free Text/Dictation Constitutional: alert, oriented, increased energy Psych: nl mood/affect, Head: atraumatic, normocephalic Eyes: nl lids, nl sclera ENMT: mucosa pink and moist, nl nasal mucosa & septum Neck: other s/p laminectomy/fusion; limited ROM-improved Respiratory: normal air movement Cardiovascular: nl pulses, regular rate and rhythm Gastrointestinal: nondistended, non-tender, soft, rotund Musculoskeletal: nl extremities to inspection Extremities: normal pulses Neurological: nl mental status, nl speech, nl strength Skin: other (left buttock wound with dry dressing, scant drainage noted) SUMINISTRADO,GILA [employer] CONSULTANT Jul 10, 2017 10:55
[2017-07-10 15:59] VITALS: BP 135/65; RESP 20
--- NOTE | 2017-07-10 16:22 | PN ---
Date/Time of Note Date/Time of Note DATE: 07/10/17 TIME: 16:18 Assessment/Plan VTE Prophylaxis VTE Prophylaxis Intervention: SCD's Lines/Catheters IV Catheter Type (from Nrs): Saline Lock Urinary Cath still in place: No Assessment/Plan Chief Complaint/Hosp Course Assessment/Plan 66 yo M with spinal stenosis admitted for acute on chronic back pain and UE weakness 2/2 cervical stenosis. sp laminectomy and fusion 7.14. Also incidentally found to have hepatitis C cirrhosis. 1. Acute on chronic back pain with upper extremity weakness secondary to cervical cord stenosis now sp neurosurgical intervention 7.14. HV drained removed by NSS team -neurosurgery signed off, continue physical therapy -Patient apparently did not qualify for acute rehab, awaiting possible [facility] facility placement now, CM following -For now continue p.o. Dilaudid, will change frequency from every 4 hours to every 6 hours as needed. She now off methadone for the last 24 hours. 2 Prediabetes: Previous hemoglobin A1c 6.1. -metformin 3. Depression with SI: pt with questionable suicidal ideation earlier this admission, was evaluated by telepsych then, and again on 05/30. no indication for psych hospitalization on 05.30 eval. - cont psych meds 4. 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 sacral wound: sp gen surg debridement 7. 6. DVT prophx, DM diet 7. Hep C cirrhosis: outpatient follow up 8. Lung nodules: incidental finding on CT 8.13-->need repeat imaging in 12 mos as outpatient, this should be included in patient's discharge instructions 9. Incidental adrenal nodule: likely benign given small size but pt should follow up with endo for further eval, this should be included in patient's discharge instructions Dispo: Case management working on finding snf placement for patient v outpatient PT/OT Problems: Subjective 24 Hr Interval Summary Free Text/Dictation No acute events overnight. Exam/Review of Systems Vital Signs Vitals Vital Signs Date Time Temp Pulse Resp B/P Pulse Ox O2 Delivery O2 Flow Rate FiO2 07/10/17 15:59 98.3 90 20 135/65 100 07/08/17 02:00 Room Air Intake and Output 07/09/17 07/09/17 07/10/17 14:59 22:59 06:59 Intake Total 1250 ml Output Total 1550 ml Balance -300 ml Exam nad resp nonlabored S1, S2 heard no gross abd distension no edema no rashes Medications Medications Current Medications Acetaminophen (Tylenol Tab) 650 mg Q6H PRN PO PAIN LEVEL 1-3 OR FEVER; Start at 21:00 Gabapentin (Neurontin) 300 mg TID PO Last administered on 07/10/17 12:56; Admin Dose 300 MG; Start 05/16/17 at 21:00 Miscellaneous Information 1 ea NOTE XX ; Start 05/17/17 at 17:30 Glucose (Glutose) 15 gm Q15M PRN PO DECREASED GLUCOSE; Start 05/17/17 at 17:30 Glucose (Glutose) 22.5 gm Q15M PRN PO DECREASED GLUCOSE; Start 05/17/17 at 17:30 Dextrose (D50w Syringe) 25 ml Q15M PRN IV DECREASED GLUCOSE; Start 05/17/17 at 17:30 Dextrose (D50w Syringe) 50 ml Q15M PRN IV DECREASED GLUCOSE; Start 05/17/17 at 17:30 Glucagon (Glucagen) 1 mg Q15M PRN IM DECREASED GLUCOSE; Start 05/17/17 at 17:30 Glucose (Glutose) 15 gm Q15M PRN BUCCAL DECREASED GLUCOSE; Start 05/17/17 at 17: 30 Hydroxyzine HCl (Atarax) 25 mg Q6H PRN PO ITCHING Last administered on 06:53; Admin Dose 25 MG; Start 05/19/17 at 03:30 Docusate Sodium (Colace) 100 mg BID PO Last administered on 07/04/17 08:54; Admin Dose 100 MG; Start 05/19/17 at 21:00 Ondansetron HCl (Zofran Inj) 4 mg Q6H PRN IV NAUSEA AND/OR VOMITING Last administered on 06/26/17 14:21; Admin Dose 4 MG; Start 05/27/17 at 00:30 Paroxetine HCl (Paxil) 10 mg DAILY PO Last administered on 07/10/17 08:37; Admin Dose 10 MG; Start 05/31/17 at 12:30 Mirtazapine (Remeron) 15 mg HS PO Last administered on 06/26/17 20:37; Admin Dose 15 MG; Start 06/03/17 at 21:00 Clotrimazole (Lotrimin Cr) 1 applic BID TOP Last administered on 07/08/17 21: 07; Admin Dose 1 APPLIC; Start 06/04/17 at 21:00 Lidocaine (Lidocaine 5% Oint) 1 applic TID PRN TOP PAIN Last administered on 08:21; Admin Dose 1 APPLIC; Start 06/04/17 at 20:00 Al Hydrox/Mg Hydrox/Simethicone (Mag-Al Plus) 30 ml Q6H PRN PO GASTROINTESTINAL UPSET; Start 06/22/17 at 20:30 Ondansetron HCl (Zofran Tab) 4 mg Q6H PRN PO NAUSEA AND/OR VOMITING; Start at 14:00 Loperamide HCl (Imodium Cap) 2 mg Q6 PRN PO DIARRHEA Last administered on 14:04; Admin Dose 2 MG; Start 06/29/17 at 13:30 Hydromorphone HCl (Dilaudid) 2 mg Q6H PRN PO PAIN; Start 07/10/17 at 20:00; Status INNA LIM Jul 10, 2017 16:22
[2017-07-10 19:55] VITALS: BP 135/75; RESP 18
[2017-07-10] MEDS ORDERED: HYDROmorphONE 2 MG TAB PO PRN (20:00)
[2017-07-10] MEDS: MIRTAZAPINE 15 MG TAB PO SCH (21:00)
[2017-07-11] MEDS: HYDROmorphONE 2 MG TAB PO PRN ×2 (01:21→06:12)
[2017-07-11 01:42] VITALS: BP 141/60; RESP 18
[2017-07-11 08:58] VITALS: BP 117/67; PULSE 88; RESP 20
[2017-07-11] MEDS: DOCUSATE SODIUM 100 MG CAP PO SCH (09:00)
[2017-07-11] MEDS: metFORMIN 850 MG TAB GTB SCH (09:01)
[2017-07-11] MEDS: GABAPENTIN 300 MG CAP PO SCH ×2 (09:01→14:26)
[2017-07-11] MEDS: CLOTRIMAZOLE 1% 30 GM CR TOP SCH (09:01)
[2017-07-11] MEDS: PAROXETINE 10 MG TAB PO SCH (09:01)
--- NOTE | 2017-07-11 12:15 | PDOCDIS ---
Discharge Instructions CONDITION Patient Condition: Stable HOME CARE INSTRUCTIONS: Diet Instructions: RegularSpecial Diet: REGULAR ACTIVITY: Activity Restrictions: Slowly Increase Activity Rest between Activity Avoid heavy lifting No Sexual Activity Do not Drive Do not operate Machinery Do not operate Power Tool Avoid Heavy Housework Bathing Restrictions: Shower FOLLOW UP/APPOINTMENTS Follow-up Plan Please take your medications as prescribed. Please follow-up with your physical therapy, wheelchair, and your regular doctor in the clinic in the next 1 week. INNA ASCENCIO Jul 11, 2017 12:15
[2017-07-11] MEDS ORDERED: CLO15CR1 TOP (12:17)
[2017-07-11] MEDS ORDERED: PARO10TA76 PO (12:17)
[2017-07-11] MEDS ORDERED: IMO2 PO (12:17)
[2017-07-11] MEDS ORDERED: METF-480 GTB (12:17)
[2017-07-11] MEDS ORDERED: MIRT15TA5 PO (12:17)
--- NOTE | 2017-07-11 12:30 | PDOCDIS ---
Discharge Instructions CONDITION Patient Condition: Stable HOME CARE INSTRUCTIONS: Diet Instructions: RegularSpecial Diet: REGULAR ACTIVITY: Activity Restrictions: Slowly Increase Activity Rest between Activity Avoid heavy lifting No Sexual Activity Do not Drive Do not operate Machinery Do not operate Power Tool Avoid Heavy Housework Bathing Restrictions: Shower FOLLOW UP/APPOINTMENTS Follow-up Plan For your Lung nodules: incidental finding on CT 8.13--> you need a repeat imaging study in 12 mos as outpatient. For your adrenal nodule: likely benign given small size but you should follow up with an product support rep for further evaluation of this INNA ASCENCIO Jul 11, 2017 12:30
--- NOTE | 2017-07-11 23:59 | PN ---
Date/Time of Note Date/Time of Note DATE: 07/11/17 TIME: 09:53 Assessment/Plan Lines/Catheters IV Catheter Type (from Nrs): Saline Lock Munoz in Place (from Nrs): No Assessment/Plan Chief Complaint/Hosp Course 1. Left buttock wound s/p excisional debridement 06/06; healing well -frequent turning and offloading -specialty mattress -continue local care -optimize nutrition -vitamin C -patient able to perform self wound care outpatient 2. Back pain: s/p laminectomy with fusion; pain improved; improved mobility with PT -per palliative 3.Liver cirrhosis, portal hypertension, gastroesophageal varices, mild splenomegaly, and trace perihepatic ascites -supportive -outpatient follow up with hepatology 4. Hypertension: -med management 5. Microcytic anemia: chronic disease vs.iron deficiency vs. acute bleed vs. other; no acute bleed noted; Patient seen and examined in collaboration with Dr. Luís Mendoza. Thank you. Problems: Subjective 24 Hr Interval Summary Feels well. Anxious for discharge. Increased energy. No drainage from wound, No fevers, chills, sob, cough, n/v/d/dysuria, cp, palpitations, abdominal pain. Exam/Review of Systems Vital Signs Vitals Vital Signs Date Time Temp Pulse Resp B/P Pulse Ox O2 Delivery O2 Flow Rate FiO2 07/11/17 08:58 97.9 88 20 117/67 98 Room Air Intake and Output 07/10/17 07/10/17 07/11/17 15:00 23:00 07:00 Intake Total 1440 ml 1150 ml Output Total 400 ml 950 ml Balance 1040 ml 200 ml Exam Free Text/Dictation Constitutional: alert, oriented, increased energy Psych: nl mood/affect, Head: atraumatic, normocephalic Eyes: nl lids, nl sclera ENMT: mucosa pink and moist, nl nasal mucosa & septum Neck: other s/p laminectomy/fusion; limited ROM-improved Respiratory: normal air movement Cardiovascular: nl pulses, regular rate and rhythm Gastrointestinal: nondistended, non-tender, soft, rotund Musculoskeletal: nl extremities to inspection Extremities: normal pulses Neurological: nl mental status, nl speech, nl strength Skin: other (left buttock woundbed pink with dry dressing, no drainage noted) GILA WALKER NP Jul 11, 2017 23:59
--- NOTE | 2017-07-12 12:26 | DS ---
DATE OF ADMISSION: 05/16/2017 DATE OF DISCHARGE: 07/11/2017 HOSPITAL COURSE: The patient came in with [id number] back pain with upper extremity weakness 2/2 cervical stenosis. Pt underwent laminectomy and fusion surgery, this neurosurgical intervention occurred on May 26, 2017. He had a drain placed that was removed after a few days by neurosurgery team. Over the course of the hospitalization, he worked with PT extensively. He also had left buttock ulcer debridement surgery on June 06, 2017, and continued antibiotics for that. His hemoglobin A1c was 6.1. He was placed on on metformin, dose adjusted for that. He also was found with depression with suicidal ideation and it was questionable SI. Initially was evaluated by tele psychiatry earlier in the admission, then again on May 30 and there was no indication on SI at that time, and no need for psychiatric hospitalization and there were no signs of homicidal or suicidal ideation and he was placed on Remeron and paroxetine. Over the course of his hospital stay, he was also diagnosed with hep C cirrhosis and GI team evaluated him. They stated he needed outpatient workup and treatment for likely early cirrhosis that was found on imaging studies. Regarding his [id number]-vhmjffa back pain, which improved with physical therapy and the surgery, he was also seen by pain management team and started on methadone and Dilaudid and this was weaned down to p.o. Dilaudid, which the patient tolerated well. Again, his UE weaknes and back pain smpts improved. He was able to ambulate with FWW with PT and tolerated his diet. His vital signs were stable as well, and he will be discharged home in improved condition. DISCHARGE MEDICATIONS: 1. Dilaudid 2 mg PO Q4hrs prn 2. . 3. Loperamide 50 mg p.o. q.6 p.r.n. 4. Metformin 875 mg b.i.d. with meals. 5. Mirtazapine 50 mg at bedtime. 6. Paroxetine 10 mg daily. 7. Allopurinol b.i.d. 8. Aspirin 81 mg daily. 9. apply topically daily. 10. Gabapentin 300 mg t.i.d. 11. Dilaudid 2 mg p.o. q.4 hours p.r.n. FOLLOWUP: He will follow up with primary care doctor as an outpatient, neurosurgery team as an outpatient, and possibly sales engineer as outpt. FINAL DIAGNOSES: 1. Gfcbr-ua-gsybhmx back pain with upper extremities weakness, endocervical stenosis, status post laminectomy and fusion surgery, improving with pain meds and physical therapy. 2. Prediabetes. Hemoglobin A1c 6.4, on metformin. 3. Anxiety with possible suicidal ideation, but now no signs of any suicidal ideation presently, on antidepressants. 4. Mild diabetic neuropathy, improved. 5. Status post debridement for Left buttock wound s/p excisional debridement . 6. Hep C + cirrhosis and he needs outpatient followup for this. 7. Lung nodule, identified on CT scan. If needed follow up CT scan in 12 mths as an outpatient. 8. Adrenal nodule, likely benign. Needs endocrinology workup as an outpatient. Time spent with discharge today = 50 min. Dictated By: Addison Connolly MD /hieu/nick /Document#: [id number] GIOVANNA
== END 2017-07-11 15:32 | disposition home health service (06) | DRG 471 ==
LOC: EDUNIT# 15:41 → E/R 15:41 → MS1 21:19 → ICU 05-27 01:25 → MS1 05-28 11:37
PROVIDERS: ADMIT Family Medicine; ATTEND Family Medicine
PROC: 00NW0ZZ Release Cervical Spinal Cord, Open Approach (ICD-10-PCS; 2017-05-26)
PROC: 4A10X4G Monitoring of Central Nervous Electrical Activity, Intraoperative, External Approach (ICD-10-PCS; 2017-05-26)
PROC: 0RG2071 Fusion of 2 or more Cervical Vertebral Joints with Autologous Tissue Substitute, Posterior Approach, Posterior Column, Open Approach (ICD-10-PCS; principal; 2017-05-26 16:00)
PROC: 0JB90ZX Excision of Buttock Subcutaneous Tissue and Fascia, Open Approach, Diagnostic (ICD-10-PCS; 2017-06-06)
DX: M48.02 Spinal stenosis, cervical region (principal); G92 Toxic encephalopathy; G95.19 Other vascular myelopathies; E46 Unspecified protein-calorie malnutrition; I85.00 Esophageal varices without bleeding; K76.6 Portal hypertension; R45.851 Suicidal ideations; E87.1 Hypo-osmolality and hyponatremia; M47.12 Other spondylosis with myelopathy, cervical region; M54.9 Dorsalgia, unspecified; M51.26 Other intervertebral disc displacement, lumbar region; M51.34 Other intervertebral disc degeneration, thoracic region; F32.9 Major depressive disorder, single episode, unspecified; Z22.322 Carrier or suspected carrier of Methicillin resistant Staphylococcus aureus; D50.9 Iron deficiency anemia, unspecified; E83.51 Hypocalcemia; E83.42 Hypomagnesemia; S31.829A Unspecified open wound of left buttock, initial encounter; X58.XXXA Exposure to other specified factors, initial encounter; L03.032 Cellulitis of left toe; L03.031 Cellulitis of right toe; B35.1 Tinea unguium; L60.2 Onychogryphosis; I10 Essential (primary) hypertension; R19.7 Diarrhea, unspecified; K74.60 Unspecified cirrhosis of liver; I86.4 Gastric varices; B18.2 Chronic viral hepatitis C; G89.29 Other chronic pain; R91.8 Other nonspecific abnormal finding of lung field; E11.40 Type 2 diabetes mellitus with diabetic neuropathy, unspecified; T39.95XA Adverse effect of unspecified nonopioid analgesic, antipyretic and antirheumatic, initial encounter; Z79.84 Long term (current) use of oral hypoglycemic drugs; Z59.0 Homelessness
CPT/HCPCS: 36600; 71010; 71250; 72040; 72125; 72128; 72131; 72141; 72146; 72148; 72197; 74177; 76775; 80048; 80053; 80076; 80306; 80307; 81001; 81003; 82565; 82803; 82962; 83735; 83880; 84100; 84484; 84520; 85014; 85018; 85025; 85610; 85730; 86704; 86709; 86803; 86850; 86900; 86901; 86920; 87075; 87081; 87340; 88305; 93005; 94002; 94770; 97003; 97110; 97116; 97162; 97164; 97166; 97530; 97535; C9113; J0690; J0696; J1170; J1644; J1650; J2060; J2250; J2270; J2405; J3010; J3475; J3480; J7999; Q9967

== ENCOUNTER 2017-07-19 12:31 | Emergency (ER) | payer SELFPAY ==
[~2017-07-19 12:31] MED LIST changes: +ALLO100T PO; +ASPI-664 PO; +CLO15CR1 TOP; +GABA300C16 PO; +IMO2 PO; +METF-480 GTB; +MIRT15TA5 PO; +PARO10TA76 PO
--- NOTE | 2017-07-19 13:14 | ERD ---
ER Documentation Chief Complaint Date/Time DATE: 07/19/17 TIME: 13:12 Chief Complaint HPI This is a 66-year-old male who lives at a sober living facility who is wheelchair dependent for spine surgery who states that he is here for physical therapy. The patient is a very poor historian and somewhat misleading with his information. Ultimately he states that he was in a wheelchair trying to go to physical therapy and did not want to use his wheelchair anymore therefore he called 911 to get a ride to physical therapy. The patient denies any new or acute onset of medical condition. No chest pain shortness breath no generalized weakness. Chronic back pain is unchanged. ROS All systems reviewed and are negative except as per history of present illness. Medications Home Meds Active Scripts Clotrimazole (Clotrim) 15 Gm Cr, 1 APPLIC TOP BID, #1 Prov:COMFORTINNA S. 07/11/17 Metformin* (Glucophage*) 850 Mg Tablet, 850 MG GTB BID WITH MEALS, #60 TAB 3 Refills Prov:SONUINNA S. 07/11/17 Loperamide Hcl* (Loperamide Hcl*) 2 Mg Cap, 2 MG PO Q6 Y for DIARRHEA, #14 CAP Prov:COMFORTINNA S. 07/11/17 Mirtazapine* (Mirtazapine*) 15 Mg Tablet, 15 MG PO HS, #30 TAB 3 Refills Prov:SONUINNA S. 07/11/17 Paroxetine Hcl* (Paroxetine*) 10 Mg Tablet, 10 MG PO DAILY, #30 TAB 3 Refills Prov:SONUINNA S. 07/11/17 Collagenase* (Santyl*) 30 Gm Oint..gm., 1 APPLIC TOP DAILY for 7 Days apply to buttock wounds Prov:ERIC HORN MD 05/09/17 Reported Medications Allopurinol* (Allopurinol*) Unknown Strength Tablet, PO BID, TAB 05/16/17 Aspirin* (Aspirin* EC) 81 Mg Tablet.dr, 81 MG PO DAILY, TAB 05/16/17 Gabapentin* (Gabapentin*) 300 Mg Capsule, 300 MG PO TID, #90 CAP 05/16/17 Allergies Allergies: Coded Allergies: aspirin (Verified Allergy, Unknown, hives, 05/16/17) PMhx/Soc History of Surgery: Yes (APPY WHEN HE WAS 15) Anesthesia Reaction: No Hx Neurological Disorder: No Hx Respiratory Disorders: No Hx Cardiac Disorders: No Hx Psychiatric Problems: No (DENIED) Hx Miscellaneous Medical Probl: Yes (prediabetic, + cervical stenosis and intractable back pain) Hx Alcohol Use: No Hx Substance Use: No Hx Tobacco Use: Yes FmHx Family History: No diabetes Physical Exam Physical Exam General: Somewhat disheveled but no significant distress, conversive Head: Normocephalic, atraumatic. Eyes: EOM intact ENT: Moist mucous membranes Neck: Full ROM Respiratory: No respiratory distress Cardiovascular: Good capillary refil Abdominal: Nondistended : Deferred MSK: No edema, no unilateral swelling, 5/5 strength of upper extremities, baseline weakness to bilateral lower extremity, wheelchair dependent Neurologic: Alert and oriented Skin: No rash Psych: Normal mood Procedures/MDM This patient has a history of chronic pain. He is wheelchair dependent. He states that he called 911 to receive a ride to physical therapy at this hospital today. He states that he does not have an acute medical condition and is otherwise at his baseline. The patient presents with malingering with no signs of acute organic pathology. The patient was discharged from the emergency room, we called physical therapy and he has a 2 PM appointment. The patient was informed that calling 911 for EMS rides to facilities is illegal and consistent with abuse of the EMS system. He was informed to use a taxi system or alternative means of transportation next time. Departure Diagnosis: Primary Impression: Chronic pain Chronic pain type: chronic pain syndrome Qualified Code: G89.4 - Chronic pain syndrome Additional Impression: Malingering Condition: Stable Patient Instructions: Medical Screening Exam, Nonurgent Referrals: [facility] 7 a.m.- 11 p.m. Every Day of the Week NO APPOINTMENT OR AUTHORIZATION NEEDED SO [facility] Hours: Mon-Fri 9:00 AM - 5:00 PM Additional Instructions: Call your primary care doctor TOMORROW for an appointment during the next 1 WEEK.Tell the patient care secretary that you were referred from this facility.See the doctor sooner or return here if your condition worsens before your appointment time. SERGEY SQUIRES MD Jul 19, 2017 13:14
== END 2017-07-19 12:39 | disposition home or self-care (01) ==
LOC: E/R 12:31
DX: G89.4 Chronic pain syndrome (principal); Z76.5 Malingerer [conscious simulation]; Z79.82 Long term (current) use of aspirin; Z79.84 Long term (current) use of oral hypoglycemic drugs
CPT/HCPCS: 99282

== ENCOUNTER 2017-07-21 13:58 | Emergency (ER) | payer SELFPAY ==
[~2017-07-21] VITALS: Ht 175.3 cm; Wt 95.0 kg
[2017-07-21 14:03] VITALS: Ht 175.3 cm; Wt 95.0 kg
[2017-07-21] MEDS ORDERED: SOD CHLORIDE 0.9% 1,000 ML IV STA (14:15)
[2017-07-21 14:44] LABS: BASOPHILS % 0.3 % (0.0-2.0); EOSINOPHILS # 0.3 10^3/ul (0.0-0.5); EOSINOPHILS % 2.4 % (0.0-7.0); HEMATOCRIT 30.1 % (42.0-52.0); HEMOGLOBIN 10.3 g/dl (14.0-18.0); LYMPHOCYTES # 3.5 10^3/ul (0.8-2.9); LYMPHOCYTES % 30.4 % (15.0-51.0); MEAN CORPUSCULAR HGB CONC 34.2 g/dl (32.0-37.0); MEAN CORPUSCULAR VOLUME 87.8 fl (82.0-101.0); MEAN PLATELET VOLUME 9.7 fl (7.4-10.4); MONOCYTE # 1.5 10^3/ul (0.3-0.9); MONOCYTES % 13.1 % (0.0-11.0); NEUTROPHILS % 53.5 % (39.0-77.0); PLATELET COUNT 233 10^3/UL (140-415); RED BLOOD COUNT 3.43 10^6/ul (4.70-6.10); RED CELL DISTRIBUTION WIDTH 15.7 % (11.5-14.5); WHITE BLOOD COUNT 11.5 10^3/ul (4.8-10.8)
[2017-07-21] MEDS ORDERED: SODIUM CHLORIDE 0.9% 1L BAG IV* STA (14:46)
[2017-07-21] MEDS ORDERED: VANCOMYCIN 1 GM (PMX) 250 ML IVPB SCH (15:00)
[2017-07-21] MEDS ORDERED: PIPER-TAZO 3.375 GM IV (PMX) 100 ML IVPB ONE (15:00)
[2017-07-21] MEDS ORDERED: CEFEPIME 1GM/50 ML (PMX) 50 ML IVPB ONE (15:00)
[2017-07-21 15:04] LABS: ALANINE AMINOTRANSFERASE 37 IU/L (13-69); ALBUMIN 3.1 g/dl (3.3-4.9); ALBUMIN/GLOBULIN RATIO 0.67; ALKALINE PHOSPHATASE 107 IU/L (42-121); ANION GAP 9 (8-16); ASPARTATE AMINO TRANSFERASE 50 IU/L (15-46); BILIRUBIN,INDIRECT 0.5 mg/dl (0-1.1); BILIRUBIN,TOTAL 0.5 mg/dl (0.2-1.3); BLOOD UREA NITROGEN 9 mg/dl (7-20); CALCIUM 8.5 mg/dl (8.4-10.2); CARBON DIOXIDE 24 mmol/L (21-31); CHLORIDE 106 mmol/L (97-110); CREATININE 0.63 mg/dl (0.61-1.24); GLUCOSE 153 mg/dl (70-220); POTASSIUM 3.2 mmol/L (3.5-5.1); SODIUM 136 mmol/L (135-144); TOTAL PROTEIN 7.7 g/dl (6.1-8.1)
[2017-07-21 15:09] LABS: ACETAMINOPHEN < 10.0 ug/ml (10.0-30.0); ETHANOL < 10.0 mg/dl; SALICYLATE < 1.0 mg/dl (5.0-30.0)
--- NOTE | 2017-07-21 15:14 | RADRPT ---
PROCEDURE: Chest Radiograph. CLINICAL INDICATION: Cough. Infiltrate. TECHNIQUE: Single frontal chest radiograph. COMPARISON: Chest radiograph 05/28/2017. CT abdomen pelvis 06/28/2017 FINDINGS: The cardiomediastinal silhouette is within normal limits. No infiltrate or effusion is seen. Th e bones are intact. IMPRESSION: 1. Unremarkable chest radiograph. RPTAT: AA .Al Tsai MD, MD Date Time Electronically viewed and signed by .Al Tsai MD, MD on 07/21/2017 15:14 .B/
[2017-07-21 15:55] LABS: ADD UMIC YES; UR ASCORBIC ACID NEGATIVE (NEGATIVE); UR BILIRUBIN (Dip) 1+ mg/dL (NEGATIVE); UR BLOOD (Dip) NEGATIVE (NEGATIVE); UR CLARITY CLEAR (CLEAR); UR COLOR AMBER (YELLOW); UR GLUCOSE (Dip) 1+ mg/dL (NEGATIVE); UR KETONES (Dip) NEGATIVE (NEGATIVE); UR LEUKOCYTE ESTERASE (Dip) NEGATIVE Leu/ul (NEGATIVE); UR NITRITE (Dip) NEGATIVE (NEGATIVE); UR RBC 2 /HPF (0-5); UR SPECIFIC GRAVITY (Dip) 1.026 (1.003-1.030); UR TOTAL PROTEIN (Dip) 1+ mg/dl (NEGATIVE); UR UROBILINOGEN (Dip) 2+ mg/dL (NEGATIVE)
[2017-07-21 16:04] LABS: INR 1.38; PT RATIO 1.3
[2017-07-21 16:05] LABS: PARTIAL THROMBOPLASTIN TIME 31.7 Sec (25.0-35.0)
[2017-07-21 16:15] LABS: COCAINE Positive (NEGATIVE); OPIATES Positive (NEGATIVE)
[2017-07-21 16:17] LABS: BARBITURATES Negative (NEGATIVE); BENZODIAZEPINES Negative (NEGATIVE); CANNABINOIDS Positive (NEGATIVE)
[2017-07-21 16:28] LABS: AADO2 Arterial 50.3 mmHg (7.0-24.0); Allen Test ACCEPTAB; Arterial Base Excess -1.9 mmol/L (-3.0-3); Arterial COHb 0.1 % (0.0-3.0); Arterial Fraction of Oxyhgb 96.5 % (93.0-99.0); Arterial HCO3 22.1 mmol/L (22.0-26.0); Arterial MetHb 0.3 % (0.0-1.5); Arterial Total Hemglobin 10.4 g/dl (12.0-18.0); MODE NASAL CANNULA
--- NOTE | 2017-07-21 16:56 | HP ---
Date/Time of Note Date/Time of Note DATE: 07/21/17 TIME: 16:55 Assessment/Plan VTE Prophylaxis VTE Prophylaxis Intervention: SCD's Assessment/Plan Assessment/Plan 66 yo M with with HepC, PSA, spinal stenosis with recent prolonged hospital stay for spinal stenosis c/b sacral decubs admitted for sepsis likely from infected decubs v less likely UTI. #sepsis from infected decubs: general surgeon notified continue empiric abx #chronic pain: combination of spinal stenosis and chemical dependence #depression -hold psych meds as I suspect pt has not been taking them at home #lung nodule and adrenal lesion incidentally found on imaging during prior hospitalization: outpatient f/u CM cs for dispo planning regular diet DVT prophx HPI/ROS Admit Date/Time Admit Date/Time Hx of Present Illness 66 yo M with pmhx PSA, hepatitis C, very well known to me from multiple previous hospitalizations the most recent of which was from 7.-8. for acute on chronic back pain, pt underwent laminectomy and fusion on 05.26. Hospital stay c/b L buttock lesion for which he underwent debridement on 06.06. Also SI for which he was seen by telepsych twice, the last time on 05.30. Plan at end of May had been to discharge pt tp a SNF, however 2/2 insurance related constraints, no SNF could be found. Pt got agressive PT in the hospital and was discharged to a sober living on 07.11. Per elisha notes, pt left facility shortly thereafter and has been homeless since. Pt found today by SW and nursing supervisor body assembly disheveled on hospital property and he was taken to the ER for further eval. Found to be febrile with leukocytosis, most likely from his chronic decub ulcers. When I saw him in the ER pt states things have been doing just fine since he was discharged. However he had been changed into paper scrubs by the ER staff as his clothes were so soiled PMH/Family/Social Past Medical History spinal stenosis sp fusion and laminectomy in May PSA homelessness Hep C chronic sacral decubs sustained during prolonged hospitalization Past Surgical History Past Surgical Hx: no surgical history Exam/Review of Systems Vital Signs Vitals Vital Signs Date Time Temp Pulse Resp B/P Pulse Ox O2 Delivery O2 Flow Rate FiO2 07/21/17 16:29 100 2.0 07/21/17 14:28 Nasal Cannula 07/21/17 14:03 99.0 129 18 145/81 Exam Exam disheveled, malodorous no mrg lungs clear abd soft sacral wounds with serous drainage pt also with a 2 cm decub next to R axilla wearing hospital socks with worn out heels labs reviewed, WBCs elevated, LA mildly elevated, CXR clear UTox positive in multiple domains Labs Result Diagram: 07/21/17 1425 07/21/17 1425 Medications Medications Current Medications Vancomycin HCl (Vancocin) 250 ml @ 125 mls/hr ONCE IVPB ; Start 07/21/17 at 15: 00; Stop 07/21/17 at 16:59 ERIC HORN MD Jul 21, 2017 16:56
[2017-07-21 17:02] LABS: TROPONIN-I < 0.012 ng/ml (0.00-0.12)
[2017-07-21 17:30] VITALS: TEMP 100.1
--- NOTE | 2017-07-21 17:37 | ERA ---
ER Documentation Chief Complaint Date/Time DATE: 07/21/17 TIME: 17:23 Chief Complaint ALOC FOUND [address] BY RA GUNDERSON 66-year-old man brought in by EMS from [facility] for decreased mental status after using drugs. He was just discharged from this hospital a few days ago. He is wheelchair-bound and has a history of chronic back pain status post laminectomy of the lumbar spine. He had a fever today. He has had no vomiting or diarrhea, no seizure activity. Rectal temperature was 101.4F. Patient denies suicidal homicidal ideation. ROS All systems reviewed and are negative except as per history of present illness. Medications Home Meds Discontinued Reported Medications Allopurinol* (Allopurinol*) Unknown Strength Tablet, PO BID, TAB 05/16/17 Aspirin* (Aspirin* EC) 81 Mg Tablet.dr, 81 MG PO DAILY, TAB 05/16/17 Gabapentin* (Gabapentin*) 300 Mg Capsule, 300 MG PO TID, #90 CAP 05/16/17 Discontinued Scripts Clotrimazole (Clotrim) 15 Gm Cr, 1 APPLIC TOP BID, #1 Prov:INNA ASCENCIO S. 07/11/17 Metformin* (Glucophage*) 850 Mg Tablet, 850 MG GTB BID WITH MEALS, #60 TAB 3 Refills Prov:INNA ASCENCIO S. 07/11/17 Loperamide Hcl* (Loperamide Hcl*) 2 Mg Cap, 2 MG PO Q6 Y for DIARRHEA, #14 CAP Prov:INNA ASCENCIO S. 07/11/17 Mirtazapine* (Mirtazapine*) 15 Mg Tablet, 15 MG PO HS, #30 TAB 3 Refills Prov:INNA ASCENCIO S. 07/11/17 Paroxetine Hcl* (Paroxetine*) 10 Mg Tablet, 10 MG PO DAILY, #30 TAB 3 Refills Prov:INNA ASCENCIO S. 07/11/17 Collagenase* (Santyl*) 30 Gm Oint..gm., 1 APPLIC TOP DAILY for 7 Days apply to buttock wounds Prov:ERIC HORN MD 05/09/17 Allergies Allergies: Coded Allergies: aspirin (Verified Allergy, Unknown, hives, 07/21/17) PMhx/Soc Cirrhosis, hepatitis, opioid dependence, drug abuse, chronic back pain, prediabetes, hypertension, psychiatric illness History of Surgery: Yes (APPY WHEN HE WAS 15) Anesthesia Reaction: No Hx Neurological Disorder: No Hx Respiratory Disorders: No Hx Cardiac Disorders: No Hx Psychiatric Problems: No (DENIED) Hx Miscellaneous Medical Probl: Yes (prediabetic, + cervical stenosis and intractable back pain) Hx Alcohol Use: No Hx Substance Use: No Hx Tobacco Use: Yes FmHx Family History: diabetes Physical Exam Vitals Vital Signs Date Time Temp Pulse Resp B/P Pulse Ox O2 Delivery O2 Flow Rate FiO2 07/21/17 16:29 100 2.0 07/21/17 14:28 Nasal Cannula 2 07/21/17 14:03 99.0 129 18 145/81 99 Physical Exam GENERAL: Elderly, chronically debilitated man, appears dehydrated, febrile, intoxicated and lethargic HEENT: Dry mucous membranes, pinpoint pupils, NEURO: Pinpoint pupils bilaterally, no focal deficits or facial asymmetry, lethargic, intoxicated CARDIAC: Tachycardic and right, no murmurs rubs or gallops LUNGS: Poor breath sounds bilaterally, no crackles or stridor ABDOMEN: Soft nontender, no guarding, no rigidity, no rebound, no psoas sign no obturator sign. SKIN: Hot and dry to touch, positive bilateral buttock and upper posterior thigh skin ulcerations with malodorous discharge and drainage concerning for infected decubitus ulcerations EXTREMITIES: +3+ pitting edema in the lower extremities bilaterally, calves are bilaterally symmetrical, no Homans sign, no popliteal cord sign. Distal pulses equal and bilateral PSYCH: Unable to assess Result Diagram: 07/21/17 1425 07/21/17 1425 Results 24 hrs Laboratory Tests Test 07/21/17 14:25 07/21/17 14:53 07/21/17 15:30 07/21/17 16:00 White Blood Count 11.510^3/ul Red Blood Count 3.4310^6/ul Hemoglobin 10.3g/dl Hematocrit 30.1% Mean Corpuscular Volume 87.8fl Mean Corpuscular Hemoglobin 30.0pg Mean Corpuscular Hemoglobin Concent 34.2g/dl Red Cell Distribution Width 15.7% Platelet Count 20959^3/UL Mean Platelet Volume 9.7fl Neutrophils % 53.5% Lymphocytes % 30.4% Monocytes % 13.1% Eosinophils % 2.4% Basophils % 0.3% Nucleated Red Blood Cells % 0.0/100WBC Neutrophils # (Manual) 6.110^3/ul Lymphocytes # 3.510^3/ul Monocytes # 1.510^3/ul Eosinophils # 0.310^3/ul Basophils # 0.010^3/ul Nucleated Red Blood Cells # 0.010^3/ul Sodium Level 136mmol/L Potassium Level 3.2mmol/L Chloride Level 106mmol/L Carbon Dioxide Level 24mmol/L Anion Gap 9 Blood Urea Nitrogen 9mg/dl Creatinine 0.63mg/dl Glucose Level 153mg/dl Calcium Level 8.5mg/dl Total Bilirubin 0.5mg/dl Direct Bilirubin 0.00mg/dl Indirect Bilirubin 0.5mg/dl Aspartate Amino Transf (AST/SGOT) 50IU/L Alanine Aminotransferase (ALT/SGPT) 37IU/L Alkaline Phosphatase 107IU/L Total Protein 7.7g/dl Albumin 3.1g/dl Globulin 4.60g/dl Albumin/Globulin Ratio 0.67 Salicylates Level < 1.0mg/dl Acetaminophen Level < 10.0ug/ml Ethyl Alcohol Level < 10.0mg/dl Urine Color RALPH Urine Clarity CLEAR Urine pH 5.0 Urine Specific [place] 1.026 Urine Ketones NEGATIVEmg/dL Urine Nitrite NEGATIVEmg/dL Urine Bilirubin 1+mg/dL Urine Urobilinogen 2+mg/dL Urine Leukocyte Esterase NEGATIVELeu/ul Urine Microscopic RBC 2/HPF Urine Microscopic WBC 1/HPF Urine Hemoglobin NEGATIVEmg/dL Urine Glucose 1+mg/dL Urine Total Protein 1+mg/dl Urine Opiates Screen Positive Urine Barbiturates Negative Urine Amphetamines Screen POSITIVE Urine Benzodiazepines Screen Negative Urine Cocaine Screen Positive Urine Cannabinoids Positive Prothrombin Time 17.0Sec Prothrombin Time Ratio 1.3 INR International Normalized Ratio 1.38 Activated Partial Thromboplast Time 31.7Sec Lactic Acid Level 2.5mmol/L Troponin I < 0.012ng/ml Lipase 443U/L Blood Gas Specimen Source Blood arterial Arterial Blood Date Drawn 07/21/2017 4:17:00 PM Arterial Blood pH (Temp corrected) 7.420 Arterial Blood pCO2 (Temp correct) 34.9mmhg Arterial Blood pO2 (Temp corrected) 100.9mmHG Arterial Blood HCO3 22.1mmol/L Arterial Blood Base Excess -1.9mmol/L Arterial Blood Oxygen Saturation 96.9mmHG Cy Test ACCEPTAB Arterial Blood Gas Puncture Site Right Radial Arterial Blood Carboxyhemoglobin 0.1% Arterial Blood Methemoglobin 0.3% Blood Gas A-a O2 Differential 50.3mmHg Oxyhemoglobin Percent 96.5% Total Hemoglobin 10.4g/dl Blood Gas Temperature 37.0C Blood Gas Modality NASAL CANNULA FiO2 27.0% Blood Gas Notified Whom M.D. Blood Gas Notified Time 07/21/2017 4:26:00 PM Current Medications Medications (Trade) Dose Ordered Sig/Dolores Route PRN Reason Start Time Stop Time Status Last Admin Dose Admin Sodium Chloride (NS) 1,000 ml @ 1,000 mls/hr Q1H STAT IV 07/21/17 14:15 07/21/17 15:14 DC 07/21/17 15:31 Sodium Chloride 3000 ml 3,000 ml BOLUS OVER 2 HOURS STAT IV* 07/21/17 14:46 07/21/17 14:49 DC 07/21/17 15:31 Cefepime HCl 50 ml @ 100 mls/hr ONCE ONCE IVPB 07/21/17 15:00 07/21/17 15:29 DC 07/21/17 15:30 Piperacillin Sod/ Tazobactam Sod 100 ml @ 200 mls/hr ONCE ONCE IVPB 07/21/17 15:00 07/21/17 15:29 DC 07/21/17 16:44 Vancomycin HCl (Vancocin) 250 ml @ 125 mls/hr ONCE IVPB 07/21/17 15:00 07/21/17 16:59 DC Procedures/MDM IV line was established patient was placed on cardiac rehabilitation program director rhythm strip revealed a tachycardia at 130 bpm with upright P and T waves. Patient was febrile. Blood and urine cultures have been ordered results are pending I will follow-up. Munoz catheter was placed. EKG performed, read by me revealed a sinus tachycardia at 128 bpm, normal axis, narrow QRS complex, no concerning ST elevations or depressions noted. One AP view of the chest performed, read by me reveals no acute infiltrates, normal mediastinum, sharp costophrenic and cardiac borders, no air under the diaphragm. Otherwise unremarkable chest x-ray. I administered about 3 L normal saline intravenously for suspected sepsis as well as cefepime 1 g IV, vancomycin 1 g IV, Zosyn 3.375 g IV. CBC was unremarkable, lactic acid was elevated at 2.5, repeat lactic acid pending, electrolytes pending I will follow-up, troponin was negative, liver function tests normal, urine analysis negative for infection. ABG revealed a pH of 7.42, PCO2 35, PO2 100. Normal Patient's infectious symptoms have not stabilized and the patient is at risk of rapid decompensation. The patient will be admitted for careful hydration, antibiotic therapy, and infectious source control. Severe Sepsis Assessment: Infectious Source: Infected decubitus ulcerations End organ damage indicated by: Lactate > 2.0 mmol/L Acute respiratory failure with tachypnea Severe Sepsis Managment: Blood Cultures X 2 before broad spectrum antibiotics initiated within 3 hours of recognition. 30 ml/kg NS bolus Completed Initial Lactate: Elevated at 2.5 Repeat Lactate pending Critical Care: Time: 50 minutes, this was time separate from other billable procedures Treatments/Evaluations: Emergent fluid management, while maintaining close respiratory support. Immediate broad spectrum antibiotic therapy. Simultaneous assessment for possible sources in order to direct therapy. Consideration for invasive and chemical support to prevent respiratory or cardiac collapse. Septic Shock Assessment (1 hour post 30 ml/kg fluid bolus): Hypotension (SBP < 90 or 40 mmHg drop, MAP < 65): No Lactic acid > 4.0 No Perfusion Reassessment for Septic Shock: Temp 99.8F, pulse 100 bpm, respiratory rate 20 breaths per minute, blood pressure 140/80 Heart Exam: Tachycardic Lung Exam: No Crackles Capillary Refill: Less than 2 seconds Peripheral Pulses: Radially present Skin: Warm and dry to touch Hypotensive Treatment (not required for isolated lactic acid elevation): Comfort Care: No Central LIne: Not indicated Vasopressor started: Not indicated I considered further perfusion assessment with CVP measurement, SCVO2, bedside ultrasound volume assessment, passive leg raise, trial of further fluid bolus. And preceded with IV antibiotics, IV fluids Urine drug screen positive for all drugs of abuse except for benzodiazepines and barbiturates Accepting Care Team: Current data and ongoing care discussed. Time: Time of admission Primary Provider: Hospitalist Consulting: Infectious disease Outstanding Data: none Departure Diagnosis: Primary Impression: Acute encephalopathy Additional Impressions: Sepsis Qualified Code: A41.9 - Sepsis, due to unspecified organism Infected decubitus ulcer Qualified Code: L89.90 - Infected decubitus ulcer, unspecified ulcer stage Drug abuse, amphetamine type Drug abuse, cocaine type Opioid intoxication Qualified Code: F11.921 - Opioid intoxication with delirium Condition: Serious CLEMENTE ALATORRE MD Jul 21, 2017 17:35
[2017-07-21] MEDS ORDERED: MAGNESIUM HYDROXIDE 30ML CUP PO PRN (19:00)
[2017-07-21] MEDS ORDERED: ACETAMINOPHEN 325 MG TAB PO PRN (19:00)
[2017-07-21] MEDS ORDERED: NACL 0.9% 3 ML SYG IV SCH (19:00)
[2017-07-21] MEDS ORDERED: BISACODYL (EC) 5 MG TAB PO PRN (19:00)
[2017-07-21] MEDS ORDERED: DOCUSATE SODIUM 100 MG CAP PO PRN (19:00)
[2017-07-21] MEDS ORDERED: HYDROCODONE/APAP (5/325) TAB PO PRN (19:00)
[2017-07-21] MEDS ORDERED: OXYCODONE/ACETAMINOPHEN (5/325) TAB PO PRN (19:00)
[2017-07-21] MEDS ORDERED: PIPER-TAZO 3.375 GM IV (PMX) 100 ML IVPB SCH (19:30)
[2017-07-21] MEDS ORDERED: VANCOMYCIN IV PER PHARMACY XX SCH (19:30)
[2017-07-21] MEDS ORDERED: VANCOMYCIN 1 GM in NS 250 ML IVPB SCH (19:32)
[2017-07-21 22:00] VITALS: BP 172/78; PULSE 116; RESP 20
--- NOTE | 2017-07-22 08:09 | DS ---
Date/Time of Note Date/Time of Note DATE: 07/22/17 TIME: 08:06 Discharge Summary Admission/Discharge Info Admit Date/Time Discharge Date/Time Discharge Diagnosis sepsis, likely from infected decubs Patient Condition: Guarded Consults none Hx of Present Illness 66 yo M with pmhx PSA, hepatitis C, very well known to me from multiple previous hospitalizations the most recent of which was from .-07.11 for acute on chronic back pain, pt underwent laminectomy and fusion on 05.26. Hospital stay c/b L buttock lesion for which he underwent debridement on 06.06. Also SI for which he was seen by telepsych twice, the last time on 05.30. Plan at end of May had been to discharge pt tp a SNF, however 2/2 insurance related constraints, no SNF could be found. Pt got agressive PT in the hospital and was discharged to a sober living on 07.11. Per elisha notes, pt left facility shortly thereafter and has been homeless since. Pt found today by ELISHA and nursing supervisor boat outfitting disheveled on hospital property and he was taken to the ER for further eval. Found to be febrile with leukocytosis, most likely from his chronic decub ulcers. When I saw him in the ER pt states things have been doing just fine since he was discharged. However he had been changed into paper scrubs by the ER staff as his clothes were so soiled Hospital Course Notes reviewed, pt left AMA at 11pm. Hospitalist service was not notified of patient's departure. Home Meds Discontinued Reported Medications Allopurinol* (Allopurinol*) Unknown Strength Tablet, PO BID, TAB 05/16/17 Aspirin* (Aspirin* EC) 81 Mg Tablet.dr, 81 MG PO DAILY, TAB 05/16/17 Gabapentin* (Gabapentin*) 300 Mg Capsule, 300 MG PO TID, #90 CAP 05/16/17 Discontinued Scripts Clotrimazole (Clotrim) 15 Gm Cr, 1 APPLIC TOP BID, #1 Prov:INNA ASCENCIO S. 07/11/17 Metformin* (Glucophage*) 850 Mg Tablet, 850 MG GTB BID WITH MEALS, #60 TAB 3 Refills Prov:INNA ASCENCIO S. 07/11/17 Loperamide Hcl* (Loperamide Hcl*) 2 Mg Cap, 2 MG PO Q6 Y for DIARRHEA, #14 CAP Prov:INNA ASCENCIO S. 07/11/17 Mirtazapine* (Mirtazapine*) 15 Mg Tablet, 15 MG PO HS, #30 TAB 3 Refills Prov:INNA ASCENCIO S. 07/11/17 Paroxetine Hcl* (Paroxetine*) 10 Mg Tablet, 10 MG PO DAILY, #30 TAB 3 Refills Prov:INNA ASCENCIO S. 07/11/17 Collagenase* (Santyl*) 30 Gm Oint..gm., 1 APPLIC TOP DAILY for 7 Days apply to buttock wounds Prov:ERIC HORN MD 05/09/17 Primary Care Provider Care Physician No Primary Pending Labs Laboratory Tests Test 07/21/17 14:25 07/21/17 14:53 07/21/17 15:30 07/21/17 16:00 White Blood Count 11.510^3/ul (4.8-10.8) Red Blood Count 3.4310^6/ul (4.70-6.10) Hemoglobin 10.3g/dl (14.0-18.0) Hematocrit 30.1% (42.0-52.0) Mean Corpuscular Volume 87.8fl (82.0-101.0) Mean Corpuscular Hemoglobin 30.0pg (29.0-33.0) Mean Corpuscular Hemoglobin Concent 34.2g/dl (32.0-37.0) Red Cell Distribution Width 15.7% (11.5-14.5) Platelet Count 66589^3/UL (140-415) Mean Platelet Volume 9.7fl (7.4-10.4) Neutrophils % 53.5% (39.0-77.0) Lymphocytes % 30.4% (15.0-51.0) Monocytes % 13.1% (0.0-11.0) Eosinophils % 2.4% (0.0-7.0) Basophils % 0.3% (0.0-2.0) Nucleated Red Blood Cells % 0.0/100WBC (0.0-0.0) Neutrophils # (Manual) 6.110^3/ul (1.7-7.5) Lymphocytes # 3.510^3/ul (0.8-2.9) Monocytes # 1.510^3/ul (0.3-0.9) Eosinophils # 0.310^3/ul (0.0-0.5) Basophils # 0.010^3/ul (0.0-0.1) Nucleated Red Blood Cells # 0.010^3/ul (0.0-0.0) Sodium Level 136mmol/L (135-144) Potassium Level 3.2mmol/L (3.5-5.1) Chloride Level 106mmol/L (97-110) Carbon Dioxide Level 24mmol/L (21-31) Anion Gap 9 (8-16) Blood Urea Nitrogen 9mg/dl (7-20) Creatinine 0.63mg/dl (0.61-1.24) Glucose Level 153mg/dl (70-220) Calcium Level 8.5mg/dl (8.4-10.2) Total Bilirubin 0.5mg/dl (0.2-1.3) Direct Bilirubin 0.00mg/dl (0.00-0.20) Indirect Bilirubin 0.5mg/dl (0-1.1) Aspartate Amino Transf (AST/SGOT) 50IU/L (15-46) Alanine Aminotransferase (ALT/SGPT) 37IU/L (13-69) Alkaline Phosphatase 107IU/L (42-121) Total Protein 7.7g/dl (6.1-8.1) Albumin 3.1g/dl (3.3-4.9) Globulin 4.60g/dl (1.3-3.2) Albumin/Globulin Ratio 0.67 Salicylates Level < 1.0mg/dl (5.0-30.0) Acetaminophen Level < 10.0ug/ml (10.0-30.0) Ethyl Alcohol Level < 10.0mg/dl Urine Color RALPH (YELLOW) Urine Clarity CLEAR (CLEAR) Urine pH 5.0 (5.0-9.0) Urine Specific [place] 1.026 (1.003-1.030) Urine Ketones NEGATIVEmg/dL (NEGATIVE) Urine Nitrite NEGATIVEmg/dL (NEGATIVE) Urine Bilirubin 1+mg/dL (NEGATIVE) Urine Urobilinogen 2+mg/dL (NEGATIVE) Urine Leukocyte Esterase NEGATIVELeu/ul (NEGATIVE) Urine Microscopic RBC 2/HPF (0-5) Urine Microscopic WBC 1/HPF (0-5) Urine Hemoglobin NEGATIVEmg/dL (NEGATIVE) Urine Glucose 1+mg/dL (NEGATIVE) Urine Total Protein 1+mg/dl (NEGATIVE) Urine Opiates Screen Positive (NEGATIVE) Urine Barbiturates Negative (NEGATIVE) Urine Amphetamines Screen POSITIVE (NEGATIVE) Urine Benzodiazepines Screen Negative (NEGATIVE) Urine Cocaine Screen Positive (NEGATIVE) Urine Cannabinoids Positive (NEGATIVE) Prothrombin Time 17.0Sec (12.2-14.2) Prothrombin Time Ratio 1.3 INR International Normalized Ratio 1.38 Activated Partial Thromboplast Time 31.7Sec (25.0-35.0) Lactic Acid Level 2.5mmol/L (0.5-2.0) Troponin I < 0.012ng/ml (0.00-0.12) Lipase 443U/L (23-300) Blood Gas Specimen Source Blood arterial Arterial Blood Date Drawn 07/21/2017 4:17:00 PM Arterial Blood pH (Temp corrected) 7.420 (7.350-7.450) Arterial Blood pCO2 (Temp correct) 34.9mmhg (35-45) Arterial Blood pO2 (Temp corrected) 100.9mmHG (80-100.0) Arterial Blood HCO3 22.1mmol/L (22.0-26.0) Arterial Blood Base Excess -1.9mmol/L (-3.0-3) Arterial Blood Oxygen Saturation 96.9mmHG (95.0-98.0) Cy Test ACCEPTAB Arterial Blood Gas Puncture Site Right Radial Arterial Blood Carboxyhemoglobin 0.1% (0.0-3.0) Arterial Blood Methemoglobin 0.3% (0.0-1.5) Blood Gas A-a O2 Differential 50.3mmHg (7.0-24.0) Oxyhemoglobin Percent 96.5% (93.0-99.0) Total Hemoglobin 10.4g/dl (12.0-18.0) Blood Gas Temperature 37.0C Blood Gas Modality NASAL CANNULA FiO2 27.0% Blood Gas Notified Whom Florecita Blood Gas Notified Time 07/21/2017 4:26:00 PM Test 07/21/17 18:15 Lactic Acid Level 1.7mmol/L (0.5-2.0) ERIC HORN MD Jul 22, 2017 08:09
[2017-07-22] MEDS ORDERED: ENOXAPARIN 40 MG/0.4 ML SYG SC SCH (09:00)
== END 2017-07-21 22:11 | disposition left against medical advice (07) ==
LOC: E/R 13:58
DX: G93.40 Encephalopathy, unspecified (principal); R40.2252 Coma scale, best verbal response, oriented, at arrival to emergency department; A41.9 Sepsis, unspecified organism; L89.90 Pressure ulcer of unspecified site, unspecified stage; F15.10 Other stimulant abuse, uncomplicated; F14.10 Cocaine abuse, uncomplicated; F11.921 Opioid use, unspecified with intoxication delirium; I10 Essential (primary) hypertension; R40.2142 Coma scale, eyes open, spontaneous, at arrival to emergency department; R40.2362 Coma scale, best motor response, obeys commands, at arrival to emergency department; Z87.891 Personal history of nicotine dependence; Z79.82 Long term (current) use of aspirin; Z79.84 Long term (current) use of oral hypoglycemic drugs
CPT/HCPCS: 36415; 36600; 71010; 80053; 80306; 80307; 81001; 82803; 83605; 83690; 84484; 85025; 85610; 85730; 87040; 87086; 93005; 94770; 96374; 96375; 99291; J0692; J2543; J3370; J7030